=== PATIENT | male | born 1960 | race Caucasian/White ===

== ENCOUNTER 2019-11-27 07:40 | Inpatient (IN) | payer SELFPAY ==
[2019-11-27] VITALS (45 sets, daily range): BP systolic 106–169; BP diastolic 61–98; PULSE 68–100; RESP 0–49; TEMP 36.4–36.6; O2SAT 91–100; BMI 25.7
--- NOTE | 2019-11-27 08:07 | ED_ITS ---
Entered by Nneka Ramirez, acting as scribe for Kenneth Hays DO Nov 27, 2019 07:40 HPI - SOB/Dyspnea General: Chief Complaint: Shortness of Breath/Dyspnea Stated Complaint: Can not breath Time Seen by Provider: 11/27/19 08:07 History of Present Illness: HPI Narrative: 59 yo male presents with shortness of breath. Pt states that he has had a cough and not getting any better. Pt states that he has been sick for a week. Pt denies a productive cough. Pt has been seen at Urgent care, got some medications and an inhaler. Pt states that he passed out twice yesterday. Pt states that he has been dizzy. Pt has a laceration on the back of his head from passing out. MD elicited complaint: shortness of breath Associated symptoms: Reports abdominal pain, dizziness, extremity pain, fever(s), nausea, palpitations and syncope; Deny chest pain, orthopnea, polydipsia, polyuria or vomiting Review of Systems Const: Reports: fever, chills, body aches, fatigue and malaise; Denies: night sweats Eyes: Reports: change in vision; Denies: blurry vision ENMT: Denies: throat pain, oral sores/lesions, dental pain, nasal discharge or nasal congestion Card: Reports: palpitations, syncope and shortness of breath on exertion; Denies: chest pain, irregular heart rhythm, edema, shortness of breath when lying down or leg pain with exertion Resp: Reports: shortness of breath and non-productive cough; Denies: productive cough or wheezing GI: Reports: abdominal pain and nausea; Denies: vomiting, vomiting blood, coffee grounds in vomit, difficulty swallowing, heartburn/indigestion, diarrhea, constipation, cramping, blood in stool or black tarry stool : Denies: flank pain, difficulty urinating, painful urination, urinary frequency, urinary urgency, urinary incontinence or blood in urine Musc: Reports: extremity pain; Denies: neck pain, back pain, extremity swelling, joint pain or joint swelling Skin/Breast: Reports: other (laceration to back of head); Denies: rash, itching or redness Neuro: Reports: difficulty walking and dizziness; Denies: headache, numbness in extremities, weakness in extremities, changes in sensation, lack of coordination, frequent falls, vertigo or confusion Psych: Denies: anxiety, depression, loss of interest, visual hallucinations, auditory hallucinations, suicidal ideation or homicidal ideation Endo: Denies: excessive urination, excessive thirst, tired all the time or cold intolerance Sanchez/Lymph: Denies: easy bruising, easy bleeding, petechiae, enlarged lymph nodes or tender lymph nodes PFSH ED PFSH: Statuses (acute, chronic, etc) shown below reflect problem list status as previously entered and may not be historically accurate Medical History Diabetes (Acute) Hyperlipidemia (Acute) Hypothyroid (Acute) Family History Father Diabetes Social History Smoking and tobacco status: never smoked Alcohol intake: never Substance/Drug Use: never Marital status: Physical Exam Const: COMMON NORMALS: average body habitus and oriented x3 GENERAL APPEARANCE: cooperative, lethargic and ill appearing ORIENTATION/CONSCIOUSNESS: Yes awake, Yes oriented to person, Yes oriented to place and Yes lethargic HENMT: COMMON NORMALS: normocephalic, head/scalp atraumatic, EAC's normal, TM's normal bilaterally, external nose normal, moist oral mucous membranes and oropharynx normal HEAD & SCALP: normocephalic and atraumatic NOSE: external nose normal EXTERNAL AUDITORY CANAL: EAC's normal TYMPANIC MEMBRA NE: TM's normal bilaterally MOUTH: oral and palatal mucosa normal, lip normal and tongue normal THROAT: posterior oropharynx normal and tonsils normal Eye: COMMON NORMALS: PERRL, EOMs intact bilaterally, conjunctivae normal and no scleral icterus CONJUNCTIVA: Yes conjunctivae normal PUPIL: Yes PERRL Neck/C-Spine: COMMON NORMALS: full ROM, no lymphadenopathy, supple, no meningeal signs and thyroid normal THYROID: thyroid normal and asymmetrical Lymph: LYMPHATIC: no lymphadenopathy noted Resp: EFFORT & INSPECTION: No respiratory distress and Yes actively coughing Cardio: COMMON NORMALS: regular rate and regular rhythm RATE: regular rate RHYTHM: regular rhythm HEART SOUNDS: no murmurs GI: COMMON NORMALS: normal to inspection, nondistended, normoactive bowel sounds, soft to palpation and no hepatosplenomegaly PALPATION: Yes soft and Yes no hepatosplenomegaly : COMMON NORMALS: Yes no CVA tenderness BLADDER/KIDNEY EXAM: Yes no CVA tenderness Back/Pelvis: COMMON NORMALS: no CVA tenderness LUMBAR SPINE/LOWER BACK: Yes normal to inspection Extremity: COMMON NORMALS: no clubbing, cyanosis or edema, no calf tenderness and no pedal edema Neuro: COMMON NORMALS: oriented x3 SENSORIUM/ORIENTATION: Yes oriented to person, Yes oriented to place and Yes lethargic MENINGEAL SIGNS: Yes no meningeal signs Skin: COMMON NORMALS: no rashes or lesions noted and skin turgor normal GENERAL SKIN EXAM: no rashes or lesions noted and turgor normal Course ED course: Patient does not have acidosis but he does have an anion gap and some mild hypokalemia as well as hyperglycemia. Hest x-ray is unremarkable but CT did show pneumonia we will go ahead and admit for IV fluids treatment of pneumonia and treatment of hyperglycemia. Vital Signs: Vital signs: Vital Signs Temperature 97.9 F 11/28/19 05:23 Pulse Rate 76 11/28/19 08:00 Respiratory Rate 19 H 11/28/19 08:00 Blood Pressure 136/86 11/28/19 08:00 Pulse Oximetry 97 11/28/19 08:00 MDM - SOB/Dyspnea Lab Data: Labs: Lab Results 11/27/19 11/27/19 11/27/19 Range/Units 08:55 08:56 08:56 WBC 7.4 (4.0-10.0) 10^3/ uL RBC 4.97 (4.1-5.3) 10^6/u L Hgb 15.2 (11.7-16.6) g/dL Hct 43.1 (42.0-52.0) % MCV 86.7 (80-94) fL MCH 30.6 (28.0-34.0) pg MCHC 35.3 (30.0-36.0) g/dL RDW 11.5 L (12.1-15.1) % Plt Count 265 (130-400) 10^3/c mm MPV 9.7 (7.4-10.4) fL Neut % (Auto) 64.8 % Lymph % (Auto) 23.2 % Monona % (Auto) 9.4 % Eos % (Auto) 1.1 % Baso % (Auto) 0.1 % Neut # (Auto) 4.8 (1.8-7.7) 10^3/u L Lymph # (Auto) 1.7 (0.8-4.8) 10^3/u L Monona # (Auto) 0.7 (0.2-0.9) 10^3/u L Eos # (Auto) 0.1 (0.0-0.8) 10^3/u L Baso # (Auto) 0.0 (0.0-0.1) 10^3/u L Nucleated RBC % (a uto) 0 % Nucleated RBCs # 0.0 /100WBC Specimen Type Sample Site O2 Sat Pulse Oxime try ABG pH (7.35-7.45) ABG pCO2 (35-45) mmHg ABG pO2 (80.0-100.0) mmH g ABG HCO3 (22-26) mmol/L ABG O2 Saturation ABG Base Excess (-2.0-2.0) mmol/ L Spike Test A-a O2 Gradient Hematocrit Hgb O2 Saturation Carboxyhemoglobin Methemoglobin Total Hemoglobin Ionized Calcium (1.1-1.4) mmol/L Respiration Rate O2 Delivery Device O2 Liters/Min SIMV Vent Mode Mechanical Rate Spontaneous Rate FiO2 Tidal Volume PEEP Pressure Support Pressure Control CPAP Mode BiPAP Specimen Drawn By Practice Support Specialist ID Crit Value Read Ba ck Blood Gas Notified Time Sodium 128 L (136-145) mmol/L Potassium 4.2 (3.5-5.1) mmol/L Chloride 83 L (98-107) mmol/L Carbon Dioxide 21 L (22-29) mmol/L Anion Gap 28.2 H (5-19) BUN 28 H (6-20) mg/dL Creatinine 1.1 (0.7-1.2) mg/dL GFR Calculation 68.8 L (90-130) mL/min Glucose 467 H (74-109) mg/dL Calcium 10.8 H (8.5-10.5) mg/dL Total Bilirubin 0.7 (0.15-1.2) mg/dL AST 13 (0-40) U/L ALT 13 (0-41) U/L Alkaline Phosphata se 68 (40-130) IU/L Troponin T Baselin e (0-15) ng/mL Troponin T 120 Min table mountain (0-15) ng/mL Delta Troponin T (0-10) ABS# Total Protein 7.5 (6.6-8.7) g/dL Albumin 4.5 (3.5-5.2) g/dL Globulin 3.0 (1.3-4.6) g/dL Lipase 39 (13-60) U/L Serum Ketones (Negative) Influenza Type A A g Negative (Negative) POC Influenza B Ag Negative (Negative) 11/27/19 11/27/19 11/27/19 Range/Units 08:56 08:56 09:50 WBC (4.0-10.0) 10^3/ uL RBC (4.1-5.3) 10^6/u L Hgb (11.7-16.6) g/dL Hct (42.0-52.0) % MCV (80-94) fL MCH (28.0-34.0) pg MCHC (30.0-36.0) g/dL RDW (12.1-15.1) % Plt Count (130-400) 10^3/c mm MPV (7.4-10.4) fL Neut % (Auto) % Lymph % (Auto) % Monona % (Auto) % Eos % (Auto) % Baso % (Auto) % Neut # (Auto) (1.8-7.7) 10^3/u L Lymph # (Auto) (0.8-4.8) 10^3/u L [place] # (Auto) (0.2-0.9) 10^3/u L Eos # (Auto) (0.0-0.8) 10^3/u L Baso # (Auto) (0.0-0.1) 10^3/u L Nucleated RBC % (a uto) % Nucleated RBCs # /100WBC Specimen Type Cancelled Sample Site Cancelled O2 Sat Pulse Oxime try Cancelled ABG pH (7.35-7.45) ABG pCO2 (35-45) mmHg ABG pO2 (80.0-100.0) mmH g ABG HCO3 (22-26) mmol/L ABG O2 Saturation ABG Base Excess (-2.0-2.0) mmol/ L Spike Test Cancelled A-a O2 Gradient Cancelled Hematocrit Cancelled Hgb O2 Saturation Cancelled Carboxyhemoglobin Cancelled Methemoglobin Cancelled Total Hemoglobin Cancelled Ionized Calcium (1.1-1.4) mmol/L Respiration Rate Cancelled O2 Delivery Device Cancelled O2 Liters/Min Cancelled SIMV Cancelled Vent Mode Cancelled Mechanical Rate Cancelled Spontaneous Rate Cancelled FiO2 Cancelled Tidal Volume Cancelled PEEP Cancelled Pressure Support Cancelled Pressure Control Cancelled CPAP Cancelled Mode BiPAP Cancelled Specimen Drawn By Cancelled Practice Support Specialist ID Cancelled Crit Value Read Ba ck Cancelled Blood Gas Notified Time Cancelled Sodium (136-145) mmol/L Potassium (3.5-5.1) mmol/L Chloride (98-107) mmol/L Carbon Dioxide (22-29) mmol/L Anion Gap (5-19) BUN (6-20) mg/dL Creatinine (0.7-1.2) mg/dL GFR Calculation (90-130) mL/min Glucose (74-109) mg/dL Calcium (8.5-10.5) mg/dL Total Bilirubin (0.15-1.2) mg/dL AST (0-40) U/L ALT (0-41) U/L Alkaline Phosphata se (40-130) IU/L Troponin T Baselin e 14 (0-15) ng/mL Troponin T 120 Min table [place] (0-15) ng/mL Delta Troponin T (0-10) ABS# Total Protein (6.6-8.7) g/dL Albumin (3.5-5.2) g/dL Globulin (1.3-4.6) g/dL Lipase (13-60) U/L Serum Ketones Positive H (Negative) Influenza Type A A g (Negative) POC Influenza B Ag (Negative) 11/27/19 11/27/19 Range/Units 09:50 11:00 WBC (4.0-10.0) 10^3/ uL RBC (4.1-5.3) 10^6/u L Hgb (11.7-16.6) g/dL Hct (42.0-52.0) % MCV (80-94) fL MCH (28.0-34.0) pg MCHC (30.0-36.0) g/dL RDW (12.1-15.1) % Plt Count (130-400) 10^3/c mm MPV (7.4-10.4) fL Neut % (Auto) % Lymph % (Auto) % Monona % (Auto) % Eos % (Auto) % Baso % (Auto) % Neut # (Auto) (1.8-7.7) 10^3/u L Lymph # (Auto) (0.8-4.8) 10^3/u L [place]ona # (Auto) (0.2-0.9) 10^3/u L Eos # (Auto) (0.0-0.8) 10^3/u L Baso # (Auto) (0.0-0.1) 10^3/u L Nucleated RBC % (a uto) % Nucleated RBCs # /100WBC Specimen Type Arterial Sample Site Rr O2 Sat Pulse Oxime try ABG pH 7.34 L (7.35-7.45) ABG pCO2 36.4 (35-45) mmHg ABG pO2 64.2 L (80.0-100.0) mmH g ABG HCO3 17.6 L (22-26) mmol/L ABG O2 Saturation 91 ABG Base Excess -7.1 L (-2.0-2.0) mmol/ L Spike Test Pos A-a O2 Gradient 43.1 H Hematocrit 41.6 L Hgb O2 Saturation 89.7 L Carboxyhemoglobin 0.4 Methemoglobin 1.0 Total Hemoglobin 13.6 L Ionized Calcium 1.2 (1.1-1.4) mmol/L Respiration Rate O2 Delivery Device Ra O2 Liters/Min SIMV Vent Mode Mechanical Rate Spontaneous Rate FiO2 21.0 Tidal Volume PEEP Pressure Support Pressure Control CPAP Mode BiPAP Specimen Drawn By Gd Practice Support Specialist ID Gd Crit Value Read Ba ck Blood Gas Notified Time Sodium 136.0 (136-145) mmol/L Potassium 3.7 (3.5-5.1) mmol/L Chloride (98-107) mmol/L Carbon Dioxide (22-29) mmol/L Anion Gap (5-19) BUN (6-20) mg/dL Creatinine (0.7-1.2) mg/dL GFR Calculation (90-130) mL/min Glucose 375.0 H (74-109) mg/dL Calcium (8.5-10.5) mg/dL Total Bilirubin (0.15-1.2) mg/dL AST (0-40) U/L ALT (0-41) U/L Alkaline Phosphata se (40-130) IU/L Troponin T Baselin e (0-15) ng/mL Troponin T 120 Min [place] 10.62 (0-15) ng/mL Delta Troponin T -3.38 L (0-10) ABS# Total Protein (6.6-8.7) g/dL Albumin (3.5-5.2) g/dL Globulin (1.3-4.6) g/dL Lipase (13-60) U/L Serum Ketones (Negative) Influenza Type A A g (Negative) POC Influenza B Ag (Negative) Imaging Data^: CXR: Radiologist's impression: Patient: Raz Dewey Unit #: [id number] : 1960 Age/Sex: 59 / M ADM Date: 11/27/19 Loc: ER Room/Bed: Attending Dr: Ordering Provider/Ordering MD: Kenneth Hays DO Date of Service: 11/27/19 Procedure(s): XR chest 1V portable [id number] Accession Number(s): [id number] Report Number: [id number] PROCEDURE INFORMATION: Exam: XR Chest, 1 View Exam date and time: 11/27/2019 8:51 AM Age: 59 years old Clinical indication: Dyspnea; Additional info: Dyspnea, sick x1 week TECHNIQUE: Imaging protocol: XR of the chest Views: 1 view. COMPARISON: No relevant prior studies available. FINDINGS: Lungs: Mild interstitial prominence and chronic granulomatous disease. No acute infiltrate. Pleural space: No pleural effusion. Heart/Mediastinum: No cardiomegaly. Bones/joints: Degenerative change. XR/XR chest 1V portable [id number] IMPRESSION: Mild interstitial prominence and chronic granulomatous disease. Dictated By: Lg Barcenas MD Signed By: Lg Barcenas MD Signed Date/Time: 11/27/19929 DD/ 8 CT Chest: Radiologist's impression: : 1960 Age/Sex: 59 / M ADM Date: 11/27/19 Loc: ER Room/Bed: Attending Dr: Ordering Provider/Ordering MD: Kenneth Hays DO Date of Service: 11/27/19 Procedure(s): CT angio chest PE protcl [id number] Accession Number(s): [id number] Report Number: [id number] WS: [id number] CT CHEST ANGIOGRAPHY WITH REFORMATS HISTORY: hypoxia TECHNIQUE: Contiguous axial images are obtained through the chest during arterial injection of intravenous contrast. Images are reconstructed to evaluate the pulmonary arteries. MIP imaging also reviewed. All CT scans at [facility] use at least one of these dose optimization techniques: automated exposure control; mA and/or kV adjustment per patient size (includes targeted exams where dose is matched to clinical indication); or iterative reconstruction. CONTRAST: Omnipaque 350; 95 mL IV. DLP: 505.54 mGy.cm COMPARISON: None available. Excellent opacification of the pulmonary arteries. There are no filling defects. Normal size pulmonary artery. Normal thoracic aorta with only mild atherosclerotic changes. No aneurysm. No pericardial or pleural effusions. Benign scattered granulomata. Pneumonia noted in the medial LEFT lower lung field. There are additional dependent changes at the lung bases. No suspicious mass. No mediastinal or hilar adenopathy. Small hiatal hernia. Mild hepatic steatosis. Gallbladder is moderately well distended without adjacent inflammation. No adrenal mass. Mild increase in thoracic kyphosis. CT/CT angio chest PE protcl [id number] IMPRESSION: 1. No pulmonary embolism. 2. LEFT lower lobe pneumonia. 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
--- NOTE | 2019-11-27 08:11 | PC.NURSE ---
Patient c/o weakness, cough, fatigue, Patient started getting sick about 10 days ago and is not getting any better.
--- NOTE | 2019-11-27 08:36 | XRR_ITS ---
PROCEDURE INFORMATION: Exam: XR Chest, 1 View Exam date and time: 11/27/2019 8:51 AM Age: 59 years old Clinical indication: Dyspnea; Additional info: Dyspnea, sick x1 week TECHNIQUE: Imaging protocol: XR of the chest Views: 1 view. COMPARISON: No relevant prior studies available. FINDINGS: Lungs: Mild interstitial prominence and chronic granulomatous disease. No acute infiltrate. Pleural space: No pleural effusion. Heart/Mediastinum: No cardiomegaly. Bones/joints: Degenerative change. XR/XR chest 1V portable [id number] IMPRESSION: Mild interstitial prominence and chronic granulomatous disease.
--- NOTE | 2019-11-27 08:36 | PC.NURSE ---
Report received from Mathew Mahoney RN
[2019-11-27] MEDS: ipratropium-albuterol 3 mL Neb INHALATION (08:53)
--- NOTE | 2019-11-27 08:56 | ECG_ITS ---
Measurements Intervals [place] Rate: 89 P: 31 SD: 136 QRS: 34 QRSD: 96 T: 44 QT: 364 QTc: 445 SINUS RHYTHM No previous ECG available for comparison Electronically Signed On 11-27-2019 15:34:02 CLINICAL REVIEW NURSE by Xochitl Hess M.D. [email or web address]
[2019-11-27] MEDS: sodium chloride 0.9% 1,000 ML 999 ML IV ×3 (09:00→12:13)
[2019-11-27 09:07] LABS: Basophils % 0.1 %; Eosinophils # 0.1 10^3/uL (0.0-0.8); Eosinophils % 1.1 %; Hematocrit 43.1 % (42.0-52.0); Hemoglobin 15.2 g/dL (11.7-16.6); Lymphocytes # 1.7 10^3/uL (0.8-4.8); Lymphocytes % 23.2 %; Mean Corpuscular HGB Conc 35.3 g/dL (30.0-36.0); Mean Corpuscular Hemoglobin 30.6 pg (28.0-34.0); Mean Corpuscular Volume 86.7 fL (80-94); Mean Platelet Volume 9.7 fL (7.4-10.4); Monocytes # 0.7 10^3/uL (0.2-0.9); Monocytes % 9.4 %; Neutrophils # 4.8 10^3/uL (1.8-7.7); Neutrophils % 64.8 %; Nucleated Red Blood Cells % 0 %; Platelet Count 265 10^3/cmm (130-400); Red Blood Count 4.97 10^6/uL (4.1-5.3); Red Cell Distribution Width 11.5 % (12.1-15.1); White Blood Count 7.4 10^3/uL (4.0-10.0)
[2019-11-27 09:18] LABS: Alanine Aminotransferase 13 U/L (0-41); Albumin Level 4.5 g/dL (3.5-5.2); Alkaline Phosphatase 68 IU/L (40-130); Anion Gap 28.2 (5-19); Aspartate Amino Transferase 13 U/L (0-40); Blood Urea Nitrogen 28 mg/dL (6-20); Calcium 10.8 mg/dL (8.5-10.5); Carbon Dioxide 21 mmol/L (22-29); Chloride 83 mmol/L (98-107); Glomerular Filtration Rate 68.8 mL/min (90-130); Glucose 467 mg/dL (74-109); Lipase 39 U/L (13-60); Potassium 4.2 mmol/L (3.5-5.1); Sodium 128 mmol/L (136-145); Total Bilirubin 0.7 mg/dL (0.15-1.2); Total Protein 7.5 g/dL (6.6-8.7)
[2019-11-27 09:20] LABS: Troponin(5th) Baseline 14 ng/mL (0-15)
[2019-11-27 09:31] LABS: Influenza A by IFA Negative (Negative); Influenza B by IFA Negative (Negative)
[2019-11-27 10:06] LABS: Ketone (Acetest) Serum Positive (Negative)
--- NOTE | 2019-11-27 10:20 | CT_ITS ---
WS: [id number] CT CHEST ANGIOGRAPHY WITH REFORMATS HISTORY: hypoxia TECHNIQUE: Contiguous axial images are obtained through the chest during arterial injection of intrav enous contrast. Images are reconstructed to evaluate the pulmonary arteries. MIP imaging also reviewe d. All CT scans at [facility] use at least one of these dose optimization techniques: aut omated exposure control; mA and/or kV adjustment per patient size (includes targeted exams where dose is matched to clinical indication); or iterative reconstruction. CONTRAST: Omnipaque 350; 95 mL IV. DLP: 505.54 mGy.cm COMPARISON: None available. Excellent opacification of the pulmonary arteries. There are no filling defects. Normal size pulmonar y artery. Normal thoracic aorta with only mild atherosclerotic changes. No aneurysm. No pericardial o r pleural effusions. Benign scattered granulomata. Pneumonia noted in the medial LEFT lower lung field. There are additional dependent changes at the mignon ng bases. No suspicious mass. No mediastinal or hilar adenopathy. Small hiatal hernia. Mild hepatic steatosis. Gallbladder is moderately well distended without adjacent inflammation. No ad renal mass. Mild increase in thoracic kyphosis. CT/CT angio chest PE protcl [id number] IMPRESSION: 1. No pulmonary embolism. 2. LEFT lower lobe pneumonia.
[2019-11-27] MEDS: iohexol 350 mg/mL 100 mL Btl IV (10:43)
[2019-11-27] MEDS: sodium chlor 0.9% + KCl 20 mEq 20 MEQ/1,000 ML BAG 125 MEQ IV (10:57)
[2019-11-27] MEDS: insulin regular-human 100 units/1 mL 10 UNIT IVP (10:57)
[2019-11-27] MEDS: insulin regular-human 250 UNIT in sodium chloride 0.9% 250 ML 60.6 UNIT IV (11:00)
[2019-11-27 11:21] LABS: Troponin 5 2HR 10.62 ng/mL (0-15)
[2019-11-27 11:38] LABS: Troponin 5 2HR Delta -3.38 ABS# (0-10)
--- NOTE | 2019-11-27 11:46 | PC.NURSE ---
BS taken at bedside, 292. Dr Herzog at bedside. VO received to start D5NS with 20mEq KCL at 100 when pt BS is below 250.
[2019-11-27 11:47] LABS: Glucose Point of Care 292 mg/dL (70-110)
[2019-11-27 11:51] LABS: ABG PCO2 36.4 mmHg (35-45); ABG PH Result 7.34 (7.35-7.45); Base Excess ABG -7.1 mmol/L (-2.0-2.0); HCO3 ABG 17.6 mmol/L (22-26); Oxygen Saturation ABG 91; PO2 ABG 64.2 mmHg (80.0-100.0)
[2019-11-27 11:52] LABS: Arterial Blood Gas Hematocrit 41.6 % (42-52); Blood Gas Allen Test POS; Blood Gas Drawn By GD; Blood Gas Operator Identificat GD; Blood Gas Sample Site RR; Blood Gas Sample Type ARTERIAL; Oxygen Device RA; Potassium Level - ABG 3.7 mmol/L (3.5-5.0)
[2019-11-27 11:53] LABS: Alveolar-Arterial Oxygen Gradi 43.1 mmHg (5-10); Carboxyhemoglobin 0.4 %THgb (0.4-20.1); HGB O2 Sat 89.7 % (95-100); Ionized Calcium Level - ABG 1.2 mmol/L (1.1-1.4); Total Hemoglobin 13.6 g/dL (14-18)
[2019-11-27] MEDS: levofloxacin-dextrose 5 % 750 MG/150 ML PREMIX 150 MG IV (12:13)
[2019-11-27 12:47] LABS: Anion Gap 23.6 (5-19); Blood Urea Nitrogen 23 mg/dL (6-20); Calcium 9.2 mg/dL (8.5-10.5); Carbon Dioxide 17 mmol/L (22-29); Chloride 95 mmol/L (98-107); Glomerular Filtration Rate 99.3 mL/min (90-130); Glucose 298 mg/dL (74-109); Osmolality Calculated 282 mOsm/kg (285-295); Potassium 3.6 mmol/L (3.5-5.1); Sodium 132 mmol/L (136-145)
--- NOTE | 2019-11-27 12:55 | P.HP_ITS ---
Providers/Chief Complaint Admitting Physician: Keren Herzog DO Primary Care Provider: None Chief Complaint: Can not breath History of Present Illness Raz Dewey is a 59 year old male that presented to the emergency department today for not feeling well. He stated that he has had increased fatigue and lethargy as well as increased cough over the past 1 week. He reports dry cough, no sputum production, no hemoptysis. Reports that he has been increasingly weak with lightheadedness and dizziness. Reported that he passed out twice while urinating over the past 24 hours, denies any loss of consciousness but reported by his significant other that he was in the bathroom and collapsed to the ground. Patient reports that he has been diagnosed with diabetes in the past bu t does not have a primary care provider and does not take anything for his blood sugars. Stated that his blood sugars typically run in the 300-400 range, he reported that he has been on insulin in the past but it did not work he stated that he was on metformin and Actos in the past also but it caused upset stomach therefore he stopped taking the medication. Review of Systems Const: Reports: fever; Denies: chills Eyes: Denies: change in vision ENMT: Denies: nasal congestion Card: Denies: chest pain, palpitations or edema Resp: Reports: shortness of breath and non-productive cough; Denies: productive cough or coughing up blood GI: Reports: nausea; Denies: abdominal pain, vomiting, diarrhea, constipation, blood in stool or black tarry stool : Denies: painful urination or blood in urine Musc: Denies: extremity pain or muscle cramps Skin/Breast: Denies: rash or new lesion Neuro: Reports: dizziness; Denies: headache Psych: Denies: anxiety or depression Endo: Reports: excessive urination; Denies: hot flashes Sanchez/Lymph: Denies: easy bruising or easy bleeding Medications/Allergies Home Medications Medication Instructions Recorded Confirmed Last Taken Type Probiotic 1 cap PO DAILY 11/27/19 11/27/19 Unknown History albuterol sulfate [ProAir HFA] 1 puff INHALATION Q6H PRN 11/27/19 11/27/19 11/26/19 History doxycycline hyclate 100 mg PO BID 11/27/19 11/27/19 11/26/19 History multivitamin [Multiple Vitamins] 1 tab PO DAILY 11/27/19 11/27/19 Unknown History prednisone 40 mg PO DAILY 11/27/19 11/27/19 11/26/19 History Allergies Allergy/AdvReac Type Severity Reaction Status Date / Time meperidine [From Demerol] Allergy Unknown Verified 11/27/19 09:48 PFSH Acute PFSH: Statuses (acute, chronic, etc) shown below reflect problem list status as previously entered and may not be historically accurate Medical History (Updated 11/27/19 @ 13:01 by Keren Herzog DO) Diabetes (Acute) Hyperlipidemia (Acute) Hypothyroid (Acute) Family History (Updated 11/27/19 @ 13:02 by Keren Herzog DO) Father Diabetes Social History (Updated 11/27/19 @ 13:02 by Keren Herzog DO) Smoking and tobacco status: never smoked Alcohol intake: never Substance/Drug Use: never Marital status: Vitals/I&O/Wt Last Vital Signs Temp 97.6 F 11/27/19 08:01 Pulse 91 11/27/19 11:00 Resp 18 11/27/19 11:45 BP 169/91 11/27/19 11:00 Pulse Ox 95 11/27/19 11:45 11/26/19 11/27/19 11/27/19 22:59 06:59 14:59 Intake Total 2158.333 / 2158.333 Balance 2158.333 / 2158.333 Weight last 48 hrs Weight 83.915 kg Physical Exam Const: COMMON NORMALS: oriented x3 and alert ORIENTATION/CONSCIOUSNESS: Yes awake, Yes oriented to person, Yes oriented to place and Yes oriented to time HENMT: COMMON NORMALS: normocephalic and head/scalp atraumatic HEAD & SCALP: normocephalic and atraumatic Eye: COMMON NORMALS: PERRL PUPIL: Yes PERRL Neck/C-Spine: COMMON NORMALS: supple GENERAL: Yes normal visual inspection Resp: EFFORT & INSPECTION: Yes tachypneic and Yes actively coughing AUSCULTATION: rhonchi Cardio: COMMON NORMALS: regular rate, regular rhythm and no murmurs RATE: regular rate RHYTHM: regular rhythm GI: COMMON NORMALS: soft to palpation and non-tender INSPECTION: No abdomin al distension AUSCULTATION: Yes normoactive bowel sounds PALPATION: Yes soft Extremity: COMMON NORMALS: no clubbing, cyanosis or edema and no calf tenderness Neuro: COMMON NORMALS: oriented x3, CN's II-XII intact bilaterally, moves all extremities and no focal motor deficits SENSORIUM/ORIENTATION: Yes alert, Yes oriented to person, Yes oriented to place and Yes oriented to time SPEECH: speech normal Psych: COMMON NORMALS: mental status grossly normal and cooperative Skin: COMMON NORMALS: no rashes or lesions noted GENERAL SKIN EXAM: no rashes or lesions noted Data : 11/27/19 08:56 11/27/19 12:20 CTA Chest: Radiologist's impression: IMPRESSION: 1. No pulmonary embolism. 2. LEFT lower lobe pneumonia CXR: Radiologist's impression: IMPRESSION: Mild interstitial prominence and chronic granulomatous disease. A&P Assessment and plan (1) DKA, type 2: Patient with DKA Admit to ICU on insulin drip Continue with serial BMPs, transition to subcutaneous insulin when appropriate Patient has been off of all diabetic medications for quite some time, will check A1c Continue with aggressive IV fluids, transition to D5 NS with 20 of KCl when blood glucose less than 250 Status: Acute Code(s): E11.10 - Type 2 diabetes mellitus with ketoacidosis without coma (2) Diabetes: Discussed with patient that he will require subcutaneous insulin at time of discharge Status: Acute Code(s): E11.9 - Type 2 diabetes mellitus without complications (3) Pneumonia: We will continue with IV Levaquin at this time. Patient has been on outp atient antibiotics and failed outpatient treatment Status: Acute Code(s): J18.9 - Pneumonia, unspecified organism (4) Hypothyroid: Will check TSH, patient denies being on any thyroid replacement Status: Acute Code(s): E03.9 - Hypothyroidism, unspecified Attestations Medical Necessity Statement*: Patient requires ICU admission due to diabetic ketoacidosis and pneumonia, expected stay greater than 2 midnights. 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
[2019-11-27 13:45] LABS: Glucose Point of Care 285 mg/dL (70-110)
[2019-11-27 14:10] LABS: Glucose Point of Care 261 mg/dL (70-110)
--- NOTE | 2019-11-27 14:56 | ECG_ITS ---
Measurements Intervals [place] Rate: 92 P: 29 TN: 132 QRS: 38 QRSD: 98 T: 60 QT: 351 QTc: 435 SINUS RHYTHM NONSPECIFIC T-WAVE ABNORMALITY No previous ECG available for comparison Electronically Signed On 11-27-2019 15:37:35 [employer] ARCHITECT by Xochitl Hess M.D. [id number]
[2019-11-27 15:20] LABS: Glucose Point of Care 259 mg/dL (70-110)
[2019-11-27 15:21] LABS: Estmated Average Glucose 346; Hemoglobin A1C 13.7 % (4.0-6.0)
[2019-11-27 15:23] LABS: Anion Gap 22.5 (5-19); Blood Urea Nitrogen 21 mg/dL (6-20); Calcium 9.4 mg/dL (8.5-10.5); Carbon Dioxide 19 mmol/L (22-29); Chloride 96 mmol/L (98-107); Glomerular Filtration Rate 99.3 mL/min (90-130); Glucose 274 mg/dL (74-109); Osmolality Calculated 284 mOsm/kg (285-295); Potassium 3.5 mmol/L (3.5-5.1); Sodium 134 mmol/L (136-145)
[2019-11-27 15:25] LABS: Troponin 5 6HR 12.45 ng/L (0-15)
[2019-11-27] MEDS: enoxaparin 40 mg/0.4 mL Syringe SUBCUT (15:30)
[2019-11-27] MEDS: dextrose 5%-ns + KCl 20 20 MEQ/1,000 ML BAG 150 MEQ IV ×2 (15:31→21:59)
[2019-11-27 15:33] LABS: Thyroid Stimulating Hormone 1.41 uIU/mL (0.27-4.20)
[2019-11-27 15:37] LABS: Troponin 5 6HR Delta -1.55 ng/L (0-12)
[2019-11-27 16:07] LABS: Glucose Point of Care 249 mg/dL (70-110)
[2019-11-27 17:03] LABS: Glucose Point of Care 248 mg/dL (70-110)
[2019-11-27 18:01] LABS: Glucose Point of Care 252 mg/dL (70-110)
[2019-11-27 19:04] LABS: Glucose Point of Care 199 mg/dL (70-110)
[2019-11-27 20:37] LABS: Anion Gap 15.5 (5-19); Blood Urea Nitrogen 17 mg/dL (6-20); Calcium 9.4 mg/dL (8.5-10.5); Carbon Dioxide 25 mmol/L (22-29); Chloride 98 mmol/L (98-107); Creatinine Clr Calc Pharmacy 128.1185; Glomerular Filtration Rate 115.8 mL/min (90-130); Glucose 218 mg/dL (74-109); Osmolality Calculated 283 mOsm/kg (285-295); Potassium 3.5 mmol/L (3.5-5.1); Sodium 135 mmol/L (136-145)
--- NOTE | 2019-11-27 21:17 | PC.NURSE ---
TITRATING INSULIN DRIP ON PAPER.
[2019-11-27 22:05] LABS: Glucose Point of Care 165 mg/dL (70-110)
[2019-11-27 22:05] LABS: Glucose Point of Care 183 mg/dL (70-110)
[2019-11-27 22:05] LABS: Glucose Point of Care 132 mg/dL (70-110)
[2019-11-27 23:17] LABS: Glucose Point of Care 109 mg/dL (70-110)
[2019-11-28] VITALS (27 sets, daily range): BP systolic 123–177; BP diastolic 76–104; PULSE 70–106; RESP 3–24; TEMP 36.5–36.8; O2SAT 94–100
[2019-11-28 00:08] LABS: Glucose Point of Care 109 mg/dL (70-110)
[2019-11-28 00:46] LABS: Anion Gap 16.5 (5-19); Blood Urea Nitrogen 15 mg/dL (6-20); Calcium 9.4 mg/dL (8.5-10.5); Carbon Dioxide 25 mmol/L (22-29); Chloride 98 mmol/L (98-107); Creatinine Clr Calc Pharmacy 128.1185; Glomerular Filtration Rate 115.8 mL/min (90-130); Glucose 130 mg/dL (74-109); Osmolality Calculated 280 mOsm/kg (285-295); Potassium 3.5 mmol/L (3.5-5.1); Sodium 136 mmol/L (136-145)
[2019-11-28 01:38] LABS: Glucose Point of Care 116 mg/dL (70-110)
[2019-11-28 02:26] LABS: Glucose Point of Care 106 mg/dL (70-110)
[2019-11-28 04:55] LABS: Basophils % 0.1 %; Eosinophils # 0.1 10^3/uL (0.0-0.8); Eosinophils % 0.6 %; Hematocrit 36.5 % (42.0-52.0); Hemoglobin 12.9 g/dL (11.7-16.6); Lymphocytes % 23.8 %; Mean Corpuscular HGB Conc 35.3 g/dL (30.0-36.0); Mean Corpuscular Hemoglobin 30.5 pg (28.0-34.0); Mean Corpuscular Volume 86.3 fL (80-94); Mean Platelet Volume 9.8 fL (7.4-10.4); Monocytes # 0.8 10^3/uL (0.2-0.9); Monocytes % 9.6 %; Neutrophils # 5.5 10^3/uL (1.8-7.7); Neutrophils % 65.1 %; Nucleated Red Blood Cells % 0 %; Platelet Count 219 10^3/cmm (130-400); Red Blood Count 4.23 10^6/uL (4.1-5.3); Red Cell Distribution Width 11.2 % (12.1-15.1); White Blood Count 8.5 10^3/uL (4.0-10.0)
[2019-11-28 05:05] LABS: Alanine Aminotransferase 9 U/L (0-41); Albumin Level 3.4 g/dL (3.5-5.2); Alkaline Phosphatase 48 IU/L (40-130); Anion Gap 16.2 (5-19); Aspartate Amino Transferase 12 U/L (0-40); Blood Urea Nitrogen 13 mg/dL (6-20); Calcium 9.3 mg/dL (8.5-10.5); Carbon Dioxide 23 mmol/L (22-29); Chloride 100 mmol/L (98-107); Creatinine Clr Calc Pharmacy 149.4716; Globulin 2.5 g/dL (1.3-4.6); Glomerular Filtration Rate 138.4 mL/min (90-130); Glucose 108 mg/dL (74-109); Potassium 3.2 mmol/L (3.5-5.1); Sodium 136 mmol/L (136-145); Total Bilirubin 0.5 mg/dL (0.15-1.2); Total Protein 5.9 g/dL (6.6-8.7)
[2019-11-28] MEDS: dextrose 5%-ns + KCl 20 20 MEQ/1,000 ML BAG 150 MEQ IV (05:13)
--- NOTE | 2019-11-28 06:49 | PC.NURSE ---
SHIFT SUMMARY PT HAS REMAINED ALERT AND ORIENTATED. BLOOD SUGAR CHECKED Q1H. PT IS SELF TURN. PT HAS HAD ADEQUATE URINE OUTPUT. PT LUNGS ARE CLEAR, DIMINISHED. PT HAS NOT COMPLAINED OF ANY NAUSEA,VOMITING.
--- NOTE | 2019-11-28 06:55 | PM.PN ---
Subjective Subjective: Interval history: Patient is doing a bit better today. Seems a bit tired. No fevers or chills. No shortness of breath. Still on 3 L of oxygen though. Blood sugars have been doing well. He is on about 2 to 4 units/h to keep his blood sugars in the 130s. Vitals/I&O/Wt Last Vital Signs Temp 97.9 F 11/28/19 05:23 Pulse 71 11/28/19 06:00 Resp 15 11/28/19 06:00 BP 127/83 11/28/19 06:00 Pulse Ox 100 11/28/19 06:00 11/27/19 11/27/19 11/28/19 14:59 22:59 06:59 Intake Total 2408.333 / 5030.833 1622.5 / 5030.833 1000 / 5030.833 Output Total 800 / 1800 1000 / 1800 Balance 2408.333 / 3230.833 822.5 / 3230.833 0 / 3230.833 Weight last 48 hrs Weight 197 lb 8 oz Weight 185 lb Physical Exam Narrative: EXAM NARRATIVE: General: No acute distress, Alert. Well nourished. Heart: Regular rate and rhythm. No murmurs, rubs or gallops. Normal capillary refill. Lungs: Clear to auscultation. No wheezes, rhonchi or rales. Abdomen: Positive bowel sounds. Non-tender, non-distended. No hepatosplenomegaly. No gaurding. Extremities: No clubbing, cyanosis, or edema. Negative Kyle's Data : 11/28/19 04:31 11/28/19 04:31 A&P Assessment and plan (1) DKA, type 2: Patient's blood sugars seem to be doing much better. Slightly hypokalemic. We will replace this orally today. We will go ahead and wean him off the insulin drip this morning. Start him on some Lantus twice a day and regular insulin. If he does well we will transfer him to the floor later this afternoon. Allow him to start having a regular diabetic diet. We will get a diabetic education. Discussed with him the need for treatment. He states that he is tried things in the past and not tolerated. He apparently does not have a primary care provider. He has been managing his own care. Status: Acute Code(s): E11.10 - Type 2 diabetes mellitus with ketoacidosis without coma (2) Pneumonia: Continue Levaquin. Work at weaning down his oxygen. Give him incentive spirometer Status: Acute Code(s): J18.9 - Pneumonia, unspecified organism Attestations Medical Necessity Statement*: Patient is a 59-year-old gentleman with DKA requiring continued inpatient treatment and monitoring. Coding Level of Care Code Acute Credit Collection Associate for [facility] Diagnoses DKA, type 2 E11.10 Pneumonia J18.9
[2019-11-28 07:09] LABS: Glucose Point of Care 104 mg/dL (70-110)
[2019-11-28 07:09] LABS: Glucose Point of Care 92 mg/dL (70-110)
[2019-11-28 07:09] LABS: Glucose Point of Care 91 mg/dL (70-110)
[2019-11-28 07:09] LABS: Glucose Point of Care 103 mg/dL (70-110)
[2019-11-28 07:09] LABS: Glucose Point of Care 110 mg/dL (70-110)
[2019-11-28] MEDS: insulin glargine 100 units/1 mL 25 UNIT SUBCUT ×2 (07:24→19:37)
[2019-11-28] MEDS: sodium chlor 0.9% + KCl 20 mEq 20 MEQ/1,000 ML BAG 125 MEQ IV (07:47)
[2019-11-28] MEDS: levofloxacin-dextrose 5 % 750 MG/150 ML PREMIX 150 MG IV (09:20)
[2019-11-28 10:55] LABS: Glucose Point of Care 226 mg/dL (70-110)
[2019-11-28] MEDS: enoxaparin 40 mg/0.4 mL Syringe SUBCUT (13:12)
[2019-11-28 16:00] LABS: Glucose Point of Care 291 mg/dL (70-110)
[2019-11-28 17:35] LABS: Blood Urea Nitrogen 17 mg/dL (6-20); Calcium 10.4 mg/dL (8.5-10.5); Carbon Dioxide 23 mmol/L (22-29); Chloride 94 mmol/L (98-107); Glomerular Filtration Rate 99.3 mL/min (90-130); Glucose 328 mg/dL (74-109); Osmolality Calculated 281 mOsm/kg (285-295); Sodium 131 mmol/L (136-145)
[2019-11-28 19:58] LABS: Glucose Point of Care 397 mg/dL (70-110)
[2019-11-28 23:55] LABS: Glucose Point of Care 253 mg/dL (70-110)
[2019-11-29] VITALS (28 sets, daily range): BP systolic 108–164; BP diastolic 75–97; PULSE 76–101; RESP 13–22; TEMP 36.7–37; O2SAT 93–100
[2019-11-29 04:11] LABS: Glucose Point of Care 184 mg/dL (70-110)
[2019-11-29 04:37] LABS: Basophils % 0.1 %; Eosinophils # 0.1 10^3/uL (0.0-0.8); Eosinophils % 1.3 %; Hematocrit 39.5 % (42.0-52.0); Hemoglobin 13.9 g/dL (11.7-16.6); Lymphocytes # 1.8 10^3/uL (0.8-4.8); Mean Corpuscular HGB Conc 35.2 g/dL (30.0-36.0); Mean Corpuscular Hemoglobin 30.3 pg (28.0-34.0); Mean Corpuscular Volume 86.1 fL (80-94); Mean Platelet Volume 9.7 fL (7.4-10.4); Monocytes # 0.7 10^3/uL (0.2-0.9); Monocytes % 9.9 %; Neutrophils # 4.2 10^3/uL (1.8-7.7); Neutrophils % 61.8 %; Nucleated Red Blood Cells % 0 %; Platelet Count 213 10^3/cmm (130-400); Red Blood Count 4.59 10^6/uL (4.1-5.3); Red Cell Distribution Width 11.4 % (12.1-15.1); White Blood Count 6.7 10^3/uL (4.0-10.0)
[2019-11-29 04:58] LABS: Alanine Aminotransferase 10 U/L (0-41); Albumin Level 3.5 g/dL (3.5-5.2); Alkaline Phosphatase 58 IU/L (40-130); Anion Gap 17.3 (5-19); Aspartate Amino Transferase 13 U/L (0-40); Blood Urea Nitrogen 14 mg/dL (6-20); Carbon Dioxide 26 mmol/L (22-29); Chloride 98 mmol/L (98-107); Globulin 3.1 g/dL (1.3-4.6); Glomerular Filtration Rate 115.8 mL/min (90-130); Glucose 225 mg/dL (74-109); Potassium 3.3 mmol/L (3.5-5.1); Sodium 138 mmol/L (136-145); Total Bilirubin 0.5 mg/dL (0.15-1.2); Total Protein 6.6 g/dL (6.6-8.7)
--- NOTE | 2019-11-29 06:48 | PC.NURSE ---
Dr. Baltazar at bedside, updated on patient status and amount of insulin given during the night. Report given to JOSHUA Ash.
[2019-11-29 07:29] LABS: Glucose Point of Care 199 mg/dL (70-110)
[2019-11-29] MEDS: insulin glargine 100 units/1 mL 35 UNIT SUBCUT ×2 (07:43→20:07)
--- NOTE | 2019-11-29 08:27 | PM.PN ---
Subjective Subjective: Interval history: Overall seem to be a little bit better. Less short of breath. Blood sugars were in the 200s on Lantus and sliding scale. No fevers or chills. No chest pain. Vitals/I&O/Wt Last Vital Signs Temp 98.4 F 11/29/19 04:16 Pulse 94 11/29/19 07:42 Resp 17 11/29/19 06:00 BP 147/93 11/29/19 06:00 Pulse Ox 95 11/29/19 07:42 11/28/19 11/29/19 11/29/19 22:59 06:59 14:59 Intake Total 1850 / 4000 500 / 4000 Output Total 1400 / 2000 Balance 450 / 2000 500 / 2000 Weight last 48 hrs Weight 196 lb Weight 197 lb 8 oz Physical Exam Narrative: EXAM NARRATIVE: General: No acute distress, Alert. Well nourished. Heart: Regular rate and rhythm. No murmurs, rubs or gallops. Normal capillary refill. Lungs: Clear to auscultation. No wheezes, rhonchi or rales. Abdomen: Positive bowel sounds. Non-tender, non-distended. No hepatosplenomegaly. No gaurding. Extremities: No clubbing, cyanosis, or edema. Negative Kyle's Data : 11/29/19 04:12 11/29/19 04:12 A&P Assessment and plan (1) DKA, type 2: This is essentially resolved now. Just trending his blood sugars are better controlled before discharge. Will increase his Lantus today to 35 units twice a day. Continue with sliding scale. Transfer to the floor today. We will get a diabetic education. Discussed with him the need for treatment. He states that he is tried things in the past and not tolerated. He apparently does not have a primary care provider. He has been managing his own care. Status: Acute Code(s): E11.10 - Type 2 diabetes mellitus with ketoacidosis without coma (2) Pneumonia: Continue Levaquin. Work at weaning down his oxygen. Give him incentive spirometer Status: Acute Code(s): J18.9 - Pneumonia, unspecified organism Attestations Medical Necessity Statement*: 59-year-old gentleman with DKA and pneumonia requiring continued inpatient treatment. Likely discharge tomorrow. Coding Level of Care Code Acute Pharmacy Operations Manager for [facility] Diagnoses DKA, type 2 E11.10 Pneumonia J18.9
[2019-11-29] MEDS: levofloxacin-dextrose 5 % 750 MG/150 ML PREMIX 150 MG IV (09:18)
[2019-11-29 11:44] LABS: Glucose Point of Care 314 mg/dL (70-110)
[2019-11-29] MEDS: enoxaparin 40 mg/0.4 mL Syringe SUBCUT (12:46)
[2019-11-29 16:00] LABS: Glucose Point of Care 352 mg/dL (70-110)
--- NOTE | 2019-11-29 19:13 | PC.NURSE ---
Introduction of staff and report received, aidet.
[2019-11-29 19:44] LABS: Glucose Point of Care 277 mg/dL (70-110)
[2019-11-30] VITALS: BP 135/83; PULSE 92; RESP 20; TEMP 36.5; O2SAT 98
[2019-11-30 00:32] LABS: Glucose Point of Care 219 mg/dL (70-110)
--- NOTE | 2019-11-30 03:20 | PC.NURSE ---
Pt has slept well this night. only complaint voiced was having to be woke up in the middle of the night just to get vitals . Pt educated that everyone gets midnight vitals unless directed by the attending not to.
[2019-11-30 04:00] VITALS: BP 112/76; PULSE 96; RESP 20; TEMP 36.4; O2SAT 96
[2019-11-30 05:06] LABS: Glucose Point of Care 136 mg/dL (70-110)
[2019-11-30 07:51] VITALS: BP 117/81; PULSE 94; RESP 16; TEMP 36.4; O2SAT 95
[2019-11-30] MEDS: insulin glargine 100 units/1 mL 35 UNIT SUBCUT (08:10)
[2019-11-30] MEDS: levofloxacin-dextrose 5 % 750 MG/150 ML PREMIX 150 MG IV (10:26)
[2019-11-30 11:30] VITALS: BP 131/82; PULSE 88; RESP 16; TEMP 37.4; O2SAT 95
[2019-11-30 12:06] LABS: Glucose Point of Care 239 mg/dL (70-110)
[2019-11-30 12:06] LABS: Glucose Point of Care 207 mg/dL (70-110)
[2019-11-30] MEDS: enoxaparin 40 mg/0.4 mL Syringe SUBCUT (12:37)
--- NOTE | 2019-11-30 13:14 | PM.DCS ---
Discharge Providers Date of Admission: 11/27/19 11:44 Date of Discharge: 11/30/19 Attending Provider at Admission: Keren Herzog MD Attending Provider at Discharge: Tho Cui Diagnoses at Discharge Discharge Diagnosis (1) DKA, type 2: Status: Acute (2) Pneumonia: Status: Acute Reason for Visit Reason for Visit: Reason For Visit: Can not breath Hospital Course Hospital Course: 59-year-old pleasant gentleman with history of hypothyroidism, HLD, diabetes admitted after he presented with complaint of shortness of breath, recently treated for bronchitis with doxycycline, inhaler, as well as course of prednisone, on admission also found in DKA requiring admission to intensive care unit with insulin drip, IV hydration, electrolyte replacement, with noted pneumonia during hospitalization treated with Levaquin. He was able to wean off insulin drip, transition to subcutaneous insulin injections. Discussed with him and his regarding importance of compliance with diabetes therapy, he states that he will continue taking insulin. At this time will continue on current regimen with Lantus 25 units twice a day, rapid acting insulin sliding scale. Encouraged him to maintain consistent carbohydrate diet. He will complete a course of antibiotic for pneumonia with Levaquin. Physical Exam Const: COMMON NORMALS: no apparent distress and oriented x3 HENMT: COMMON NORMALS: oropharynx normal Neck/C-Spine: COMMON NORMALS: no JVD Resp: COMMON NORMALS: normal respiratory effort and clear to auscultation bilaterally AUSCULTATION: clear to auscultation bilaterally Cardio: COMMON NORMALS: no JVD, regular rhythm, S1 normal heart sound, S2 normal heart sound and no murmurs RHYTHM: regular rhythm HEART SOUNDS: S1 normal and S2 normal GI: COMMON NORMALS: normal to inspection, nondistended, normoactive bowel sounds, soft to palpation and non-tender PALPATION: Yes soft Extremity: COMMON NORMALS: no joint enlargement and no pedal edema Neuro: COMMON NORMALS: oriented x3 and moves all extremities Skin: COMMON NORMALS: no rashes or lesions noted GENERAL SKIN EXAM: no rashes or lesions noted Discharge Data Data Completed and Pending: Completed Studies During Hospitalization Category Date Time Status CT angio chest PE protcl [id number] Urge nt Cat Scan 11/27/19 10:20 Completed XR chest 1V guerita ble [id number] Urgent Exams 11/27/19 08:36 Completed Labs from last 24 hours 11/30/19 11/30/19 11/30/19 11:28 10:25 05:02 POC Glucose 239 207 136 11/30/19 11/29/19 11/29/19 00:18 19:39 15:49 POC Glucose 219 277 352 Vitals: Last Vital Signs Temp 99.4 F 11/30/19 11:30 Pulse 88 11/30/19 11:30 Resp 16 11/30/19 11:30 BP 131/82 11/30/19 11:30 Pulse Ox 95 11/30/19 11:30 Discharge Plan Discharge Patient Disposition: Home, Self-Care Condition: Stable Prescriptions: New Lantus Solostar U-100 Insulin 100 unit/mL (3 mL) insulin pen 25 unit SUBCUT BID Qty: 3 RF: 0 Humalog Jameel KwikPen U-100 100 unit/mL insulin pen, half-unit See Rx Instructions .ROUTE .COMPLEX Qty: 3 RF: 0 potassium chloride 10 mEq Tablet Extended Release 20 meq PO DAILY 7 Days Qty: 14 RF: 0 levofloxacin [Levaquin] 750 mg tablet 750 mg PO DAILY 5 Days Qty: 5 RF: 0 Continued albuterol sulfate [ProAir HFA] 90 mcg/actuation Hfa Aerosol Inhaler 1 puff INHALATION Q6H PRN (Reason: Cough) RF: 0 Multiple Vitamins Tablet 1 tab PO DAILY RF: 0 Probiotic 1 cap PO DAILY RF: 0 Discontinued doxycycline hyclate 100 mg Capsule 100 mg PO BID RF: 0 prednisone 20 mg Tablet 40 mg PO DAILY RF: 0 Other Ambulatory Orders: Basic Metabolic Panel (Routine) Timeframe: 3 Days Facility: [facility] - Location: Lab - Main Lab Ordered By: Tho Cui Referrals: Lasha Baltazar MD [Staff Physician] - 1 week (Please notify office Dr Baltazar aware of follow up visit sooner than the average wait time.) Discharge Diet: Diabetic Discharge Activity: Increase activity as tolerated Activity Restrictions/Additional Instructions: Continue to measure blood glucose 4 times daily. Keep log to bring to your appointment. Discharge Attestations Time Spent in Discharge Care*: greater than 30 min Quality Metrics Clinical Quality Measures During this hospital stay, did patient experience: None Coding Level of Care Code Acute Floor Space Allocator for [facility] Diagnoses DKA, type 2 E11.10 Pneumonia J18.9
[2019-11-30 15:18] LABS: Glucose Point of Care 249 mg/dL (70-110)
[2019-11-30 16:53] VITALS: BP 131/82; PULSE 88; RESP 16; TEMP 37.4; O2SAT 95
== END 2019-11-30 16:00 | disposition home or self-care (01) | DRG 637 ==
LOC: ER 08:07 → ICU 12:35 → MEDSURG 11-29 10:38
PROVIDERS: Family Medicine; Admitting Provider Family Medicine; Emergency Provider Family Medicine; Visit Provider Internal Medicine
DX: E11.10 Type 2 diabetes mellitus with ketoacidosis without coma (principal); J18.9 Pneumonia, unspecified organism; E03.9 Hypothyroidism, unspecified; Z88.8 Allergy status to other drugs, medicaments and biological substances; Z79.52 Long term (current) use of systemic steroids; Z79.899 Other long term (current) drug therapy; E78.5 Hyperlipidemia, unspecified; Z79.4 Long term (current) use of insulin
CPT/HCPCS: 12345; 36415; 36416; 36600; 71045; 71275; 80048; 80051; 80053; 82009; 82810; 82962; 83036; 83690; 83986; 84443; 84484; 85025; 87804; 93005; 94640; 96360; 96365; 96366; 96372; 96374; 99283; J1650; J1815; J1956; J2930; J7030; J7050; Q9967

== ENCOUNTER 2019-12-03 07:34 | Outpatient (CLI) | payer SELFPAY ==
[2019-12-03 08:16] LABS: Anion Gap 17.8 (5-19); Blood Urea Nitrogen 22 mg/dL (6-20); Calcium 10.4 mg/dL (8.5-10.5); Carbon Dioxide 27 mmol/L (22-29); Chloride 96 mmol/L (98-107); Glomerular Filtration Rate 99.3 mL/min (90-130); Glucose 139 mg/dL (74-109); Osmolality Calculated 283 mOsm/kg (285-295); Potassium 3.8 mmol/L (3.5-5.1); Sodium 137 mmol/L (136-145)
== END 2019-12-03 07:35 | disposition home or self-care (01) ==
LOC: LAB 07:39
PROVIDERS: PCP Family Medicine; Visit Provider Internal Medicine
DX: E87.6 Hypokalemia (principal)
CPT/HCPCS: 36415; 80048

== ENCOUNTER → 2021-03-21 08:39 | Outpatient (BNVA) | payer SELFPAY | PROVIDERS: PCP Family Medicine; Referring Provider Family Medicine; Visit Provider Specialist | DX: G56.01 Carpal tunnel syndrome, right upper limb (principal); G56.22 Lesion of ulnar nerve, left upper limb; E11.41 Type 2 diabetes mellitus with diabetic mononeuropathy; G58.7 Mononeuritis multiplex; Z79.4 Long term (current) use of insulin | CPT/HCPCS: 95910 ==

== ENCOUNTER 2021-09-01 21:27 | Emergency (ER) | payer SELFPAY ==
[2021-09-01 21:47] VITALS: BP 99/66; PULSE 93; RESP 16; TEMP 36; O2SAT 94; BMI 29.9
--- NOTE | 2021-09-01 22:57 | CTR_ITS ---
PROCEDURE INFORMATION: Exam: CT Angiography Head With Contrast, Arteriography Exam date and time: 09/01/2021 10:57 PM Age: 61 years old Clinical indication: Patient HX: Sudden onset of severe dizziness and weakness. ; Additional info: Weakness, dizzy TECHNIQUE: Imaging protocol: Computed tomography angiography of the head with contrast. Exam focused on the arteries. 3D rendering (Not supervised by radiologist): MIP and/or 3D reconstructed images were created by the technologist. Radiation optimization: All CT scans at this facility use at least one of these dose optimization techniques: automated exposure control; mA and/or kV adjustment per patient size (includes targeted exams where dose is matched to clinical indication); or iterative reconstruction. Contrast material: OMNI 350; Contrast volume: 95 ml; Contrast route: INTRAVENOUS (IV); COMPARISON: CT head wo con* [id number] 09/01/2021 11:45 PM RADIATION DOSE METRICS: Total DLP (mGy-cm): 2388.1 FINDINGS: ANTERIOR CIRCULATION: Right internal carotid artery: Unremarkable. Intracranial segment is patent with no significant stenosis. No aneurysm. Right middle cerebral artery: Unremarkable. No occlusion or significant stenosis. No aneurysm. Right anterior cerebral artery: Unremarkable. No occlusion or significant stenosis. No aneurysm. Left internal carotid artery: Unremarkable. Intracranial segment is patent with no significant stenosis. No aneurysm. Left middle cerebral artery: Unremarkable. No occlusion or significant stenosis. No aneurysm. Left anterior cerebral artery: Unremarkable. No occlusion or significant stenosis. No aneurysm. POSTERIOR CIRCULATION: Right vertebral artery: Unremarkable. No occlusion or significant stenosis. No aneurysm. Left vertebral artery: Unremarkable. No occlusion or significant stenosis. No aneurysm. Basilar artery: Unremarkable. No occlusion or significant stenosis. No aneurysm. Right posterior cerebral artery: Both posterior communicating arteries are patent, larger on the right. Left posterior cerebral artery: Unremarkable. No occlusion or significant stenosis. No aneurysm. Veins: The major intracranial venous sinuses enhance normally. Brain: No abnormal brain parenchymal enhancement. Cerebral ventricles: No ventriculomegaly. Bones/joints: Unremarkable. No acute fracture. Soft tissues: Unremarkable. IMPRESSION: No significant intracranial vascular findings. PROCEDURE INFORMATION: Exam: CT Angiography Neck With Contrast Exam date and time: 09/01/2021 10:57 PM Age: 61 years old Clinical indication: Patient HX: Sudden onset of severe dizziness and weakness. ; Additional info: Weakness, dizzy TECHNIQUE: Imaging protocol: Computed tomography angiography of the neck with contrast. 3D rendering (Not supervised by radiologist): MIP and/or 3D reconstructed images were created by the technologist. Radiation optimization: All CT scans at this facility use at least one of these dose optimization techniques: automated exposure control; mA and/or kV adjustment per patient size (includes targeted exams where dose is matched to clinical indication); or iterative reconstruction. Contrast material: OMNI 350; Contrast volume: 95 ml; Contrast route: INTRAVENOUS (IV); COMPARISON: CT head wo con* [id number] 09/01/2021 11:45 PM RADIATION DOSE METRICS: Total DLP (mGy-cm): 2388.1 FINDINGS: Right common carotid artery: No stenosis. No dissection or occlusion. Right internal carotid artery: No stenosis of the extracranial segment. No dissection or occlusion. Right external carotid artery: No occlusion or stenosis of the origin. Left common carotid artery: No stenosis. No dissection or occlusion. Left internal carotid artery: No stenosis of the extracranial segment. No dissection or occlusion. Left external carotid artery: No occlusion or stenosis of the origin. Right vertebral artery: No stenosis. No dissection or occlusion. Left vertebral artery: No stenosis. No dissection or occlusion. Soft tissues: Normal. No significant soft tissue swelling. Bones/joints: No acute fracture. Lungs: There are ground-glass infiltrates in both upper lobes most likely representing pneumonitis. CT/CT angio headneck* [id number] IMPRESSION: 1. Widely patent carotid and vertebral arteries. 2. Bilateral pulmonary pneumonitis. REFERENCES: NASCET CRITERIA. The degree of internal carotid artery stenosis is based on NASCET criteria. Normal is no stenosis. Mild is less than 50% stenosis. Moderate is 50-69% stenosis. Severe is 70% to 99% stenosis. Total occlusion is no detectable patent lumen. Radiation Dose CTDIVOL = (mGy): DLP = 2388.1~2388.1 (mGy-cm)
--- NOTE | 2021-09-01 22:57 | XRR_ITS ---
PROCEDURE INFORMATION: Exam: XR Chest Exam date and time: 09/01/2021 10:57 PM Age: 61 years old Clinical indication: Shortness of breath; Additional info: Weakness TECHNIQUE: Imaging protocol: XR of the chest. Views: 1 view. COMPARISON: CR XR chest 1V portable [id number] 11/27/2019 8:39 AM FINDINGS: Lungs: Unremarkable. No consolidation. Pleural spaces: Unremarkable. No pleural effusion. No pneumothorax. Heart/Mediastinum: Unremarkable. No cardiomegaly. Bones/joints: Unremarkable. XR/XR chest 1V portable [id number] IMPRESSION: No change, unremarkable Radiation Dose CTDIVOL = (mGy): DLP = (mGy-cm)
--- NOTE | 2021-09-01 22:57 | CTR_ITS ---
PROCEDURE INFORMATION: Exam: CT Head Without Contrast Exam date and time: 09/01/2021 10:57 PM Age: 61 years old Clinical indication: Dizziness; Additional info: Weakness, dizzy TECHNIQUE: Imaging protocol: Computed tomography of the head without contrast. Radiation optimization: All CT scans at this facility use at least one of these dose optimization techniques: automated exposure control; mA and/or kV adjustment per patient size (includes targeted exams where dose is matched to clinical indication); or iterative reconstruction. COMPARISON: No relevant prior studies available. RADIATION DOSE METRICS: Total DLP (mGy-cm): 996.11 FINDINGS: Brain: Normal. No hemorrhage. Unremarkable white matter. No mass effect. Incidental Virchow Armen space in the inferior right basal ganglia. Cerebral ventricles: No ventriculomegaly. Paranasal sinuses: Visualized sinuses are unremarkable. No fluid levels. Mastoid air cells: Visualized mastoid air cells are well aerated. Bones/joints: Unremarkable. No acute fracture. Soft tissues: Unremarkable. CT/CT head wo con* [id number] IMPRESSION: No significant findings Radiation Dose CTDIVOL = (mGy): DLP = 996.11 (mGy-cm)
[2021-09-01] MEDS: ondansetron 2 mg/ML SDV 2 mL 4 MG IVP (23:19)
[2021-09-01] MEDS: fentaNYL 50 mcg/mL INJ 2mL IVP (23:19)
[2021-09-01 23:20] LABS: Basophils % 0.4 %; Eosinophils % 0.6 %; Hematocrit 39.2 % (42.0-52.0); Hemoglobin 12.9 g/dL (11.7-16.6); Lymphocytes # 0.7 10^3/uL (0.8-4.8); Mean Corpuscular HGB Conc 32.9 g/dL (30.0-36.0); Mean Corpuscular Hemoglobin 30.8 pg (28.0-34.0); Mean Corpuscular Volume 93.6 fl (80-94); Mean Platelet Volume 11.2 fL (7.4-10.4); Monocytes # 0.7 10^3/uL (0.2-0.9); Monocytes % 13.6 %; Neutrophils # 3.61 10^3/uL (1.8-7.7); Nucleated Red Blood Cells % 0 %; Platelet Count 157 10^3/cmm (130-400); Red Blood Count 4.19 10^6/uL (4.1-5.3); Red Cell Distribution Width 12.7 % (12.1-15.1)
[2021-09-01 23:26] LABS: Partial Thromboplastin Time 32.2 SECONDS (23.9-36.7)
[2021-09-01 23:31] LABS: Lactate (Lactic Acid level) 1.1 mmol/L (0.5-2.2)
[2021-09-01 23:32] LABS: Alanine Aminotransferase 29 U/L (0-41); Albumin Level 3.8 g/dL (3.5-5.2); Alkaline Phosphatase 48 IU/L (40-130); Anion Gap 14.8 (5-19); Aspartate Amino Transferase 43 U/L (0-40); Blood Urea Nitrogen 27 mg/dL (8-23); C Reactive Protein 80.1 mg/L (0.0-4.9); Calcium 8.7 mg/dL (8.5-10.5); Carbon Dioxide 25 mmol/L (22-29); Chloride 99 mmol/L (98-107); Creatine Phosphokinase 317 U/L (39-308); Glomerular Filtration Rate 61.8 mL/min (90-130); Glucose 158 mg/dL (65-115); Osmolality Calculated 288 mOsm/kg (285-295); Potassium 3.8 mmol/L (3.5-5.1); Sodium 135 mmol/L (136-145); Total Bilirubin 0.5 mg/dL (0.15-1.2); Total Protein 6.8 g/dL (6.6-8.7)
--- NOTE | 2021-09-01 23:45 | PC.NURSE ---
Unable to provide urine specimen; will try again in a few minutes.
[2021-09-01] MEDS: iohexol 350 mg/mL 100 mL Btl IV (23:50)
[2021-09-02] MEDS: sodium chloride 0.9% (100 ml) 100 ML (00:01)
[2021-09-02 00:16] LABS: SARS Covid-2 Antigen Negative (Negative)
[2021-09-02 00:23] VITALS: BP 119/71; PULSE 94; RESP 16; O2SAT 96
--- NOTE | 2021-09-02 00:26 | ECG_ITS ---
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 of god [email or web address]/store/[id number] [email or web address]
[2021-09-02 00:30] LABS: Add Urine Microscopic? NO; Charge for UA Resulting for Rev
[2021-09-02 00:31] LABS: Bilirubin Urine Neg (Negative); Blood Urine Neg (Negative); Glucose Urine UA Norm (Normal); Ketones Urine Negative (Negative); Leukocyte Esterase Urine Negative (Negative); Nitrate Urine Negative (Negative); Protein Urine Neg (Negative); Specific Gravity, Urine 1.005 (1.005-1.030); Urine Appearance Clear (CLEAR); Urine Color Yellow (Yellow); Urobilinogen Urine Norm (Negative); pH Urine 5 (5-7)
[2021-09-02] MEDS: ketorolac 30 mg/mL INJ 15 MG IVP (01:28)
[2021-09-02 01:32] VITALS: BP 131/74; PULSE 90; RESP 16; O2SAT 97
[2021-09-02] MEDS: apixaban 5 mg Tablet PO (01:56)
[2021-09-02] MEDS: metoprolol tartrate 25 mg Tablet PO (01:56)
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
[2021-09-02 02:17] VITALS: BP 127/80; PULSE 96; RESP 16; O2SAT 96
[2021-09-04 14:03] LABS: Quest SARS-CoV-2 RNA NOT DETECTED (NOT DETECTED)
== END 2021-09-02 02:18 | disposition home or self-care (01) ==
PROVIDERS: Emergency Provider Emergency Medicine; PCP Family Medicine
DX: J18.9 Pneumonia, unspecified organism (principal); I48.91 Unspecified atrial fibrillation; B34.9 Viral infection, unspecified; E11.9 Type 2 diabetes mellitus without complications; E78.5 Hyperlipidemia, unspecified; E03.9 Hypothyroidism, unspecified; Z79.4 Long term (current) use of insulin
CPT/HCPCS: 70450; 70496; 70498; 71045; 80053; 81003; 82550; 83605; 85025; 85610; 85730; 86140; 87426; 87635; 93005; 96365; 96375; 99284; J1885; J2405; J3010; Q9967

== ENCOUNTER 2021-09-05 12:58 | Inpatient (IN) | payer SELFPAY ==
[2021-09-05] VITALS (10 sets, daily range): BP systolic 88–152; BP diastolic 51–79; PULSE 71–80; RESP 18–26; TEMP 36.8–38.6; O2SAT 91–98; BMI 29.9
--- NOTE | 2021-09-05 13:06 | CT_ITS ---
WS: [id number] CT HEAD TECHNIQUE: Noncontrast CT of the head obtained from the skullbase to the vertex. CLINICAL INFORMATION: syncope COMPARISON: September 01, 2021 DLP: 1069.[address] scans at [facility] use at least one of these dose optimization techniques: automated e xposure control; mA and/or kV adjustment per patient size (includes targeted exams where dose is matc hed to clinical indication); or iterative reconstruction. FINDINGS: No evidence of intracranial hemorrhage or mass effect. Ventricular system and basal cisterns are garcia nt. Mild small vessel changes with mild parenchymal volume loss. No extra-axial fluid collections. No evidence of mass or mass effect. Prominent perivascular spaces or chronic lacunar infarcts right lat eral basal ganglia unchanged. Trace mucosal thickening in ethmoid air cells. Paranasal sinuses are otherwise well aerated. Mastoid air cells are well aerated. CT/CT head wo con* [id number] IMPRESSION: 1. No evidence of intracranial hemorrhage or mass effect. 2. Mild small vessel changes with mild parenchymal volume loss. 3. No acute intracranial findings.
--- NOTE | 2021-09-05 13:06 | XRR_ITS ---
PROCEDURE INFORMATION: Exam: XR Chest Exam date and time: 09/05/2021 1:06 PM Age: 61 years old Clinical indication: Other: --bouts of alternating bradycardia and tachycardia. Dizzy, headache, syncope for the last 4-5 days, worsening over time. TECHNIQUE: Imaging protocol: XR of the chest. Views: 1 view. COMPARISON: CTA NECK 09/01/2021 11:48:12 PM FINDINGS: Lungs: There is asymmetric airspace disease. In light of the peripheral ground-glass opacities noted on the limited evaluation of the lungs on the comparison CTA NECK, these findings are concerning for pneumonia such as COVID-19 pneumonia. Pleural spaces: No pleural effusion or pneumothorax. Heart/Mediastinum: The heart is not enlarged. The mediastinal contours are normal. Bones/joints: No acute osseous abnormality. XR/XR chest 1V portable [id number] IMPRESSION: Asymmetric airspace disease concerning for pneumonia, including possibly COVID-19 pneumonia. Radiation Dose CTDIVOL = (mGy): DLP = (mGy-cm)
--- NOTE | 2021-09-05 13:06 | ED_ITS ---
HPI - Syncope General: Chief Complaint: Syncope Stated Complaint: AFIB SATURDAY, SYNCOPAL EPISODE TODAY/SATURDAY Time Seen by Provider: 09/05/21 13:06 History of Present Illness: HPI narrative: Mr. Dewey is a 61-year-old gentleman with diabetes and complex recent past medical history presents emergency department due to generalized malaise. He was seen 09/02 and at that time diagnosed with new A. fib. He was started on metoprolol and Eliquis. He has been compliant with his medication regimen. He returns today feeling generally unwell. He endorses multiple episodes of syncope preceded by lightheaded feeling over the past few days. Additionally he has noticed that his heart rate varies significantly as does his blood pressure. He continues to have diarrhea and previously mentioned and low-grade fever. Overall the course of symptoms has been persistent. Intensity is moderate to severe. He does not note measured fevers but does have chills and rigors. No other specific exacerbating relieving factors identified. Review of Systems General: Reports: 10 or more systems reviewed and unremarkable except in HPI and below PFSH ED PFSH: Medical History (Updated 09/06/21 @ 16:30 by Vinnie Peralta MD) Diabetes Hyperlipidemia Hypothyroid Surgical History (Updated 09/05/21 @ 18:10 by Vinnie Peralta MD) No pertinent past surgical history Family History (Updated 09/05/21 @ 18:09 by Vinnie Peralta MD) Father Diabetes Family/Other Pancreatic cancer Social History Smoking and tobacco status: never smoked Alcohol intake: never Adopted: No Caregiver/support person: No Lives independently: No Marital status: service: No Current occupational status: employed Sexually active: Yes Current gender identity: Male Physical Exam Narrative: EXAM NARRATIVE: GENERAL/CONSTITUTIONAL -ill-appearing. No acute distress. Eyes - PERRL, no conjunctival injection ENMT - Atraumatic external nose and ears. Dry mucous membranes NECK - supple. trachea midline CARDIOVASCULAR - regular rate and rhythm. Peripheral pulses 2+ and equal RESPIRATORY -clear to auscultation bilaterally. No retractions or accessory muscle use. ABDOMEN/GI -nondistended. No tenderness to palpation. No tenderness to percussion or evidence of peritonitis MSK - Extremities without obvious deformity or tenderness to palpation SKIN - Warm, Dry NEURO - alert and appropriately oriented. Responses are mildly delayed. Moves all extremities equally. Course ED course: - Patient was seen and evaluated by me at bedside - Patient placed on cardiac monitors, IV access obtained - Initial evaluation notable for somewhat ill appearance, no acute distress. -Fluids ordered - Labs notable for no leukocytosis, normal hemoglobin. Metabolic panel with mild evidence of dehydration. Initial troponin elevated however delta is negative. BNP mildly elevated. Urinalysis not concerning for urinary tract infection. - Imaging notable for patchy infiltrate consistent with Covid. COVID-19 test positive. - Upon serial reexamination after treatment the patient was mildly improved though still somewhat ill-appearing. - Based on patient history, evaluation, labs, and imaging as interpreted the most likely cause of the patient's condition is Covid pneumonia. Given recent diagnosis of A. fib and constellation of syncope and elevated troponin despite negative delta patient requires further inpatient evaluation - The results of ED evaluation were discussed with the patient including plan for admission due to requirement for level of care not available if discharged to prevent significant worsening/deterioration. -Hospitalist service contacted and agreed admit the patient - Patient was admitted without further deterioration or significant events. Vital Signs: Vital signs: Vital Signs Temperature 99.5 F 09/06/21 12:00 Pulse Rate 72 09/06/21 22:00 Respiratory Rate 23 H 09/06/21 16:00 Blood Pressure 104/67 09/06/21 16:00 Pulse Oximetry 90 09/06/21 16:00 MDM - Syncope Medical Records: Attestation: I reviewed the patient's medical records. Lab Data: Attestation: I reviewed the patient's lab results. Labs: Lab Results 09/05/21 09/05/21 09/05/21 13:40 13:40 13:40 WBC 4.0 10^3/uL 10^3/ uL (4.0-10.0) RBC 4.45 10^6/uL 10^6 /uL (4.1-5.3) Hgb 13.7 g/dL g/dL (11.7-16.6) Hct 41.3 % L % (42.0-52.0) MCV 92.8 fl fl (80-94) MCH 30.8 pg pg (28.0-34.0) MCHC 33.2 g/dL g/dL (30.0-36.0) RDW 12.5 % % (12.1-15.1) Plt Count 138 10^3/cmm 10^3 /cmm (130-400) MPV 11.2 fL H fL (7.4-10.4) Neut % (Auto) 71.0 % % Lymph % (Auto) 22.2 % % [place] % (Auto) 6.2 % % Eos % (Auto) 0.2 % % Baso % (Auto) 0.2 % % Neut # (Auto) 2.84 10^3/uL 10^3 /uL (1.8-7.7) Lymph # (Auto) 0.9 10^3/uL 10^3/ uL (0.8-4.8) [place] # (Auto) 0.3 10^3/uL 10^3/ uL (0.2-0.9) Eos # (Auto) 0.0 10^3/uL 10^3/ uL (0.0-0.8) Baso # (Auto) 0.0 10^3/uL 10^3/ uL (0.0-0.1) Nucleated RBC % (a uto) 0 % % Nucleated RBCs # 0.0 /100WBC /100W BC Sodium 131 mmol/L L mmol /L (136-145) Potassium 4.2 mmol/L mmol/L (3.5-5.1) Chloride 93 mmol/L L mmol/ L (98-107) Carbon Dioxide 24 mmol/L mmol/L (22-29) Anion Gap 18.2 (5-19) BUN 18 mg/dL mg/dL (8-23) Creatinine 1.1 mg/dL mg/dL (0.7-1.2) GFR Calculation 68.3 mL/min L mL/ min (90-130) Glucose 132 mg/dL H mg/dL (65-115) Estimat Average Gl ucose Hemoglobin A1c Calculated Osmolal ity 276 mOsm/kg L mOs m/kg (285-295) Lactic Acid Calcium 8.5 mg/dL mg/dL (8.5-10.5) Total Bilirubin 0.6 mg/dL mg/dL (0.15-1.2) AST 51 U/L H U/L (0-40) ALT 31 U/L U/L (0-41) Alkaline Phosphata se 47 IU/L IU/L (40-130) Creatine Kinase Troponin T Baselin e 154 ng/L H* ng/L (0-15) Troponin T 120 Min [place] Troponin T C-Reactive Protein 87.2 mg/L H mg/L (0.0-4.9) NT-Pro-B Natriuret Pep 611 pg/mL H pg/mL (0-125) Total Protein 6.5 g/dL L g/dL (6.6-8.7) Albumin 3.8 g/dL g/dL (3.5-5.2) Globulin 2.7 g/dL g/dL (1.3-4.6) Procalcitonin 0.13 ng/mL ng/mL (0-0.5) TSH 5.15 uIU/mL H uIU /mL (0.27-4.20) Free T4 Urine Color Urine Appearance Urine pH Ur Specific Gravit y Urine Protein Urine Glucose (UA) Urine Ketones Urine Blood Urine Nitrate Urine Bilirubin Urine Urobilinogen Ur Leukocyte Rachel ase Urine RBC Urine WBC Ur Squamous Epith Cells Amorphous Sediment Urine Bacteria Hyaline Casts Urine Mucus SARS-CoV-2 Ag (Rap id) 09/05/21 09/05/21 09/05/21 13:40 13:40 14:35 WBC RBC Hgb Hct MCV MCH MCHC RDW Plt Count MPV Neut % (Auto) Lymph % (Auto) [place] % (Auto) Eos % (Auto) Baso % (Auto) Neut # (Auto) Lymph # (Auto) [place] # (Auto) Eos # (Auto) Baso # (Auto) Nucleated RBC % (a uto) Nucleated RBCs # Sodium Potassium Chloride Carbon Dioxide Anion Gap BUN Creatinine GFR Calculation Glucose Estimat Average Gl ucose Hemoglobin A1c Calculated Osmolal ity Lactic Acid 1.5 mmol/L mmol/L (0.5-2.2) Calcium Total Bilirubin AST ALT Alkaline Phosphata se Creatine Kinase Troponin T Baselin e Troponin T 120 Min [place] Troponin T C-Reactive Protein NT-Pro-B Natriuret Pep Total Protein Albumin Globulin Procalcitonin TSH Free T4 1.20 ng/dL ng/dL (0.82-1.77) Urine Color Yellow (Yellow) Urine Appearance Clear (CLEAR) Urine pH 5 (5-7) Ur Specific Gravit y 1.015 (1.005-1.030) Urine Protein Trace (Negative) Urine Glucose (UA) Norm (Normal) Urine Ketones Negative (Negative) Urine Blood Trace H (Negative) Urine Nitrate Negative (Negative) Urine Bilirubin Neg (Negative) Urine Urobilinogen 1 mg/dL H mg/dL (Negative) Ur Leukocyte Rachel ase Negative (Negative) Urine RBC 0-4 /hpf H /hpf (0-2) Urine WBC 0-4 /hpf H /hpf (0-5) Ur Squamous Epith Cells 0-4 /hpf H /hpf (0-5) Amorphous Sediment Not Reportable Urine Bacteria Trace /hpf /hpf (NONE) Hyaline Casts 0-4 /lpf H /lpf Urine Mucus 1+ /hpf /hpf SARS-CoV-2 Ag (Rap id) 09/05/21 09/05/21 09/05/21 14:35 15:56 15:56 WBC RBC Hgb Hct MCV MCH MCHC RDW Plt Count MPV Neut % (Auto) Lymph % (Auto) [place] % (Auto) Eos % (Auto) Baso % (Auto) Neut # (Auto) Lymph # (Auto) [place] # (Auto) Eos # (Auto) Baso # (Auto) Nucleated RBC % (a uto) Nucleated RBCs # Sodium Potassium Chloride Carbon Dioxide Anion Gap BUN Creatinine GFR Calculation Glucose Estimat Average Gl ucose 140 Hemoglobin A1c 6.5 % H % (4.0-6.0) Calculated Osmolal ity Lactic Acid Calcium Total Bilirubin AST ALT Alkaline Phosphata se Creatine Kinase Troponin T Baselin e Troponin T 120 Min [place] 143.8 ng/L H ng/L (0-15) Delta Troponin T -10.2 ABS# L ABS# (0-10) C-Reactive Protein NT-Pro-B Natriuret Pep Total Protein Albumin Globulin Procalcitonin TSH Free T4 Urine Color Urine Appearance Urine pH Ur Specific Gravit y Urine Protein Urine Glucose (UA) Urine Ketones Urine Blood Urine Nitrate Urine Bilirubin Urine Urobilinogen Ur Leukocyte Rachel ase Urine RBC Urine WBC Ur Squamous Epith Cells Amorphous Sediment Urine Bacteria Hyaline Casts Urine Mucus SARS-CoV-2 Ag (Rap id) Positive H (Negative) 09/05/21 15:56 WBC RBC Hgb Hct MCV MCH MCHC RDW Plt Count MPV Neut % (Auto) Lymph % (Auto) [place] % (Auto) Eos % (Auto) Baso % (Auto) Neut # (Auto) Lymph # (Auto) [place] # (Auto) Eos # (Auto) Baso # (Auto) Nucleated RBC % (a uto) Nucleated RBCs # Sodium Potassium Chloride Carbon Dioxide Anion Gap BUN Creatinine GFR Calculation Glucose Estimat Average Gl ucose Hemoglobin A1c Calculated Osmolal ity Lactic Acid Calcium Total Bilirubin AST ALT Alkaline Phosphata se Creatine Kinase 334 U/L H* U/L (39-308) Troponin T Baselin e Troponin T 120 Min [place] Troponin T C-Reactive Protein NT-Pro-B Natriuret Pep Total Protein Albumin Globulin Procalcitonin TSH Free T4 Urine Color Urine Appearance Urine pH Ur Specific Gravit y Urine Protein Urine Glucose (UA) Urine Ketones Urine Blood Urine Nitrate Urine Bilirubin Urine Urobilinogen Ur Leukocyte Rachel ase Urine RBC Urine WBC Ur Squamous Epith Cells Amorphous Sediment Urine Bacteria Hyaline Casts Urine Mucus SARS-CoV-2 Ag (Rap id) EKG Data^: EKG 1: Attestation: I personally reviewed and interpreted this EKG as follows: EKG interpretation date: 09/05/21 EKG interpretation time: 15:36 Interpretation: Twelve-lead EKG shows a regular rhythm at a rate of 77. HI interval 171, QRS duration 105, QTc 421. Normal axis. Interpretation: Sinus rhythm. Atrial fibrillation no longer present. EKG 2: Attestation: I personally reviewed and interpreted this EKG as follows: EKG interpretation date: 09/05/21 EKG interpretation time: 13:32 Interpretation: Twelve-lead EKG shows a regular rhythm at a rate of 73. HI interval 166, QRS duration 98, QTc 414. Normal axis. Interpretation: Sinus rhythm. Atrial fibrillation no longer present. Discharge Plan Discharge Patient Disposition: Placed in Observation Admit Provider: Vinnie Peralta Clinical Impression: COVID-19, Orthostatic hypotension, Syncope and collapse, Atrial fib/flutter, transient Coding Level of Care Code ED Cupola Man for Chg Shane
--- NOTE | 2021-09-05 13:07 | ECG_ITS ---
[facility] Test Date: 2021-09-05 Pat Name: Raz Dewey Department: Room: Gender: Male [employer]: : 1960 Requested By: Ramses Shabazz Order Number: [id number] Violetta MD: Bruna Rutherford M.D. Measurements Intervals Seth Rate: 73 P: 18 [place]: 166 QRS: 14 QRSD: 98 T: 48 QT: 388 QTc: 429 Interpretive Statements SINUS RHYTHM LOW QRS VOLTAGE IN PRECORDIAL LEADS [QRS DEFLECTION < 1.0 mV IN CHEST LEADS] Compared to ECG 09/02/2021 00:47:17 Low QRS voltage now present Atrial fibrillation no longer present Electronically Signed On 09-05-2021 21:57:03 CDT by Bruna Rutherford M.D. [id number]
[2021-09-05 13:51] LABS: Basophils % 0.2 %; Eosinophils % 0.2 %; Hematocrit 41.3 % (42.0-52.0); Hemoglobin 13.7 g/dL (11.7-16.6); Lymphocytes # 0.9 10^3/uL (0.8-4.8); Lymphocytes % 22.2 %; Mean Corpuscular HGB Conc 33.2 g/dL (30.0-36.0); Mean Corpuscular Hemoglobin 30.8 pg (28.0-34.0); Mean Corpuscular Volume 92.8 fl (80-94); Mean Platelet Volume 11.2 fL (7.4-10.4); Monocytes # 0.3 10^3/uL (0.2-0.9); Monocytes % 6.2 %; Neutrophils # 2.84 10^3/uL (1.8-7.7); Nucleated Red Blood Cells % 0 %; Platelet Count 138 10^3/cmm (130-400); Red Blood Count 4.45 10^6/uL (4.1-5.3); Red Cell Distribution Width 12.5 % (12.1-15.1)
[2021-09-05 14:24] LABS: NT Pro B Type Natriuretic Pept 611 pg/mL (0-125); Procalcitonin 0.13 ng/mL (0-0.5); Thyroid Stimulating Hormone 5.15 uIU/mL (0.27-4.20)
[2021-09-05 14:26] LABS: Troponin(5th) Baseline 154 ng/L (0-15)
[2021-09-05 14:35] LABS: Alanine Aminotransferase 31 U/L (0-41); Albumin Level 3.8 g/dL (3.5-5.2); Alkaline Phosphatase 47 IU/L (40-130); Anion Gap 18.2 (5-19); Blood Urea Nitrogen 18 mg/dL (8-23); C Reactive Protein 87.2 mg/L (0.0-4.9); Calcium 8.5 mg/dL (8.5-10.5); Carbon Dioxide 24 mmol/L (22-29); Chloride 93 mmol/L (98-107); Globulin 2.7 g/dL (1.3-4.6); Glomerular Filtration Rate 68.3 mL/min (90-130); Glucose 132 mg/dL (65-115); Osmolality Calculated 276 mOsm/kg (285-295); Potassium 4.2 mmol/L (3.5-5.1); Sodium 131 mmol/L (136-145); Total Bilirubin 0.6 mg/dL (0.15-1.2); Total Protein 6.5 g/dL (6.6-8.7)
[2021-09-05 14:36] LABS: Aspartate Amino Transferase 51 U/L (0-40); Lactic Sepsis W/Reflex 1.5 mmol/L (0.5-2.2)
[2021-09-05 14:55] LABS: Add Urine Microscopic? YES; Bilirubin Urine Neg (Negative); Blood Urine Trace (Negative); Glucose Urine UA Norm (Normal); Ketones Urine Negative (Negative); Leukocyte Esterase Urine Negative (Negative); Nitrate Urine Negative (Negative); Protein Urine Trace (Negative); Specific Gravity, Urine 1.015 (1.005-1.030); Urine Appearance Clear (CLEAR); Urine Color Yellow (Yellow); Urobilinogen Urine 1 mg/dL (Negative); pH Urine 5 (5-7)
[2021-09-05 14:56] LABS: Add Urine Culture? No; Bacteria Urine TRACE /hpf; Hyaline Casts Urine 0-4 /lpf; Mucus Urine 1+ /hpf; RBC Urine 0-4 /hpf (0-2); Squamous Epithelial Cell Urine 0-4 /hpf (0-5); WBC Urine 0-4 /hpf (0-5)
[2021-09-05 15:03] LABS: SARS Covid-2 Antigen Positive (Negative)
--- NOTE | 2021-09-05 15:07 | ECG_ITS ---
[facility] Test Date: 2021-09-05 Pat Name: Raz Dewey Department: Room: Gender: Male Lvn Lpn: : 1960 Requested By: Ramses Shabazz Order Number: [id number] Violetta MD: Bruna Rutherford M.D. Measurements Intervals [place] Rate: 77 P: 43 [place]: 171 QRS: 14 QRSD: 105 T: 47 QT: 389 QTc: 441 Interpretive Statements SINUS RHYTHM Compared to ECG 09/05/2021 13:30:42 No significant changes Electronically Signed On 09-05-2021 22:12:22 CDT by Bruna Rutherford M.D. [id number]
[2021-09-05] MEDS: aspirin 81 mg Chew Tablet 324 MG PO (15:08)
[2021-09-05] MEDS: sodium chloride 0.9% 1,000 ML 999 ML IV (15:12)
[2021-09-05] MEDS: acetaminophen 500 mg Tablet 1000 MG PO (16:02)
--- NOTE | 2021-09-05 16:02 | PC.NURSE ---
Pt has a temp of 101.4. Provider notified.
[2021-09-05 16:35] LABS: Troponin 5 2HR 143.8 ng/L (0-15); Troponin 5 2HR Delta -10.2 ABS# (0-10)
--- NOTE | 2021-09-05 16:35 | PC.NURSE ---
PC FROM LAB INFORMED ME PT 2 HOUR TROPONIN WAS 143.8. INFORMED DR. RODRIGUEZ OF 2 HOUR TROPONIN OF 143.8 CRITICAL RESULT HE VERBALIZED STATING OKAY
[2021-09-05] MEDS: ketorolac 30 mg/mL INJ 15 MG IVP (16:51)
--- NOTE | 2021-09-05 16:55 | CTR_ITS ---
PROCEDURE INFORMATION: Exam: CTA Chest With Contrast Exam date and time: 09/05/2021 4:55 PM Age: 61 years old Clinical indication: Fever and other: Weakness, syncope; Patient HX: Covid+; Additional info: Elevated troponin, afib, syncope TECHNIQUE: Imaging protocol: Computed tomographic angiography of the chest with contrast. 3D rendering (Not supervised by radiologist): MIP and/or 3D reconstructed images were created by the technologist. Radiation optimization: All CT scans at this facility use at least one of these dose optimization techniques: automated exposure control; mA and/or kV adjustment per patient size (includes targeted exams where dose is matched to clinical indication); or iterative reconstruction. Contrast material: OMNI 350; Contrast volume: 67 ml; Contrast route: INTRAVENOUS (IV); COMPARISON: CT angio chest PE protcl [id number] 11/27/2019 10:54 AM RADIATION DOSE METRICS: Total DLP (mGy-cm): 615.51 FINDINGS: Pulmonary arteries: Normal. No pulmonary emboli. Aorta: Unremarkable. No aortic aneurysm. No aortic dissection. Lungs: Multilobar patchy ground-glass opacities. Calcified granuloma in the right upper lobe. Pleural spaces: Unremarkable. No pneumothorax. No pleural effusion. Heart: Unremarkable. No cardiomegaly. No pericardial effusion. Lymph nodes: Calcified right hilar lymph nodes. Gallbladder and bile ducts: Sludge in the gallbladder. Spleen: Calcified granulomas in the spleen. Stable hypodensity in the inferior spleen, Hounsfield units less than 20. This is most likely a cyst. No further imaging follow-up is recommended. Bones/joints: Unremarkable. No acute fracture. Soft tissues: Unremarkable. CT/CT angio chest PE protcl [id number] IMPRESSION: 1. No evidence for pulmonary embolus. 2. Multilobar pneumonia, consistent with COVID-19. Radiation Dose CTDIVOL = (mGy): DLP = 615.51 (mGy-cm)
[2021-09-05] MEDS: iohexol 350 mg/mL 100 mL Btl IV (17:32)
[2021-09-05 18:02] LABS: Glucose Point of Care 122 mg/dL (70-110)
--- NOTE | 2021-09-05 18:06 | PM.HP ---
Providers/Chief Complaint Admitting Physician: Vinnie Peralta MD Primary Care Provider: Lasha Baltazar MD Chief Complaint: AFIB SATURDAY, SYNCOPAL EPISODE TODAY/SATURDAY History of Present Illness Raz Dewey is a 61 year old male with a past medical history of type 2 diabetes mellitus, insulin-dependent, history of diabetic retinopathy, who presents to [facility] due to fatigue, malaise, nausea, diarrhea. Patient tells me that since after he received his chronic injections for his diabetic retinopathy, he was not feeling well, felt nauseous, and felt weak fatigued, tired. He presented to the emergency room, his Covid was negative, was found to have atrial fibrillation, sent home on metoprolol and Eliquis. He continued to feel nauseous, weak, fatigued, tired, generalized weakness lightheadedness. He also reports presyncopal episodes, he never fully passed out, he never blacked out, no head trauma, no chest pain, no palpitations. No strokelike symptoms no slurring of speech, no facial droop, no paresthesias, no focal neurologic deficits. His symptoms persisted throughout the weekend, continue to have poor appetite, diarrhea. Patient tells me that he has been taking his Eliquis and metoprolol as prescribed. Has not received Covid vaccinations. Review of Systems Const: Reports: fever(s), chills, body aches, change in appetite, fatigue and malaise Eyes: Denies: change in vision or blurry vision ENMT: Reports: nasal discharge, nasal congestion and post nasal drip Card: Denies: chest pain, palpitations, irregular heart rhythm, edema, lightheadedness or syncope Resp: Reports: non-productive cough; Denies: dyspnea, productive cough or wheezing GI: Reports: abdominal pain, nausea and diarrhea; Denies: vomiting, hematemesis, constipation, hematochezia or melena : Denies: flank pain, difficulty urinating, dysuria or urinary frequency Musc: Denies: neck pain or back pain Skin/Breast: Denies: rash or pruritus Neuro: Reports: dizziness; Denies: headache(s), weakness in extremities or vertigo Psych: Denies: anxiety or depression Endo: Denies: polyuria or polydipsia Medications/Allergies Home Medications Medication Instructions Recorded Confirmed Last Taken Type Probiotic 1 cap PO DAILY 11/27/19 09/05/21 Unknown History apixaban [Eliquis] 5 mg PO BID #60 tab 09/02/21 09/05/21 09/05/21 09:00 Rx hydrocodone-acetaminophen 1 tab PO Q8H PRN #7 tab 09/02/21 09/05/21 Unknown Rx metoprolol tartrate 12.5 mg PO BID #60 tab 09/02/21 09/05/21 09/05/21 09:00 Rx ondansetron HCl [Zofran] 4 mg PO Q6H PRN #10 tab 09/02/21 09/05/21 09/05/21 09:00 Rx insulin glargine [Lantus Solostar 25 unit SUBCUT BID 09/05/21 09/05/21 09/05/21 09:00 History U-100 Insulin] multivitamin 1 tab PO DAILY 09/05/21 09/05/21 09/05/21 09:00 History Allergies Allergy/AdvReac Type Severity Reaction Status Date / Time prednisone Allergy Severe shut down Verified 09/05/21 15:24 pancrease meperidine [From Demerol] Allergy Unknown Verified 09/05/21 15:24 PFSH Acute PFSH: Medical History (Updated 09/05/21 @ 18:12 by Vinnie Peralta MD) Diabetes Hyperlipidemia Hypothyroid Surgical History (Updated 09/05/21 @ 18:10 by Vinnie Peralta MD) No pertinent past surgical history Family History (Updated 09/05/21 @ 18:09 by Vinnie Peralta MD) Father Diabetes Family/Other Pancreatic cancer Social History Smoking and tobacco status: never smoked Alcohol intake: never Adopted: No Caregiver/support person: No Lives independently: No Marital status: service: No Current occupational status: employed Sexually active: Yes Current gender identity: Male Vitals/I&O/Wt Last Vital Signs Temp 99.2 F 09/05/21 17:57 Pulse 75 09/05/21 17:57 Resp 20 H 09/05/21 17:57 BP 123/66 09/05/21 17:57 Pulse Ox 92 09/05/21 17:57 09/05/21 09/05/21 09/05/21 06:59 14:59 22:59 Intake Total 1000 / 1000 Balance 1000 / 1000 Weight last 48 hrs Weight 97.522 kg Physical Exam Const: COMMON NORMALS: no acute distress and patient oriented x3 GENERAL APPEARANCE: cooperative and comfortable HENMT: COMMON NORMALS: normocephalic HEAD & SCALP: normocephalic Eye: COMMON NORMALS: Equal, round and reactive pupils present and EOMs intact bilaterally GENERAL EYE: appearance normal, both eyes and all related structures PUPIL: Yes Equal, round and reactive pupils present Neck/C-Spine: COMMON NORMALS: full ROM, no lymphadenopathy and no JVD THYROID: Thyroid normal Lymph: LYMPHATIC: no lymphadenopathy noted Resp: COMMON NORMALS: normal respiratory effort, No retractions, No use of accessory muscles and clear to auscultation bilaterally AUSCULTATION: clear to auscultation bilaterally Cardio: COMMON NORMALS: no JVD, regular rate, regular rhythm, S1 normal heart sound present, S2 normal heart sound present, No gallops present (Cardio), No clicks present (Cardio) and No murmurs present (Cardio) RATE: regular rate RHYTHM: regular rhythm HEART SOUNDS: S1 normal heart sound present and S2 normal heart sound present GI: COMMON NORMALS: Normal to inspection, nondistended, normoactive bowel sounds present, Soft to palpation, non-tender and No hepatosplenomegaly present PALPATION: Yes Soft to palpation and Yes No hepatosplenomegaly present Extremity: COMMON NORMALS: normal to inspection, full ROM and no pedal edema Neuro: COMMON NORMALS: patient oriented x3, CN's II-XII intact bilaterally, moves all extremities and no focal motor deficits Psych: COMMON NORMALS: mental status grossly normal, Normal thought process present and cooperative THOUGHT PROCESS: Normal thought process present Data : 09/05/21 13:40 09/05/21 13:40 Micro: Microbiology 09/05/21 15:50 Blood Culture - Preliminary Blood SPECIMEN COLLECTED 09/05/21 15:56 Blood Culture - Preliminary Blood SPECIMEN COLLECTED A&P Assessment and plan (1) Atrial fibrillation: -new onset atrial fibrillation diagnosed on last ER visit, discharged on metoprolol, eliquis, -currently in normal sinus rhythm -for now switch to therapeutic Lovenox -continue metoprolol 12.5mg BID -continue telemetry -Therapeutic Lovenox for DVT prophylaxis -CODE STATUS patient does not want intubation, wants everything else done, clarified this with him multiple times, at bedside Status: Acute Qualifiers: Atrial fibrillation type: unspecified Qualified Code(s): I48.91 - Unspecified atrial fibrillation (2) COVID-19: -not requiring oxygen -CT angiogram of the chest no pulmonary embolism, multilobar patchy groundglass opacities -Hyponatremia, transaminitis, NSTEMI -We will give monoclonal antibody infusion -Albuterol, Advair, vitamin C, vitamin D, zinc, incentive spirometer, flutter valve Status: Acute (3) Diabetes: -Continue Lantus 25 units twice daily, low-dose sliding scale, check A1c Status: Acute Qualifiers: Diabetes mellitus type: type 2 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: with termite exterminator use Diabetes mellitus complication status: without complication Qualified Code(s): E11.9 - Type 2 diabetes mellitus without complications; Z79.4 - terminal clerk (current) use of insulin (4) NSTEMI (non-ST elevated myocardial infarction): -Baseline troponin 154, 120-minute 143.8, EKG no acute ST-T wave changes, no complaints of chest pain -Likely related to Covid related myocarditis -Cannot rule out underlying cardiac etiology given history of type 2 diabetes mellitus -Continue aspirin, statin -Therapeutic Lovenox, metoprolol -Serial EKGs, serial troponins, telemetry monitoring -Monitor for chest pain -Might require cardiac stress testing, in the near future Status: Acute (5) Transaminitis: Secondary COVID-19 pneumonia Status: Acute (6) Hyponatremia: Hyponatremia, secondary dehydration, will give IV fluids Status: Acute Attestations Medical Necessity Statement*: Patient requires hospitalization, inpatient, greater than 2 minutes, for COVID-19, NSTEMI, dehydration Coding Level of Care Code Acute [employer] Clerk for [facility] Diagnoses Atrial fibrillation I48.91 Atrial fibrillation type: unspecified COVID-19 U07.1 Diabetes E11.9; Z79.4 Diabetes mellitus type: type 2 Diabetes mellitus correction insulin use: with termite exterminator use Diabetes mellitus complication status: without complication NSTEMI (non-ST elevated myocardial infarction) I21.4 Transaminitis R74.01 Hyponatremia E87.1
[2021-09-05] MEDS: sodium chloride 0.9% 1,000 ML 50 ML IV (20:16)
[2021-09-05] MEDS: enoxaparin 100 mg/mL Syringe SUBCUT (20:16)
[2021-09-05] MEDS: metoprolol tartrate 25 mg Tablet 12.5 MG PO (20:16)
[2021-09-05 20:43] LABS: Creatine Phosphokinase 334 U/L (39-308)
[2021-09-05 20:44] LABS: Troponin 5 6HR 140.1 ng/L (0-15); Troponin 5 6HR Delta -13.9 ng/L (0-12)
[2021-09-05 20:54] LABS: Glucose Point of Care 127 mg/dL (70-110)
[2021-09-05 21:10] LABS: Estmated Average Glucose 140; Hemoglobin A1C 6.5 % (4.0-6.0)
[2021-09-06] VITALS (8 sets, daily range): BP systolic 104–160; BP diastolic 64–86; PULSE 72–98; RESP 11–33; TEMP 36.8–37.7; O2SAT 90–92
--- NOTE | 2021-09-06 | USCV_ITS ---
Raz Dewey Age: 61 Gender: M : 1960 Exam Date: 09/06/2021 06:38 Ordering Phys: Vinnie Peralta MD Technologist: Exam [place] [facility] [place]: SYNCOPE Risk Factors: Previous Vascular Surgery: Right Brachial BP: / Left Brachial BP: / Right Left Velocity (cm/s) Spectral Plaque Velocity (cm/s) Spectral Plaque Syst/Diast Broadening Syst/Diast Broadening 49.45/ 13.40 Prox CCA 55.90 / 16.40 46.00/ 14.00 Mid CCA 48.00 / 10.50 42.70/ 13.10 Distal CCA 53.20 / 13.10 61.80/ 21.70 Prox ICA 51.30 / 12.50 56.50/ 19.10 Mid ICA 44.70 / 15.10 61.10/ 23.70 Distal ICA 54.30 / 18.30 76.90 ECA 86.80 1.45 ICA/CCA 0.97 Antegrade Vertebral Antegrade 36.80/ 13.10 cm/s 29.80/ 11.00 cm/s Tri Subclavian Tri 70.30 72.00 CONCLUSIONS Right ICA stenosis <50%. Left ICA stenosis <50%. Normal antegrade Doppler flow noted in the right vertebral artery. Normal antegrade Doppler flow noted in the left vertebral artery. Gamal Mcdowell MD (Electronically Signed) Final Date: 06 September 2021 13:20 S
[2021-09-06 04:06] LABS: Glucose Point of Care 119 mg/dL (70-110)
[2021-09-06 04:29] LABS: Basophils % 0.3 %; Eosinophils % 0.8 %; Hematocrit 38.9 % (42.0-52.0); Hemoglobin 13.2 g/dL (11.7-16.6); Lymphocytes # 0.8 10^3/uL (0.8-4.8); Lymphocytes % 21.5 %; Mean Corpuscular HGB Conc 33.9 g/dL (30.0-36.0); Mean Corpuscular Hemoglobin 30.9 pg (28.0-34.0); Mean Corpuscular Volume 91.1 fl (80-94); Mean Platelet Volume 10.8 fL (7.4-10.4); Monocytes # 0.2 10^3/uL (0.2-0.9); Monocytes % 5.8 %; Neutrophils # 2.71 10^3/uL (1.8-7.7); Neutrophils % 71.1 %; Nucleated Red Blood Cells % 0 %; Platelet Count 124 10^3/cmm (130-400); Red Blood Count 4.27 10^6/uL (4.1-5.3); Red Cell Distribution Width 12.6 % (12.1-15.1); White Blood Count 3.8 10^3/uL (4.0-10.0)
[2021-09-06 04:50] LABS: Alanine Aminotransferase 29 U/L (0-41); Albumin Level 3.1 g/dL (3.5-5.2); Alkaline Phosphatase 44 IU/L (40-130); Anion Gap 13.8 (5-19); Aspartate Amino Transferase 46 U/L (0-40); Blood Urea Nitrogen 18 mg/dL (8-23); Calcium 8.2 mg/dL (8.5-10.5); Carbon Dioxide 24 mmol/L (22-29); Chloride 99 mmol/L (98-107); Globulin 3.1 g/dL (1.3-4.6); Glomerular Filtration Rate 98.6 mL/min (90-130); Glucose 124 mg/dL (65-115); Magnesium 1.9 mg/dL (1.7-2.3); Osmolality Calculated 279 mOsm/kg (285-295); Phosphorus 3.5 mg/dL (2.5-4.5); Potassium 3.8 mmol/L (3.5-5.1); Sodium 133 mmol/L (136-145); Total Bilirubin 0.5 mg/dL (0.15-1.2); Total Protein 6.2 g/dL (6.6-8.7)
[2021-09-06 05:01] LABS: NT Pro B Type Natriuretic Pept 1339 pg/mL (0-125)
--- NOTE | 2021-09-06 06:11 | PC.NURSE ---
Dr. Carroll notified of BNP increase from 611 to 1339.
[2021-09-06 06:41] LABS: Glucose Point of Care 129 mg/dL (70-110)
--- NOTE | 2021-09-06 07:12 | PC.NURSE ---
Patient educated multiple times throughout shift to not get up or sit up without assistance due to dizzy episodes. Patient verbalized understanding. Patient is currently able to answer correctly to person, place, and time.
[2021-09-06] MEDS: enoxaparin 100 mg/mL Syringe SUBCUT ×2 (09:36→20:13)
[2021-09-06] MEDS: pantoprazole DR 40 mg Tablet PO (09:37)
[2021-09-06] MEDS: cholecalciferol (vitamin D3) 1,000 unit Tablet 1000 UNIT PO (09:37)
[2021-09-06] MEDS: ascorbic acid 500 mg Tablet PO ×2 (09:37→18:04)
[2021-09-06] MEDS: aspirin 81 mg EC Tablet PO (09:37)
[2021-09-06] MEDS: metoprolol tartrate 25 mg Tablet 12.5 MG PO ×2 (09:37→18:04)
[2021-09-06] MEDS: zinc gluconate 50 mg Tablet PO (09:37)
--- NOTE | 2021-09-06 09:42 | PC.CHAP ---
Pastoral Care Encounter/Spiritual Assessment Type of Contact [] Declined garment parts cutter machine visit [] Patient/Family/Request visit [] Outpatient visit [] Follow-up visit [] Physician referral [] Code/Alert [x] Routine visit [] Staff referral [] Actively dying [] Patient sleeping [] Family support [] [] Out of room [] Palliative care [] [x] Receiving care in room [] Pre-surgical visit [] Trauma [] Long length of stay [] ICU visit [x] Other: doctor present Relational/Emotional Strength [] Patient feels connected with others/family/visitors/staff [] Distress [] Loneliness/isolation [] Abandonment Spirituality of Patient [] Person of Rachel [] Attends Sabianist of their Rachel [] Believes in Prayer [] Reads Bible or Methodist materials [] There are Spiritual issues to be addressed [place] Interventions [x] Prayer [] Active listening [] Non-anxious presence [] Spiritual/emotional support [] Crisis/trauma care [] Spiritual counseling [] Bereavement support [] Provided bereavement packet [] Provided Bible/devotional materials [] Provided toy/stuffed animal, coloring book to patient or family member [] Provided Communion [] Anointing/[place] [] Salvation [x] Completed spiritual assessment [] Other: Impact on Illness or Injury [] Angry [] Fearful [] Anxious [] Often cries [] Exhaustion [] Unable to work [] Unable to attend evangelical [] Unable to walk/stand [] Unable to read [] Unable to drive [] Unable to eat/drink [] Unable to sleep [] Unable to be with family [] Patient intubated [] Other: Summary Time spent with patient
[2021-09-06 11:42] LABS: Glucose Point of Care 118 mg/dL (70-110)
--- NOTE | 2021-09-06 16:28 | P.PN_ITS ---
Subjective Subjective: Interval history: Patient was seen this morning, continues to feel nauseated, lightheaded, does describe presyncope, has been receiving IV fluids, he has not touched much of his breakfast, he does not want to have any carbs, advised that that is not recommended with his type 2 diabetes, some amount of carbs are reasonable, however he is absolutely insistent that he should not receive any type of carbohydrates, he was quite irritated about the pancakes that he received this morning, I advised him that he can change her to consistent carb diet, but a reasonable amount of carbs proteins and fats are required for a balanced diet, he tells me that he will see what he can order for lunch Vitals/I&O/Wt Last Vital Signs Temp 99.5 F 09/06/21 12:00 Pulse 77 09/06/21 14:00 Resp 23 H 09/06/21 12:00 BP 122/69 09/06/21 12:00 Pulse Ox 92 09/06/21 12:00 09/06/21 09/06/21 09/06/21 06:59 14:59 22:59 Intake Total 200 / 1200 Output Total 500 / 500 Balance -300 / 700 Weight last 48 hrs Weight 99.382 kg Weight 97.522 kg Physical Exam Const: COMMON NORMALS: no acute distress and patient oriented x3 Resp: COMMON NORMALS: normal respiratory effort, No retractions, No use of accessory muscles and clear to auscultation bilaterally AUSCULTATION: clear to auscultation bilaterally Cardio: COMMON NORMALS: regular rate, regular rhythm, S1 normal heart sound present and S2 normal heart sound present RATE: regular rate RHYTHM: regular rhythm HEART SOUNDS: S1 normal heart sound present and S2 normal heart sound present GI: COMMON NORMALS: Normal to inspection, nondistended, normoactive bowel sounds present, Soft to palpation and non-tender PALPATION: Yes Soft to palpation Extremity: COMMON NORMALS: no pedal edema Neuro: COMMON NORMALS: patient oriented x3 Psych: COMMON NORMALS: mental status grossly normal Data : 09/06/21 04:18 09/06/21 04:18 Micro: Microbiology 09/05/21 15:50 Blood Culture - Preliminary Blood NEGATIVE TO DATE 09/05/21 15:56 Blood Culture - Preliminary Blood NEGATIVE TO DATE A&P Assessment and plan (1) Atrial fibrillation: -new onset atrial fibrillation diagnosed on last ER visit, discharged on metoprolol, eliquis, -currently in normal sinus rhythm -for now switch to therapeutic Lovenox -continue metoprolol 12.5mg BID -continue telemetry -Therapeutic Lovenox for DVT prophylaxis -CODE STATUS patient does not want intubation, wants everything else done, clarified this with him multiple times, at bedside Status: Acute Qualifiers: Atrial fibrillation type: unspecified Qualified Code(s): I48.91 - Unspecified atrial fibrillation (2) COVID-19: -not requiring oxygen -CT angiogram of the chest no pulmonary embolism, multilobar patchy groundglass opacities -Hyponatremia, transaminitis, NSTEMI -Currently is requiring hospital mission secondary to dehydration, atrial fibrillation, and elevated troponins, hospitalization is more a complication of Covid infection, not requiring oxygen, will see if he can qualify for multiple a ntibody -Albuterol, Advair, vitamin C, vitamin D, zinc, incentive spirometer, flutter valve Status: Acute (3) Diabetes: -Continue Lantus 25 units twice daily, low-dose sliding scale, check A1c Status: Acute Qualifiers: Diabetes mellitus type: type 2 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: with superintendent marine oil terminal use Diabetes mellitus complication status: without complication Qualified Code(s): E11.9 - Type 2 diabetes mellitus without complications; 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 (4) NSTEMI (non-ST elevated myocardial infarction): -Baseline troponin 154, 6-hour 140, delta -13.[address]-T wave changes, no complaints of chest pain -Likely related to Covid related myocarditis -Cannot rule out underlying cardiac etiology given history of type 2 diabetes mellitus -Continue aspirin, statin -Therapeutic Lovenox, metoprolol -Serial EKGs, serial troponins, telemetry monitoring -Monitor for chest pain -Consult cardiology, consider cardiac stress testing Status: Acute (5) Transaminitis: Secondary COVID-19 pneumonia Status: Acute (6) Hyponatremia: Hyponatremia, secondary dehydration, will give IV fluids Status: Acute (7) Dehydration: Status: Acute Attestations Medical Necessity Statement*: Patient requires hospitalization for COVID-19 related dehydration, hyponatremia, transaminitis, with atrial fibrillation, possible COVID-19 related myocarditis Coding Level of Care Code Acute Internet Webmaster for [facility] Diagnoses Atrial fibrillation I48.91 Atrial fibrillation type: unspecified COVID-19 U07.1 Diabetes E11.9; Z79.4 Diabetes mellitus type: type 2 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: with jail use Diabetes mellitus complication status: without complication NSTEMI (non-ST elevated myocardial infarction) I21.4 Transaminitis R74.01 Hyponatremia E87.1 Dehydration E86.0
[2021-09-06 16:45] LABS: Glucose Point of Care 131 mg/dL (70-110)
[2021-09-06] MEDS: sodium chloride 0.9% 1,000 ML 50 ML IV (18:49)
--- NOTE | 2021-09-06 19:48 | USCV_ITS ---
Raz Dewey Age: 61 Gender: M : 1960 Exam Date: 09/06/2021 06:26 Ordering Phys: Vinnie Peralta MD Technologist: Exam Location: [facility] – [place] Indication: SYNCOPE BP: 115 / 76 HR: 78 Rhythm: Sinus Technical Quality: Adequate MEASUREMENTS (Male / Female) Normal Values 2D ECHO LV Diastolic Diameter PLAX 2.6 cm 4.2 - 5.9 / 3.9 - 5.3 cm LV Systolic Diameter PLAX 2.3 cm IVS Diastolic Thickness 0.7 cm 0.6 - 1.0 / 0.6 - 0.9 cm IVS Systolic Thickness 1.4 cm LVPW Diastolic Thickness 2.9 cm 0.6 - 1.0 / 0.6 - 0.9 cm LVPW Systolic Thickness 1.4 cm LVOT Diameter 2.1 cm LV Ejection Fraction 2D Teich 67.5 % LV Ejection Fraction MOD 2C 61.6 % LV Ejection Fraction 2C AL 60.8 % LA Diameter 3.5 cm LA Width 4.4 cm LA Height 4.8 cm RA Width 3.9 cm RA Height 5.0 cm DOPPLER AV Peak Velocity 108.0 cm/s LVOT Peak Velocity 75.0 cm/s AV Area Cont Eq vti 2.7 cm squared AV Area Cont Eq pk 2.3 cm squared MV Area PHT 5.0 cm squared Mitral E to A Ratio 1.1 MV E' Velocity 39.5 cm/s Mitral E to MV E' Ratio 8.4 Mitral E to LV E' Lateral Ratio 7.9 Mitral E to LV E' Septal Ratio 9.1 TR Peak Velocity 151.0 cm/s TR Peak Gradient 9.1 mmHg TV Peak E Velocity 82.0 cm/s Right Atrial Pressure 3.0 mmHg Pulmonary Artery Systolic Pressu 12.1 mmHg FINDINGS Left Ventricle Normal left ventricular size. LV systolic function is normal with EF of 55-60%. No regional wall motion abnormalities. Normal diastolic filling pattern. Right Ventricle The right ventricle is normal in size and function. Right Atrium The right atrium is normal in size. Left Atrium The left atrium is normal in size. Mitral Valve Structurally normal mitral valve without significant stenosis or prolapse. There is trace mitral regurgitation. Aortic Valve Structurally normal aortic valve without significant sclerosis or stenosis. There is no aortic regurgitation. Tricuspid Valve Structurally normal tricuspid valve without significant stenosis or regurgitation. Insufficient TR jet to calculate RVSP Pulmonic Valve Not well visualized Pericardium Normal pericardium without effusion. Aorta Normal ascending aorta dimension. CONCLUSIONS LV systolic function is normal with EF of 55-60% Normal diastolic function Trace mitral regurgitation No comparison studies available Scotty Cadet MD (Electronically Signed) Final Date: 06 September 2021 20:29 S
--- NOTE | 2021-09-06 19:48 | USCV_ITS ---
Raz Dewey Age: 61 Gender: M : 1960 Exam Date: 09/06/2021 06:38 Ordering Phys: Vinnie Peralta MD Technologist: Exam Location: [facility] – [place] Indication: SYNCOPE Risk Factors: Previous Vascular Surgery: Right Brachial BP: / Left Brachial BP: / Right Left Velocity (cm/s) Spectral Plaque Velocity (cm/s) Spectral Plaque Syst/Diast Broadening Syst/Diast Broadening 49.45/ 13.40 Prox CCA 55.90 / 16.40 46.00/ 14.00 Mid CCA 48.00 / 10.50 42.70/ 13.10 Distal CCA 53.20 / 13.10 61.80/ 21.70 Prox ICA 51.30 / 12.50 56.50/ 19.10 Mid ICA 44.70 / 15.10 61.10/ 23.70 Distal ICA 54.30 / 18.30 76.90 ECA 86.80 1.45 ICA/CCA 0.97 Antegrade Vertebral Antegrade 36.80/ 13.10 cm/s 29.80/ 11.00 cm/s Tri Subclavian Tri 70.30 72.00 CONCLUSIONS Right ICA stenosis <50%. Left ICA stenosis <50%. Normal antegrade Doppler flow noted in the right vertebral artery. Normal antegrade Doppler flow noted in the left vertebral artery. Gamal Mcdowell MD (Electronically Signed) Final Date: 06 September 2021 13:20 S
--- NOTE | 2021-09-06 20:00 | P.CONIM_ITS ---
Providers/Reason For Consult Consulting Physician/Specialty*: Scotty Cadet MD/ Cardiology Reason for Consult*: Troponin elevation Requesting Physician: Dr Peralta Attending Physician: Vinnie Peralta MD Primary Care Provider: Lasha Baltazar MD History of Present Illness History of Present Illness (Patient was not seen physically because of his Covid diagnosis and no active cardiac symptoms)Raz Dewey is a 61 year old male with past medical history of diabetes, new onset atrial fibrillation who has presented to the hospital with malaise, fatigue and nausea. Cardiology was consulted as troponins were elevated at 154. 2-hour troponin is trended down to 140. No ischemic changes on the EKG. Echocardiogram has been performed that shows normal LV systolic function. No active chest pain. Review of Systems General: Reports: Other Narrative: CONSTITUTIONAL: Malaise HEENT: Normocephalic, atraumatic.[] RESPIRATORY: No cough, sputum, hemoptysis or wheezing.[] CARDIOVASCULAR: No shortness of breath, chest pain, PND, orthopnea, lower extremity edema, presyncope or syncope. 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 [] MUSCULOSKELETAL: No knee or joint pain or rashes. [] Meds/Allergies Home Medications and Allergies Home Medications Medication Instructions Recorded Confirmed Last Taken Type Probiotic 1 cap PO DAILY 11/27/19 09/05/21 Unknown History apixaban [Eliquis] 5 mg PO BID #60 tab 09/02/21 09/05/21 09/05/21 09:00 Rx hydrocodone-acetaminophen 1 tab PO Q8H PRN #7 tab 09/02/21 09/05/21 Unknown Rx metoprolol tartrate 12.5 mg PO BID #60 tab 09/02/21 09/05/21 09/05/21 09:00 Rx ondansetron HCl [Zofran] 4 mg PO Q6H PRN #10 tab 09/02/21 09/05/21 09/05/21 09:00 Rx insulin glargine [Lantus Solostar 25 unit SUBCUT BID 09/05/21 09/05/21 09/05/21 09:00 History U-100 Insulin] multivitamin 1 tab PO DAILY 11/12/2509/05/21 09/05/21 09:00 History Allergies Allergy/AdvReac Type Severity Reaction Status Date / Time prednisone Allergy Severe shut down Verified 09/05/21 15:24 pancrease meperidine [From Demerol] Allergy Unknown Verified 09/05/21 15:24 Current Medications Current Medications Generic Name Dose Route Start Last Admin Trade Name Gigiq PRN Reason Stop Dose Admin Ascorbic Acid 500 mg 09/06/21 09:00 09/06/21 18:04 Ascorbic Acid 500 Mg Tablet PO 500 mg BID ERLINDA Administration Aspirin 81 mg 09/06/21 09:00 09/06/21 09:37 Aspirin 81 Mg Ec Tablet PO 81 mg DAILY ERLINDA Administration Atorvastatin Calcium 40 mg 09/05/21 21:00 09/05/21 20:18 Atorvastatin 40 Mg Tablet PO Not Given BEDTIME [facility] Enoxaparin Sodium 100 mg 09/05/21 20:00 09/06/21 09:36 Enoxaparin 100 Mg/Ml Syringe 1 mg/kg (100 mg) 100 mg SUBCUT Administration Q12H [facility] Sodium Chloride 1,000 mls @ 50 mls/hr 09/05/21 19:48 09/06/21 18:49 Sodium Chloride 0.9% IV 50 mls/hr .Q20H ERLINDA Administration Insulin Glargine 20 unit 09/06/21 09:00 09/06/21 18:04 Insulin Glargine 100 Units/1 Ml SUBCUT Not Given BID [facility] Insulin Human Lispro 0 unit 09/06/21 08:00 09/06/21 18:04 Insulin Lispro 100 Unit/1 Ml SUBCUT Not Given TIDWM [facility] Protocol Metoprolol Tartrate 12.5 mg 09/05/21 19:48 09/06/21 18:04 Metoprolol Tartrate 25 Mg Tablet PO 12.5 mg BID ERLINDA Administration Pantoprazole Sodium 40 mg 09/05/21 19:48 09/06/21 18:[address] 40 Mg Tablet PO Not Given BID [facility] Fluticasone/Salmeterol 1 puff 09/05/21 20:00 09/06/21 09:07 Fluticasone-Salmeterol 250-50 Diskus INHALATION Not Given BID.RESPIRATORY ERLINDA Vitamin D 1,000 unit 09/06/21 09:00 09/06/21 09:37 Cholecalciferol (Vitamin D3) 1,000 Unit Tablet PO 1,000 unit DAILY ERLINDA Administration Zinc Gluconate 50 mg 09/06/21 09:00 09/06/21 09:37 Zinc Gluconate 50 Mg Tablet PO 50 mg DAILY ERLINDA Administration PFSH Acute PFSH: Medical History (Updated 09/09/21 @ 10:55 by Scotty Cadet M.D) Diabetes Hyperlipidemia Hypothyroid Surgical History No pertinent past surgical history Family History Father Diabetes Family/Other Pancreatic cancer Social History Smoking and tobacco status: never smoked Alcohol intake: never Adopted: No Caregiver/support person: No Lives independently: No Marital status: service: No Current occupational status: employed Sexually active: Yes Current gender identity: Male Vitals/I&O/Wt Last Vital Signs Temp 99.5 F 09/06/21 12:00 Pulse 84 09/06/21 16:00 Resp 23 H 09/06/21 16:00 BP 104/67 09/06/21 16:00 Pulse Ox 90 09/06/21 16:00 09/06/21 09/06/21 09/06/21 06:59 14:59 22:59 Intake Total 200 / 1200 1000 / 1000 Output Total 500 / 500 2 / 2 Balance -300 / 700 998 / 998 Weight last 48 hrs Weight 219 lb 1.6 oz Weight 215 lb Physical Exam Narrative: EXAM NARRATIVE: Patient not physically seen secondary to his Covid infection and no active symptoms. Data Micro: Micro: Microbiology 09/05/21 15:50 Blood Culture - Pr eliminary Blood NEGATIVE TO PAKO E 09/05/21 15:56 Blood Culture - Pr eliminary Blood NEGATIVE TO PAKO E A&P Assessment and plan (1) Elevated troponin: Status: Acute (2) Atrial fibrillation: Status: Acute Qualifiers: Atrial fibrillation type: unspecified Qualified Code(s): I48.91 - Unspecified atrial fibrillation (3) Diabetes: Status: Acute Qualifiers: Diabetes mellitus complication status: without complication Diabetes mellitus middle or intermediate school principal insulin use: with middle or intermediate school principal use Diabetes mellitus type: type 2 Qualified Code(s): E11.9 - Type 2 diabetes mellitus without complications; 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 Likely secondary to demand ischemia in the setting of Covid infection and atrial fibrillation. Echocardiogram shows normal LV systolic function and patient is chest free. Medical management as this time. Patient will follow with cardiology as an outpatient and will need a stress test to rule out CAD. Thank you for involving us with patient's care. We will sign off. Please call with questions. Coding Level of Care Code Acute Acquisition Manager for [facility] Fwd Diagnoses Elevated troponin R77.8 Atrial fibrillation I48.91 Atrial fibrillation type: unspecified Diabetes E11.9; Z79.4 Diabetes mellitus complication status: without complication Diabetes mellitus custodial insulin use: with custodial use Diabetes mellitus type: type 2 Hyperlipidemia E78.5
[2021-09-06] MEDS: acetaminophen 325 mg Tablet 650 MG PO (23:47)
[2021-09-07] VITALS (10 sets, daily range): BP systolic 117–155; BP diastolic 65–79; PULSE 67–83; RESP 15–27; TEMP 36.4–37.7; O2SAT 90–95
--- NOTE | 2021-09-07 | USCV_ITS ---
Raz Dewey Age: 61 Gender: M : 1960 Exam Date: 09/07/2021 13:03 Ordering Phys: Vinnie Peralta MD Technologist: Lloyd Crum Exam Location: [facility] – [place] Indication: BLE SWELLING HISTORY: Lower extremity swelling. PROCEDURES: Venous duplex imaging was performed in bilateral lower extremities. The following venous structures were evaluated: common femoral vein, profunda vein, proximal portion of the greater saphenous vein, superficial femoral vein, and the popliteal vein. In addition, the posterior tibial and peroneal trunk were evaluated. Serial compression, augmentation maneuvers, and spectral Doppler flow evaluation were performed. FINDINGS: No evidence of DVT seen in any vessel visualized at this time. CONCLUSIONS No evidence of right lower extremity DVT. No evidence of left lower extremity DVT. Gamal Mcdowell MD (Electronically Signed) Final Date: 07 September 2021 13:31 S
[2021-09-07 04:03] LABS: Glucose Point of Care 129 mg/dL (70-110)
[2021-09-07 05:00] LABS: Basophils % 0.3 %; Eosinophils % 0.3 %; Hematocrit 35.8 % (42.0-52.0); Hemoglobin 11.4 g/dL (11.7-16.6); Lymphocytes % 26.2 %; Mean Corpuscular HGB Conc 31.8 g/dL (30.0-36.0); Mean Corpuscular Hemoglobin 30.4 pg (28.0-34.0); Mean Corpuscular Volume 95.5 fl (80-94); Mean Platelet Volume 11.7 fL (7.4-10.4); Monocytes # 0.2 10^3/uL (0.2-0.9); Monocytes % 4.5 %; Neutrophils # 2.55 10^3/uL (1.8-7.7); Neutrophils % 68.2 %; Nucleated Red Blood Cells % 0 %; Platelet Count 97 10^3/cmm (130-400); Red Blood Count 3.75 10^6/uL (4.1-5.3); Red Cell Distribution Width 12.9 % (12.1-15.1); White Blood Count 3.7 10^3/uL (4.0-10.0)
[2021-09-07 05:15] LABS: Alanine Aminotransferase 23 U/L (0-41); Albumin Level 2.8 g/dL (3.5-5.2); Alkaline Phosphatase 38 IU/L (40-130); Blood Urea Nitrogen 16 mg/dL (8-23); Calcium 7.8 mg/dL (8.5-10.5); Carbon Dioxide 20 mmol/L (22-29); Chloride 101 mmol/L (98-107); Globulin 2.9 g/dL (1.3-4.6); Glucose 104 mg/dL (65-115); Osmolality Calculated 275 mOsm/kg (285-295); Sodium 132 mmol/L (136-145); Total Bilirubin 0.4 mg/dL (0.15-1.2); Total Protein 5.7 g/dL (6.6-8.7)
[2021-09-07 05:24] LABS: Anion Gap 14.5 (5-19); Potassium 3.5 mmol/L (3.5-5.1)
[2021-09-07 05:25] LABS: Aspartate Amino Transferase 43 U/L (0-40)
--- NOTE | 2021-09-07 06:03 | PC.NURSE ---
Shift Note Frequent safety and comfort rounds continue. Orders and/or nursing care completed as indicated. Patient monitored for response to intervention and treatment(s). Education provided includes fever management and effects of tylenol on temp.. Patient verbalized undertanding. no distress noted at this time. Will continue to monitor.
--- NOTE | 2021-09-07 07:55 | PC.NURSE ---
Pt presents lying in bed resting with eyes open talking to staff. Pt resp even and non-labored no distress or sob noted. Pt O2 at 91% R.A. Pt had no c/o pain or discomfort at the present time. Call light in reach. No needs voiced at the present time. Will cont to monitor.
[2021-09-07] MEDS: aspirin 81 mg EC Tablet PO (09:40)
[2021-09-07] MEDS: cholecalciferol (vitamin D3) 1,000 unit Tablet 1000 UNIT PO (09:40)
[2021-09-07] MEDS: apixaban 5 mg Tablet PO ×2 (09:40→20:23)
[2021-09-07] MEDS: metoprolol tartrate 25 mg Tablet 12.5 MG PO ×2 (09:40→17:27)
[2021-09-07] MEDS: insulin glargine 100 units/1 mL 20 UNIT SUBCUT (09:40)
[2021-09-07] MEDS: ascorbic acid 500 mg Tablet PO ×2 (09:40→17:27)
[2021-09-07] MEDS: zinc gluconate 50 mg Tablet PO (09:41)
[2021-09-07 10:06] LABS: Glucose Point of Care 119 mg/dL (70-110)
--- NOTE | 2021-09-07 12:06 | PM.DCS ---
Discharge Providers Date of Admission: 09/05/21 16:56 Date of Discharge: September 07, 2021 Attending Provider at Admission: Vinnie Peralta MD Attending Provider at Discharge: Vinnie Peralta MD Primary Care Provider: Lasha Baltazar MD Diagnoses at Discharge Discharge Diagnosis (1) Atrial fibrillation: Status: Acute Qualifiers: Atrial fibrillation type: unspecified Qualified Code(s): I48.91 - Unspecified atrial fibrillation (2) COVID-19: Status: Acute (3) Diabetes: Status: Acute Qualifiers: Diabetes mellitus type: type 2 Diabetes mellitus long-term insulin use: with terminal clerk use Diabetes mellitus complication status: without complication Qualified Code(s): E11.9 - Type 2 diabetes mellitus without complications; 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 Patient was admitted to [facility] for NSTEMI, baseline troponin 154, 6-hour 140, delta -13.9, EKG no acute ST-T wave changes, no chest pain complaints, concerns for Covid related myocarditis versus underlying cardiac etiology given underlying type 2 diabetes mellitus. Patient was managed on aspirin, statin, beta-antonietta, anticoagulation and clinically monitored. He remained chest pain-free, no acute arrhythmia events, cardiology was consulted recommended medical management with outpatient follow-up for consideration of stress testing. Patient will be discharged on aspirin, statin, Eliquis, metoprolol, nitro as needed for chest pain, with close follow-up with cardiology as outpatient for consideration of stress testing Patient developed new onset atrial fibrillation on his last ER visit, remained in normal sinus rhythm, managed with metoprolol, Eliquis. Patient was found to be Covid positive on hospitalization, not requiring oxygen, CT angiogram was negative for pulmonary embolism, bilateral lower extremity ultrasound was negative for DVT, however CT of the chest did show multilobar patchy groundglass opacities. He also developed hyponatremia, transaminitis, leukopenia, thrombocytopenia likely secondary to COVID-19 infection. Unfortunately patient does not qualify for monoclonal antibody infusion as his hospitalization was secondary to complications related to COVID-19 including myocarditis, dehydration, fatigue, malaise related to Covid infection. He will be discharged on albuterol, Advair, vitamin C, zinc, instructions to drink plenty of electrolyte balance fluids, Tylenol for fevers, monitor his oxygen levels if any worsening symptomatology come back to emergency room Patient hyponatremia secondary to COVID-19 infection, dehydration, received IV hydration Physical Exam Const: COMMON NORMALS: no acute distress and patient oriented x3 Resp: COMMON NORMALS: normal respiratory effort, No retractions, No use of accessory muscles and clear to auscultation bilaterally AUSCULTATION: clear to auscultation bilaterally Cardio: COMMON NORMALS: regular rate, regular rhythm, S1 normal heart sound present and S2 normal heart sound present RATE: regular rate RHYTHM: regular rhythm HEART SOUNDS: S1 normal heart sound present and S2 normal heart sound present GI: COMMON NORMALS: Normal to inspection, nondistended, normoactive bowel sounds present, Soft to palpation and non-tender PALPATION: Yes Soft to palpation Extremity: COMMON NORMALS: no pedal edema Neuro: COMMON NORMALS: patient oriented x3 Psych: COMMON NORMALS: mental status grossly normal Discharge Data Data Completed and Pending: Completed Studies During Hospitalization Category Date Time Status CT angio chest PE protcl [id number] Urge nt Cat Scan 09/05/21 16:[address] head wo con* 7 [id number] Urgent Cat Scan 09/05/21 13:06 Completed XR chest 1V guerita ble [id number] Urgent Exams 09/05/21 13:06 [place] [id number] Routin e Ultrasound 09/06/21 19:48 Completed CV. echo complete * [id number] Routine Ultrasound 09/06/21 19:48 Completed Pending at discharge Category Date Time Status Blood Culture Sta t Lab 09/05/21 15:50 Results Clostridioides Di fficile PCR Routin e Lab 09/05/21 19:48 Ordered Complete Blood Co unt w/Auto AM LABS Lab 09/08/21 04:00 Ordered Comprehensive Met abolic Panel AM LA BS Lab 09/08/21 04:00 Ordered Enteric Bacterial Panel by PCR Rout ine Lab 09/05/21 19:48 Ordered Enteric Parasite Panel by PCR Yeseniai ne Lab 09/05/21 19:48 Ordered Immunochemical Fe peg OCB Routine Lab 09/05/21 19:48 Ordered Lactoferrin Routi ne Lab 09/05/21 19:48 Ordered Magnesium AM LABS Lab 09/08/21 04:00 Ordered Phosphorus AM LAB S Lab 09/08/21 04:00 Ordered Labs from last 24 hours 09/07/21 09/07/21 09/07/21 09:57 04:20 04:20 WBC 3.7 L RBC 3.75 L Hgb 11.4 L Hct 35.8 L MCV 95.5 H MCH 30.4 MCHC 31.8 D RDW 12.9 Plt Count 97 L MPV 11.7 H Neut % (Auto) 68.2 Lymph % (Auto) 26.2 [place] % (Auto) 4.5 Eos % (Auto) 0.3 Baso % (Auto) 0.3 Neut # (Auto) 2.55 Lymph # (Auto) 1.0 [place] # (Auto) 0.2 Eos # (Auto) 0.0 Baso # (Auto) 0.0 Nucleated RBC % (a uto) 0 Nucleated RBCs # 0.0 Sodium 132 L Potassium 3.5 Chloride 101 Carbon Dioxide 20 L Anion Gap 14.5 BUN 16 Creatinine 0.7 GFR Calculation 115.0 Glucose 104 POC Glucose 119 H Calculated Osmolal ity 275 L Calcium 7.8 L Phosphorus 3.0 Magnesium 2.0 Total Bilirubin 0.4 AST 43 H ALT 23 Alkaline Phosphata se 38 L Total Protein 5.7 L Albumin 2.8 L Globulin 2.9 09/06/21 09/06/21 20:25 16:27 WBC RBC Hgb Hct MCV MCH MCHC RDW Plt Count MPV Neut % (Auto) Lymph % (Auto) [place] % (Auto) Eos % (Auto) Baso % (Auto) Neut # (Auto) Lymph # (Auto) [place] # (Auto) Eos # (Auto) Baso # (Auto) Nucleated RBC % (a uto) Nucleated RBCs # Sodium Potassium Chloride Carbon Dioxide Anion Gap BUN Creatinine GFR Calculation Glucose POC Glucose 129 H 131 H Calculated Osmolal ity Calcium Phosphorus Magnesium Total Bilirubin AST ALT Alkaline Phosphata se Total Protein Albumin Globulin Vitals: Last Vital Signs Temp 99.8 F H 09/07/21 08:00 Pulse 82 09/07/21 08:00 Resp 27 H 09/07/21 08:00 BP 155/78 09/07/21 08:00 Pulse Ox 90 09/07/21 08:00 Discharge Plan Discharge Patient Disposition: Home Condition: Stable Prescriptions: New atorvastatin 40 mg Tablet 40 mg PO BEDTIME 30 Days Qty: 30 RF: 0 cholecalciferol (vitamin D3) 25 mcg (1,000 unit) Tablet 1,000 unit PO DAILY 30 Days Qty: 30 RF: 0 zinc gluconate 50 mg Tablet 50 mg PO DAILY 30 Days Qty: 30 RF: 0 ascorbic acid (vitamin C) [Vitamin C] 500 mg Tablet 500 mg PO BID 30 Days Qty: 60 RF: 0 aspirin 81 mg Tablet,Delayed Release (Dr/Ec) 81 mg PO DAILY 30 Days Qty: 30 RF: 0 fluticasone propion-salmeterol [Advair Diskus] 250-50 mcg/dose Blister With Device 1 ea inhalation BID.RESPIRATORY Qty: 60 RF: 0 albuterol sulfate [Ventolin HFA] 90 mcg/actuation Hfa Aerosol Inhaler 2 puff inhalation Q4H.RESPIRATORY PRN (Reason: Shortness Of Breath) Qty: 8.5 RF: 0 Continued Probiotic 1 cap PO DAILY RF: 0 hydrocodone-acetaminophen 5-325 mg tablet 1 tab PO Q8H PRN (Reason: pain) Qty: 7 RF: 0 ondansetron HCl [Zofran] 4 mg tablet 4 mg PO Q6H PRN (Reason: nausea and vomiting) Qty: 10 RF: 0 Eliquis 5 mg tablet 5 mg PO BID Qty: 60 RF: 0 multivitamin Tablet 1 tab PO DAILY RF: 0 Lantus Solostar U-100 Insulin 100 unit/mL (3 mL) insulin pen 25 unit SUBCUT BID RF: 0 metoprolol tartrate 25 mg tablet 12.5 mg PO BID 30 Days Qty: 60 RF: 0 Discharge Orders: Discharge Order (Routine); Ordered 09/07/21 Ordered By: Vinnie Peralta Referrals: Lasha Baltazar MD [Primary Care Provider] - Discharge Diet: Diabetic Discharge Activity: Resume usual activity Patient Instructions: Albuterol (By breathing) (ProAir, AccuNeb, Proventil, Proventil..., Aspirin (By mouth), Atorvastatin (By mouth) (Lipitor), Fluticasone/Salmeterol (By breathing) (Advair Diskus 100/50, Advair..., Zinc Supplement (By mouth), Ascorbic Acid/Cyanocobalamin/Ferrous Fumarate (By mouth), Cholecalciferol (By mouth), Opioid Safety Activity Restrictions/Additional Instructions: -Please monitor for bloody or black stools, if so go to emergency room -Please have Dr. Baltazar recheck blood work in 1 week -Please use Eliquis as prescribed -Please use metoprolol as prescribed -If you develop chest pain or palpitation culture emergency room -Please follow-up with cardiology in 2 to 4 weeks Discharge Attestations Time Spent in Discharge Care*: less than 30 min Quality Metrics Clinical Quality Measures During this hospital stay, did patient experience: None Coding Level of Care Code Acute [facility] FW DC note Diagnoses Atrial fibrillation I48.91 Atrial fibrillation type: unspecified COVID-19 U07.1 Diabetes E11.9; Z79.4 Diabetes mellitus type: type 2 Diabetes mellitus long-term insulin use: with terminal clerk use Diabetes mellitus complication status: without complication NSTEMI (non-ST elevated myocardial infarction) I21.4 Transaminitis R74.01 Hyponatremia E87.1 Dehydration E86.0
[2021-09-07] MEDS: acetaminophen 325 mg Tablet 650 MG PO (12:28)
--- NOTE | 2021-09-07 16:06 | P.PN_ITS ---
Subjective Subjective: Interval history: Patient was seen this morning, he is alert oriented x3, continues to complain of weakness, tiredness, is hydrating well, he tells me that he wants to go home, his can help take care of him, according to nursing staff he continues to have generalized weakness, requires significant assistance to ambulate to the bedside commode Plans for discharge this afternoon, however patient started to require 3 L of nasal cannula, cancel discharge, will continue admission for COVID-19 related pneumonia, I discussed with patient this afternoon, about his increased oxygen requirements, and my concerns of his deconditioning, concerns for dehydration, related to COVID-19, he agreed for inpatient hospitalization for COVID-19 He met his were initially reluctant about continued hospitalization, but he was agreeable this afternoon about hospital admission I discussed Decadron/remdesivir/budesonide/inhaler therapy for COVID-19 infection, reducing the severity of illness, reducing morbidity and mortality he declined therapy, discussed risks aof declining medical interventions and morbidity and mortality associated, voiced understanding, all questions answered, declined Vitals/I&O/Wt Last Vital Signs Temp 99.8 F H 09/07/21 08:00 Pulse 82 09/07/21 08:00 Resp 27 H 09/07/21 08:00 BP 155/78 09/07/21 08:00 Pulse Ox 90 09/07/21 08:00 09/07/21 09/07/21 09/07/21 06:59 14:59 22:59 Intake Total 120 / 1120 Output Total 650 / 652 600 / 600 Balance -530 / 468 -600 / -600 Weight last 48 hrs Weight 99.382 kg Physical Exam Const: COMMON NORMALS: no acute distress and patient oriented x3 Resp: COMMON NORMALS: normal respiratory effort, No retractions, No use of accessory muscles and clear to auscultation bilaterally AUSCULTATION: clear to auscultation bilaterally Cardio: COMMON NORMALS: regular rate, regular rhythm, S1 normal heart sound present and S2 normal heart sound present RATE: regular rate RHYTHM: regular rhythm HEART SOUNDS: S1 normal heart sound present and S2 normal heart sound present GI: COMMON NORMALS: Normal to inspection, nondistended, normoactive bowel sounds present, Soft to palpation, non-tender, no masses and no bruits PALPATION: Yes Soft to palpation Extremity: COMMON NORMALS: no pedal edema Neuro: COMMON NORMALS: patient oriented x3 Data : 09/07/21 04:20 09/07/21 04:20 Micro: Microbiology 09/05/21 15:50 Blood Culture - Preliminary Blood NEGATIVE TO DATE 09/05/21 15:56 Blood Culture - Preliminary Blood NEGATIVE TO DATE A&P Assessment and plan (1) Pneumonia due to COVID-19 virus: -CT angiogram?no pulmonary embolism, but does show multilobar patchy groundglass opacities -Possible Covid 19 related to myocarditis -With thrombocytopenia, Lymphopenia, NSTEMI, transaminitis -Dehydration -Declines remdesivir -Declines Decadron -declines inhalers -Currently on 3 L -vitamin C, vitamin D, zinc, incentive spirometer, flutter valve Status: Acute (2) Thrombocytopenia: Status: Acute (3) Leukopenia: Status: Acute (4) Atrial fibrillation: -new onset atrial fibrillation diagnosed on last ER visit, discharged on metoprolol, eliquis, -currently in normal sinus rhythm -for now switch to Eliquis -continue metoprolol 12.5mg BID -continue telemetry -Therapeutic Lovenox for DVT prophylaxis -CODE STATUS patient does not want intubation, wants everything else done, clarified this with him multiple times, at bedside Status: Acute Qualifiers: Atrial fibrillation type: unspecified Qualified Code(s): I48.91 - Unspecified atrial fibrillation (5) COVID-19: -Currently is requiring hospital mission secondary to dehydration, atrial fibrillation, and elevated troponins, hospitalization is more a complication of Covid infection, not requiring oxygen, will see if he can qualify for multiple antibody Status: Acute (6) Diabetes: -Continue Lantus 25 units twice daily, low-dose sliding scale, check A1c Status: Acute Qualifiers: Diabetes mellitus complication status: without complication 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: with superintendent marine oil terminal use Diabetes mellitus type: type 2 Qualified Code(s): E11.9 - Type 2 diabetes mellitus without complications; Z79.4 - superintendent marine oil terminal (current) use of insulin (7) NSTEMI (non-ST elevated myocardial infarction): -Baseline troponin 154, 6-hour 140, delta -13.[address]-T wave changes, no complaints of chest pain -Likely related to Covid related myocarditis -Cannot rule out underlying cardiac etiology given history of type 2 diabetes mellitus -Continue aspirin, statin -Eliquis, metoprolol -Serial EKGs, serial troponins, telemetry monitoring - LV systolic function is normal with EF of 55-60% Normal diastolic function Trace mitral regurgitation No comparison studies available -Monitor for chest pain -Consult cardiology, consider cardiac stress testing Status: Acute (8) Transaminitis: Secondary COVID-19 pneumonia Status: Acute (9) Hyponatremia: Hyponatremia, secondary dehydration, will give IV fluids Status: Acute (10) Dehydration: Status: Acute Attestations Medical Necessity Statement*: Patient requires hospitalization for COVID-19 pneumonia Coding Level of Care Code Acute Security Site Supervisor for [facility] Fwd Exam Detailed Diagnoses Pneumonia due to COVID-19 virus U07.1; J12.82 Thrombocytopenia D69.6 Leukopenia D72.819 Atrial fibrillation I48.91 Atrial fibrillation type: unspecified COVID-19 U07.1 Diabetes E11.9; Z79.4 Diabetes mellitus complication status: without complication 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: with superintendent marine oil terminal use Diabetes mellitus type: type 2 NSTEMI (non-ST elevated myocardial infarction) I21.4 Transaminitis R74.01 Hyponatremia E87.1 Dehydration E86.0
--- NOTE | 2021-09-07 16:20 | PC.OT ---
OT treatment attempted this date; patient declined.
[2021-09-07 16:43] LABS: Glucose Point of Care 159 mg/dL (70-110)
[2021-09-07] MEDS: sodium chloride 0.9% 1,000 ML 50 ML IV (17:27)
[2021-09-07 20:11] LABS: Glucose Point of Care 129 mg/dL (70-110)
[2021-09-08] VITALS (38 sets, daily range): BP systolic 108–147; BP diastolic 60–83; PULSE 62–106; RESP 13–36; TEMP 37.1–38.8; O2SAT 85–98
--- NOTE | 2021-09-08 01:23 | PC.NURSE ---
Dr. Anthony notified of patient voiding several times throughout shift with a total of 900 ml out. Patient has also had incontinent episodes in brief that have been unable to be measured. Patient has difficulty starting stream and states that he feels like he needs to go right after he finishes. Bladder scan shows 660 ml. Ordered to do straight cath and check residual later in the morning. Around 2315, patient's oxygen was turned up from 3 L NC to 6 L NC due to oxygen saturation maintaining 84 percent. When turned up, patient's oxygen saturation ranged 90-93 percent. On 6 L NC, patient's oxygen saturation drops to low 80s when sitting on side of bed to use urinal or getting up to bedside commode.
--- NOTE | 2021-09-08 05:55 | XR_ITS ---
WS: [id number] Portable AP upright chest, 09/08/2021 Clinical Data: increasing oxygen needs, low oxygen saturation Comparison: Portable chest, 09/05/2021. Findings: The bilateral pulmonary opacities have increased in the last 3 days. The heart is slightly enlarged. There are no nodules, masses or effusions. Monitor leads are on the chest wall. XR/XR chest 1V portable [id number] Impression: 1. Worsening bilateral pulmonary opacities consistent with pneumonia. 2. Cardiomegaly.
[2021-09-08] MEDS: ipratropium-albuterol 3 mL Neb INHALATION (06:09)
--- NOTE | 2021-09-08 06:19 | PC.NURSE ---
Patient's oxygen saturation 82 percent while laying in bed on 6 L NC. RT placed patient on 15 L high flow. Unable to get patient up to bedside commode at this time due to oxygen demand. Patient voided 50 ml into urinal. Bladder scan showed 485 ml immediately after. Yi placed per order from Dr. Anthony. Chest x-ray ordered.
[2021-09-08] MEDS: cholecalciferol (vitamin D3) 1,000 unit Tablet 1000 UNIT PO (09:21)
[2021-09-08] MEDS: zinc gluconate 50 mg Tablet PO (09:21)
[2021-09-08] MEDS: sodium chloride 0.9% 1,000 ML 50 ML IV (09:22)
[2021-09-08] MEDS: tamsulosin 0.4 mg Capsule PO (09:22)
[2021-09-08 10:40] LABS: Hematocrit 35.9 % (42.0-52.0); Hemoglobin 11.9 g/dL (11.7-16.6); Lymphocytes # 0.7 10^3/uL (0.8-4.8); Lymphocytes % 12.4 %; Mean Corpuscular HGB Conc 33.1 g/dL (30.0-36.0); Mean Corpuscular Hemoglobin 30.7 pg (28.0-34.0); Mean Corpuscular Volume 92.5 fl (80-94); Monocytes # 0.3 10^3/uL (0.2-0.9); Monocytes % 4.2 %; Neutrophils # 4.97 10^3/uL (1.8-7.7); Neutrophils % 83.1 %; Nucleated Red Blood Cells % 0 %; Platelet Count 134 10^3/cmm (130-400); Red Blood Count 3.88 10^6/uL (4.1-5.3); Red Cell Distribution Width 12.7 % (12.1-15.1)
[2021-09-08 11:01] LABS: Alanine Aminotransferase 24 U/L (0-41); Albumin Level 2.6 g/dL (3.5-5.2); Alkaline Phosphatase 38 IU/L (40-130); Anion Gap 15.5 (5-19); Aspartate Amino Transferase 53 U/L (0-40); Blood Urea Nitrogen 13 mg/dL (8-23); Calcium 7.7 mg/dL (8.5-10.5); Carbon Dioxide 20 mmol/L (22-29); Chloride 100 mmol/L (98-107); Globulin 3.1 g/dL (1.3-4.6); Glomerular Filtration Rate 98.6 mL/min (90-130); Glucose 149 mg/dL (65-115); Magnesium 1.7 mg/dL (1.7-2.3); Osmolality Calculated 277 mOsm/kg (285-295); Phosphorus 2.2 mg/dL (2.5-4.5); Potassium 3.5 mmol/L (3.5-5.1); Sodium 132 mmol/L (136-145); Total Bilirubin 0.5 mg/dL (0.15-1.2); Total Protein 5.7 g/dL (6.6-8.7)
[2021-09-08 11:04] LABS: Glucose Point of Care 159 mg/dL (70-110)
[2021-09-08] MEDS: cefepime 2,000 MG in sodium chloride 0.9% (plus) 50 ML 100 MG IV ×2 (11:13→23:30)
[2021-09-08] MEDS: dexamethasone 10 mg/mL INJ 6 MG IVP (11:14)
--- NOTE | 2021-09-08 11:30 | PC.NURSE ---
Multiple attempts to start an additional peripheral IV without success. notified. Order received for PICC line. seismic prospecting supervisor notified.
[2021-09-08 11:54] LABS: C Reactive Protein 105.2 mg/L (0.0-4.9)
[2021-09-08 12:01] LABS: Procalcitonin 0.24 ng/mL (0-0.5)
[2021-09-08 12:05] LABS: Glucose Point of Care 145 mg/dL (70-110)
[2021-09-08] MEDS: remdesivir 200 MG in sodium chloride 0.9% (100 ml) 60 ML 100 MG IV (12:17)
[2021-09-08 12:36] LABS: Influenza A by IFA Negative (Negative); Influenza B by IFA Negative (Negative)
--- NOTE | 2021-09-08 12:59 | P.PN_ITS ---
Subjective Subjective: Interval history: Patient was seen this morning, his is at his bedside, currently on 15 L no evidence of respiratory distress, continues to have fatigue, malaise, no diarrhea, febrile -I advised patient that I am concerned for his worsening COVID-19 pneumonia, concern for developing acute respiratory distress syndrome, concern for possible developing secondary bacterial pneumonia -I have strongly advised for him to be transferred to the ICU for higher level of care, he agrees -I discussed treatment for COVID-19 pneumonia, including inhaler therapy, given he is clinically worsening, increased oxygen requirements, I recommend full medical therapy, he agrees to this -I discussed treatment with Decadron for his COVID-19 pneumonia, discussed risk and benefits, he voiced understanding, all questions answered, agreed to proceed -I discussed treatment with remdesivir and baricitinib for his COVID-19 pneumonia, discussed risk and benefits, he wishes any, all questions answered and agreed to proceed -I discussed antibiotic treatments for possible developing secondary bacterial pneumonia, secondary bacterial pneumonia prophylaxis, he was recently, all questions answered, agreed to proceed -Patient again declines intubation, I reiterated his increasing oxygen r equirements, he is a risk of rapid clinical deterioration, his risk of respiratory failure, he voiced understanding, all questions answered declined intubation -He is okay with chest compressions, defibrillation, medications for cardiac arrest Vitals/I&O/Wt Last Vital Signs Temp 98.8 F 09/08/21 09:00 Pulse 78 09/08/21 12:00 Resp 26 H 09/08/21 12:00 BP 111/64 09/08/21 12:00 Pulse Ox 88 L 09/08/21 12:00 09/07/21 09/08/21 09/08/21 22:59 06:59 14:59 Intake Total 795.833 / 795.833 Output Total 400 / 1000 1500 / 2500 Balance -400 / 0 -1500 / -1500 795.833 / 795.833 Physical Exam Const: COMMON NORMALS: no acute distress GENERAL APPEARANCE: ill appearing ORIENTATION/CONSCIOUSNESS: Yes awake, Yes oriented to person, Yes oriented to place and Yes oriented to time Resp: COMMON NORMALS: normal respiratory effort, No retractions, No use of ac cessory muscles and clear to auscultation bilaterally AUSCULTATION: clear to auscultation bilaterally Cardio: COMMON NORMALS: regular rate, regular rhythm, S1 normal heart sound present and S2 normal heart sound present RATE: regular rate RHYTHM: regular rhythm HEART SOUNDS: S1 normal heart sound present and S2 normal heart sound present GI: COMMON NORMALS: Normal to inspection, nondistended, normoactive bowel sounds present, Soft to palpation and non-tender PALPATION: Yes Soft to palpation Extremity: COMMON NORMALS: capillary refill normal, no clubbing, cyanosis or edema and no pedal edema Neuro: SENSORIUM/ORIENTATION: Yes oriented to person, Yes oriented to place and Yes oriented to time Urinary Catheter Management^: Yi Latex: Cath Placed During This Visit: yes Reason for Continuing Indwelling Catheter: Acute Urinary Retention or Obstruction Urinary Catheter Date of Insertion: 09/08/21 Urinary Catheter Time of Insertion: 06:18 Data : 09/08/21 10:33 09/08/21 10:33 Micro: Microbiology 09/08/21 11:40 Blood Culture - Preliminary Blood SPECIMEN COLLECTED 09/08/21 11:36 Blood Culture - Preliminary Blood SPECIMEN COLLECTED A&P Assessment and plan (1) ARDS (adult respiratory distress syndrome): Status: Acute (2) Acute respiratory failure with hypoxia: Status: Acute (3) Pneumonia due to COVID-19 virus: -With acute hypoxic respiratory failure, development of acute respiratory distress syndrome -CT angiogram?no pulmonary embolism, but does show multilobar patchy groundglass opacities -Possible Covid 19 related to myocarditis -With thrombocytopenia, Lymphopenia, NSTEMI, transaminitis -Dehydration Plan -Will move to ICU -Currently on nonrebreather, transition to high flow if needed, BiPAP as needed -Remdesivir day 1 of 5 -Decadron day 1 10 -Monitor blood sugars closely, continue glargine 20 units twice daily, low-dose sliding scale -Baricitinib day 1 of 14 -Vancomycin, cefepime, azithromycin for secondary bacterial pneumonia prophy laxis -Follow sputum cultures, blood cultures, urine bacterial antigens -Albuterol, DuoNeb, budesonide -Incentive spirometer, flutter valve -vitamin C, vitamin D, zinc, -We will consult pulmonary critical care -Patient is a DO NOT INTUBATE -Eliquis for DVT prophylaxis -Protonix for GI prophylaxis -Status is critical, prognosis is guarded Status: Acute (4) Thrombocytopenia: Status: Acute (5) Leukopenia: Status: Acute (6) Atrial fibrillation: -new onset atrial fibrillation diagnosed on last ER visit, discharged on metoprolol, eliquis, -currently in normal sinus rhythm -for now switch to Eliquis -continue metoprolol 12.5mg BID -continue telemetry -Therapeutic Lovenox for DVT prophylaxis -CODE STATUS patient does not want intubation, wants everything else done, clarified this with him multiple times, at bedside Status: Acute Qualifiers: Atrial fibrillation type: unspecified Qualified Code(s): I48.91 - Unspecified atrial fibrillation (7) COVID-19: -Currently is requiring hospital mission secondary to dehydration, atrial fibrillation, and elevated troponins, hospitalization is more a complication of Covid infection, not requiring oxygen, will see if he can qualify for multiple antibody Status: Acute (8) Diabetes: -Continue Lantus 25 units twice daily, low-dose sliding scale, check A1c Status: Acute Qualifiers: Diabetes mellitus type: type 2 Diabetes mellitus custodial insulin use: with terminal makeup operator use Diabetes mellitus complication status: without complication Qualified Code(s): E11.9 - Type 2 diabetes mellitus without complications; Z79.4 - prison (current) use of insulin (9) NSTEMI (non-ST elevated myocardial infarction): -Baseline troponin 154, 6-hour 140, delta -13.[address]-T wave changes, no complaints of chest pain -Likely related to Covid related myocarditis -Cannot rule out underlying cardiac etiology given history of type 2 diabetes mellitus -Continue aspirin, statin -Eliquis, metoprolol -Serial EKGs, serial troponins, telemetry monitoring - LV systolic function is normal with EF of 55-60% Normal diastolic function Trace mitral regurgitation No comparison studies available -Monitor for chest pain -Consult cardiology, medical management for now, outpatient stress testing Status: Acute (10) Transaminitis: Secondary COVID-19 pneumonia Status: Acute (11) Hyponatremia: Hyponatremia, secondary dehydration, will give IV fluids Status: Acute (12) Dehydration: Status: Acute Attestations Medical Necessity Statement*: Patient requires hospitalization, for COVID-19 pneumonia, with acute respiratory distress syndrome, acute respiratory failure, NSTEMI, COVID-19 pneumonia, Coding Level of Care Code Acute Diamond Assorter for [facility] Diagnoses ARDS (adult respiratory distress syndrome) J80 Acute respiratory failure with hypoxia J96.01 Pneumonia due to COVID-19 virus U07.1; J12.82 Thrombocytopenia D69.6 Leukopenia D72.819 Atrial fibrillation I48.91 Atrial fibrillation type: unspecified COVID-19 U07.1 Diabetes E11.9; Z79.4 Diabetes mellitus type: type 2 Diabetes mellitus custodial insulin use: with terminal makeup operator use Diabetes mellitus complication status: without complication NSTEMI (non-ST elevated myocardial infarction) I21.4 Transaminitis R74.01 Hyponatremia E87.1 Dehydration E86.0
--- NOTE | 2021-09-08 13:17 | PC.NUTR ---
Nutrition follow up: Pt with poor po intake noted. Does receive protein bars and other food items from outside, unclear intake of these items. Pt is receiving double meat portions and double non-starchy vegetable portions at meals per his request. No bread per preference. recommending balance of protein/carbs/fat per note /3. See full RD assessments for further details.
--- NOTE | 2021-09-08 13:30 | PC.NURSE ---
Patient transferred to ICU on bed. O2 on per NRB mask at 15L/min.
[2021-09-08 13:43] LABS: Lactate (Lactic Acid level) 0.9 mmol/L (0.5-2.2)
[2021-09-08] MEDS: acetaminophen 325 mg Tablet 650 MG PO (14:04)
--- NOTE | 2021-09-08 15:27 | PC.NURSE ---
Azithromycin and Vancomycin administration times changed and administration delayed due to IV medication incapabilities, lack of IV access. Patient care escalated during this time and administered to ICU.
[2021-09-08] MEDS: azithromycin 500 MG in sodium chloride 0.9% 250 ML 250 MG IV (15:35)
--- NOTE | 2021-09-08 16:23 | PC.NURSE ---
In report nurse said that patient got multiple ultrasound guided IV attempts. Got consent for Femoral Central Line from patient.
[2021-09-08] MEDS: vancomycin 1,500 MG/300 ML PIGGYBACK 200 MG IV ×2 (16:49→21:30)
[2021-09-08 17:27] LABS: Glucose Point of Care 230 mg/dL (70-110)
[2021-09-08] MEDS: insulin glargine 100 units/1 mL 20 UNIT SUBCUT (17:59)
[2021-09-08] MEDS: ascorbic acid 500 mg Tablet PO (18:00)
[2021-09-08] MEDS: metoprolol tartrate 25 mg Tablet 12.5 MG PO (18:01)
--- NOTE | 2021-09-08 18:09 | PC.NURSE ---
Patient states that he does not take Humalog and refused the medication. Patient refused pantoprazole.
--- NOTE | 2021-09-08 18:48 | PC.NURSE ---
Shift Note Patient admitted to ICU 4 from CSU via bed around 1350. Covering service notified. Patient presents with photograph, phone, and detective sergeant. Orders reviewed. Patient arrived with one IV. The Remdesivir was with the patient and not running. Upon contacting [place], the CSU nurse, nurse verified that the Remdesivir was not running due to multiple IV attempts. called and updated on patient. Patient alert and oriented. Patient is resting and fatigued. Patient opens eyes when asked. Patient is able to teach back when educated. Patient is diaphoretic. Frequent safety and comfort rounds continue. Orders and/or nursing care completed as indicated. Patient monitored for response to intervention and treatment(s). Education provided includes medication, care plan, results, and upcoming procedures. Patient responded with questions and/or verbalizing understanding.
[2021-09-08] MEDS: apixaban 5 mg Tablet PO (21:30)
[2021-09-09] VITALS (39 sets, daily range): BP systolic 84–169; BP diastolic 58–103; PULSE 61–86; RESP 13–34; TEMP 36.3–36.9; O2SAT 82–98
[2021-09-09 04:34] LABS: ABG PCO2 34.2 mmHg (35-45); ABG PH Result 7.47 (7.35-7.45); Arterial Blood Gas Hematocrit 44.1 % (42-52); Base Excess ABG 1.6 mmol/L (-2.0-2.0); Blood Gas Allen Test Pos; Blood Gas Sample Site Radial, right; Blood Gas Sample Type Arterial; HCO3 ABG 24.8 mmol/L (22-26); Oxygen Device NRB; PO2 ABG 63.9 mmHg (80.0-100.0)
[2021-09-09] MEDS: vancomycin 1,500 MG/300 ML PIGGYBACK 200 MG IV ×3 (05:17→21:03)
--- NOTE | 2021-09-09 05:24 | PC.NURSE ---
Patient converted back to SR at approx 0030.
--- NOTE | 2021-09-09 05:26 | PC.NURSE ---
Patient converted back to afib at approx 0345; afib rate sustaining 130-150's; levophed previously titrated off. Cardizem restarted per protocol. Will continue to monitor.
--- NOTE | 2021-09-09 05:29 | PC.NURSE ---
Patient remains stable throughout shift. Patient remains SR, normotensive, afebrile. Oxygen sats maintain 90-97's on 15L NRB. Good urine output. Patient remains oriented, however noted to be fatigued. Moderate weakness noted in all extremities. Will continue to monitor.
--- NOTE | 2021-09-09 06:00 | ECG_ITS ---
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 Measurements Intervals New Site Rate: 60 P: 28 CA: 173 QRS: 21 QRSD: 92 T: 64 QT: 439 QTc: 440 Interpretive Statements SINUS RHYTHM SEPTAL MYOCARDIAL INFARCTION , PROBABLY OLD [40+ ms Q WAVE IN V1/V2] Compared to ECG 09/05/2021 15:34:36 Myocardial infarct finding now present Electronically Signed On 09-10-2021 22:00:27 CARRY ALL DRIVER by Scotty Cadet M.D. [id number]
[2021-09-09] MEDS: remdesivir 100 MG in sodium chloride 0.9% (100 ml) 80 ML IV (06:38)
--- NOTE | 2021-09-09 07:00 | XRR_ITS ---
PROCEDURE INFORMATION: Exam: XR Chest Exam date and time: 09/09/2021 7:00 AM Age: 61 years old Clinical indication: Shortness of breath; Patient HX: Covid; Additional info: SOB TECHNIQUE: Imaging protocol: XR of the chest. Views: 1 view. Total images: 1 COMPARISON: CR XR chest 1V portable [id number] 09/08/2021 6:11 AM FINDINGS: Lungs: Bilateral pulmonary opacities are again noted with the right-sided opacities showing interval improvement. Pleural spaces: Unremarkable. No pleural effusion. No pneumothorax. Heart/Mediastinum: Heart size is stable when compared to the prior exam. Bones/joints: Osseous structures are unchanged from the prior exam. XR/XR chest 1V portable [id number] IMPRESSION: Bilateral pulmonary opacities are again noted with the right-sided opacities showing interval improvement. Radiation Dose CTDIVOL = (mGy): DLP = (mGy-cm)
[2021-09-09 07:10] LABS: Hematocrit 41.5 % (42.0-52.0); Hemoglobin 13.8 g/dL (11.7-16.6); Lymphocytes # 0.7 10^3/uL (0.8-4.8); Lymphocytes % 9.7 %; Mean Corpuscular HGB Conc 33.3 g/dL (30.0-36.0); Mean Corpuscular Hemoglobin 30.3 pg (28.0-34.0); Mean Corpuscular Volume 91.2 fl (80-94); Mean Platelet Volume 11.2 fL (7.4-10.4); Monocytes # 0.5 10^3/uL (0.2-0.9); Monocytes % 7.3 %; Neutrophils # 5.93 10^3/uL (1.8-7.7); Neutrophils % 82.2 %; Nucleated Red Blood Cells % 0 %; Platelet Count 155 10^3/cmm (130-400); Red Blood Count 4.55 10^6/uL (4.1-5.3); Red Cell Distribution Width 12.7 % (12.1-15.1); White Blood Count 7.2 10^3/uL (4.0-10.0)
[2021-09-09 07:29] LABS: Alanine Aminotransferase 28 U/L (0-41); Albumin Level 2.9 g/dL (3.5-5.2); Alkaline Phosphatase 46 IU/L (40-130); Anion Gap 18.2 (5-19); Aspartate Amino Transferase 59 U/L (0-40); Blood Urea Nitrogen 16 mg/dL (8-23); C Reactive Protein 124.5 mg/L (0.0-4.9); Calcium 8.2 mg/dL (8.5-10.5); Carbon Dioxide 22 mmol/L (22-29); Chloride 98 mmol/L (98-107); Globulin 3.3 g/dL (1.3-4.6); Glucose 256 mg/dL (65-115); Magnesium 2.1 mg/dL (1.7-2.3); Osmolality Calculated 288 mOsm/kg (285-295); Phosphorus 2.9 mg/dL (2.5-4.5); Potassium 4.2 mmol/L (3.5-5.1); Sodium 134 mmol/L (136-145); Total Bilirubin 0.5 mg/dL (0.15-1.2); Total Protein 6.2 g/dL (6.6-8.7)
[2021-09-09 07:30] LABS: Lactate (Lactic Acid level) 1.8 mmol/L (0.5-2.2)
[2021-09-09 07:39] LABS: NT Pro B Type Natriuretic Pept 1369 pg/mL (0-125); Procalcitonin 0.22 ng/mL (0-0.5)
[2021-09-09 08:06] LABS: D Dimer 1.14 ug/mIFEU (0-0.59)
[2021-09-09 08:07] LABS: Creatine Phosphokinase 366 U/L (39-308)
[2021-09-09] MEDS: apixaban 5 mg Tablet PO ×2 (09:28→21:03)
[2021-09-09] MEDS: pantoprazole DR 40 mg Tablet PO ×2 (09:28→17:58)
[2021-09-09] MEDS: metoprolol tartrate 25 mg Tablet 12.5 MG PO ×2 (09:28→17:58)
[2021-09-09] MEDS: tamsulosin 0.4 mg Capsule PO (09:28)
[2021-09-09] MEDS: ascorbic acid 500 mg Tablet PO ×2 (09:28→17:58)
[2021-09-09] MEDS: zinc gluconate 50 mg Tablet PO (09:28)
[2021-09-09] MEDS: aspirin 81 mg EC Tablet PO (09:28)
[2021-09-09] MEDS: cholecalciferol (vitamin D3) 1,000 unit Tablet 1000 UNIT PO (09:28)
[2021-09-09] MEDS: FUROsemide 10 mg/mL SDV 2mL 20 MG IVP (09:29)
[2021-09-09] MEDS: insulin lispro 100 unit/1 mL SUBCUT ×3 (09:30→18:13)
[2021-09-09] MEDS: insulin glargine 100 units/1 mL 20 UNIT SUBCUT ×2 (09:31→18:12)
[2021-09-09 09:48] LABS: Glucose Point of Care 246 mg/dL (70-110)
[2021-09-09 11:34] LABS: Glucose Point of Care 295 mg/dL (70-110)
[2021-09-09] MEDS: dexamethasone 10 mg/mL INJ 6 MG IVP (11:41)
[2021-09-09] MEDS: cefepime 2,000 MG in sodium chloride 0.9% (plus) 50 ML 100 MG IV ×2 (11:42→23:28)
--- NOTE | 2021-09-09 13:50 | P.PN_ITS ---
Subjective Subjective: Interval history: This morning patient was examined, sitting up in a chair, enjoying breakfast, no nausea, no vomiting, he is on 12 L, he tells me that he continues to feel weak, no shortness of breath at rest, but shortness of breath with minimal exertion Vitals/I&O/Wt Last Vital Signs Temp 98.4 F 09/09/21 04:00 Pulse 66 09/09/21 08:00 Resp 19 H 09/09/21 08:00 BP 161/87 09/09/21 08:00 Pulse Ox 90 09/09/21 09:00 09/08/21 09/09/21 09/09/21 22:59 06:59 14:59 Intake Total 925 / 1770.833 750 / 2520.833 Output Total 875 / 2275 700 / 2975 Balance 50 / -504.167 50 / -454.167 Weight last 48 hrs Weight 99.382 kg Physical Exam Const: COMMON NORMALS: no acute distress and patient oriented x3 Resp: COMMON NORMALS: normal respiratory effort, No retractions and No use of accessory muscles AUSCULTATION: crackles Cardio: COMMON NORMALS: regular rate, regular rhythm, S1 normal heart sound present and S2 normal heart sound present RATE: regular rate RHYTHM: regular rhythm HEART SOUNDS: S1 normal heart sound present and S2 normal heart sound present GI: COMMON NORMALS: Normal to inspection, nondistended, normoactive bowel sounds present, Soft to palpation, non-tender and No hepatosplenomegaly present PALPATION: Yes Soft to palpation and Yes No hepatosplenomegaly present Extremity: COMMON NORMALS: no pedal edema Neuro: COMMON NORMALS: patient oriented x3 Psych: COMMON NORMALS: mental status grossly normal Urinary Catheter Management^: Yi Latex: Cath Placed During This Visit: yes Reason for Continuing Indwelling Catheter: Accurate Measurement of Urinary Output in Critically Ill Patients Urinary Catheter Date of Insertion: 09/08/21 Urinary Catheter Time of Insertion: 06:18 Data : 09/09/21 07:02 09/09/21 07:02 Micro: Microbiology 09/08/21 11:36 Blood Culture - Preliminary Blood NEGATIVE TO DATE 09/08/21 11:40 Blood Culture - Preliminary Blood NEGATIVE TO DATE 09/08/21 11:30 Bacterial Antigens - Final Urine,Clean Catch A&P Assessment and plan (1) ARDS (adult respiratory distress syndrome): Status: Acute (2) Acute respiratory failure with hypoxia: Status: Acute (3) Pneumonia due to COVID-19 virus: -With acute hypoxic respiratory failure, development of acute respiratory distress syndrome -CT angiogram?no pulmonary embolism, but does show multilobar patchy groundglass opacities -Possible Covid 19 related to myocarditis -With thrombocytopenia, Lymphopenia, NSTEMI, transaminitis, rhabdomyolysis Plan -Currently in the ICU -Currently on nonrebreather, transition to high flow if needed, BiPAP as needed -Remdesivir day 2 of 5 -Decadron day 2 -Monitor blood sugars closely, continue glargine 20 units twice daily, low-dose sliding scale -Baricitinib day -Vancomycin, cefepime, azithromycin for secondary bacterial pneumonia prophylaxis -Follow sputum cultures, blood cultures, urine bacterial antigens -Albuterol, DuoNeb, budesonide -Incentive spirometer, flutter valve -vitamin C, vitamin D, zinc, -We will consult pulmonary critical care -Patient is a DO NOT INTUBATE -Eliquis for DVT prophylaxis -Protonix for GI prophylaxis -Status is stable, prognosis is guarded Status: Acute (4) Thrombocytopenia: Status: Acute (5) Leukopenia: Status: Acute (6) Atrial fibrillation: -new onset atrial fibrillation diagnosed on last ER visit, discharged on metoprolol, eliquis, -currently in normal sinus rhythm -for now switch to Eliquis -continue metoprolol 12.5mg BID -continue telemetry -Therapeutic Lovenox for DVT prophylaxis -CODE STATUS patient does not want intubation, wants everything else done, clarified this with him multiple times, at bedside Status: Acute Qualifiers: Atrial fibrillation type: unspecified Qualified Code(s): I48.91 - Unspecified atrial fibrillation (7) COVID-19: -Currently is requiring hospital mission secondary to dehydration, atrial fibrillation, and elevated troponins, hospitalization is more a complication of Covid infection, not requiring oxygen, will see if he can qualify for multiple antibody Status: Acute (8) Diabetes: -Continue Lantus 25 units twice daily, low-dose sliding scale, check A1c Status: Acute Qualifiers: Diabetes mellitus type: type 2 Diabetes mellitus exterminator termite insulin use: with detention use Diabetes mellitus complication status: without complication Qualified Code(s): E11.9 - Type 2 diabetes mellitus without complications; Z79.4 - director long term care (current) use of insulin (9) NSTEMI (non-ST elevated myocardial infarction): -Baseline troponin 154, 6-hour 140, delta -13.[address]-T wave changes, no complaints of chest pain -Likely related to Covid related myocarditis -Cannot rule out underlying cardiac etiology given history of type 2 diabetes mellitus -Continue aspirin, statin -Eliquis, metoprolol -Serial EKGs, serial troponins, telemetry monitoring - LV systolic function is normal with EF of 55-60% Normal diastolic function Trace mitral regurgitation No comparison studies available -Monitor for chest pain -Consult cardiology, medical management for now, outpatient stress testing Status: Acute (10) Transaminitis: Secondary COVID-19 pneumonia Status: Acute (11) Hyponatremia: Hyponatremia, secondary dehydration, will give IV fluids Status: Acute (12) Dehydration: Status: Acute (13) Rhabdomyolysis: Status: Acute Attestations Medical Necessity Statement*: Course hospitalization for pneumonia secondary to COVID-19, acute respiratory distress syndrome Coding Level of Care Code Acute Electrical Apprentice for [facility] Diagnoses ARDS (adult respiratory distress syndrome) J80 Acute respiratory failure with hypoxia J96.01 Pneumonia due to COVID-19 virus U07.1; J12.82 Thrombocytopenia D69.6 Leukopenia D72.819 Atrial fibrillation I48.91 Atrial fibrillation type: unspecified COVID-19 U07.1 Diabetes E11.9; Z79.4 Diabetes mellitus type: type 2 Diabetes mellitus detention insulin use: with exterminator termite use Diabetes mellitus complication status: without complication NSTEMI (non-ST elevated myocardial infarction) I21.4 Transaminitis R74.01 Hyponatremia E87.1 Dehydration E86.0 Rhabdomyolysis M62.82
--- NOTE | 2021-09-09 14:56 | XRR_ITS ---
PROCEDURE INFORMATION: Exam: XR Chest Exam date and time: 09/09/2021 2:56 PM Age: 61 years old Clinical indication: Other vascular access device placement or adjustment; Central line, tunnelled; Additional info: Central line placement TECHNIQUE: Imaging protocol: XR of the chest. Views: 1 view. Total images: 1 COMPARISON: CR (CHEST, ) 09/09/2021 5:40 AM FINDINGS: Tubes, catheters and devices: A left internal jugular central venous catheter is present, with its tip overlying the region of the superior vena cava. Lungs: Bilateral pulmonary opacities are again noted with the right-sided opacities showing interval worsening. Pleural spaces: No pneumothorax. Heart/Mediastinum: Heart size is stable when compared to the prior exam. Bones/joints: Osseous structures are unchanged from the prior exam. XR/XR chest 1V portable [id number] IMPRESSION: 1. A left internal jugular central venous catheter is present, with its tip overlying the region of the superior vena cava. 2. No pneumothorax. 3. Bilateral pulmonary opacities are again noted with the right-sided opacities showing interval worsening. Radiation Dose CTDIVOL = (mGy): DLP = (mGy-cm)
--- NOTE | 2021-09-09 15:46 | P.PCN_ITS ---
Procedure/Consent Time out: Time Out Performed: Yes Consent: Consent for Procedure: Consent obtained from patient Procedure Narrative: Name of the Procedure: Left Internal Jugular Central venous catheter placement under ultrasound guidance. Indication: Frequent blood work Anesthesiia: Lidocaine 1%, 5 ml Description of the procedure: The left IJ vein was identified with the Ultrasound from collapsibility and lack of pulsatility. The site was prepared using sterile technique. The skin and subcuteneous tissue was anesthetized using lidocaine. The introducer needle was advanced under US guidance till flash back was noted. Dark, non pulsatile blood noted. Using seldinger technique the CVC was put in.Blood return was noted in all ports. Catheter was secured with suture and covered with transparent dres sing. Complications: None X-ray: The central venous catheter is in optimal position Acute Procedures Epistaxis Control: Time out performed: Yes
[2021-09-09] MEDS: azithromycin 500 MG in sodium chloride 0.9% 250 ML 250 MG IV (16:49)
[2021-09-09 18:05] LABS: Glucose Point of Care 226 mg/dL (70-110)
[2021-09-09] MEDS: budesonide 0.5 mg/2 mL Neb INHALATION (19:38)
[2021-09-09] MEDS: ipratropium-albuterol 3 mL Neb INHALATION (19:38)
[2021-09-10] VITALS (51 sets, daily range): BP systolic 76–171; BP diastolic 50–97; PULSE 65–91; RESP 10–30; TEMP 36.1–37.1; O2SAT 89–99
[2021-09-10] MEDS: ipratropium-albuterol 3 mL Neb INHALATION ×4 (03:08→20:25)
[2021-09-10 03:51] LABS: ABG PCO2 29.8 mmHg (35-45); ABG PH Result 7.52 (7.35-7.45); Arterial Blood Gas Hematocrit 41.7 % (42-52); Base Excess ABG 2.1 mmol/L (-2.0-2.0); Blood Gas Allen Test Pos; Blood Gas Sample Site Radial, right; Blood Gas Sample Type Arterial; HCO3 ABG 24.2 mmol/L (22-26); Oxygen Device NC; PO2 ABG 45.8 mmHg (80.0-100.0)
[2021-09-10 05:17] LABS: Basophils % 0.1 %; Hematocrit 40.1 % (42.0-52.0); Hemoglobin 13.3 g/dL (11.7-16.6); Lymphocytes # 0.6 10^3/uL (0.8-4.8); Lymphocytes % 8.3 %; Mean Corpuscular HGB Conc 33.2 g/dL (30.0-36.0); Mean Corpuscular Hemoglobin 30.5 pg (28.0-34.0); Mean Platelet Volume 10.7 fL (7.4-10.4); Monocytes # 0.5 10^3/uL (0.2-0.9); Monocytes % 7.1 %; Neutrophils # 6.17 10^3/uL (1.8-7.7); Neutrophils % 83.8 %; Nucleated Red Blood Cells % 0 %; Platelet Count 190 10^3/cmm (130-400); Red Blood Count 4.36 10^6/uL (4.1-5.3); Red Cell Distribution Width 12.6 % (12.1-15.1); White Blood Count 7.4 10^3/uL (4.0-10.0)
[2021-09-10] MEDS: vancomycin 1,500 MG/300 ML PIGGYBACK 200 MG IV (05:24)
[2021-09-10] MEDS: remdesivir 100 MG in sodium chloride 0.9% (100 ml) 80 ML IV (05:24)
[2021-09-10] MEDS: HYDROcodone-acetaminophen 5-325 mg Tablet 1 TAB PO (05:24)
[2021-09-10 05:31] LABS: D Dimer 1.31 ug/mIFEU (0-0.59)
[2021-09-10 05:42] LABS: Lactate (Lactic Acid level) 1.7 mmol/L (0.5-2.2)
[2021-09-10 05:43] LABS: Alanine Aminotransferase 25 U/L (0-41); Albumin Level 2.8 g/dL (3.5-5.2); Alkaline Phosphatase 45 IU/L (40-130); Anion Gap 17.8 (5-19); Aspartate Amino Transferase 50 U/L (0-40); Blood Urea Nitrogen 22 mg/dL (8-23); C Reactive Protein 68.1 mg/L (0.0-4.9); Calcium 8.1 mg/dL (8.5-10.5); Carbon Dioxide 20 mmol/L (22-29); Chloride 100 mmol/L (98-107); Globulin 3.4 g/dL (1.3-4.6); Glomerular Filtration Rate 137.4 mL/min (90-130); Glucose 248 mg/dL (65-115); Osmolality Calculated 290 mOsm/kg (285-295); Phosphorus 2.4 mg/dL (2.5-4.5); Potassium 3.8 mmol/L (3.5-5.1); Sodium 134 mmol/L (136-145); Total Bilirubin 0.6 mg/dL (0.15-1.2); Total Protein 6.2 g/dL (6.6-8.7)
[2021-09-10 05:46] LABS: Vancomycin Trough 21.4 ug/mL (10-15)
[2021-09-10 06:16] LABS: NT Pro B Type Natriuretic Pept 616 pg/mL (0-125)
[2021-09-10 06:26] LABS: Creatine Phosphokinase 279 U/L (39-308)
[2021-09-10] MEDS: FUROsemide 10 mg/mL SDV 4mL 40 MG IVP (07:33)
[2021-09-10] MEDS: apixaban 5 mg Tablet PO ×2 (07:53→20:13)
[2021-09-10] MEDS: ascorbic acid 500 mg Tablet PO (07:54)
[2021-09-10] MEDS: aspirin 81 mg EC Tablet PO (07:54)
[2021-09-10] MEDS: cholecalciferol (vitamin D3) 1,000 unit Tablet 1000 UNIT PO (07:54)
[2021-09-10] MEDS: pantoprazole DR 40 mg Tablet PO (07:54)
[2021-09-10] MEDS: metoprolol tartrate 25 mg Tablet 12.5 MG PO (07:54)
[2021-09-10] MEDS: tamsulosin 0.4 mg Capsule PO (07:55)
[2021-09-10] MEDS: zinc gluconate 50 mg Tablet PO (07:55)
[2021-09-10] MEDS: insulin lispro 100 unit/1 mL SUBCUT ×3 (08:11→18:20)
[2021-09-10] MEDS: insulin glargine 100 units/1 mL 20 UNIT SUBCUT (08:12)
[2021-09-10] MEDS: budesonide 0.5 mg/2 mL Neb INHALATION ×2 (08:14→20:25)
[2021-09-10] MEDS: dexamethasone 10 mg/mL INJ 6 MG IVP (10:19)
[2021-09-10 10:33] LABS: Glucose Point of Care 269 mg/dL (70-110)
[2021-09-10] MEDS: cefepime 2,000 MG in sodium chloride 0.9% (plus) 50 ML 100 MG IV ×2 (12:13→23:58)
[2021-09-10] MEDS: succinylcholine 20 mg/mL SDV 10mL 100 MG IVP (15:18)
[2021-09-10] MEDS: propofol 1,000 MG/100 ML INJ 5.96 MG IV (15:48)
[2021-09-10] MEDS: azithromycin 500 MG in sodium chloride 0.9% 250 ML 250 MG IV (15:49)
[2021-09-10] MEDS: vancomycin 1,000 MG in sodium chloride 0.9% 250 ML 250 MG IV ×2 (16:11→23:59)
--- NOTE | 2021-09-10 16:20 | P.CONIM_ITS ---
Providers/Reason For Consult Consulting Physician/Specialty*: Pulmonary and critical care medicine Reason for Consult*: Failure secondary to COVID-19 pneumonia Attending Physician: Vinnie Peralta MD Primary Care Provider: Lasha Baltazar MD History of Present Illness History of Present Illness Raz Dewey is a 61 year old male with a fairly interesting story. The patient has a diagnosis of insulin-dependent diabetes mellitus. He also has diabetic retinopathy. Based on the chart review, it appears that the patient presented to the emergency department on September 01 with concerns for allergic reaction after receiving injection in his eyes. At that time the patient underwent work-up for stroke. He had a CT head, CTA of the head and neck. The CT head was negative for any ischemic changes. The CT angiogram head and neck was also normal. Interestingly, the CT neck picked up the upper part of the lungs. There was groundglass opacity in bilateral lung apices. The patient was also found to have atrial fibrillation. Eventually, the patient left the hospital with metoprolol and apixaban. Covid antigen and eventually PCR was both negative. The patient presented to the emergency department again on September 05. This time with nausea, weakness, fatigue. He also had poor appetite and diarrhea. This time, the patient tested positive for COVID-19 however he was not requiring oxygen. He was treated for atrial fibrillation and the plan was to discharge the patient home on September 08. The admission chest x-ray did reveal bilateral infiltrate. He had a CT angiogram of the chest which did not reveal any pulmonary embolism. Multilobar groundglass opacity was noted. DVT study was negative on September 07. Prior to his discharge unfortunately the patient developed worsening hypoxia. H repeat chest x-ray revealed worsening bilateral infiltrate. Following that, the patient developed rapid worsening of hypoxia. Today the patient is requiring 100% oxygen on high flow nasal cannula. His oxygen saturation was in the 80s. Blood gas obtained this morning revealed a PO2 in the 40s. Chest x-ray obtained yesterday revealed worsening infiltrate especially on the right side. His recent echocardiogram revealed normal ejection fraction. No significant valvular abnormalities were identified. The patient is currently broadly covered with cefepime, vancomycin. He is receiving dexamethasone on baricitinib. Given the patient's rapidly progressive hypoxia, after extensive discussion with the patient and his the decision was made to proceed with intubation so lung protective mechanical ventilation could be implemented and the patient can be proned. The patient was eventually intubated without any difficulty. Review of Systems Narrative: Unable to assess because of clinical conditions Meds/Allergies Home Medications and Allergies Home Medications Medication Instructions Recorded Confirmed Last Taken Type Probiotic 1 cap PO DAILY 11/27/19 09/05/21 Unknown History apixaban [Eliquis] 5 mg PO BID #60 tab 09/02/21 09/05/21 09/05/21 09:00 Rx hydrocodone-acetaminophen 1 tab PO Q8H PRN #7 tab 09/02/21 09/05/21 Unknown Rx metoprolol tartrate 12.5 mg PO BID #60 tab 09/02/21 09/05/21 09/05/21 09:00 Rx ondansetron HCl [Zofran] 4 mg PO Q6H PRN #10 tab 09/02/21 09/05/21 09/05/21 09:00 Rx insulin glargine [Lantus Solostar 25 unit SUBCUT BID 09/05/21 09/05/21 09/05/21 09:00 History U-100 Insulin] multivitamin 1 tab PO DAILY 09/05/21 09/05/21 09/05/21 09:00 History Allergies Allergy/AdvReac Type Severity Reaction Status Date / Time prednisone Allergy Severe shut down Verified 09/05/21 15:24 pancrease meperidine [From Demerol] Allergy Unknown Verified 09/05/21 15:24 Current Medications Current Medications Generic Name Dose Route Start Last Admin Trade Name Freq PRN Reason Stop Dose Admin Acetaminophen 650 mg 09/05/21 19:48 09/08/21 14:04 Acetaminophen 325 Mg Tablet PO 650 mg Q6H PRN Administration Mild/Mod Pain Or Temp >/= 101 Hydrocodone Bitart/Acetaminophen 1 tab 09/06/21 12:19 09/10/21 05:24 Hydrocodone-Acetaminophen 5-325 Mg Tablet PO 1 tab Q4H PRN Administration MODERATE PAIN Albuterol/Ipratropium 3 ml 09/07/21 16:06 09/10/21 14:55 Ipratropium-Albuterol 3 Ml Neb INHALATION 3 ml Q4H PRN Administration SHORTNESS OF BREATH Apixaban 5 mg 09/07/21 09:00 09/10/21 07:53 Apixaban 5 Mg Tablet PO 5 mg BID@0900,2100 ERLINDA Administration Ascorbic Acid 500 mg 09/06/21 09:00 09/10/21 07:54 Ascorbic Acid 500 Mg Tablet PO 500 mg BID ERLINDA Administration Aspirin 81 mg 09/06/21 09:00 09/10/21 07:54 Aspirin 81 Mg Ec Tablet PO 81 mg DAILY ERLINDA Administration Atorvastatin Calcium 40 mg 09/05/21 21:00 09/09/21 21:04 Atorvastatin 40 Mg Tablet PO Not Given BEDTIME ERLINDA Budesonide 0.5 mg 09/08/21 10:50 09/10/21 08:14 Budesonide 0.5 Mg/2 Ml Neb INHALATION 0.5 mg BID.RESPIRATORY ERLINDA Administration Dexamethasone 6 mg 09/08/21 10:45 09/10/21 10:19 Dexamethasone 10 Mg/Ml Inj IVP 6 mg Q24H ERLINDA Administration Cefepime HCl 2,000 mg/ Sodium 50 mls @ 100 mls/hr 09/08/21 11:00 09/10/21 13:12 Chloride IV Infused Q12H ERLINDA Infusion Protocol Azithromycin 500 mg/ Sodium 250 mls @ 250 mls/hr 09/08/21 12:00 09/10/21 15:49 Chloride IV 250 mls/hr Q24H ERLINDA Administration Protocol Remdesivir 100 mg/ Sodium 80 mls @ 100 mls/hr 09/09/21 06:00 09/10/21 06:12 Chloride IV 09/12/21 06:47 Infused Q24H ERLINDA Infusion Vancomycin HCl 1,000 mg/ 250 mls @ 250 mls/hr 09/10/21 15:00 09/10/21 16:11 Sodium Chloride IV 250 mls/hr Q8H ERLINDA Administration Midazolam HCl 100 mg/ Sodium 100 mls @ 0 mls/hr 09/10/21 14:15 09/10/21 15:49 Chloride IV 2 mg/hr .Q0M ERLINDA 2 mls/hr Administration Protocol Per Protocol Fentanyl 1,000 mcg/ Sodium 100 mls @ 0 mls/hr 09/10/21 14:15 09/10/21 16:00 Chloride IV 30 mcg/hr .Q0M ERLINDA 3 mls/hr Titration Protocol Per Protocol Propofol 1,000 mg in 100 mls @ 0 mls/hr 09/10/21 14:15 09/10/21 15:48 Diprivan IV 10 mcg/kg/min .Q0M ERLINDA 5.96 mls/hr Administration Protocol Per Protocol Norepinephrine Bitartrate 4 mg 254 mls @ 0 mls/hr 09/10/21 14:15 09/10/21 15:49 / Dextrose IV 2 mcg/min .Q0M ERLINDA 7.62 mls/hr Administration Protocol Per Protocol Insulin Glargine 20 unit 09/06/21 09:00 09/10/21 08:12 Insulin Glargine 100 Units/1 Ml SUBCUT 20 unit BID ERLINDA Administration Insulin Human Lispro 0 unit 09/06/21 08:00 09/10/21 12:13 Insulin Lispro 100 Unit/1 Ml SUBCUT 8 unit TIDWM ERLINDA Administration Protocol Metoprolol Tartrate 12.5 mg 09/05/21 19:48 09/10/21 07:54 Metoprolol Tartrate 25 Mg Tablet PO 12.5 mg BID ERLINDA Administration Pantoprazole Sodium 40 mg 09/05/21 19:48 09/10/21 07:[address] 40 Mg Tablet PO 40 mg BID ERLINDA Administration Tamsulosin HCl 0.4 mg 09/08/21 09:00 09/10/21 07:55 Tamsulosin 0.4 Mg Capsule PO 0.4 mg DAILY ERLINDA Administration Vitamin D 1,000 unit 09/06/21 09:00 09/10/21 07:54 Cholecalciferol (Vitamin D3) 1,000 Unit Tablet PO 1,000 unit DAILY ERLINDA Administration Zinc Gluconate 50 mg 09/06/21 09:00 09/10/21 07:55 Zinc Gluconate 50 Mg Tablet PO 50 mg DAILY ERLINDA Administration PFSH Acute PFSH: Medical History Diabetes Hyperlipidemia Hypothyroid Surgical History No pertinent past surgical history Family History Father Diabetes Family/Other Pancreatic cancer Social History Smoking and tobacco status: never smoked Alcohol intake: never Adopted: No Caregiver/support person: No Lives independently: No Marital status: service: No Current occupational status: employed Sexually active: Yes Current gender identity: Male Vitals/I&O/Wt Last Vital Signs Temp 98.5 F 09/10/21 04:00 Pulse 86 09/10/21 14:55 Resp 18 09/10/21 14:55 BP 152/86 09/10/21 13:00 Pulse Ox 97 09/10/21 14:55 09/10/21 09/10/21 09/10/21 06:59 14:59 22:59 Intake Total 950 / 950 0.4 / 950.4 Output Total 2400 / 2400 Balance -1450 / -1450 0.4 / -1449.6 Weight last 48 hrs Weight 219 lb Weight 219 lb 1.6 oz Physical Exam Narrative: EXAM NARRATIVE: General: The patient is intubated and sedated Neck: No JVD Respiratory: Auscultation: Reduced breath sound bilaterally, minimal crackles Cardiovascular: Regular rate and rhythm, S1-S2 present, no murmur, no peripheral edema. Abdomen: Soft, nondistended, positive bowel sound Skin: No rash Neuro: Unable to assess, the patient is intubated and sedated Urinary Catheter Management^: Yi Latex: Cath Placed During This Visit: yes Reason for Continuing Indwelling Catheter: Accurate Measurement of Urinary Output in Critically Ill Patients Urinary Catheter Date of Insertion: 09/08/21 Urinary Catheter Time of Insertion: 06:18 Data Micro: Micro: Microbiology 09/05/21 15:50 Blood Culture - Fi nal Blood NO GROWTH AFTER 5 DAYS 09/05/21 15:56 Blood Culture - Fi nal Blood NO GROWTH AFTER 5 DAYS Other Data: Attestation for Other Data: I personally reviewed and interpreted the following: Other data: I have reviewed the patient's laboratory, [place] and radiologic data. Please see the HPI for detail A&P Assessment and plan (1) Acute respiratory failure with hypoxia: This is a 61-year-old gentleman with past medical history of diabetes with macro and microvascular disease, paroxysmal atrial fibrillation who has developed rapidly progressive acute hypoxic respiratory failure. The patient started requiring oxygen on September 06 and within the next 3 days has developed full-blown ARDS with an oxygen requirement of 100%. The chest x-ray yesterday revealed worsening of right-sided infiltrate. He tested positive for Covid on September 05. Status: Acute (2) ARDS (adult respiratory distress syndrome): The patient was intubated today. She will be paralyzed and undergo prone positioning. Status: Acute (3) Pneumonia due to COVID-19 virus: The patient is currently on baricitinib. We will give him a dose of Actemra. We will continue broad-spectrum antibiotic and dexamethasone for the time being. Status: Acute (4) Paroxysmal A-fib: The patient is anticoagulated with apixaban Status: Acute (5) Diabetes: Now that the patient is intubated and going to be paralyzed and not fed. We will cut down the insulin dose. I have had a conversation with the patient and his prior to intubation and hoping he will make full recovery. 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
--- NOTE | 2021-09-10 16:25 | PM.PN ---
Subjective Subjective: Interval history: Patient was seen multiple times during the morning Early in the morning, patient was examined, is currently on 50 L 100%, having mild respiratory distress intercostal retractions, nasal flaring, mild encephalopathy, appears fatigued, tired, patient tells me that he feels well, I discussed my concerns of his worsening respiratory status, high risk of acute respiratory distress, morbidity and mortality associated, risk of a cardiac arrhythmia, he voiced understanding, all questions answered, however wants to remain DNI, I also discussed comfort care, he tells me that currently he does not need any morphine or Ativan Patient was reexamined with at bedside, I discussed patient's clinical status, worsening acute respiratory failure secondary COVID-19, my concerns for worsening respiratory status, his encephalopathy, worsening respiratory distress, and that there is a high risk of morbidity and mortality associated with his current condition, high risk of cardiac , patient and voiced understanding, all questions answered, patient would like to change his CODE STATUS to intubate, and full code. I discussed that he does have a high risk of adverse event during intubation, and on the ventilator, including but not limited to pneumothorax, risk of dialysis, risk of ventilator/pneumonia, however given his respiratory status worsening, this is the only other option that is available to him. After discussing the risks and benefits, all parties voiced understanding, all questions answered, change status to code full code. Vitals/I&O/Wt Last Vital Signs Temp 98.5 F 09/10/21 04:00 Pulse 86 09/10/21 14:55 Resp 18 09/10/21 14:55 BP 152/86 09/10/21 13:00 Pulse Ox 97 09/10/21 14:55 09/10/21 09/10/21 09/10/21 06:59 14:59 22:59 Intake Total 950 / 950 2.717 / 952.717 Output Total 2400 / 2400 Balance -1450 / -1450 2.717 / -1447.283 Weight last 48 hrs Weight 99.337 kg Weight 99.382 kg Physical Exam Const: COMMON NORMALS: no acute distress and patient oriented x3 GENERAL APPEARANCE: ill appearing and frail appearing HENMT: COMMON NORMALS: normocephalic HEAD & SCALP: normocephalic Resp: COMMON NORMALS: normal respiratory effort EFFORT & INSPECTION: Yes abnormal respiratory pattern, Yes tachypneic, Yes respiratory distress (Mild respiratory distress), Yes retractions intercostal and Yes uses accessory muscles AUSCULTATION: crackles Cardio: COMMON NORMALS: regular rate, regular rhythm, S1 normal heart sound present and S2 normal heart sound present RATE: regular rate RHYTHM: regular rhythm HEART SOUNDS: S1 normal heart sound present and S2 normal heart sound present GI: COMMON NORMALS: Normal to inspection, nondistended, normoactive bowel sounds present, Soft to palpation and non-tender PALPATION: Yes Soft to palpation Extremity: COMMON NORMALS: no pedal edema Neuro: COMMON NORMALS: patient oriented x3 Psych: COMMON NORMALS: mental status grossly normal Urinary Catheter Management^: Yi Latex: Cath Placed During This Visit: yes Reason for Continuing Indwelling Catheter: Accurate Measurement of Urinary Output in Critically Ill Patients Urinary Catheter Date of Insertion: 09/08/21 Urinary Catheter Time of Insertion: 06:18 Data : 09/10/21 05:04 09/10/21 05:04 Micro: Microbiology 09/05/21 15:50 Blood Culture - Final Blood NO GROWTH AFTER 5 DAYS 09/05/21 15:56 Blood Culture - Final Blood NO GROWTH AFTER 5 DAYS A&P Assessment and plan (1) ARDS (adult respiratory distress syndrome): Status: Acute (2) Acute respiratory failure with hypoxia: Status: Acute (3) Pneumonia due to COVID-19 virus: -With acute hypoxic respiratory failure, development of acute respiratory distress syndrome -CT angiogram?no pulmonary embolism, but does show multilobar patchy groundglass opacities -Possible Covid 19 related to myocarditis -Atrial fibrillation -With thrombocytopenia, Lymphopenia, NSTEMI, transaminitis, rhabdomyolysis -Morning ABG shows pH 7.52, PCO2 29.8, PO2 45.8, on 100% FiO2 Plan -Currently in the ICU -Currently high flow, 50 L 100%, BiPAP as needed, high risk of intubation the next 24 hours -Remdesivir day 3 of 5 -Decadron day 3 of 10 -Monitor blood sugars closely, increase glargine to 25 units twice daily, low-dose sliding scale -Baricitinib day3 14 -Vancomycin, cefepime, azithromycin for secondary bacterial pneumonia prophylaxis -Follow sputum cultures, blood cultures, urine bacterial antigens -1 dose Lasix today, -2.2 L -Albuterol, DuoNeb, budesonide -Incentive spirometer, flutter valve -vitamin C, vitamin D, zinc, -We will consult pulmonary critical care -Currently a full code -Eliquis for DVT prophylaxis -Protonix for GI prophylaxis -Status is critical, prognosis is guarded Status: Acute (4) Thrombocytopenia: Status: Acute (5) Leukopenia: Status: Acute (6) Atrial fibrillation: -new onset atrial fibrillation diagnosed on last ER visit, discharged on metoprolol, eliquis, -currently in normal sinus rhythm -for now continue Eliquis -continue metoprolol 12.5mg BID -continue telemetry -Eliquis for DVT prophylaxis - Status: Inactive Qualifiers: Atrial fibrillation type: unspecified Qualified Code(s): I48.91 - Unspecified atrial fibrillation (7) COVID-19: Status: Acute (8) Diabetes: -Continue Lantus 25 units twice daily, low-dose sliding scale, check A1c Status: Acute Qualifiers: Diabetes mellitus type: type 2 Diabetes mellitus intermodal dispatcher insulin use: with intermodal dispatcher use Diabetes mellitus complication status: without complication Qualified Code(s): E11.9 - Type 2 diabetes mellitus without complications; 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 insulin (9) NSTEMI (non-ST elevated myocardial infarction): -Baseline troponin 154, 6-hour 140, delta -13.[address]-T wave changes, no complaints of chest pain -Likely related to Covid related myocarditis -Cannot rule out underlying cardiac etiology given history of type 2 diabetes mellitus -Continue aspirin, statin -Eliquis, metoprolol -Serial EKGs, serial troponins, telemetry monitoring - LV systolic function is normal with EF of 55-60% Normal diastolic function Trace mitral regurgitation No comparison studies available -Monitor for chest pain -Consult cardiology, medical management for now, outpatient stress testing Status: Acute (10) Transaminitis: Secondary COVID-19 pneumonia Status: Acute (11) Hyponatremia: Hyponatremia, secondary dehydration, will give IV fluids Status: Acute (12) Dehydration: Status: Acute (13) Rhabdomyolysis: Status: Acute Attestations Medical Necessity Statement*: Patient requires hospitalization for pneumonia secondary COVID-19 with acute respiratory distress syndrome, acute respiratory failure Coding Level of Care Code Acute Granulator Operator for [facility] Diagnoses ARDS (adult respiratory distress syndrome) J80 Acute respiratory failure with hypoxia J96.01 Pneumonia due to COVID-19 virus U07.1; J12.82 Thrombocytopenia D69.6 Leukopenia D72.819 Atrial fibrillation I48.91 Atrial fibrillation type: unspecified COVID-19 U07.1 Diabetes E11.9; Z79.4 Diabetes mellitus type: type 2 Diabetes mellitus [facility] insulin use: with [facility] use Diabetes mellitus complication status: without complication NSTEMI (non-ST elevated myocardial infarction) I21.4 Transaminitis R74.01 Hyponatremia E87.1 Dehydration E86.0 Rhabdomyolysis M62.82
--- NOTE | 2021-09-10 16:58 | PC.NURSE ---
picked up care of pt upon intubation started on versed and propofol and fent and levophed gtt.. og tube inserted at this time also
--- NOTE | 2021-09-10 17:01 | XRR_ITS ---
PROCEDURE INFORMATION: Exam: XR Chest Exam date and time: 09/10/2021 5:01 PM Age: 61 years old Clinical indication: Device placement; Other: Et and ng placement; Additional info: Tube TECHNIQUE: Imaging protocol: XR of the chest. Views: 1 view. COMPARISON: CR (CHEST, ) 09/09/2021 3:29 PM FINDINGS: Tubes, catheters and devices: There is an endotracheal tube present, with distal tip 5.5 cm above the tanesha. There is an enteric tube present with distal tip in the stomach. Left jugular central line with tip overlying the SVC/RA junction. Lungs: Nonspecific bilateral infiltrates, left worse than right. Pleural spaces: No pleural effusion. No pneumothorax. Heart/Mediastinum: No cardiomegaly. Bones/joints: Unremarkable. XR/XR chest 1V portable [id number] IMPRESSION: 1. There is an endotracheal tube present, with distal tip 5.5 cm above the tanesha. 2. There is an enteric tube present with distal tip in the stomach. 3. Left jugular central line with tip overlying the SVC/RA junction. No pneumothorax. 4. Nonspecific bilateral infiltrates, left worse than right. Pulmonary findings are unchanged from 09/09/2021. Radiation Dose CTDIVOL = (mGy): DLP = (mGy-cm)
--- NOTE | 2021-09-10 17:03 | PM.ACPR ---
Procedure/Consent Time out: Time Out Performed: Yes Consent: Consent for Procedure: Consent obtained from patient (Verbally obtained from the patient and his ) and Emergency procedure Procedure Narrative: Name of the procedure: Endotracheal intubation. Indication: Hypoxic respiratory failure. Medications: Etomidate 30 mg, succinylcholine 150 mg Procedure: The patient was positioned optimally. The patient was oxygenated with 100% oxygen with high flow nasal cannula. After appropriate medications were given, the video bronchoscope blade was introduced and advanced till vocal cords were visualized. The endotracheal tube was advanced through the vocal cords under direct visualization. There was fogging of the ET tube, positive change in end-tidal CO2 monitor, bilateral chest rise, bilateral positive breath sound. The ET tube was secured at 24 cm at the lips. Complications: There was no immediate complications. Chest x-ray: Pending Acute Procedures Epistaxis Control: Time out performed: Yes
[2021-09-10 17:17] LABS: ABG PCO2 39.2 mmHg (35-45); ABG PH Result 7.42 (7.35-7.45); Alveolar-Arterial Oxygen Gradi 43.3 mmHg (5-10); Arterial Blood Gas Hematocrit 43.7 % (42-52); Base Excess ABG 0.6 mmol/L (-2.0-2.0); Blood Gas Allen Test Pos; Blood Gas Operator Identificat BD; Blood Gas Sample Site Brachial, left; Blood Gas Sample Type Arterial; Blood Gas Tidal Volume 0.48; Carboxyhemoglobin < 0.0 %THgb (0.4-20.1); HCO3 ABG 25.1 mmol/L (22-26); HGB O2 Sat 96.7 % (95-100); Ionized Calcium Level - ABG 1.2 mmol/L (1.1-1.4); Oxygen Device VENT; Oxygen Saturation ABG 97.3; Potassium Level - ABG 3.8 mmol/L (3.5-5.0); Total Hemoglobin 14.3 g/dL (14-18)
[2021-09-10 17:40] LABS: Glucose Point of Care 308 mg/dL (70-110)
[2021-09-10] MEDS: insulin glargine 100 units/1 mL 12 UNIT SUBCUT (18:20)
[2021-09-10] MEDS: propofol 1,000 MG/100 ML INJ 17.88 MG IV (18:35)
--- NOTE | 2021-09-10 19:16 | NUR.SHIFT ---
Shift Note Frequent safety and comfort rounds continue. Orders and/or nursing care completed as indicated. Patient monitored for response to intervention and treatment(s). Education provided includes[]. Patient and/or truck sales representative [[email or web address]]. Will continue to monitor. intubated and placed on vent today and multiple medications..
[2021-09-10] MEDS: cisatracurium 100 MG in sodium chloride 0.9% 50 ML IV (19:19)
[2021-09-10 20:10] LABS: Glucose Point of Care 362 mg/dL (70-110)
[2021-09-10] MEDS: atorvastatin 40 mg Tablet PO (20:13)
[2021-09-10] MEDS: propofol 1,000 MG/100 ML INJ 29.8 MG IV (21:52)
[2021-09-11] VITALS (58 sets, daily range): BP systolic 74–158; BP diastolic 43–83; PULSE 60–89; RESP 18; TEMP 34.6–36.9; O2SAT 90–98
[2021-09-11] MEDS: ipratropium-albuterol 3 mL Neb INHALATION ×4 (03:26→19:59)
[2021-09-11 04:06] LABS: ABG PCO2 38.4 mmHg (35-45); ABG PH Result 7.42 (7.35-7.45); Arterial Blood Gas Hematocrit 46.5 % (42-52); Base Excess ABG 0.2 mmol/L (-2.0-2.0); Blood Gas Allen Test Pos; Blood Gas Sample Site Radial, right; Blood Gas Sample Type Arterial; HCO3 ABG 24.6 mmol/L (22-26); Oxygen Device VENT; PO2 ABG 50.1 mmHg (80.0-100.0)
[2021-09-11] MEDS: propofol 1,000 MG/100 ML INJ 29.8 MG IV (04:20)
[2021-09-11 05:23] LABS: Hemoglobin 13.3 g/dL (11.7-16.6); Lymphocytes # 0.5 10^3/uL (0.8-4.8); Lymphocytes % 9.5 %; Mean Corpuscular HGB Conc 32.4 g/dL (30.0-36.0); Mean Corpuscular Hemoglobin 30.4 pg (28.0-34.0); Mean Corpuscular Volume 93.8 fl (80-94); Mean Platelet Volume 11.3 fL (7.4-10.4); Monocytes # 0.4 10^3/uL (0.2-0.9); Monocytes % 8.4 %; Neutrophils # 4.26 10^3/uL (1.8-7.7); Nucleated Red Blood Cells % 0 %; Platelet Count 172 10^3/cmm (130-400); Red Blood Count 4.37 10^6/uL (4.1-5.3); Red Cell Distribution Width 12.4 % (12.1-15.1); White Blood Count 5.3 10^3/uL (4.0-10.0)
[2021-09-11 05:53] LABS: NT Pro B Type Natriuretic Pept 462 pg/mL (0-125); Procalcitonin 0.17 ng/mL (0-0.5)
[2021-09-11] MEDS: remdesivir 100 MG in sodium chloride 0.9% (100 ml) 80 ML IV (06:14)
--- NOTE | 2021-09-11 06:19 | PC.NURSE ---
Patient remained stable throughout shift. Nimbex added at shift change, and versed, fentanyl, propofol gtt all titrated per protocol. Patient remains afebrile throughout shift with stable HR and BP. Patient placed prone at 0000. No complications during prone session. TOF, BIS, oral care, and repositioning done Q2. 2000: TOF: 4/4, BIS: 43 2200: TOF: 0/4, BIS: 37 0000: TOF: 2/4, BIS: 42 0200: TOF: 1/4, BIS: 39 0400: TOF: 2/4, BIS: 48 0600: TOF: 1/4, BIS: 38
[2021-09-11 06:21] LABS: Lactate (Lactic Acid level) 4.1 mmol/L (0.5-2.2)
[2021-09-11 06:55] LABS: D Dimer 1.29 ug/mIFEU (0-0.59)
[2021-09-11] MEDS: vancomycin 1,000 MG in sodium chloride 0.9% 250 ML 250 MG IV ×2 (07:35→15:26)
[2021-09-11] MEDS: pantoprazole 40 mg SDV IVP (07:36)
[2021-09-11] MEDS: propofol 1,000 MG/100 ML INJ 23.84 MG IV ×4 (07:36→20:02)
[2021-09-11] MEDS: cisatracurium 100 MG in sodium chloride 0.9% 50 ML 7.15 MG IV (07:37)
[2021-09-11] MEDS: aspirin 81 mg EC Tablet PO (07:39)
[2021-09-11] MEDS: tamsulosin 0.4 mg Capsule PO (07:39)
[2021-09-11] MEDS: zinc gluconate 50 mg Tablet PO (07:39)
[2021-09-11] MEDS: ascorbic acid 500 mg Tablet PO ×2 (07:39→17:29)
[2021-09-11] MEDS: apixaban 5 mg Tablet PO ×2 (07:39→20:02)
[2021-09-11] MEDS: cholecalciferol (vitamin D3) 1,000 unit Tablet 1000 UNIT PO (07:39)
[2021-09-11 07:47] LABS: Slide Review Slide Review Perform
[2021-09-11 08:01] LABS: Albumin Level 2.7 g/dL (3.5-5.2); Alkaline Phosphatase 45 IU/L (40-130); Blood Urea Nitrogen 21 mg/dL (8-23); C Reactive Protein 42.6 mg/L (0.0-4.9); Calcium 8.4 mg/dL (8.5-10.5); Carbon Dioxide 20 mmol/L (22-29); Chloride 99 mmol/L (98-107); Globulin 3.2 g/dL (1.3-4.6); Glucose 436 mg/dL (65-115); Magnesium 2.4 mg/dL (1.7-2.3); Osmolality Calculated 304 mOsm/kg (285-295); Sodium 136 mmol/L (136-145); Total Bilirubin 0.5 mg/dL (0.15-1.2); Total Protein 5.9 g/dL (6.6-8.7)
[2021-09-11 08:04] LABS: Alanine Aminotransferase 25 U/L (0-41); Anion Gap 21.4 (5-19); Aspartate Amino Transferase 42 U/L (0-40); Potassium 4.4 mmol/L (3.5-5.1)
[2021-09-11 08:14] LABS: Creatine Phosphokinase 139 U/L (39-308)
[2021-09-11] MEDS: budesonide 0.5 mg/2 mL Neb INHALATION ×2 (08:27→19:59)
[2021-09-11] MEDS: insulin lispro 100 unit/1 mL SUBCUT ×3 (08:29→14:29)
[2021-09-11] MEDS: insulin glargine 100 units/1 mL 12 UNIT SUBCUT (08:29)
--- NOTE | 2021-09-11 08:30 | PC.NURSE ---
Shift Note Frequent safety and comfort rounds continue. Orders and/or nursing care completed as indicated. Patient monitored for response to intervention and treatment(s). Education provided includes[Covid 19, ventilation, skin integrity, nutrition, and blood pressure support]. Patient and/or correspondence representative [Pt's family has been updated on pt's current status and plan of care). Will continue to monitor. Received bed side shift report from off going nurse. Pt's plan of care reviewed. Pt resting in bed. Respirations are even and unlabored. No s/sx of distress noted. Pt is currently intubated and proned. Pt appears to be tolerating it well. O2 is 96% on 45% Fi02. Pt's blood sugar was 406 and has a rectal temp of 93.7. Hospitalist was notified of these findings. Bed in lowest and locked position, call light within reach, x's 3 rails up. Bed alarm on. Will continue to monitor pt.
[2021-09-11 08:44] LABS: Glucose Point of Care 406 mg/dL (70-110)
--- NOTE | 2021-09-11 08:57 | PM.PN ---
Subjective Subjective: Interval history: Intubated, mechanical ventilator, proned. Vitals/I&O/Wt Last Vital Signs Temp 94.3 F L 09/11/21 08:00 Pulse 65 09/11/21 08:27 Resp 18 09/11/21 08:29 BP 129/73 09/11/21 08:00 Pulse Ox 96 09/11/21 08:29 09/10/21 09/11/21 09/11/21 22:59 06:59 14:59 Intake Total 778.242 / 1728.242 721.799 / 2450.041 497.922 / 497.922 Output Total 300 / 2700 1700 / 4400 Balance 478.242 / -971.758 -978.201 / -1949.959 497.922 / 497.922 Weight last 48 hrs Weight 100.244 kg Weight 99.337 kg Physical Exam Narrative: EXAM NARRATIVE: Intubated, paralyzed, prone, mechanically ventilated. Const: COMMON NORMALS: no acute distress HENMT: COMMON NORMALS: oropharynx normal Neck/C-Spine: COMMON NORMALS: no JVD Resp: AUSCULTATION: wheezes (mild) Cardio: COMMON NORMALS: no JVD, regular rhythm, S1 normal heart sound present, S2 normal heart sound present and No murmurs present (Cardio) RHYTHM: regular rhythm HEART SOUNDS: S1 normal heart sound present and S2 normal heart sound present Extremity: COMMON NORMALS: no joint enlargement GENERAL: Yes edema (trace at ankles) Skin: COMMON NORMALS: no rashes or lesions noted GENERAL SKIN EXAM: no rashes or lesions noted Urinary Catheter Management^: Yi Latex: Cath Placed During This Visit: yes Reason for Continuing Indwelling Catheter: Accurate Measurement of Urinary Output in Critically Ill Patients Urinary Catheter Date of Insertion: 09/08/21 Urinary Catheter Time of Insertion: 06:18 Data : 09/11/21 04:50 09/11/21 07:20 Micro: Microbiology 09/05/21 15:50 Blood Culture - Final Blood NO GROWTH AFTER 5 DAYS 09/05/21 15:56 Blood Culture - Final Blood NO GROWTH AFTER 5 DAYS A&P Assessment and plan (1) Pneumonia due to COVID-19 virus: Intubated, mechanically ventilated, proned. This morning temperature low 94.3, started on Kevin hugger. Blood pressures noted soft early in the morning, but currently doing well. Not requiring pressors. At that time lactic acid 4 transiently low blood pressure. Will recheck. Renal function appears okay. -With acute hypoxic respiratory failure, development of acute respiratory distress syndrome -CT angiogram?no pulmonary embolism, but does show multilobar patchy groundglass opacities No evidence of myocarditis myocarditis on TTE -Atrial fibrillation -With thrombocytopenia, Lymphopenia, NSTEMI, transaminitis, rhabdomyolysis Continue remdesivir, decadron, Eliquis. Versed no.. Received tocilizumab 09/10. Continue empiric antibiotics. Urine bacterial antigens negative. Blood cultures negative. Status: Acute (2) ARDS (adult respiratory distress syndrome): Status: Acute (3) Acute respiratory failure with hypoxia: Status: Acute (4) Thrombocytopenia: Status: Acute (5) Leukopenia: Status: Acute (6) Atrial fibrillation: -new onset atrial fibrillation diagnosed on last ER visit, discharged on metoprolol, eliquis, -currently in normal sinus rhythm -for now continue Eliquis -continue metoprolol 12.5mg BID -continue telemetry -Eliquis for DVT prophylaxis TSH elevated 5.15, but free T4 normal at 1.2. Echocardiogram with normal EF, normal diastolic function. Trace MVR. Status: Inactive Qualifiers: Atrial fibrillation type: unspecified Qualified Code(s): I48.91 - Unspecified atrial fibrillation (7) COVID-19: Status: Acute (8) Diabetes: -Continue Lantus 25 units twice daily, low-dose sliding scale, check A1c Status: Acute Qualifiers: Diabetes mellitus type: type 2 Diabetes mellitus bed bug exterminator insulin use: with bed bug exterminator use Diabetes mellitus complication status: without complication Qualified Code(s): E11.9 - Type 2 diabetes mellitus without complications; Z79.4 - terminal carman (current) use of insulin (9) NSTEMI (non-ST elevated myocardial infarction): -Baseline troponin 154, 6-hour 140, delta -13.[address]-T wave changes, no complaints of chest pain -Likely related to Covid related myocarditis -Cannot rule out underlying cardiac etiology given history of type 2 diabetes mellitus -Continue aspirin, statin -Eliquis, metoprolol -Serial EKGs, serial troponins, telemetry monitoring - LV systolic function is normal with EF of 55-60% Normal diastolic function Trace mitral regurgitation No comparison studies available -Monitor for chest pain -Consult cardiology, medical management for now, outpatient stress testing Status: Acute (10) Transaminitis: Secondary COVID-19 pneumonia Status: Acute (11) Hyponatremia: Hyponatremia, secondary dehydration, will give IV fluids Status: Acute (12) Dehydration: Status: Acute (13) Rhabdomyolysis: Status: Acute Attestations Medical Necessity Statement*: Continue admission for hypoxic respiratory failure secondary to severe COVID-19, requiring mechanical ventilatory support, paralytics, proning. Coding Level of Care Code Acute Director Trust for [facility] Fwd Diagnoses Pneumonia due to COVID-19 virus U07.1; J12.82 ARDS (adult respiratory distress syndrome) J80 Acute respiratory failure with hypoxia J96.01 Thrombocytopenia D69.6 Leukopenia D72.819 Atrial fibrillation I48.91 Atrial fibrillation type: unspecified COVID-19 U07.1 Diabetes E11.9; Z79.4 Diabetes mellitus type: type 2 Diabetes mellitus bed bug exterminator insulin use: with bed bug exterminator use Diabetes mellitus complication status: without complication NSTEMI (non-ST elevated myocardial infarction) I21.4 Transaminitis R74.01 Hyponatremia E87.1 Dehydration E86.0 Rhabdomyolysis M62.82
--- NOTE | 2021-09-11 09:19 | PC.OT ---
OT tx held this date due to intubation.
--- NOTE | 2021-09-11 09:45 | PC.CHAP ---
Pastoral Care Encounter/Spiritual Assessment Type of Contact [] Declined epic trainer visit [] Patient/Family/Request visit [] Outpatient visit [] Follow-up visit [] Physician referral [] Code/Alert [x] Routine visit [] Staff referral [] Actively dying [] Patient sleeping [] Family support [] [] Out of room [] Palliative care [] [] Receiving care in room [] Pre-surgical visit [] Trauma [] Long length of stay [x] ICU visit [] Other: Relational/Emotional Strength [] Patient feels connected with others/family/visitors/staff [] Distress [] Loneliness/isolation [] Abandonment Spirituality of Patient [] Person of Rachel [] Attends Sikhism of their Rachel [] Believes in Prayer [] Reads Bible or Buddhism materials [] There are Spiritual issues to be addressed Facility Maintenance Technician Interventions [x] Prayer [] Active listening [] Non-anxious presence [] Spiritual/emotional support [] Crisis/trauma care [] Spiritual counseling [] Bereavement support [] Provided bereavement packet [] Provided Bible/devotional materials [] Provided toy/stuffed animal, coloring book to patient or family member [] Provided Communion [] Anointing/[place] [] Salvation [x] Completed spiritual assessment [] Other: Impact on Illness or Injury [] Angry [] Fearful [] Anxious [] Often cries [] Exhaustion [] Unable to work [] Unable to attend jewish [] Unable to walk/stand [] Unable to read [] Unable to drive [] Unable to eat/drink [] Unable to sleep [] Unable to be with family [] Patient intubated [] Other: Summary Time spent with patient
[2021-09-11] MEDS: dexamethasone 10 mg/mL INJ 6 MG IVP (11:31)
[2021-09-11] MEDS: cefepime 2,000 MG in sodium chloride 0.9% (plus) 50 ML 100 MG IV ×2 (11:33→22:24)
[2021-09-11 11:38] LABS: Glucose Point of Care 486 mg/dL (70-110)
[2021-09-11 14:30] LABS: Glucose Point of Care 368 mg/dL (70-110)
[2021-09-11 14:31] LABS: Vancomycin Trough 16.2 ug/mL (10-15)
[2021-09-11] MEDS: azithromycin 500 MG in sodium chloride 0.9% 250 ML 250 MG IV (15:46)
[2021-09-11 16:46] LABS: Glucose Point of Care 334 mg/dL (70-110)
[2021-09-11] MEDS: insulin regular-human 250 UNIT in sodium chloride 0.9% 250 ML 8.3 UNIT IV (17:45)
[2021-09-11 18:29] LABS: Glucose Point of Care 318 mg/dL (70-110)
[2021-09-11] MEDS: insulin glargine 100 units/1 mL 15 UNIT SUBCUT (19:08)
--- NOTE | 2021-09-11 19:33 | PC.NURSE ---
Pt temp was 95.4 on assessment, blanket warmer applied.
--- NOTE | 2021-09-11 19:56 | PM.PN ---
Subjective Subjective: Interval history: The patient was seen and examined. The patient underwent prone positioning yesterday. Today in supine position his FiO2 is 45%. Oxygen saturation in the mid 90s. Medications: Reviewed: Yes Vitals/I&O/Wt Last Vital Signs Temp 98.5 F 09/11/21 16:00 Pulse 84 09/11/21 16:00 Resp 18 09/11/21 16:29 BP 88/49 09/11/21 16:00 Pulse Ox 95 09/11/21 16:29 09/11/21 09/11/21 09/11/21 06:59 14:59 22:59 Intake Total 721.799 / 2450.041 645.666 / 645.666 790.965 / 1436.631 Output Total 1700 / 4400 950 / 950 Balance -978.201 / -1949.959 645.666 / 645.666 -159.035 / 486.631 Weight last 48 hrs Weight 221 lb Weight 219 lb Physical Exam Narrative: EXAM NARRATIVE: General: The patient is intubated and sedated Neck: No JVD Respiratory: Auscultation: Reduced breath sound bilaterally, minimal crackles Cardiovascular: Regular rate and rhythm, S1-S2 present, no murmur, no peripheral edema. Abdomen: Soft, nondistended, positive bowel sound Skin: No rash Neuro: Unable to assess, the patient is intubated and sedated Urinary Catheter Management^: Yi Latex: Cath Placed During This Visit: yes Reason for Continuing Indwelling Catheter: Accurate Measurement of Urinary Output in Critically Ill Patients Urinary Catheter Date of Insertion: 09/08/21 Urinary Catheter Time of Insertion: 06:18 Data : 09/11/21 04:50 09/11/21 07:20 Micro: Microbiology 09/05/21 15:50 Blood Culture - Final Blood NO GROWTH AFTER 5 DAYS 09/05/21 15:56 Blood Culture - Final Blood NO GROWTH AFTER 5 DAYS Attestation for Other Data: I personally reviewed and interpreted the following: Other data: I have reviewed the patient's laboratory, [place] and radiologic data. No leukocytosis, mild acidosis with a elevated lactate level. The patient is hyperglycemic. A&P Assessment and plan (1) Acute respiratory failure with hypoxia: This is a 61-year-old gentleman with past medical history of diabetes with macro and microvascular disease, paroxysmal atrial fibrillation who has developed rapidly progressive acute hypoxic respiratory failure. The patient started requiring oxygen on September 06 and within the next 3 days has developed full-blown ARDS with an oxygen requirement of 100%. The patient underwent prone positioning on August 10. After the first session of prone positioning his FiO2 requirement right now is 45%. We are going to discontinue the paralytics. Plan is to prepare him for extubation tomorrow. Status: Acute (2) ARDS (adult respiratory distress syndrome): The patient is currently doing well. We will plan for extubation tomorrow. Status: Acute (3) Pneumonia due to COVID-19 virus: The patient received a dose of Actemra on September 10. Currently he is on dexamethasone. He has broad-spectrum antibiotic empirically. There is no evidence of secondary bacterial infection at this time. Status: Acute (4) Paroxysmal A-fib: The patient is anticoagulated with apixaban Status: Acute (5) Diabetes: We will going to start the patient on a insulin drip with a blood sugar goal of 1 40-1 80. Status: Acute Qualifiers: Diabetes mellitus type: type 2 Diabetes mellitus skilled nursing insulin use: with salvage determiner use Diabetes mellitus complication status: without complication Qualified Code(s): E11.9 - Type 2 diabetes mellitus without complications; Z79.4 - halfway (current) use of insulin Attestations Medical Necessity Statement*: Will defer to the primary team Coding Level of Care Code Acute Fixed Route Bus Operator for [facility] Diagnoses Acute respiratory failure with hypoxia J96.01 ARDS (adult respiratory distress syndrome) J80 Pneumonia due to COVID-19 virus U07.1; J12.82 Paroxysmal A-fib I48.0 Diabetes E11.9; Z79.4 Diabetes mellitus type: type 2 Diabetes mellitus skilled nursing insulin use: with salvage determiner use Diabetes mellitus complication status: without complication Time Spent (min) 37
[2021-09-11] MEDS: atorvastatin 40 mg Tablet PO (20:02)
[2021-09-11 20:16] LABS: Glucose Point of Care 309 mg/dL (70-110)
[2021-09-11 20:59] LABS: Glucose Point of Care 250 mg/dL (70-110)
[2021-09-11 21:57] LABS: Glucose Point of Care 210 mg/dL (70-110)
[2021-09-12] VITALS (65 sets, daily range): BP systolic 89–187; BP diastolic 62–112; PULSE 66–108; RESP 12–29; TEMP 36.6–37.3; O2SAT 78–98; BMI 29.0
[2021-09-12] MEDS: propofol 1,000 MG/100 ML INJ 23.84 MG IV (00:17)
[2021-09-12 02:58] LABS: Basophils % 0.1 %; Eosinophils % 0.1 %; Hematocrit 36.5 % (42.0-52.0); Hemoglobin 12.8 g/dL (11.7-16.6); Lymphocytes # 0.7 10^3/uL (0.8-4.8); Lymphocytes % 10.5 %; Mean Corpuscular HGB Conc 35.1 g/dL (30.0-36.0); Mean Corpuscular Hemoglobin 31.1 pg (28.0-34.0); Mean Corpuscular Volume 88.6 fl (80-94); Mean Platelet Volume 10.4 fL (7.4-10.4); Monocytes # 0.5 10^3/uL (0.2-0.9); Monocytes % 7.5 %; Neutrophils # 5.69 10^3/uL (1.8-7.7); Neutrophils % 80.5 %; Nucleated Red Blood Cells % 0 %; Platelet Count 258 10^3/cmm (130-400); Red Blood Count 4.12 10^6/uL (4.1-5.3); Red Cell Distribution Width 12.5 % (12.1-15.1); White Blood Count 7.1 10^3/uL (4.0-10.0)
[2021-09-12 03:12] LABS: D Dimer 1.68 ug/mIFEU (0-0.59)
[2021-09-12 03:13] LABS: Glucose Point of Care 171 mg/dL (70-110)
[2021-09-12 03:13] LABS: Glucose Point of Care 182 mg/dL (70-110)
[2021-09-12 03:13] LABS: Glucose Point of Care 123 mg/dL (70-110)
[2021-09-12 03:13] LABS: Glucose Point of Care 88 mg/dL (70-110)
[2021-09-12 03:13] LABS: Glucose Point of Care 110 mg/dL (70-110)
[2021-09-12 03:26] LABS: Alanine Aminotransferase 29 U/L (0-41); Albumin Level 2.8 g/dL (3.5-5.2); Alkaline Phosphatase 42 IU/L (40-130); Anion Gap 13.7 (5-19); Aspartate Amino Transferase 43 U/L (0-40); Blood Urea Nitrogen 20 mg/dL (8-23); C Reactive Protein 25.2 mg/L (0.0-4.9); Calcium 8.3 mg/dL (8.5-10.5); Carbon Dioxide 26 mmol/L (22-29); Chloride 105 mmol/L (98-107); Glucose 87 mg/dL (65-115); Osmolality Calculated 294 mOsm/kg (285-295); Potassium 3.7 mmol/L (3.5-5.1); Sodium 141 mmol/L (136-145); Total Bilirubin 0.4 mg/dL (0.15-1.2); Total Protein 5.8 g/dL (6.6-8.7)
[2021-09-12] MEDS: ipratropium-albuterol 3 mL Neb INHALATION ×4 (03:32→20:00)
[2021-09-12 04:11] LABS: Glucose Point of Care 119 mg/dL (70-110)
[2021-09-12] MEDS: propofol 1,000 MG/100 ML INJ 20.86 MG IV ×2 (04:14→09:27)
[2021-09-12 04:32] LABS: ABG PCO2 34.2 mmHg (35-45); ABG PH Result 7.49 (7.35-7.45); Arterial Blood Gas Hematocrit 42.1 % (42-52); Base Excess ABG 3.3 mmol/L (-2.0-2.0); Blood Gas Allen Test Pos; Blood Gas Sample Site Radial, right; Blood Gas Sample Type Arterial; Blood Gas Tidal Volume 0.48; HCO3 ABG 26.3 mmol/L (22-26); Oxygen Device VENT; PO2 ABG 88.6 mmHg (80.0-100.0)
[2021-09-12] MEDS: remdesivir 100 MG in sodium chloride 0.9% (100 ml) 80 ML IV (05:01)
[2021-09-12 05:28] LABS: Glucose Point of Care 141 mg/dL (70-110)
--- NOTE | 2021-09-12 06:07 | PC.NURSE ---
Shift Note Frequent safety and comfort rounds continue. Pt repositioned and oral cares preformed q 2 hours. Pts oxygen drops to the 80s due to coughing when repositioning. Orders and nursing care completed as indicated. Pt was on insulin drip, blood sugar was dropping quickly and I notified Dr. Anthony and was ordered to pause the drip. Patient monitored for response to intervention and treatment. Education provided includes insulin gtt. verbalized understanding.
--- NOTE | 2021-09-12 06:18 | XR_ITS ---
WS: [id number] PORTABLE CHEST HISTORY: confirm tube placement COMPARISON: 09/10/2021 Nasogastric tube is present with tip in the stomach. LEFT central line with tip in the distal SVC. Go od positioning of endotracheal tube which ends several centimeters above the tanesha. Lung volumes are decreased. Mild interstitial thickening and reticulations throughout both lungs. No improvement. Small LEFT pleural effusion is likely. Cardiac size: Normal. Mediastinum/Aorta: Mild atherosclerosis aorta. No osseous abnormality seen. XR/XR chest 1V portable 13729 IMPRESSION: 1. Endotracheal tube, nasogastric tube and LEFT central line are in good posit ion. 2. Continued interstitial opacifications, LEFT greater than RIGHT are unchange d. No improvement.
--- NOTE | 2021-09-12 07:33 | PC.OT ---
OT TREATMENT HELD TODAY DUE TO PATIENT STATUS. WILL CONTINUE TO MONITOR.
[2021-09-12] MEDS: budesonide 0.5 mg/2 mL Neb INHALATION ×2 (08:09→20:00)
[2021-09-12] MEDS: aspirin 81 mg EC Tablet PO (09:27)
[2021-09-12] MEDS: apixaban 5 mg Tablet PO ×2 (09:27→20:18)
[2021-09-12] MEDS: pantoprazole 40 mg SDV IVP (09:28)
[2021-09-12] MEDS: tamsulosin 0.4 mg Capsule PO (09:28)
--- NOTE | 2021-09-12 10:45 | P.PN_ITS ---
Subjective Subjective: Interval history: Patient was seen and examined. Intubated and sedated appears comfortable. His oxygen requirement is currently 40%. Chest x-ray this morning revealed bilateral infiltrate no significant change compared to before. Medications: Reviewed: Yes Vitals/I&O/Wt Last Vital Signs Temp 98.1 F 09/12/21 07:18 Pulse 79 09/12/21 08:09 Resp 18 09/12/21 08:05 BP 98/64 09/12/21 07:18 Pulse Ox 96 09/12/21 08:05 09/11/21 09/12/21 09/12/21 22:59 06:59 14:59 Intake Total 1005.449 / 1651.115 320.335 / 1971.450 100 / 100 Output Total 950 / 950 350 / 1300 Balance 55.449 / 701.115 -29.665 / 671.450 100 / 100 Weight last 48 hrs Weight 208 lb 4.8 oz Weight 221 lb Physical Exam Narrative: EXAM NARRATIVE: General: The patient is intubated and sedated, arousable Neck: No JVD Respiratory: Auscultation: Reduced breath sound bilaterally, minimal crackles Cardiovascular: Regular rate and rhythm, S1-S2 present, no murmur, no peripheral edema. Abdomen: Soft, nondistended, positive bowel sound Skin: No rash Neuro: The patient is arousable Urinary Catheter Management^: Yi Latex: Cath Placed During This Visit: yes Reason for Continuing Indwelling Catheter: Accurate Measurement of Urinary Output in Critically Ill Patients Urinary Catheter Date of Insertion: 09/08/21 Urinary Catheter Time of Insertion: 06:18 Data : 09/12/21 02:35 09/12/21 02:35 Attestation for Other Data: I personally reviewed and interpreted the following: Other data: I have reviewed the patient's laboratory, microbiologic and radiologic data. No significant electrolyte abnormalities. No leukocytosis. A&P Assessment and plan (1) Acute respiratory failure with hypoxia: This is a 61-year-old gentleman with past medical history of diabetes with macro and microvascular disease, paroxysmal atrial fibrillation who has developed rapidly progressive acute hypoxic respiratory failure. The patient started requiring oxygen on September 06 and within the next 3 days has developed full-blown ARDS with an oxygen requirement of 100%. The patient underwent prone positioning on August 10. After the first session of prone positioning his FiO2 requirement right now is 40%. The plan is for extubation today. Status: Acute (2) ARDS (adult respiratory distress syndrome): The patient is currently doing well. Status: Acute (3) Pneumonia due to COVID-19 virus: The patient received a dose of Actemra on September 10. Currently he is on dexamethasone. He has broad-spectrum antibiotic empirically. There is no evidence of secondary bacterial infection at this time. Status: Acute (4) Paroxysmal A-fib: The patient is anticoagulated with apixaban Status: Acute (5) Diabetes: Blood sugar is well controlled. Status: Acute Qualifiers: Diabetes mellitus type: type 2 Diabetes mellitus termite treater helper insulin use: with nursing home use Diabetes mellitus complication status: without complication Qualified Code(s): E11.9 - Type 2 diabetes mellitus without complications; Z79.4 - intermodal owner operator truck driver (current) use of insulin Attestations Medical Necessity Statement*: Will defer to the primary team Coding Level of Care Code Acute Tobacco Checkout Clerk for [facility] Diagnoses Acute respiratory failure with hypoxia J96.01 ARDS (adult respiratory distress syndrome) J80 Pneumonia due to COVID-19 virus U07.1; J12.82 Paroxysmal A-fib I48.0 Diabetes E11.9; Z79.4 Diabetes mellitus type: type 2 Diabetes mellitus nursing home insulin use: with nursing home use Diabetes mellitus complication status: without complication Time Spent (min) 33
[2021-09-12] MEDS: cefepime 2,000 MG in sodium chloride 0.9% (plus) 50 ML 100 MG IV ×2 (12:32→22:15)
[2021-09-12] MEDS: dexamethasone 10 mg/mL INJ 6 MG IVP (12:32)
[2021-09-12 12:45] LABS: Glucose Point of Care 194 mg/dL (70-110)
--- NOTE | 2021-09-12 14:45 | PC.NURSE ---
Addendum entered by Birgit Whitman RN 09/12/21 17:14: Pt brought to floor by ER staff via gurney. Pt is alert and oriented. He is on 4L nasal canula. He does wear a cpap at home and has oxygen. He has Amio at 1. A triple lumen IJ to left side. Pt has eye glasses and phone at bedside. Original Note: Pt to floor
--- NOTE | 2021-09-12 15:32 | P.PN_ITS ---
Subjective Subjective: Interval history: Intubated, sedated. Weaning down on paralytics, to be weaning down sedation. Vitals/I&O/Wt Last Vital Signs Temp 98.1 F 09/12/21 12:00 Pulse 78 09/12/21 12:00 Resp 18 09/12/21 13:54 BP 98/64 09/12/21 12:00 Pulse Ox 94 09/12/21 13:54 09/12/21 09/12/21 09/12/21 06:59 14:59 22:59 Intake Total 320.335 / 1971.450 100 / 100 Output Total 350 / 1300 Balance -29.665 / 671.450 100 / 100 Weight last 48 hrs Weight 94.483 kg Weight 100.244 kg Physical Exam Narrative: EXAM NARRATIVE: Intubated, paralyzed, prone, mechanically ventilated. Const: COMMON NORMALS: no acute distress HENMT: COMMON NORMALS: oropharynx normal Neck/C-Spine: COMMON NORMALS: no JVD Resp: COMMON NORMALS: clear to auscultation bilaterally AUSCULTATION: clear to auscultation bilaterally Cardio: COMMON NORMALS: no JVD, regular rhythm, S1 normal heart sound present, S2 normal heart sound present and No murmurs present (Cardio) RHYTHM: regular rhythm HEART SOUNDS: S1 normal heart sound present and S2 normal heart sound present Extremity: COMMON NORMALS: no joint enlargement GENERAL: Yes edema (trace at ankles) Skin: COMMON NORMALS: no rashes or lesions noted GENERAL SKIN EXAM: no rashes or lesions noted Urinary Catheter Management^: Yi Latex: Cath Placed During This Visit: yes Reason for Continuing Indwelling Catheter: Accurate Measurement of Urinary Output in Critically Ill Patients Urinary Catheter Date of Insertion: 09/08/21 Urinary Catheter Time of Insertion: 06:18 Data : 09/12/21 02:35 09/12/21 02:35 A&P Assessment and plan (1) Pneumonia due to COVID-19 virus: Weaning of paralytics. Wean sedation. Mechanical ventilation weaning trial, possible extubation if does well, wakes up without issues. Continue Decadron. Continue Eliquis. If continues to do well, will consider discussion of antibiotic. -With acute hypoxic respiratory failure, development of acute respiratory distress syndrome -CT angiogram?no pulmonary embolism, but does show multilobar patchy groundglass opacities No evidence of myocarditis myocarditis on TTE -Atrial fibrillation -With thrombocytopenia, Lymphopenia, NSTEMI, transaminitis, rhabdomyolysis Continue remdesivir, decadron, Eliquis. Versed no.. Received tocilizumab 09/10. Continue empiric antibiotics. Urine bacterial antigens negative. Blood cultures negative. Status: Acute (2) ARDS (adult respiratory distress syndrome): Status: Acute (3) Acute respiratory failure with hypoxia: Status: Acute (4) Thrombocytopenia: Status: Acute (5) Leukopenia: Status: Acute (6) Atrial fibrillation: -new onset atrial fibrillation diagnosed on last ER visit, discharged on metoprolol, eliquis, -currently in normal sinus rhythm -for now continue Eliquis -continue metoprolol 12.5mg BID -continue telemetry -Eliquis for DVT prophylaxis TSH elevated 5.15, but free T4 normal at 1.2. Echocardiogram with normal EF, normal diastolic function. Trace MVR. Status: Inactive Qualifiers: Atrial fibrillation type: unspecified Qualified Code(s): I48.91 - Unspecified atrial fibrillation (7) COVID-19: Status: Acute (8) Diabetes: -Continue Lantus 25 units twice daily, low-dose sliding scale, check A1c Status: Acute Qualifiers: Diabetes mellitus type: type 2 Diabetes mellitus manager intermediate insulin use: with manager intermediate use Diabetes mellitus complication status: without complication Qualified Code(s): E11.9 - Type 2 diabetes mellitus without complications; Z79.4 - nursing home (current) use of insulin (9) NSTEMI (non-ST elevated myocardial infarction): -Baseline troponin 154, 6-hour 140, delta -13.[address]-T wave changes, no complaints of chest pain -Likely related to Covid related myocarditis -Cannot rule out underlying cardiac etiology given history of type 2 diabetes mellitus -Continue aspirin, statin -Eliquis, metoprolol -Serial EKGs, serial troponins, telemetry monitoring - LV systolic function is normal with EF of 55-60% Normal diastolic function Trace mitral regurgitation No comparison studies available -Monitor for chest pain -Consult cardiology, medical management for now, outpatient stress testing Status: Acute (10) Transaminitis: Secondary COVID-19 pneumonia Status: Acute (11) Hyponatremia: Hyponatremia, secondary dehydration, will give IV fluids Status: Acute (12) Dehydration: Status: Acute (13) Rhabdomyolysis: Status: Acute Attestations Medical Necessity Statement*: Continue admission for cyst management of hypoxic respiratory failure, weaning off mechanical ventilatory support with severe COVID-19. Coding Level of Care Code Acute Tree Scout for [facility] Fwd Diagnoses Pneumonia due to COVID-19 virus U07.1; J12.82 ARDS (adult respiratory distress syndrome) J80 Acute respiratory failure with hypoxia J96.01 Thrombocytopenia D69.6 Leukopenia D72.819 Atrial fibrillation I48.91 Atrial fibrillation type: unspecified COVID-19 U07.1 Diabetes E11.9; Z79.4 Diabetes mellitus type: type 2 Diabetes mellitus nursing home insulin use: with nursing home use Diabetes mellitus complication status: without complication NSTEMI (non-ST elevated myocardial infarction) I21.4 Transaminitis R74.01 Hyponatremia E87.1 Dehydration E86.0 Rhabdomyolysis M62.82
[2021-09-12] MEDS: azithromycin 500 MG in sodium chloride 0.9% 250 ML 250 MG IV (16:21)
[2021-09-12 20:01] LABS: Glucose Point of Care 261 mg/dL (70-110)
[2021-09-12] MEDS: atorvastatin 40 mg Tablet PO (20:18)
[2021-09-12] MEDS: hyDRALAzine 20 mg/mL INJ 1 mL 10 MG IVP (22:15)
[2021-09-13] VITALS (55 sets, daily range): BP systolic 131–169; BP diastolic 76–98; PULSE 79–111; RESP 13–34; TEMP 36.5–36.7; O2SAT 89–97
[2021-09-13] MEDS: ipratropium-albuterol 3 mL Neb INHALATION ×3 (02:29→20:02)
[2021-09-13 05:16] LABS: Alanine Aminotransferase 44 U/L (0-41); Albumin Level 3.1 g/dL (3.5-5.2); Alkaline Phosphatase 51 IU/L (40-130); Anion Gap 15.3 (5-19); Aspartate Amino Transferase 60 U/L (0-40); Blood Urea Nitrogen 25 mg/dL (8-23); Calcium 8.2 mg/dL (8.5-10.5); Carbon Dioxide 25 mmol/L (22-29); Chloride 98 mmol/L (98-107); D Dimer 3.84 ug/mIFEU (0-0.59); Globulin 3.1 g/dL (1.3-4.6); Glomerular Filtration Rate 169.6 mL/min (90-130); Glucose 341 mg/dL (65-115); Osmolality Calculated 296 mOsm/kg (285-295); Potassium 4.3 mmol/L (3.5-5.1); Sodium 134 mmol/L (136-145); Total Bilirubin 0.7 mg/dL (0.15-1.2); Total Protein 6.2 g/dL (6.6-8.7)
[2021-09-13 05:36] LABS: Basophils % 0.1 %; Hematocrit 40.1 % (42.0-52.0); Hemoglobin 13.4 g/dL (11.7-16.6); Lymphocytes # 0.3 10^3/uL (0.8-4.8); Lymphocytes % 3.4 %; Mean Corpuscular HGB Conc 33.4 g/dL (30.0-36.0); Mean Corpuscular Hemoglobin 30.5 pg (28.0-34.0); Mean Corpuscular Volume 91.3 fl (80-94); Mean Platelet Volume 10.9 fL (7.4-10.4); Monocytes # 0.4 10^3/uL (0.2-0.9); Monocytes % 4.4 %; Neutrophils # 7.75 10^3/uL (1.8-7.7); Neutrophils % 91.2 %; Nucleated Red Blood Cells % 0 %; Platelet Count 253 10^3/cmm (130-400); Red Blood Count 4.39 10^6/uL (4.1-5.3); Red Cell Distribution Width 12.5 % (12.1-15.1); White Blood Count 8.5 10^3/uL (4.0-10.0)
--- NOTE | 2021-09-13 05:55 | PC.NURSE ---
Upon arrival patient was in 4 point restraints. Orders for violent restraints in per previous shift, charting reflected violent restraints. Upon re evaluation, RN able to remove bilateral lower restraints, and behavior not violent towards self or staff, however patient was still attempting to remove femoral central line. Dr. Anthony consulted, orders to remove violent restraints, however orders for non-violent restraints received. Charted restraints per protocol. Sitter at bedside.
[2021-09-13 07:19] LABS: Glucose Point of Care 294 mg/dL (70-110)
[2021-09-13] MEDS: budesonide 0.5 mg/2 mL Neb INHALATION ×2 (07:42→20:02)
--- NOTE | 2021-09-13 08:45 | PC.NURSE ---
Extubated Pt exutbated at 0845 by RT and the help of nursing staff. Pt is on HHF at 40%. Family has been updated.
[2021-09-13] MEDS: pantoprazole 40 mg SDV IVP (09:58)
[2021-09-13] MEDS: aspirin 81 mg EC Tablet PO (09:58)
[2021-09-13] MEDS: dexamethasone 10 mg/mL INJ 6 MG IVP (09:58)
[2021-09-13] MEDS: tamsulosin 0.4 mg Capsule PO (09:58)
[2021-09-13] MEDS: apixaban 5 mg Tablet PO (09:59)
--- NOTE | 2021-09-13 10:27 | PC.CHAP ---
Pastoral Care Encounter/Spiritual Assessment Type of Contact [] Declined tube closing machine operator visit [] Patient/Family/Request visit [] Outpatient visit [] Follow-up visit [] Physician referral [] Code/Alert [x] Routine visit [] Staff referral [] Actively dying [x] Patient sleeping [] Family support [] [] Out of room [] Palliative care [] [] Receiving care in room [] Pre-surgical visit [] Trauma [] Long length of stay [x] ICU visit [] Other: Relational/Emotional Strength [] Patient feels connected with others/family/visitors/staff [] Distress [] Loneliness/isolation [] Abandonment Spirituality of Patient [] Person of Rachel [] Attends Mu-Ism of their Rachel [] Believes in Prayer [] Reads Bible or Rastafari materials [] There are Spiritual issues to be addressed Abalone Fisherman Interventions [x] Prayer [] Active listening [] Non-anxious presence [] Spiritual/emotional support [] Crisis/trauma care [] Spiritual counseling [] Bereavement support [] Provided bereavement packet [] Provided Bible/devotional materials [] Provided toy/stuffed animal, coloring book to patient or family member [] Provided Communion [] Anointing/[place] [] Salvation [x] Completed spiritual assessment [] Other: Impact on Illness or Injury [] Angry [] Fearful [] Anxious [] Often cries [] Exhaustion [] Unable to work [] Unable to attend latter-day [] Unable to walk/stand [] Unable to read [] Unable to drive [] Unable to eat/drink [] Unable to sleep [] Unable to be with family [] Patient intubated [] Other: Summary Time spent with patient
[2021-09-13] MEDS: cefepime 2,000 MG in sodium chloride 0.9% (plus) 50 ML 100 MG IV (10:37)
[2021-09-13 11:38] LABS: Glucose Point of Care 279 mg/dL (70-110)
--- NOTE | 2021-09-13 12:15 | PM.PN ---
Subjective Subjective: Interval history: This morning with weaning sedation he opens his eyes, appears to try to make eye contact, but does not answer any questions, does not follow commands. Vitals/I&O/Wt Last Vital Signs Temp 98.1 F 09/13/21 11:30 Pulse 91 09/13/21 12:00 Resp 33 H 09/13/21 12:00 BP 165/94 09/13/21 12:00 Pulse Ox 89 L 09/13/21 12:00 09/12/21 09/13/21 09/13/21 22:59 06:59 14:59 Intake Total 300 / 742.647 0 / 742.647 50 / 50 Output Total 750 / 750 1200 / 1950 Balance -450 / -7.353 -1200 / -1207.353 50 / 50 Weight last 48 hrs Weight 94.483 kg Weight 94.483 kg Physical Exam Const: COMMON NORMALS: no acute distress GENERAL APPEARANCE: not cooperative ORIENTATION/CONSCIOUSNESS: Yes confused OTHER: Opens eyes HENMT: COMMON NORMALS: oropharynx normal Neck/C-Spine: COMMON NORMALS: no JVD Resp: COMMON NORMALS: clear to auscultation bilaterally AUSCULTATION: clear to auscultation bilaterally Cardio: COMMON NORMALS: no JVD, regular rhythm, S1 normal heart sound present, S2 normal heart sound present and No murmurs present (Cardio) RHYTHM: regular rhythm HEART SOUNDS: S1 normal heart sound present and S2 normal heart sound present Extremity: COMMON NORMALS: no joint enlargement and no pedal edema Skin: COMMON NORMALS: no rashes or lesions noted GENERAL SKIN EXAM: no rashes or lesions noted Urinary Catheter Management^: Yi Latex: Cath Placed During This Visit: yes Reason for Continuing Indwelling Catheter: Accurate Measurement of Urinary Output in Critically Ill Patients Urinary Catheter Date of Insertion: 09/08/21 Urinary Catheter Time of Insertion: 06:18 Data : 09/13/21 04:14 09/13/21 04:14 Micro: Microbiology 09/08/21 11:36 Blood Culture - Final Blood NO GROWTH AFTER 5 DAYS 09/08/21 11:40 Blood Culture - Final Blood NO GROWTH AFTER 5 DAYS A&P Assessment and plan (1) Pneumonia due to COVID-19 virus: Wean sedation. Hopefully can extubate. Continue Decadron. Continue Eliquis. So far continues to do well. Afebrile, without leukocytosis. No definitive focal infiltrate on chest x-ray. Will hold antibiotics. -With acute hypoxic respiratory failure, development of acute respiratory distress syndrome -CT angiogram?no pulmonary embolism, but does show multilobar patchy groundglass opacities No evidence of myocarditis myocarditis on TTE -Atrial fibrillation -With thrombocytopenia, Lymphopenia, NSTEMI, transaminitis, rhabdomyolysis Completed remdesivir, decadron, Continue Eliquis. Received tocilizumab 09/10. Urine bacterial antigens negative. Blood cultures negative. Status: Acute (2) ARDS (adult respiratory distress syndrome): Status: Acute (3) Acute respiratory failure with hypoxia: Status: Acute (4) Thrombocytopenia: Status: Acute (5) Leukopenia: Status: Acute (6) Atrial fibrillation: -new onset atrial fibrillation diagnosed on last ER visit, discharged on metoprolol, eliquis, -currently in normal sinus rhythm -for now continue Eliquis -continue metoprolol 12.5mg BID -continue telemetry -Eliquis for DVT prophylaxis TSH elevated 5.15, but free T4 normal at 1.2. Echocardiogram with normal EF, normal diastolic function. Trace MVR. Status: Inactive Qualifiers: Atrial fibrillation type: unspecified Qualified Code(s): I48.91 - Unspecified atrial fibrillation (7) COVID-19: Status: Acute (8) Diabetes: -Continue Lantus 25 units twice daily, low-dose sliding scale, check A1c Status: Acute Qualifiers: Diabetes mellitus type: type 2 Diabetes mellitus long-term insulin use: with long-term use Diabetes mellitus complication status: without complication Qualified Code(s): E11.9 - Type 2 diabetes mellitus without complications; Z79.4 - manager terminal (current) use of insulin (9) NSTEMI (non-ST elevated myocardial infarction): -Baseline troponin 154, 6-hour 140, delta -13.[address]-T wave changes, no complaints of chest pain -Likely related to Covid related myocarditis -Cannot rule out underlying cardiac etiology given history of type 2 diabetes mellitus -Continue aspirin, statin -Eliquis, metoprolol -Serial EKGs, serial troponins, telemetry monitoring - LV systolic function is normal with EF of 55-60% Normal diastolic function Trace mitral regurgitation No comparison studies available -Monitor for chest pain -Consult cardiology, medical management for now, outpatient stress testing Status: Acute (10) Transaminitis: Secondary COVID-19 pneumonia Status: Acute (11) Hyponatremia: Hyponatremia, secondary dehydration, will give IV fluids Status: Acute (12) Dehydration: Status: Acute (13) Rhabdomyolysis: Status: Acute Attestations Medical Necessity Statement*: Continue admission for weaning of sedation and mechanical ventilatory support with hypoxic respiratory failure due to severe COVID-19. Coding Level of Care Code Acute Sr. Operations Manager for [facility] Diagnoses Pneumonia due to COVID-19 virus U07.1; J12.82 ARDS (adult respiratory distress syndrome) J80 Acute respiratory failure with hypoxia J96.01 Thrombocytopenia D69.6 Leukopenia D72.819 Atrial fibrillation I48.91 Atrial fibrillation type: unspecified COVID-19 U07.1 Diabetes E11.9; Z79.4 Diabetes mellitus type: type 2 Diabetes mellitus long-term insulin use: with long-term use Diabetes mellitus complication status: without complication NSTEMI (non-ST elevated myocardial infarction) I21.4 Transaminitis R74.01 Hyponatremia E87.1 Dehydration E86.0 Rhabdomyolysis M62.82
[2021-09-13] MEDS: insulin lispro 100 unit/1 mL SUBCUT ×3 (13:06→22:55)
--- NOTE | 2021-09-13 13:30 | P.PN_ITS ---
Subjective Subjective: Interval history: The patient was seen and examined. He is doing very well. He was extubated this morning. He participated in physical therapy. Medications: Reviewed: Yes Vitals/I&O/Wt Last Vital Signs Temp 98.1 F 09/13/21 11:30 Pulse 91 09/13/21 12:00 Resp 33 H 09/13/21 12:00 BP 165/94 09/13/21 12:00 Pulse Ox 89 L 09/13/21 12:00 09/12/21 09/13/21 09/13/21 22:59 06:59 14:59 Intake Total 300 / 742.647 0 / 742.647 50 / 50 Output Total 750 / 750 1200 / 1950 Balance -450 / -7.353 -1200 / -1207.353 50 / 50 Weight last 48 hrs Weight 208 lb 4.8 oz Weight 208 lb 4.8 oz Physical Exam Narrative: EXAM NARRATIVE: General: The patient is awake alert and oriented Neck: No JVD Respiratory: Auscultation: Reduced breath sound bilaterally, minimal crackles Cardiovascular: Regular rate and rhythm, S1-S2 present, no murmur, no peripheral edema. Abdomen: Soft, nondistended, nontender , positive bowel sound Skin: No rash Neuro: No focal motor deficit Urinary Catheter Management^: Yi Latex: Cath Placed During This Visit: yes Reason for Continuing Indwelling Catheter: Accurate Measurement of Urinary Output in Critically Ill Patients Urinary Catheter Date of Insertion: 09/08/21 Urinary Catheter Time of Insertion: 06:18 Data : 09/13/21 04:14 09/13/21 04:14 Micro: Microbiology 09/08/21 11:36 Blood Culture - Final Blood NO GROWTH AFTER 5 DAYS 09/08/21 11:40 Blood Culture - Final Blood NO GROWTH AFTER 5 DAYS Attestation for Other Data: I personally reviewed and interpreted the following: Other data: I have reviewed the patient's laboratory, [place] and radiologic data A&P Assessment and plan (1) Acute respiratory failure with hypoxia: This is a 61-year-old gentleman with past medical history of diabetes with macro and microvascular disease, paroxysmal atrial fibrillation who has developed rapidly progressive acute hypoxic respiratory failure. The patient started requiring oxygen on September 06 and within the next 3 days has developed full-blown ARDS with an oxygen requirement of 100%. The patient underwent prone positioning on August 10. The patient was extubated this morning and doing very well. He participated with physical therapy. Status: Acute (2) ARDS (adult respiratory distress syndrome): Patient is current on high flow nasal cannula. Hopefully he will continue to make recovery and get out of the hospital soon. Status: Acute (3) Pneumonia due to COVID-19 virus: The patient received a dose of Actemra on September 10. Currently he is on dexamethasone. He has broad-spectrum antibiotic empirically. We can stop antibiotic therapy after 7 days., Dexamethasone for 10 days. Status: Acute (4) Paroxysmal A-fib: The patient is anticoagulated with apixaban Status: Acute (5) Diabetes: Will need to optimize blood sugar control. 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 truck driver insulin use: with fci use Diabetes mellitus complication status: without complication Qualified Code(s): E11.9 - Type 2 diabetes mellitus without complications; Z79.4 - FCI (current) use of insulin Attestations Medical Necessity Statement*: Will defer to the primary team Coding Level of Care Code Acute General Practice for [facility] Diagnoses Acute respiratory failure with hypoxia J96.01 ARDS (adult respiratory distress syndrome) J80 Pneumonia due to COVID-19 virus U07.1; J12.82 Paroxysmal A-fib I48.0 Diabetes E11.9; Z79.4 Diabetes mellitus type: type 2 Diabetes mellitus fci insulin use: with dedicated intermodal truck driver use Diabetes mellitus complication status: without complication Time Spent (min) 31
[2021-09-13 17:12] LABS: Glucose Point of Care 300 mg/dL (70-110)
--- NOTE | 2021-09-13 18:20 | PC.NURSE ---
Shift Note Frequent safety and comfort rounds continue. Orders and/or nursing care completed as indicated. Patient monitored for response to intervention and treatment(s). Education provided includes Importance of participating in physical therapy, oxygen education, medication education upon administration, and current condition as well as plan of care. Patient nodded head to teachings, however this nurse is unable to fully assess patients understanding of teaching and would recommend reinforcement. Patient remains non verbal this shift for this nurse. Patient denies ability to move extremities at this time, but did participate in physical therapy this shift, see note from PT. Patient remains NPO, but is able to tolerate ice chips at this time. Currently he is resting in bed semi fowlers, HR 81 SR, O2 97% Fio2 60 constant flow 40L, BP 155/92, RR 18.
[2021-09-13 20:11] LABS: Glucose Point of Care 257 mg/dL (70-110)
[2021-09-13] MEDS: atorvastatin 40 mg Tablet PO (20:27)
[2021-09-14] VITALS (40 sets, daily range): BP systolic 105–150; BP diastolic 67–90; PULSE 76–100; RESP 14–32; TEMP 36.1–37.1; O2SAT 84–98
[2021-09-14 03:32] LABS: Eosinophils % 0.3 %; Hematocrit 41.2 % (42.0-52.0); Hemoglobin 13.9 g/dL (11.7-16.6); Lymphocytes # 0.5 10^3/uL (0.8-4.8); Lymphocytes % 4.6 %; Mean Corpuscular HGB Conc 33.7 g/dL (30.0-36.0); Mean Corpuscular Volume 91.8 fl (80-94); Mean Platelet Volume 10.4 fL (7.4-10.4); Monocytes # 0.4 10^3/uL (0.2-0.9); Monocytes % 3.6 %; Neutrophils # 10.41 10^3/uL (1.8-7.7); Neutrophils % 90.6 %; Nucleated Red Blood Cells % 0 %; Platelet Count 282 10^3/cmm (130-400); Red Blood Count 4.49 10^6/uL (4.1-5.3); Red Cell Distribution Width 12.4 % (12.1-15.1); White Blood Count 11.5 10^3/uL (4.0-10.0)
[2021-09-14 03:54] LABS: Alanine Aminotransferase 48 U/L (0-41); Albumin Level 3.2 g/dL (3.5-5.2); Alkaline Phosphatase 52 IU/L (40-130); Anion Gap 13.1 (5-19); Aspartate Amino Transferase 65 U/L (0-40); Blood Urea Nitrogen 26 mg/dL (8-23); Calcium 8.6 mg/dL (8.5-10.5); Carbon Dioxide 28 mmol/L (22-29); Chloride 99 mmol/L (98-107); Glomerular Filtration Rate 169.6 mL/min (90-130); Glucose 204 mg/dL (65-115); Osmolality Calculated 293 mOsm/kg (285-295); Potassium 4.1 mmol/L (3.5-5.1); Sodium 136 mmol/L (136-145); Total Bilirubin 0.7 mg/dL (0.15-1.2); Total Protein 6.2 g/dL (6.6-8.7)
[2021-09-14 07:15] LABS: Glucose Point of Care 213 mg/dL (70-110)
--- NOTE | 2021-09-14 07:51 | PC.NURSE ---
Morning shift note: Report taken from security shift supervisor. Physical assessment completed and glucose taken. Patient denies pain at this time and appears to be resting. FIO2 55 40L O2 93% high fowlers position.
[2021-09-14] MEDS: budesonide 0.5 mg/2 mL Neb INHALATION ×2 (07:58→20:13)
[2021-09-14] MEDS: ipratropium-albuterol 3 mL Neb INHALATION ×2 (07:58→20:13)
[2021-09-14] MEDS: apixaban 5 mg Tablet PO ×2 (08:10→20:05)
[2021-09-14] MEDS: aspirin 81 mg EC Tablet PO (08:10)
[2021-09-14] MEDS: tamsulosin 0.4 mg Capsule PO (08:10)
[2021-09-14] MEDS: pantoprazole 40 mg SDV IVP (08:10)
--- NOTE | 2021-09-14 10:08 | PC.CHAP ---
Pastoral Care Encounter/Spiritual Assessment Type of Contact [] Declined barrel bridge assembler visit [] Patient/Family/Request visit [] Outpatient visit [] Follow-up visit [] Physician referral [] Code/Alert [x] Routine visit [] Staff referral [] Actively dying [] Patient sleeping [] Family support [] [] Out of room [] Palliative care [] [x] Receiving care in room [] Pre-surgical visit [] Trauma [] Long length of stay [x] ICU visit [x] Other: isolated Relational/Emotional Strength [] Patient feels connected with others/family/visitors/staff [] Distress [] Loneliness/isolation [] Abandonment Spirituality of Patient [] Person of Rachel [] Attends Zoroastrian of their Rachel [] Believes in Prayer [] Reads Bible or Baptism materials [] There are Spiritual issues to be addressed Stopper Maker Helper Interventions [x] Prayer [] Active listening [] Non-anxious presence [] Spiritual/emotional support [] Crisis/trauma care [] Spiritual counseling [] Bereavement support [] Provided bereavement packet [] Provided Bible/devotional materials [] Provided toy/stuffed animal, coloring book to patient or family member [] Provided Communion [] Anointing/Candor [] Salvation [x] Completed spiritual assessment [] Other: Impact on Illness or Injury [] Angry [] Fearful [] Anxious [] Often cries [] Exhaustion [] Unable to work [] Unable to attend mormon [] Unable to walk/stand [] Unable to read [] Unable to drive [] Unable to eat/drink [] Unable to sleep [] Unable to be with family [] Patient intubated [] Other: Summary Time spent with patient
[2021-09-14 11:18] LABS: Glucose Point of Care 227 mg/dL (70-110)
--- NOTE | 2021-09-14 12:41 | P.PN_ITS ---
Subjective Subjective: Interval history: Reports he is doing all right. Denies any pain or discomfort. No chest pain or pressure. Denies trouble breathing. Denies cough. No nausea vomiting or diarrhea. Vitals/I&O/Wt Last Vital Signs Temp 98.7 F 09/14/21 07:30 Pulse 86 09/14/21 12:30 Resp 20 H 09/14/21 12:30 BP 123/80 09/14/21 12:30 Pulse Ox 96 09/14/21 12:30 09/13/21 09/14/21 09/14/21 22:59 06:59 14:59 Intake Total 0 / 50 Output Total 350 / 1050 450 / 1500 Balance -350 / -1000 -450 / -1450 Weight last 48 hrs Weight 94.347 kg Weight 94.483 kg Physical Exam Narrative: EXAM NARRATIVE: Const: COMMON NORMALS: no acute distress and alert GENERAL APPEARANCE: cooperative ORIENTATION/CONSCIOUSNESS: Yes awake OTHER: Generally weak HENMT: COMMON NORMALS: oropharynx normal Neck/C-Spine: COMMON NORMALS: no JVD Resp: COMMON NORMALS: clear to auscultation bilaterally AUSCULTATION: clear to auscultation bilaterally Cardio: COMMON NORMALS: no JVD, regular rhythm, S1 normal heart sound present, S2 normal heart sound present and No murmurs present (Cardio) RHYTHM: regular rhythm HEART SOUNDS: S1 normal heart sound present and S2 normal heart sound present Extremity: COMMON NORMALS: no joint enlargement and no pedal edema GENERAL: Yes edema (trace at ankles) Neuro: SENSORIUM/ORIENTATION: Yes alert Skin: COMMON NORMALS: no rashes or lesions noted GENERAL SKIN EXAM: no rashes or lesions noted Urinary Catheter Management^: Yi Latex: Cath Placed During This Visit: yes Reason for Continuing Indwelling Catheter: Accurate Measurement of Urinary Output in Critically Ill Patients Urinary Catheter Date of Insertion: 09/08/21 Urinary Catheter Time of Insertion: 06:18 Data : 09/14/21 03:23 09/14/21 03:23 Micro: Microbiology 09/08/21 11:36 Blood Culture - Final Blood NO GROWTH AFTER 5 DAYS 09/08/21 11:40 Blood Culture - Final Blood NO GROWTH AFTER 5 DAYS A&P Assessment and plan (1) Pneumonia due to COVID-19 virus: He is doing all right on heated high flow cannula this morning. FiO2 requirement is higher than yesterday, up to 70%, but appears comfortable. Continue oxygen support, wean down as tolerating. Continue Decadron, has completed 5 days, if continues to do well, may be able to discontinue. Continue Eliquis. Mobilize. PT So far continues to do well. Afebrile, without leukocytosis. No definitive focal infiltrate on chest x-ray. Monitor off antibiotics. -With acute hypoxic respiratory failure, development of acute respiratory d istress syndrome -CT angiogram?no pulmonary embolism, but does show multilobar patchy groundglass opacities No evidence of myocarditis myocarditis on TTE -Atrial fibrillation -With thrombocytopenia, Lymphopenia, NSTEMI, transaminitis, rhabdomyolysis Completed remdesivir Received tocilizumab 09/10. Urine bacterial antigens negative. Blood cultures negative. Status: Acute (2) ARDS (adult respiratory distress syndrome): Status: Acute (3) Acute respiratory failure with hypoxia: Status: Acute (4) Thrombocytopenia: Status: Acute (5) Leukopenia: Status: Acute (6) Atrial fibrillation: -new onset atrial fibrillation diagnosed on last ER visit, discharged on metoprolol, eliquis, -currently in normal sinus rhythm -for now continue Eliquis -continue metoprolol 12.5mg BID -continue telemetry -Eliquis for DVT prophylaxis TSH elevated 5.15, but free T4 normal at 1.2. Echocardiogram with normal EF, normal diastolic function. Trace MVR. Status: Inactive Qualifiers: Atrial fibrillation type: unspecified Qualified Code(s): I48.91 - Unspecified atrial fibrillation (7) COVID-19: Status: Acute (8) Diabetes: -Continue Lantus 25 units twice daily, low-dose sliding scale, check A1c Status: Acute Qualifiers: Diabetes mellitus complication status: without complication Diabetes mellitus terminal press operator insulin use: with terminal press operator use Diabetes mellitus type: type 2 Qualified Code(s): E11.9 - Type 2 diabetes mellitus without complications; Z79.4 - termite control servicer (current) use of insulin (9) NSTEMI (non-ST elevated myocardial infarction): -Baseline troponin 154, 6-hour 140, delta -13.[address]-T wave changes, no complaints of chest pain -Likely related to Covid related myocarditis -Cannot rule out underlying cardiac etiology given history of type 2 diabetes mellitus -Continue aspirin, statin -Eliquis, metoprolol -Serial EKGs, serial troponins, telemetry monitoring - LV systolic function is normal with EF of 55-60% Normal diastolic function Trace mitral regurgitation No comparison studies available -Monitor for chest pain -Consult cardiology, medical management for now, outpatient stress testing Status: Acute (10) Transaminitis: Secondary COVID-19 pneumonia Status: Acute (11) Hyponatremia: Hyponatremia, secondary dehydration, will give IV fluids Status: Acute (12) Dehydration: Status: Acute (13) Rhabdomyolysis: Status: Acute Attestations Medical Necessity Statement*: Continue admission for hypoxic respite failure secondary to severe COVID-19, continue weaning down on high flow oxygen as tolerating. Coding Level of Care Code Acute Butcher Assistant for [facility] Exam Detailed Diagnoses Pneumonia due to COVID-19 virus U07.1; J12.82 ARDS (adult respiratory distress syndrome) J80 Acute respiratory failure with hypoxia J96.01 Thrombocytopenia D69.6 Leukopenia D72.819 Atrial fibrillation I48.91 Atrial fibrillation type: unspecified COVID-19 U07.1 Diabetes E11.9; Z79.4 Diabetes mellitus complication status: without complication Diabetes mellitus half-way insulin use: with terminal press operator use Diabetes mellitus type: type 2 NSTEMI (non-ST elevated myocardial infarction) I21.4 Transaminitis R74.01 Hyponatremia E87.1 Dehydration E86.0 Rhabdomyolysis M62.82
[2021-09-14 17:28] LABS: Glucose Point of Care 277 mg/dL (70-110)
[2021-09-14] MEDS: insulin lispro 100 unit/1 mL SUBCUT ×2 (17:29→20:05)
--- NOTE | 2021-09-14 18:30 | PC.NURSE ---
Shift Note Frequent safety and comfort rounds continue. Orders and/or nursing care completed as indicated. Patient monitored for response to intervention and treatment(s). Education provided includes medication education at administration, diet plan, importance of physical therapy and use of IS and flutter valve. Patient verbalizes understanding. updated this afternoon. Patient up to chair with physical therapy and remained in chair until evening meal. Patient uses IS and flutter valve throughout day as well as practiced deep breathing and coughing. No sputum noted. Patient exhibits weakness in all extremities. Orthostatic hypotension upon standing. Assisted with evening meal. Patient now appears to be resting comfortably in bed. Fio2 70, 40L O2 90%, BP 143/83, currently.
[2021-09-14 20:00] LABS: Glucose Point of Care 262 mg/dL (70-110)
[2021-09-14] MEDS: atorvastatin 40 mg Tablet PO (20:05)
[2021-09-15] VITALS (60 sets, daily range): BP systolic 88–154; BP diastolic 48–93; PULSE 83–113; RESP 0–30; TEMP 36.6; O2SAT 69–100
[2021-09-15] MEDS: ipratropium-albuterol 3 mL Neb INHALATION ×4 (02:58→20:58)
--- NOTE | 2021-09-15 06:17 | PC.NURSE ---
NURSE NOTE: PT ALERT AND ORIENTED X4; ALL VS AND ASSESSMENTS CHARTED. PT'S 02 SAT IN 80'S MOST OF SHIFT; SOMETIMES DIPPING INTO THE 70'S. TURNED PT FROM SIDE TO SIDE EVERY 2 TO 3 HOURS AND SATS WOULD MAINTAIN IN THE 90'S. WHEN PT COMPLETELY STILL OR UP ON WONE SIDE, 02 SATS WOULD GO UP. PT CURRENTLY @ 81% ON FI02 OF 95%. NOTIFIED DR. GUAJARDO AT THIS TIME. GAVE ORDERS TO INCREASE FI02 TO 100% WILL CONTINUE TO MAHIN.TOR
[2021-09-15 07:35] LABS: Glucose Point of Care 188 mg/dL (70-110)
[2021-09-15] MEDS: insulin lispro 100 unit/1 mL SUBCUT ×4 (08:12→20:10)
[2021-09-15] MEDS: pantoprazole 40 mg SDV IVP (08:13)
[2021-09-15] MEDS: budesonide 0.5 mg/2 mL Neb INHALATION ×2 (08:25→20:58)
--- NOTE | 2021-09-15 08:44 | PC.NURSE ---
repositioned up in bed at this time o2 sat remain very low with any activity does choke easily on any liquids o2 at 100 and flow at 45
[2021-09-15] MEDS: apixaban 5 mg Tablet PO ×2 (08:48→20:10)
[2021-09-15] MEDS: tamsulosin 0.4 mg Capsule PO (08:48)
[2021-09-15] MEDS: aspirin 81 mg EC Tablet PO (08:48)
[2021-09-15 09:05] LABS: Basophils % 0.1 %; Eosinophils # 0.2 10^3/uL (0.0-0.8); Eosinophils % 2.2 %; Hematocrit 43.6 % (42.0-52.0); Hemoglobin 14.5 g/dL (11.7-16.6); Lymphocytes # 0.5 10^3/uL (0.8-4.8); Lymphocytes % 4.6 %; Mean Corpuscular HGB Conc 33.3 g/dL (30.0-36.0); Mean Corpuscular Hemoglobin 30.4 pg (28.0-34.0); Mean Corpuscular Volume 91.4 fl (80-94); Mean Platelet Volume 10.2 fL (7.4-10.4); Monocytes # 0.3 10^3/uL (0.2-0.9); Monocytes % 2.6 %; Neutrophils # 8.72 10^3/uL (1.8-7.7); Neutrophils % 89.8 %; Nucleated Red Blood Cells % 0 %; Platelet Count 270 10^3/cmm (130-400); Red Blood Count 4.77 10^6/uL (4.1-5.3); Red Cell Distribution Width 12.4 % (12.1-15.1); White Blood Count 9.7 10^3/uL (4.0-10.0)
[2021-09-15 09:30] LABS: Anion Gap 16.1 (5-19); Blood Urea Nitrogen 32 mg/dL (8-23); Calcium 8.5 mg/dL (8.5-10.5); Carbon Dioxide 27 mmol/L (22-29); Chloride 97 mmol/L (98-107); Creatinine Clr Calc Pharmacy 151.3489; Glomerular Filtration Rate 137.4 mL/min (90-130); Glucose 219 mg/dL (65-115); Osmolality Calculated 296 mOsm/kg (285-295); Potassium 4.1 mmol/L (3.5-5.1); Sodium 136 mmol/L (136-145)
--- NOTE | 2021-09-15 12:02 | PC.NURSE ---
called with update given at this time no change in status continues to have some difficulty with swallowing at this time
[2021-09-15 12:47] LABS: Glucose Point of Care 177 mg/dL (70-110)
--- NOTE | 2021-09-15 14:02 | PM.PN ---
Subjective Subjective: Interval history: Suspected possible episodes of aspiration, with cough noted by nursing staff, with desaturation during episodes of cough, with exertion. FiO2 had to be bumped up to 100% temporarily, had come down to 90% but then was visiting him. Awake, alert, he denies subjectively feeling any significant aspiration. Denies any discomfort. He is generally weak. Discussed with him concern that in case of recurrent aspiration despite dysphagia diet, in case of inability to tolerate food or drink, and inability to obtain nutrition by mouth, consideration of other methods of nutrition could come into play. This would not be optimal, however, with difficulty obtaining NG access given need for heated high flow oxygen, consideration could be given to feeding tube, although would require surgical procedure with sedation. TPN also not an optimal option given IV fluid infusion with his current lung condition, as well as risk of infection. As he is tolerating small months of intake currently, he would like to continue as currently with dysphagia precautions, continue speech therapy follow-up, cautious oral intake. Discussed same also with his . Further discussion as to CODE STATUS as well, he would not want to be reintubated or mechanically ventilated again in case of significant deterioration of respiratory condition, in such a scenario in case of progressive respiratory failure, would prefer to continue only noninvasive oxygen support measures, ensuring comfort and let nature take its course at that time. He is okay to continue all current measures. Discussed his wishes also with his . Vitals/I&O/Wt Last Vital Signs Temp 98.1 F 09/14/21 19:40 Pulse 93 09/15/21 11:38 Resp 18 09/15/21 11:38 BP 132/76 09/15/21 08:00 Pulse Ox 92 09/15/21 11:38 09/14/21 09/15/21 09/15/21 22:59 06:59 14:59 Intake Total 580 / 580 450 / 1030 100 / 100 Output Total 350 / 350 550 / 900 Balance 230 / 230 -100 / 130 100 / 100 Weight last 48 hrs Weight 91.371 kg Weight 94.347 kg Physical Exam Narrative: EXAM NARRATIVE: Const: COMMON NORMALS: no acute distress and alert GENERAL APPEARANCE: cooperative ORIENTATION/CONSCIOUSNESS: Yes awake OTHER: Generally weak HENMT: COMMON NORMALS: oropharynx normal Neck/C-Spine: COMMON NORMALS: no JVD Resp: COMMON NORMALS: clear to auscultation bilaterally AUSCULTATION: clear to auscultation bilaterally Cardio: COMMON NORMALS: no JVD, regular rhythm, S1 normal heart sound present, S2 normal heart sound present and No murmurs present (Cardio) RHYTHM: regular rhythm HEART SOUNDS: S1 normal heart sound present and S2 normal heart sound present Extremity: COMMON NORMALS: no joint enlargement and no pedal edema GENERAL: Yes edema (trace at ankles) Neuro: SENSORIUM/ORIENTATION: Yes alert Skin: COMMON NORMALS: no rashes or lesions noted GENERAL SKIN EXAM: no rashes or lesions noted Urinary Catheter Management^: Yi Latex: Cath Placed During This Visit: yes Reason for Continuing Indwelling Catheter: Accurate Measurement of Urinary Output in Critically Ill Patients Urinary Catheter Date of Insertion: 09/08/21 Urinary Catheter Time of Insertion: 06:18 Data : 09/15/21 08:55 09/15/21 08:55 A&P Assessment and plan (1) Pneumonia due to COVID-19 virus: Aspiration precautions, continue speech therapy follow-up. Continue oxygenation support, wean down as tolerated. Up to chair today. Decadron and antibiotics held. Continue to monitor clinical condition, for episodes of fever, CBC, etc. Repeat chest x-ray. Completed remdesivir Received tocilizumab 09/10. -With acute hypoxic respiratory failure, development of acute respiratory distress syndrome -CT angiogram?no pulmonary embolism, but does show multilobar patchy groundglass opacities No evidence of myocarditis myocarditis on TTE -Atrial fibrillation -With thrombocytopenia, Lymphopenia, NSTEMI, transaminitis, rhabdomyolysis Urine bacterial antigens negative. Blood cultures negative. Status: Acute (2) ARDS (adult respiratory distress syndrome): Status: Acute (3) Acute respiratory failure with hypoxia: Status: Acute (4) Thrombocytopenia: Status: Acute (5) Leukopenia: Status: Acute (6) Atrial fibrillation: -new onset atrial fibrillation diagnosed on last ER visit, discharged on metoprolol, eliquis, -currently in normal sinus rhythm -for now continue Eliquis -continue metoprolol 12.5mg BID -continue telemetry -Eliquis for DVT prophylaxis TSH elevated 5.15, but free T4 normal at 1.2. Echocardiogram with normal EF, normal diastolic function. Trace MVR. Status: Inactive Qualifiers: Atrial fibrillation type: unspecified Qualified Code(s): I48.91 - Unspecified atrial fibrillation (7) COVID-19: Status: Acute (8) Diabetes: -Continue Lantus 25 units twice daily, low-dose sliding scale, check A1c Status: Acute Qualifiers: Diabetes mellitus type: type 2 Diabetes mellitus intermediate accountant insulin use: with intermediate accountant use Diabetes mellitus complication status: without complication Qualified Code(s): E11.9 - Type 2 diabetes mellitus without complications; Z79.4 - retirement (current) use of insulin (9) NSTEMI (non-ST elevated myocardial infarction): -Baseline troponin 154, 6-hour 140, delta -13.[address]-T wave changes, no complaints of chest pain -Likely related to Covid related myocarditis -Cannot rule out underlying cardiac etiology given history of type 2 diabetes mellitus -Continue aspirin, statin -Eliquis, metoprolol -Serial EKGs, serial troponins, telemetry monitoring - LV systolic function is normal with EF of 55-60% Normal diastolic function Trace mitral regurgitation No comparison studies available -Monitor for chest pain -Consult cardiology, medical management for now, outpatient stress testing Status: Acute (10) Transaminitis: Secondary COVID-19 pneumonia Status: Acute (11) Hyponatremia: Hyponatremia, secondary dehydration, will give IV fluids Status: Acute (12) Dehydration: Status: Acute (13) Rhabdomyolysis: Status: Acute Attestations Medical Necessity Statement*: Continue admission for hypoxic respite failure secondary to severe COVID-19. Coding Level of Care Code Acute Therapeutic Radiologist for [facility] Diagnoses Pneumonia due to COVID-19 virus U07.1; J12.82 ARDS (adult respiratory distress syndrome) J80 Acute respiratory failure with hypoxia J96.01 Thrombocytopenia D69.6 Leukopenia D72.819 Atrial fibrillation I48.91 Atrial fibrillation type: unspecified COVID-19 U07.1 Diabetes E11.9; Z79.4 Diabetes mellitus type: type 2 Diabetes mellitus intermediate accountant insulin use: with intermediate accountant use Diabetes mellitus complication status: without complication NSTEMI (non-ST elevated myocardial infarction) I21.4 Transaminitis R74.01 Hyponatremia E87.1 Dehydration E86.0 Rhabdomyolysis M62.82
[2021-09-15 17:55] LABS: Glucose Point of Care 207 mg/dL (70-110)
--- NOTE | 2021-09-15 18:46 | NUR.SHIFT ---
Shift Note Frequent safety and comfort rounds continue. Orders and/or nursing care completed as indicated. Patient monitored for response to intervention and treatment(s). Education provided includes[medication and activity]. 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
[2021-09-15 19:53] LABS: Glucose Point of Care 244 mg/dL (70-110)
[2021-09-15] MEDS: atorvastatin 40 mg Tablet PO (20:10)
[2021-09-16] VITALS (58 sets, daily range): BP systolic 70–139; BP diastolic 53–111; PULSE 85–128; RESP 0–31; TEMP 36.6–37.2; O2SAT 74–100
--- NOTE | 2021-09-16 00:52 | PC.NURSE ---
Nurses Note: 02 sat dropping to 60's and 70's with minimal exertion; does recover but takes several minutes to do so. Dr. Anthony notified of patient saturation levels and his response was, He is on heated High Flow? I responded yes and his response was , Ok and he left the ICU. Spoke with respiratory therapist and RT increased FI02 to 100% on 45L. Have been turning patient side to side all shift. 02 sats starting to respond and increase. Pt remains alert and oriented x2-3. Currently resting in bed. All vss and assessments as charted.
--- NOTE | 2021-09-16 02:31 | XRR_ITS ---
PROCEDURE INFORMATION: Exam: XR Chest Exam date and time: 09/16/2021 2:31 AM Age: 61 years old Clinical indication: Shortness of breath; Patient HX: Persistent SOB with worsening hypoxia on bipap. Covid +; Additional info: SOB, low 02 sat TECHNIQUE: Imaging protocol: XR of the chest. Views: 1 view. COMPARISON: CR XR chest 1V portable [id number] 09/12/2021 7:00 AM FINDINGS: Tubes, catheters and devices: A left internal jugular vein central venous line is placed with its tip at the superior cavoatrial junction. EKG leads overlie the chest. Lungs: There are worsening bilateral patchy ground-glass peripheral opacities compatible worsening COVID-19 pneumonia. Pleural spaces: Unremarkable. No pleural effusion. No pneumothorax. Heart/Mediastinum: Unremarkable. No cardiomegaly. Bones/joints: Unremarkable. XR/XR chest 1V portable [id number] IMPRESSION: Worsening bilateral peripheral ground-glass opacities compared with 09/12/2021, findings compatible with worsening COVID-19 pneumonia. Radiation Dose CTDIVOL = (mGy): DLP = (mGy-cm)
--- NOTE | 2021-09-16 02:40 | PC.NURSE ---
NURSE NOTE: PT'S SATURATION LEVELS SUSTAINING IN THE LOW 70'S. NOTIFIED DR.. GUAJARDO. RECEIVED ORDERS FOR STAT CXR, BNP AND PLACE ON BIPAP NOW. ALL VSS AND ASSESSMENTS CHARTD. WILL CONTINUE TO MONITOR.
[2021-09-16] MEDS: ipratropium-albuterol 3 mL Neb INHALATION ×4 (02:56→19:56)
--- NOTE | 2021-09-16 03:38 | PC.NURSE ---
NURSING NOTE: AT APPROXIMATELY 0300, PT'S HEART RHYTHM CHANGED FROM NSR TO AFIB IN THE 130'S. NOTIFIED DR. GUAJARDO AND RECEIVED ORDERS FOR AMIODARONE GTT. MEDS GIVEN ORDERED. WILL CONTINUE TO MONITOR.
[2021-09-16 03:42] LABS: Basophils % 0.2 %; Eosinophils # 0.2 10^3/uL (0.0-0.8); Eosinophils % 2.5 %; Hematocrit 44.5 % (42.0-52.0); Lymphocytes # 0.5 10^3/uL (0.8-4.8); Lymphocytes % 5.2 %; Mean Corpuscular HGB Conc 33.7 g/dL (30.0-36.0); Mean Corpuscular Hemoglobin 31.2 pg (28.0-34.0); Mean Corpuscular Volume 92.5 fl (80-94); Mean Platelet Volume 10.6 fL (7.4-10.4); Monocytes # 0.2 10^3/uL (0.2-0.9); Monocytes % 2.5 %; Neutrophils # 8.14 10^3/uL (1.8-7.7); Neutrophils % 88.6 %; Nucleated Red Blood Cells % 0 %; Platelet Count 281 10^3/cmm (130-400); Red Blood Count 4.81 10^6/uL (4.1-5.3); Red Cell Distribution Width 12.4 % (12.1-15.1); White Blood Count 9.2 10^3/uL (4.0-10.0)
[2021-09-16 04:11] LABS: NT Pro B Type Natriuretic Pept 620 pg/mL (0-125)
[2021-09-16 04:12] LABS: Anion Gap 14.9 (5-19); Blood Urea Nitrogen 35 mg/dL (8-23); Calcium 8.7 mg/dL (8.5-10.5); Carbon Dioxide 28 mmol/L (22-29); Chloride 101 mmol/L (98-107); Glomerular Filtration Rate 219.4 mL/min (90-130); Glucose 171 mg/dL (65-115); Osmolality Calculated 302 mOsm/kg (285-295); Potassium 3.9 mmol/L (3.5-5.1); Sodium 140 mmol/L (136-145)
[2021-09-16 07:41] LABS: Glucose Point of Care 244 mg/dL (70-110)
[2021-09-16] MEDS: budesonide 0.5 mg/2 mL Neb INHALATION ×2 (08:20→19:56)
[2021-09-16] MEDS: tamsulosin 0.4 mg Capsule PO (08:43)
[2021-09-16] MEDS: aspirin 81 mg EC Tablet PO (08:44)
[2021-09-16] MEDS: apixaban 5 mg Tablet PO ×2 (08:44→21:07)
[2021-09-16] MEDS: insulin lispro 100 unit/1 mL SUBCUT ×4 (08:44→21:06)
[2021-09-16] MEDS: pantoprazole 40 mg SDV IVP (08:44)
[2021-09-16 11:52] LABS: Glucose Point of Care 287 mg/dL (70-110)
[2021-09-16 19:47] LABS: Glucose Point of Care 264 mg/dL (70-110)
--- NOTE | 2021-09-16 19:53 | P.PN_ITS ---
Subjective Subjective: Interval history: States he is doing okay. Denies chest pain or pressure. No complaints about his breathing. Up for getting up to chair again today. Vitals/I&O/Wt Last Vital Signs Temp 97.9 F 09/16/21 12:00 Pulse 92 09/16/21 17:13 Resp 24 H 09/16/21 16:30 BP 125/76 09/16/21 16:30 Pulse Ox 96 09/16/21 17:13 09/16/21 09/16/21 09/16/21 06:59 14:59 22:59 Intake Total 103 / 353 252.069 / 252.069 Output Total 350 / 750 350 / 350 Balance -247 / -397 252.069 / 252.069 -350 / -97.931 Weight last 48 hrs Weight 67.358 kg Weight 91.371 kg Physical Exam Narrative: EXAM NARRATIVE: Const: COMMON NORMALS: no acute distress and alert GENERAL APPEARANCE: cooperative ORIENTATION/CONSCIOUSNESS: Yes awake OTHER: Generally weak, little stronger appearing today. HENMT: COMMON NORMALS: oropharynx normal Neck/C-Spine: COMMON NORMALS: no JVD Resp: COMMON NORMALS: clear to auscultation bilaterally AUSCULTATION: clear to auscultation bilaterally Cardio: COMMON NORMALS: no JVD, regular rhythm, S1 normal heart sound present, S2 normal heart sound present and No murmurs present (Cardio) RHYTHM: regular rhythm HEART SOUNDS: S1 normal heart sound present and S2 normal heart sound present Extremity: COMMON NORMALS: no joint enlargement and no pedal edema GENERAL: Yes edema (trace at ankles) Neuro: SENSORIUM/ORIENTATION: Yes alert Skin: COMMON NORMALS: no rashes or lesions noted GENERAL SKIN EXAM: no rashes or lesions noted Urinary Catheter Management^: Yi Latex: Cath Placed During This Visit: yes Reason for Continuing Indwelling Catheter: Accurate Measurement of Urinary Output in Critically Ill Patients Urinary Catheter Date of Insertion: 09/08/21 Urinary Catheter Time of Insertion: 06:18 Data : 09/16/21 02:55 09/16/21 02:55 A&P Assessment and plan (1) Pneumonia due to COVID-19 virus: Up to chair again today. Heated high flow when possible, CPAP if needed. Wean as tolerating. Continue aspiration precautions, continue speech therapy follow-up. Continue oxygenation support, wean down as tolerated. Decadron and antibiotics held. Continue to monitor clinical condition, for episodes of fever, CBC, etc. Repeat chest x-ray with noted worsening bilateral groundglass opacities. Completed remdesivir Received tocilizumab 09/10. -With acute hypoxic respiratory failure, development of acute respiratory dist ress syndrome -CT angiogram?no pulmonary embolism, but does show multilobar patchy groundglass opacities No evidence of myocarditis myocarditis on TTE -Atrial fibrillation -With thrombocytopenia, Lymphopenia, NSTEMI, transaminitis, rhabdomyolysis Urine bacterial antigens negative. Blood cultures negative. Status: Acute (2) ARDS (adult respiratory distress syndrome): Status: Acute (3) Acute respiratory failure with hypoxia: Status: Acute (4) Thrombocytopenia: Status: Acute (5) Leukopenia: Status: Acute (6) Atrial fibrillation: -new onset atrial fibrillation diagnosed on last ER visit, discharged on metoprolol, eliquis, -currently in normal sinus rhythm -for now continue Eliquis -continue metoprolol 12.5mg BID -continue telemetry -Eliquis for DVT prophylaxis TSH elevated 5.15, but free T4 normal at 1.2. Echocardiogram with normal EF, normal diastolic function. Trace MVR. Status: Inactive Qualifiers: Atrial fibrillation type: unspecified Qualified Code(s): I48.91 - Unspecified atrial fibrillation (7) COVID-19: Status: Acute (8) Diabetes: -Continue Lantus 25 units twice daily, low-dose sliding scale, check A1c Status: Acute Qualifiers: Diabetes mellitus type: type 2 Diabetes mellitus watcher automat [employer] goods insulin use: with [facility] use Diabetes mellitus complication status: without complication Qualified Code(s): E11.9 - Type 2 diabetes mellitus without complications; Z79.4 - [facility] (current) use of insulin (9) NSTEMI (non-ST elevated myocardial infarction): -Baseline troponin 154, 6-hour 140, delta -13.[address]-T wave changes, no complaints of chest pain -Likely related to Covid related myocarditis -Cannot rule out underlying cardiac etiology given history of type 2 diabetes mellitus -Continue aspirin, statin -Eliquis, metoprolol -Serial EKGs, serial troponins, telemetry monitoring - LV systolic function is normal with EF of 55-60% Normal diastolic function Trace mitral regurgitation No comparison studies available -Monitor for chest pain -Consult cardiology, medical management for now, outpatient stress testing Status: Acute (10) Transaminitis: Secondary COVID-19 pneumonia Status: Acute (11) Hyponatremia: Hyponatremia, secondary dehydration, will give IV fluids Status: Acute (12) Dehydration: Status: Acute (13) Rhabdomyolysis: Status: Acute Attestations Medical Necessity Statement*: Continue admission for hypoxic respite failure with severe COVID-19. Coding Level of Care Code Acute Chain Link Fence Installer for [facility] Diagnoses Pneumonia due to COVID-19 virus U07.1; J12.82 ARDS (adult respiratory distress syndrome) J80 Acute respiratory failure with hypoxia J96.01 Thrombocytopenia D69.6 Leukopenia D72.819 Atrial fibrillation I48.91 Atrial fibrillation type: unspecified COVID-19 U07.1 Diabetes E11.9; Z79.4 Diabetes mellitus type: type 2 Diabetes mellitus watcher automat [employer] insulin use: with watcher [employer] use Diabetes mellitus complication status: without complication NSTEMI (non-ST elevated myocardial infarction) I21.4 Transaminitis R74.01 Hyponatremia E87.1 Dehydration E86.0 Rhabdomyolysis M62.82
[2021-09-16] MEDS: atorvastatin 40 mg Tablet PO (21:07)
[2021-09-17] VITALS (59 sets, daily range): BP systolic 108–162; BP diastolic 76–93; PULSE 80–103; RESP 13–31; TEMP 36.9; O2SAT 87–100
[2021-09-17 00:47] LABS: Glucose Point of Care 277 mg/dL (70-110)
[2021-09-17 04:15] LABS: Basophils % 0.2 %; Eosinophils # 0.3 10^3/uL (0.0-0.8); Eosinophils % 2.3 %; Hematocrit 42.5 % (42.0-52.0); Hemoglobin 14.1 g/dL (11.7-16.6); Lymphocytes # 0.5 10^3/uL (0.8-4.8); Mean Corpuscular HGB Conc 33.2 g/dL (30.0-36.0); Mean Corpuscular Hemoglobin 30.5 pg (28.0-34.0); Mean Corpuscular Volume 91.8 fl (80-94); Mean Platelet Volume 10.7 fL (7.4-10.4); Monocytes # 0.3 10^3/uL (0.2-0.9); Monocytes % 2.1 %; Neutrophils # 11.08 10^3/uL (1.8-7.7); Neutrophils % 90.7 %; Nucleated Red Blood Cells % 0 %; Platelet Count 209 10^3/cmm (130-400); Red Blood Count 4.63 10^6/uL (4.1-5.3); Red Cell Distribution Width 12.7 % (12.1-15.1); White Blood Count 12.2 10^3/uL (4.0-10.0)
[2021-09-17 04:42] LABS: Anion Gap 14.9 (5-19); Blood Urea Nitrogen 37 mg/dL (8-23); Calcium 8.4 mg/dL (8.5-10.5); Carbon Dioxide 29 mmol/L (22-29); Chloride 100 mmol/L (98-107); Glomerular Filtration Rate 137.4 mL/min (90-130); Glucose 172 mg/dL (65-115); Osmolality Calculated 303 mOsm/kg (285-295); Potassium 3.9 mmol/L (3.5-5.1); Sodium 140 mmol/L (136-145)
--- NOTE | 2021-09-17 05:54 | NUR.SHIFT ---
Nursing Note. Pt alert and oriented x2-3. moves all extemities and follows commands. Shift Note Frequent safety and comfort rounds continue. Orders and/or nursing care completed as indicated. Patient monitored for response to intervention and treatment(s). Education provided includes purpose of bipap/cpap and thickened liquids on diet. . Patient and/or international account representative verbalize understanding.. Will continue to monitor.
[2021-09-17 07:44] LABS: Glucose Point of Care 191 mg/dL (70-110)
[2021-09-17] MEDS: budesonide 0.5 mg/2 mL Neb INHALATION ×2 (07:50→19:44)
[2021-09-17] MEDS: ipratropium-albuterol 3 mL Neb INHALATION ×3 (07:50→19:44)
[2021-09-17] MEDS: insulin lispro 100 unit/1 mL SUBCUT ×4 (09:09→20:13)
[2021-09-17] MEDS: pantoprazole 40 mg SDV IVP (09:10)
[2021-09-17] MEDS: tamsulosin 0.4 mg Capsule PO (09:10)
[2021-09-17] MEDS: linezolid 600 mg Tablet PO ×2 (09:10→20:13)
[2021-09-17] MEDS: apixaban 5 mg Tablet PO ×2 (09:10→20:13)
[2021-09-17] MEDS: aspirin 81 mg EC Tablet PO (09:10)
--- NOTE | 2021-09-17 09:45 | P.PN_ITS ---
Subjective Subjective: Interval history: He is having some cough, although says not too bad. Denies chest pain. Asking to be switched from CPAP to high flow cannula. Vitals/I&O/Wt Last Vital Signs Temp 98.2 F 09/16/21 19:30 Pulse 89 09/17/21 07:58 Resp 19 H 09/17/21 07:40 BP 132/80 09/17/21 04:00 Pulse Ox 91 09/17/21 07:57 09/16/21 09/17/21 09/17/21 22:59 06:59 14:59 Intake Total 265.931 / 518.000 Output Total 350 / 350 300 / 650 Balance -350 / -97.931 -34.069 / -132.000 Weight last 48 hrs Weight 91.371 kg Weight 67.358 kg Physical Exam Narrative: EXAM NARRATIVE: Const: COMMON NORMALS: no acute distress and alert GENERAL APPEARANCE: cooperative ORIENTATION/CONSCIOUSNESS: Yes awake OTHER: Generally weak HENMT: COMMON NORMALS: oropharynx normal Neck/C-Spine: COMMON NORMALS: no JVD Resp: COMMON NORMALS: clear to auscultation bilaterally AUSCULTATION: clear to auscultation bilaterally Cardio: COMMON NORMALS: no JVD, regular rhythm, S1 normal heart sound present, S2 normal heart sound present and No murmurs present (Cardio) RHYTHM: regular rhythm HEART SOUNDS: S1 normal heart sound present and S2 normal heart sound present Extremity: COMMON NORMALS: no joint enlargement and no pedal edema GENERAL: Yes edema (trace at ankles) Neuro: SENSORIUM/ORIENTATION: Yes alert Skin: COMMON NORMALS: no rashes or lesions noted GENERAL SKIN EXAM: no rashes or lesions noted Urinary Catheter Management^: Yi Latex: Cath Placed During This Visit: yes Reason for Continuing Indwelling Catheter: Accurate Measurement of Urinary Output in Critically Ill Patients Urinary Catheter Date of Insertion: 09/08/21 Urinary Catheter Time of Insertion: 06:18 Data : 09/17/21 03:40 09/17/21 03:40 A&P Assessment and plan (1) Pneumonia due to COVID-19 virus: Some worsening oxygenation, requiring up to 85% FiO2. Some worsening of bilateral infiltrates on chest x-ray today. Today leukocytosis increased to 12.2. Discussed with him we are restarting antibiotics, for now cefepime and linezolid. Monitor condition. Up to chair. Heated high flow when possible, CPAP if needed. Wean as tolerating. Continue aspiration precautions, continue speech therapy follow-up. Continue oxygenation support, wean down as tolerated. Decadron held in case contributing to weakness. Continue to monitor clinical condition, for episodes of fever, CBC, etc. Repeat chest x-ray with noted worsening bilateral groundglass opacities. Completed remdesivir Received tocilizumab 09/10. -With acute hypoxic respiratory failure, development of acute respiratory distress syndrome -CT angiogram?no pulmonary embolism, but does show multilobar patchy groundglass opacities No evidence of myocarditis myocarditis on TTE -Atrial fibrillation -With thrombocytopenia, Lymphopenia, NSTEMI, transaminitis, rhabdomyolysis Urine bacterial antigens negative. Blood cultures negative. Status: Acute (2) ARDS (adult respiratory distress syndrome): Status: Acute (3) Acute respiratory failure with hypoxia: Status: Acute (4) Thrombocytopenia: Status: Acute (5) Leukopenia: Status: Acute (6) Atrial fibrillation: -new onset atrial fibrillation diagnosed on last ER visit, discharged on metoprolol, eliquis, -currently in normal sinus rhythm -for now continue Eliquis -continue metoprolol 12.5mg BID -continue telemetry -Eliquis for DVT prophylaxis TSH elevated 5.15, but free T4 normal at 1.2. Echocardiogram with normal EF, normal diastolic function. Trace MVR. Status: Inactive Qualifiers: Atrial fibrillation type: unspecified Qualified Code(s): I48.91 - Unspecified atrial fibrillation (7) COVID-19: Status: Acute (8) Diabetes: -Continue Lantus 25 units twice daily, low-dose sliding scale, check A1c Status: Acute Qualifiers: Diabetes mellitus type: type 2 Diabetes mellitus intermediate frame tender insulin use: with intermediate frame tender use Diabetes mellitus complication status: without complication Qualified Code(s): E11.9 - Type 2 diabetes mellitus without complications; Z79.4 - [facility] (current[facility] use of insulin (9) NSTEMI (non-ST elevated myocardial infarction): -Baseline troponin 154, 6-hour 140, delta -13.[address]-T wave changes, no complaints of chest pain -Likely related to Covid related myocarditis -Cannot rule out underlying cardiac etiology given history of type 2 diabetes mellitus -Continue aspirin, statin -Eliquis, metoprolol -Serial EKGs, serial troponins, telemetry monitoring - LV systolic function is normal with EF of 55-60% Normal diastolic function Trace mitral regurgitation No comparison studies available -Monitor for chest pain -Consult cardiology, medical management for now, outpatient stress testing Status: Acute (10) Transaminitis: Secondary COVID-19 pneumonia Status: Acute (11) Hyponatremia: Hyponatremia, secondary dehydration, will give IV fluids Status: Acute (12) Dehydration: Status: Acute (13) Rhabdomyolysis: Status: Acute Attestations Medical Necessity Statement*: Continue admission for hypoxic respite failure secondary to severe COVID-19. Coding Level of Care Code Acute Claims Associate for [facility] Diagnoses Pneumonia due to COVID-19 virus U07.1; J12.82 ARDS (adult respiratory distress syndrome) J80 Acute respiratory failure with hypoxia J96.01 Thrombocytopenia D69.6 Leukopenia D72.819 Atrial fibrillation I48.91 Atrial fibrillation type: unspecified COVID-19 U07.1 Diabetes E11.9; Z79.4 Diabetes mellitus type: type 2 Diabetes mellitus intermediate frame tender insulin use: with intermediate frame tender use Diabetes mellitus complication status: without complication NSTEMI (non-ST elevated myocardial infarction) I21.4 Transaminitis R74.01 Hyponatremia E87.1 Dehydration E86.0 Rhabdomyolysis M62.82
[2021-09-17] MEDS: cefepime 2,000 MG in sodium chloride 0.9% (plus) 50 ML 100 MG IV ×2 (13:13→23:08)
[2021-09-17] MEDS: atorvastatin 40 mg Tablet PO (20:13)
[2021-09-18] VITALS (45 sets, daily range): BP systolic 135–173; BP diastolic 76–103; PULSE 82–101; RESP 19–32; TEMP 36.6–37.1; O2SAT 85–92; BMI 28.4
[2021-09-18 05:20] LABS: Basophils % 0.4 %; Eosinophils # 0.3 10^3/uL (0.0-0.8); Eosinophils % 2.5 %; Hematocrit 42.6 % (42.0-52.0); Hemoglobin 13.8 g/dL (11.7-16.6); Lymphocytes # 0.3 10^3/uL (0.8-4.8); Mean Corpuscular HGB Conc 32.4 g/dL (30.0-36.0); Mean Corpuscular Hemoglobin 30.3 pg (28.0-34.0); Mean Corpuscular Volume 93.4 fl (80-94); Mean Platelet Volume 11.2 fL (7.4-10.4); Monocytes # 0.2 10^3/uL (0.2-0.9); Monocytes % 1.9 %; Neutrophils # 10.24 10^3/uL (1.8-7.7); Neutrophils % 91.7 %; Nucleated Red Blood Cells % 0 %; Platelet Count 153 10^3/cmm (130-400); Red Blood Count 4.56 10^6/uL (4.1-5.3); Red Cell Distribution Width 12.8 % (12.1-15.1); White Blood Count 11.2 10^3/uL (4.0-10.0)
[2021-09-18 05:52] LABS: Anion Gap 15.9 (5-19); Blood Urea Nitrogen 42 mg/dL (8-23); Calcium 8.6 mg/dL (8.5-10.5); Carbon Dioxide 28 mmol/L (22-29); Chloride 102 mmol/L (98-107); Glomerular Filtration Rate 98.6 mL/min (90-130); Glucose 159 mg/dL (65-115); Osmolality Calculated 308 mOsm/kg (285-295); Potassium 3.9 mmol/L (3.5-5.1); Sodium 142 mmol/L (136-145)
--- NOTE | 2021-09-18 07:07 | PC.NURSE ---
Shift Summary; Pt had multiple episodes of decreased SPO2. 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 Pt would recover after bumps of 100% O2 given on cpap setting. Education given for continued need for cpap mask to remain on face, and the need for pt to frequently attempt at moving extremities. No pain reported by pt. Pt slept off and on throughout shift. Liquids thickened, and HOB raised with oral intake. Amio @ 0.5 with orders to continue gtt at set titration. CPAP remains at 85%. Report given to oncoming dayshift RN. No needs verbalized at this time.
[2021-09-18] MEDS: budesonide 0.5 mg/2 mL Neb INHALATION ×2 (08:04→20:42)
[2021-09-18] MEDS: ipratropium-albuterol 3 mL Neb INHALATION ×5 (08:04→23:22)
[2021-09-18] MEDS: insulin lispro 100 unit/1 mL SUBCUT ×3 (08:04→15:04)
--- NOTE | 2021-09-18 09:31 | PC.CHAP ---
Pastoral Care Encounter/Spiritual Assessment Type of Contact [] Declined rn renal visit [] Patient/Family/Request visit [] Outpatient visit [] Follow-up visit [] Physician referral [] Code/Alert [x] Routine visit [] Staff referral [] Actively dying [] Patient sleeping [] Family support [] [] Out of room [] Palliative care [] [x] Receiving care in room [] Pre-surgical visit [] Trauma [] Long length of stay [x] ICU visit [] Other: Relational/Emotional Strength [] Patient feels connected with others/family/visitors/staff [] Distress [] Loneliness/isolation [] Abandonment Spirituality of Patient [] Person of Rachel [] Attends Sabianist of their Rachel [] Believes in Prayer [] Reads Bible or Nondenominational materials [] There are Spiritual issues to be addressed Lab Rn Interventions [x] Prayer [] Active listening [] Non-anxious presence [] Spiritual/emotional support [] Crisis/trauma care [] Spiritual counseling [] Bereavement support [] Provided bereavement packet [] Provided Bible/devotional materials [] Provided toy/stuffed animal, coloring book to patient or family member [] Provided Communion [] Anointing/[place] [] Salvation [x] Completed spiritual assessment [] Other: Impact on Illness or Injury [] Angry [] Fearful [] Anxious [] Often cries [] Exhaustion [] Unable to work [] Unable to attend mandaen [] Unable to walk/stand [] Unable to read [] Unable to drive [] Unable to eat/drink [] Unable to sleep [] Unable to be with family [] Patient intubated [] Other: Summary Time spent with patient
[2021-09-18] MEDS: apixaban 5 mg Tablet PO (09:40)
[2021-09-18] MEDS: aspirin 81 mg EC Tablet PO (09:40)
[2021-09-18] MEDS: tamsulosin 0.4 mg Capsule PO (09:40)
[2021-09-18] MEDS: linezolid 600 mg Tablet PO (09:40)
[2021-09-18] MEDS: pantoprazole 40 mg SDV IVP (09:41)
[2021-09-18 12:18] LABS: NT Pro B Type Natriuretic Pept 368 pg/mL (0-125)
[2021-09-18] MEDS: amiodarone 200 mg Tablet PO ×2 (12:26→18:29)
[2021-09-18] MEDS: zinc gluconate 50 mg Tablet PO (12:26)
[2021-09-18] MEDS: amlodipine 5 mg Tablet PO (12:26)
[2021-09-18] MEDS: metoprolol tartrate 25 mg Tablet PO ×2 (12:26→20:58)
[2021-09-18 12:28] LABS: Iron 61 ug/dL (59-158); Percent Saturation 37.6 % (20-50); Total Iron Binding Capacity 162 mcg/dl; Unsaturated Iron Binding 101 ug/dL (112-347)
[2021-09-18 13:41] LABS: D Dimer >= 20.00 ug/mIFEU (0-0.59)
--- NOTE | 2021-09-18 13:50 | CTR_ITS ---
PROCEDURE INFORMATION: Exam: CTA Chest With Contrast Exam date and time: 09/18/2021 1:50 PM Age: 61 years old Clinical indication: Abnormal findings; Abnormal diagnostic tests; Elevated d-dimer; Shortness of breath; Additional info: Hypoxia, covid, elevated dimer TECHNIQUE: Imaging protocol: Computed tomographic angiography of the chest with contrast. 3D rendering (Not supervised by radiologist): MIP and/or 3D reconstructed images were created by the technologist. Radiation optimization: All CT scans at this facility use at least one of these dose optimization techniques: automated exposure control; mA and/or kV adjustment per patient size (includes targeted exams where dose is matched to clinical indication); or iterative reconstruction. Contrast material: OMNI 350; Contrast volume: 57 ml; Contrast route: INTRAVENOUS (IV); COMPARISON: CT angio chest PE protcl [id number] 09/05/2021 5:23 PM RADIATION DOSE METRICS: Total DLP (mGy-cm): 589.59 FINDINGS: Pulmonary arteries: Right middle lobe segmental to subsegmental pulmonary emboli along with several right lower lobe subsegmental pulmonary, negative for right heart strain. Aorta: Unremarkable. No aortic aneurysm. No aortic dissection. Lungs: Patchy diffuse airspace infiltrates. Pleural spaces: Unremarkable. No pneumothorax. No pleural effusion. Heart: Coronary artery atherosclerotic calcifications. Lymph nodes: Prominent nonspecific subcentimeter short axis mediastinal lymph nodes. Liver: Hepatic steatosis. Gallbladder and bile ducts: Gallbladder is somewhat prominent, ultrasound could further evaluate this. Bones/joints: Unremarkable. No acute fracture. Soft tissues: Unremarkable. CT/CT angio chest PE protcl [id number] IMPRESSION: 1. Right middle lobe segmental to subsegmental pulmonary emboli along with several right lower lobe subsegmental pulmonary, negative for right heart strain. 2. Patchy diffuse airspace infiltrates. 3. Prominent nonspecific subcentimeter short axis mediastinal lymph nodes. 4. Coronary artery atherosclerotic calcifications. 5. Hepatic steatosis. 6. Gallbladder is somewhat prominent, ultrasound could further evaluate this. Radiation Dose CTDIVOL = (mGy): DLP = 589.59 (mGy-cm)
[2021-09-18 13:53] LABS: Urine Appearance SL Hazy (CLEAR); Urine Color Orange (Yellow); pH Urine 6.5 (5-7)
[2021-09-18 13:56] LABS: Add Urine Microscopic? YES; Bilirubin Urine 1+ (Negative); Blood Urine 3+ (Negative); Glucose Urine UA Norm (Normal); Ketones Urine 1+ (Negative); Leukocyte Esterase Urine Trace (Negative); Nitrate Urine Negative (Negative); Protein Urine 3+ (Negative); Urobilinogen Urine 4 mg/dL (Negative)
[2021-09-18 13:57] LABS: Add Urine Culture? Yes; Bacteria Urine 2+ /hpf; Mucus Urine 2+ /hpf; RBC Urine 25-40 /hpf (0-2); Squamous Epithelial Cell Urine 0-4 /hpf (0-5)
[2021-09-18 14:19] LABS: Thyroid Stimulating Hormone 4.12 uIU/mL (0.27-4.20)
[2021-09-18 14:35] LABS: ABG PCO2 37.3 mmHg (35-45); Alveolar-Arterial Oxygen Gradi 65.4 mmHg (5-10); Arterial Blood Gas Hematocrit 43.3 % (42-52); Base Excess ABG 5.7 mmol/L (-2.0-2.0); Blood Gas Allen Test Pos; Blood Gas Operator Identificat MONRO; Blood Gas Sample Site Radial, right; Blood Gas Sample Type Arterial; Carboxyhemoglobin 0.6 %THgb (0.4-20.1); HCO3 ABG 29.1 mmol/L (22-26); HGB O2 Sat 86.8 % (95-100); Ionized Calcium Level - ABG 1.2 mmol/L (1.1-1.4); Methemoglobin 0.6 % (0.4-1.5); Oxygen Device BIPAP; Oxygen Saturation ABG 87.8; PO2 ABG 55.5 mmHg (80.0-100.0); Total Hemoglobin 14.1 g/dL (14-18)
[2021-09-18] MEDS: enoxaparin 100 mg/mL Syringe 90 MG SUBCUT (15:03)
[2021-09-18] MEDS: benzonatate 100 mg Capsule PO (15:04)
[2021-09-18] MEDS: iohexol 350 mg/mL 100 mL Btl IV (15:27)
--- NOTE | 2021-09-18 17:13 | PM.PN ---
Subjective Subjective: Interval history: Hospital course, labs appreciated. Patient's care discussed multiple time over the phone with patient's RN, patient seen multiple times during the day. On examination patient has remained BiPAP dependent during the whole day, as per the RN has been the same for last couple of days. Patient desaturated to high 70s on trial to transition to heated high flow. Saturations during the day on BiPAP being maintained in high 80s. Minimal oral intake. Has remained hemodynamically stable and afebrile otherwise. Currently on amnio drip. CTA done during the day showed multiple PEs. Medications: Reviewed: Yes Vitals/I&O/Wt Last Vital Signs Temp 97.9 F 09/18/21 16:00 Pulse 98 09/18/21 16:09 Resp 24 H 09/18/21 16:08 BP 160/94 09/18/21 11:30 Pulse Ox 87 L 09/18/21 16:09 09/18/21 09/18/21 09/18/21 06:59 14:59 22:59 Intake Total 225 / 275 Output Total 325 / 625 Balance -100 / -350 Weight last 48 hrs Weight 92.147 kg Weight 91.371 kg Physical Exam Narrative: EXAM NARRATIVE: General: No acute distress, AO x3, BiPAP dependent HEENT: PERRLA, pupils bilaterally equal and reactive Chest: Bilateral bronchial breath sounds all over the lung hall, coarse crackles present all over the lung hall, poor air entry all over the lung hall CVS: S1-S2 regular, no murmurs, no tachycardia, no gallops, no rubs Abdomen: Soft, nontender, no organomegaly, bowel sounds present Neuro: No focal deficits, no facial deformity, AO x3, power 5/5 in all limbs Urinary Catheter Management^: Yi Latex: Cath Placed During This Visit: yes Reason for Continuing Indwelling Catheter: Accurate Measurement of Urinary Output in Critically Ill Patients Urinary Catheter Date of Insertion: 09/08/21 Urinary Catheter Time of Insertion: 06:18 Data : 09/18/21 03:15 09/18/21 03:15 Micro: Microbiology 09/18/21 13:34 Blood Culture - Preliminary Blood SPECIMEN COLLECTED 09/18/21 13:34 Blood Culture - Preliminary Blood SPECIMEN COLLECTED A&P Assessment and plan (1) ARDS (adult respiratory distress syndrome): Status: Acute (2) Pneumonia due to COVID-19 virus: Some worsening oxygenation, requiring up to 85% FiO2. Some worsening of bilateral infiltrates on chest x-ray today. Today leukocytosis increased to 12.2. Discussed with him we are restarting antibiotics, for now cefepime and linezolid. Monitor condition. Up to chair. Heated high flow when possible, CPAP if needed. Wean as tolerating. Continue aspiration precautions, continue speech therapy follow-up. Continue oxygenation support, wean down as tolerated. Decadron held in case contributing to weakness. Continue to monitor clinical condition, for episodes of fever, CBC, etc. Repeat chest x-ray with noted worsening bilateral groundglass opacities. Completed remdesivir Received tocilizumab 09/10. -With acute hypoxic respiratory failure, development of acute respiratory distress syndrome -CT angiogram?no pulmonary embolism, but does show multilobar patchy groundglass opacities No evidence of myocarditis myocarditis on TTE -Atrial fibrillation -With thrombocytopenia, Lymphopenia, NSTEMI, transaminitis, rhabdomyolysis Urine bacterial antigens negative. Blood cultures negative. Status: Acute (3) Pulmonary embolism: Status: Acute (4) Diabetes: -Continue Lantus 25 units twice daily, low-dose sliding scale, check A1c Status: Acute Qualifiers: Diabetes mellitus complication status: without complication Diabetes mellitus terminal clerk insulin use: with terminal clerk use Diabetes mellitus type: type 2 Qualified Code(s): E11.9 - Type 2 diabetes mellitus without complications; Z79.4 - group home (current) use of insulin (5) Paroxysmal A-fib: Status: Acute (6) Thrombocytopenia: Resolved. Status: Acute (7) Hyponatremia: Resolved. Status: Acute (8) Transaminitis: Secondary COVID-19 pneumonia Status: Acute (9) NSTEMI (non-ST elevated myocardial infarction): -Baseline troponin 154, 6-hour 140, delta -13.[address]-T wave changes, no complaints of chest pain -Likely related to Covid related myocarditis -Cannot rule out underlying cardiac etiology given history of type 2 diabetes mellitus -Continue aspirin, statin -Eliquis, metoprolol -Serial EKGs, serial troponins, telemetry monitoring - LV systolic function is normal with EF of 55-60% Normal diastolic function Trace mitral regurgitation No comparison studies available -Monitor for chest pain -Consult cardiology, medical management for now, outpatient stress testing Status: Acute Additional A&P Information Plan for the day: Check inflammatory markers including D-dimer, ESR, CRP. Check CTA as patient requiring high oxygen supplementation even though patient has been on anticoagulation with Eliquis. For now switch over to full dose Lovenox 1 mg/kg body weight every 12 hourly. Check procalcitonin. Stop cefepime and azithromycin which has been going on for last 10 days. Stop Linezolid. Low suspicion of bacterial pneumonia for now. Continue with CPAP ventilation. Aggressive pulmonary toilet. Chest PT. Switch from IV amiodarone to oral amiodarone 200 mg twice daily. Start on metoprolol 25 mg twice daily. Start on amlodipine 5 mg daily. Target blood pressure less than 140/90 mmHg. Restart IV dexamethasone 6 mg but given possible inflammatory surge leading to pulmonary embolism will start with hourly. Patient's care discussed in detail with pulmonology Dr. Armas. Vitamin C, zinc. Tessalon Perles. Insulin sliding scale every 6 hourly. Budesonide twice daily, DuoNebs every 4 hour. Check ABG. Limited resuscitation. Dysphagia 2 diet. Full dose Lovenox. Protonix for PUD prophylaxis. Attestations Medical Necessity Statement*: Requires further hospitalization for management of ARDS secondary COVID-19 pneumonia, bilateral PEs, BiPAP dependent Critical Care Time: The high probability of a clinically significant, sudden or life threatening deterioration of the patient's [pulmonary, cardiac] system(s) required my full and direct attention, intervention and personal management. The critical care time is as shown. 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
[2021-09-18] MEDS: ferrous gluconate 324 mg Tablet PO (18:29)
[2021-09-18] MEDS: ascorbic acid 500 mg Tablet 1000 MG PO (18:29)
[2021-09-18] MEDS: dexamethasone 10 mg/mL INJ 6 MG IVP (18:29)
--- NOTE | 2021-09-18 19:14 | PC.NURSE ---
Shift summary: Patient taken for CTA mid day, tolerated fair on BiPap 85%. Patient did not tolerate HHF and non rebreather combined, sats low 70s, placed back on Bipap. CTA results came back showing multiple PEs. Patient asked about CTA results and was given results and explained poor oxygen saturation to patient. Patient again voiced not wanting to be intubated. Patient AAOx4. Patient only tolerating PO pills one at a time with thickened liquids, unable to tolerate any other nutrition due to aspiration and hypoxia. .
[2021-09-19] VITALS (59 sets, daily range): BP systolic 103–157; BP diastolic 71–95; PULSE 67–98; RESP 5–33; TEMP 36.3–36.4; O2SAT 71–99
[2021-09-19] MEDS: dexamethasone 10 mg/mL INJ 6 MG IVP ×3 (01:43→18:06)
[2021-09-19] MEDS: enoxaparin 100 mg/mL Syringe 90 MG SUBCUT ×2 (01:44→13:33)
[2021-09-19] MEDS: insulin lispro 100 unit/1 mL SUBCUT ×4 (01:44→20:35)
--- NOTE | 2021-09-19 02:35 | PC.NURSE ---
Patient alert and orientated. Weak from diagnosis. Patient asks for drinks and protein drinks. Complaint with care.
[2021-09-19] MEDS: ipratropium-albuterol 3 mL Neb INHALATION ×6 (04:24→23:37)
[2021-09-19 04:40] LABS: ABG PCO2 38.9 mmHg (35-45); ABG PH Result 7.49 (7.35-7.45); Arterial Blood Gas Hematocrit 44.4 % (42-52); Base Excess ABG 6.1 mmol/L (-2.0-2.0); Blood Gas Allen Test Pos; Blood Gas Sample Site Radial, right; Blood Gas Sample Type Arterial; Carboxyhemoglobin 0.7 %THgb (0.4-20.1); HCO3 ABG 29.8 mmol/L (22-26); HGB O2 Sat 90.5 % (95-100); Ionized Calcium Level - ABG 1.3 mmol/L (1.1-1.4); Methemoglobin 1.1 % (0.4-1.5); Oxygen Device BIPAP; Oxygen Saturation ABG 92.1; PO2 ABG 61.7 mmHg (80.0-100.0); Potassium Level - ABG 4.2 mmol/L (3.5-5.0); Total Hemoglobin 14.5 g/dL (14-18)
[2021-09-19 04:41] LABS: Alveolar-Arterial Oxygen Gradi 78.3 mmHg (5-10)
--- NOTE | 2021-09-19 06:00 | XRR_ITS ---
PROCEDURE INFORMATION: Exam: XR Chest Exam date and time: 09/19/2021 6:00 AM Age: 61 years old Clinical indication: Dyspnea; Additional info: Covid TECHNIQUE: Imaging protocol: XR of the chest. Views: 1 view. Total images: 1 COMPARISON: CR (CHEST, ) 09/16/2021 2:53 AM FINDINGS: Tubes, catheters and devices: A left internal jugular central venous catheter is present, with its tip overlying the region of caval atrial junction and unchanged from prior exam. Lungs: Bilateral pulmonary opacities are again noted with the left-sided opacities showing interval worsening. Pleural spaces: Unremarkable. No pleural effusion. No pneumothorax. Heart/Mediastinum: Heart size is stable when compared to the prior exam. Bones/joints: Osseous structures are unchanged from the prior exam. XR/XR chest 1V portable [id number] IMPRESSION: Bilateral pulmonary opacities are again noted with the left-sided opacities showing interval worsening. Radiation Dose CTDIVOL = (mGy): DLP = (mGy-cm)
[2021-09-19 06:02] LABS: Basophils % 0.3 %; Eosinophils % 0.1 %; Hematocrit 41.9 % (42.0-52.0); Hemoglobin 13.7 g/dL (11.7-16.6); Lymphocytes # 0.4 10^3/uL (0.8-4.8); Mean Corpuscular HGB Conc 32.7 g/dL (30.0-36.0); Mean Corpuscular Hemoglobin 30.3 pg (28.0-34.0); Mean Corpuscular Volume 92.7 fl (80-94); Mean Platelet Volume 11.3 fL (7.4-10.4); Monocytes # 0.2 10^3/uL (0.2-0.9); Monocytes % 1.9 %; Neutrophils # 10.88 10^3/uL (1.8-7.7); Neutrophils % 94.2 %; Nucleated Red Blood Cells % 0 %; Platelet Count 127 10^3/cmm (130-400); Red Blood Count 4.52 10^6/uL (4.1-5.3); Red Cell Distribution Width 12.6 % (12.1-15.1); White Blood Count 11.6 10^3/uL (4.0-10.0)
--- NOTE | 2021-09-19 06:15 | PC.NURSE ---
Shift Note Frequent safety and comfort rounds continue. Orders and/or nursing care completed as indicated. Patient monitored for response to intervention and treatment(s). Education provided includes breathing exercises. Patient and/or member services representative reinforcement needed. Will continue to monitor.
[2021-09-19 06:27] LABS: C Reactive Protein 34.3 mg/L (0.0-4.9)
[2021-09-19 06:29] LABS: Alanine Aminotransferase 33 U/L (0-41); Albumin Level 3.2 g/dL (3.5-5.2); Alkaline Phosphatase 198 IU/L (40-130); Anion Gap 20.3 (5-19); Aspartate Amino Transferase 87 U/L (0-40); Blood Urea Nitrogen 39 mg/dL (8-23); Calcium 8.7 mg/dL (8.5-10.5); Carbon Dioxide 24 mmol/L (22-29); Chloride 100 mmol/L (98-107); Glomerular Filtration Rate 86.1 mL/min (90-130); Glucose 215 mg/dL (65-115); Osmolality Calculated 306 mOsm/kg (285-295); Potassium 4.3 mmol/L (3.5-5.1); Sodium 140 mmol/L (136-145); Total Bilirubin 0.8 mg/dL (0.15-1.2); Total Protein 6.2 g/dL (6.6-8.7)
[2021-09-19 06:37] LABS: D Dimer >= 20.00 ug/mIFEU (0-0.59)
[2021-09-19 07:03] LABS: Estmated Average Glucose 166; Hemoglobin A1C 7.4 % (4.0-6.0)
[2021-09-19] MEDS: budesonide 0.5 mg/2 mL Neb INHALATION ×2 (08:49→20:06)
[2021-09-19] MEDS: metoprolol tartrate 25 mg Tablet PO ×2 (09:45→20:35)
[2021-09-19] MEDS: ferrous gluconate 324 mg Tablet PO ×2 (09:45→18:06)
[2021-09-19] MEDS: aspirin 81 mg EC Tablet PO (09:45)
[2021-09-19] MEDS: amiodarone 200 mg Tablet PO ×2 (09:46→18:06)
[2021-09-19] MEDS: ascorbic acid 500 mg Tablet 1000 MG PO ×2 (09:46→18:06)
[2021-09-19] MEDS: pantoprazole 40 mg SDV IVP (09:46)
[2021-09-19] MEDS: tamsulosin 0.4 mg Capsule PO (09:46)
[2021-09-19] MEDS: zinc gluconate 50 mg Tablet PO (09:46)
[2021-09-19] MEDS: benzonatate 100 mg Capsule PO ×3 (09:46→20:35)
[2021-09-19] MEDS: amlodipine 5 mg Tablet PO (09:46)
[2021-09-19 11:13] LABS: NT Pro B Type Natriuretic Pept 593 pg/mL (0-125)
--- NOTE | 2021-09-19 15:51 | P.PN_ITS ---
Subjective Subjective: Interval history: No acute events overnight. Patient remains BiPAP dependent. He is currently on CPAP 100% FiO2 saturating 92%. Has remained hemodynamically stable and afebrile. Today morning did eat while he came off the BiPAP but refused to wear his nasal cannula and his oxygen saturations dropped to high 60s and took around 2 hours for his saturations to come back up to more than 90 on BiPAP. During that. He denied having any nausea, vomiting, dizziness. Again had a long discussion with patient regarding CODE STATUS. He does not want to be intubated but would be okay with chest compressions if required. Medications: Reviewed: Yes Vitals/I&O/Wt Last Vital Signs Temp 97.5 F L 09/19/21 09:00 Pulse 83 09/19/21 12:00 Resp 20 H 09/19/21 12:00 BP 141/84 09/19/21 12:00 Pulse Ox 90 09/19/21 12:00 09/19/21 09/19/21 09/19/21 06:59 14:59 22:59 Intake Total 60 / 698 150 / 150 Output Total 800 / 1200 200 / 200 Balance -740 / -502 -50 / -50 Weight last 48 hrs Weight 92.147 kg Physical Exam Narrative: EXAM NARRATIVE: General: No acute distress, AO x3, BiPAP dependent HEENT: PERRLA, pupils bilaterally equal and reactive Chest: Bilateral bronchial breath sounds all over the lung hall, coarse crackles present all over the lung hall, poor air entry all over the lung hall CVS: S1-S2 regular, no murmurs, no tachycardia, no gallops, no rubs Abdomen: Soft, nontender, no organomegaly, bowel sounds present Neuro: No focal deficits, no facial deformity, AO x3, power 5/5 in all limbs Urinary Catheter Management^: Yi Latex: Cath Placed During This Visit: yes Reason for Continuing Indwelling Catheter: Accurate Measurement of Urinary Output in Critically Ill Patients Urinary Catheter Date of Insertion: 09/08/21 Urinary Catheter Time of Insertion: 06:18 Data : 09/19/21 04:53 09/19/21 04:53 Micro: Microbiology 09/18/21 13:34 Blood Culture - Preliminary Blood NEGATIVE TO DATE 09/18/21 13:34 Blood Culture - Preliminary Blood NEGATIVE TO DATE 09/18/21 12:40 Bacterial Antigens - Final Urine Kidney 09/18/21 12:40 Legionella Urinary Antigen - Final Urine Catheterized 09/17/21 08:45 MRSA Culture - Final Nose A&P Assessment and plan (1) ARDS (adult respiratory distress syndrome): Status: Acute (2) Pneumonia due to COVID-19 virus: Status: Acute (3) Pulmonary embolism: Status: Acute (4) Diabetes: HbA1c 7.4. Continue with insulin sliding scale at moderate dose protocol. If his blood sugars are rising up can add longstanding insulins. 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 Status: Acute (7) Hyponatremia: Resolved. Status: Acute (8) Transaminitis: Secondary COVID-19 pneumonia Status: Acute (9) NSTEMI (non-ST elevated myocardial infarction): -Baseline troponin 154, 6-hour 140, delta -13.[address]-T wave jessica nges, no complaints of chest pain -Likely related to Covid related myocarditis -Cannot rule out underlying cardiac etiology given history of type 2 diabetes mellitus -Continue aspirin, statin -Eliquis, metoprolol -Serial EKGs, serial troponins, telemetry monitoring - LV systolic function is normal with EF of 55-60% Normal diastolic function Trace mitral regurgitation No comparison studies available -Monitor for chest pain -Consult cardiology, medical management for now, outpatient stress testing Status: Ruled-out Additional A&P Information ARDS secondary to COVID-19 pneumonia along with pulmonary embolism: Completed course of remdesivir. Post Tocilizumab 09/10. Restarted dexamethasone yesterday at 6 mg IV every every 8 hourly. CTA done yesterday appreciated. DuoNebs every 6 hour, budesonide twice daily. Vitamin C, zinc. Aggressive pulmonary toilet with chest physical therapy. Full dose anticoagulation with Lovenox 1 mg/kg body weight every 12 hourly. Monitor inflammatory markers including D-dimer, CRP, ESR every 48 hourly. Pro-Toan negative, urine Legionella, bacterial antigen negative. Blood culture sent yesterday so far negative. Sputum culture awaited. For now low suspicion of superadded bacterial infection. Patient has had more than 10 days of cefepime and azithromycin along with MRSA coverage with linezolid and vancomycin during this hospitalization. For now hold off on antibiotics. Echocardiogram results appreciated. We will plan to keep patient as negative possible. Currently patient has poor oral intake. We will hold off on any diuretics. Paroxysmal A. fib: Rate controlled currently. Continue with amiodarone 200 mg twice daily. Continue with metoprolol 25 mg twice daily. Hypertension: Goal blood pressure less than 140/90 mmHg. Continue with metoprolol as above and amlodipine 5 mg daily. Protein energy malnutrition: Patient has had poor oral intake during this hospitalization due to intubated and post intubated status and currently has BiPAP dependent. Patient remained BiPAP dependent for next 48 hours we will plan to start patient on TPN. Trying to avoid right now because of high suspicion and susceptibility of fungal infections with TPN. Limited resuscitation. Dysphagia 2 diet. Full dose Lovenox. Protonix for PUD prophylaxis. Attestations Medical Necessity Statement*: Requires further hospitalization for management of ARDS secondary COVID-19 pneumonia, pulmonary embolism as patient is BiPAP dependent Time Spent in Patient Care: Greater than 35 minutes (>than 50% of time spen t in counselling and/or direct pt care on unit) . 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
--- NOTE | 2021-09-19 16:05 | USCV_ITS ---
Raz Dewey Age: 61 Gender: M : 1960 Exam Date: 09/19/2021 06:35 Ordering Phys: Camacho Pickett MD Technologist: YOMI Exam Location: [facility] [place] Indication: PE ON CTA HISTORY: Pulmonary embolism. PROCEDURES: Venous duplex imaging was performed in bilateral lower extremities. The following venous structures were evaluated: common femoral vein, profunda vein, proximal portion of the greater saphenous vein, superficial femoral vein, and the popliteal vein. In addition, the posterior tibial and peroneal trunk were evaluated. FINDINGS: Normal 2-D Doppler and augmentation and compressibility throughout the lower extremity venous structures. Additional imaging through the proximal calf veins also reveals no thrombus. Limited evaluation of the greater saphenous vein is patent with no thrombus.. CONCLUSIONS No evidence of right lower extremity DVT. No evidence of left lower extremity DVT. Gamal Mcdowell MD (Electronically Signed) Final Date: 19 September 2021 17:22 S
--- NOTE | 2021-09-19 19:33 | PC.NURSE ---
Shift Summary: Uneventful shift. Patient was up to a chair for about 5 hours today. Otherwise rested in bed. Bipap remains the same at 100%. Urine output during day shift 09/19/2021 was 550mL and hematuria, though still present, has improved. Unsure on the date of the last bowel movement. Patient has hypoactive bowel sounds and though still soft, abdomen feels like patient may be becoming constipated. Patient refused milk of magnesia.
[2021-09-19] MEDS: atorvastatin 40 mg Tablet PO (20:35)
[2021-09-20] VITALS (57 sets, daily range): BP systolic 106–159; BP diastolic 70–93; PULSE 63–93; RESP 4–45; TEMP 36.4–36.7; O2SAT 71–95
[2021-09-20] MEDS: dexamethasone 10 mg/mL INJ 6 MG IVP ×3 (01:57→17:02)
[2021-09-20] MEDS: enoxaparin 100 mg/mL Syringe 90 MG SUBCUT ×2 (01:57→13:03)
[2021-09-20] MEDS: insulin lispro 100 unit/1 mL SUBCUT ×5 (01:58→20:32)
[2021-09-20] MEDS: ipratropium-albuterol 3 mL Neb INHALATION ×6 (03:27→23:09)
[2021-09-20 05:10] LABS: NT Pro B Type Natriuretic Pept 640 pg/mL (0-125)
--- NOTE | 2021-09-20 06:51 | PC.NURSE ---
Received report on pt at 0200. Pt stable throughout the night. Turned q 2 hours, swabbed mouth as needed. Pt did not tolerate swallowing thickened liquids. No pain reported. Pt educated on oxygen safety. Pt verbalized understanding but needs reinforcement.
[2021-09-20] MEDS: budesonide 0.5 mg/2 mL Neb INHALATION ×2 (08:02→20:08)
[2021-09-20] MEDS: ascorbic acid 500 mg Tablet 1000 MG PO ×2 (08:15→17:02)
[2021-09-20] MEDS: benzonatate 100 mg Capsule PO ×3 (08:15→20:30)
[2021-09-20] MEDS: tamsulosin 0.4 mg Capsule PO (08:15)
[2021-09-20] MEDS: zinc gluconate 50 mg Tablet PO (08:15)
[2021-09-20] MEDS: pantoprazole 40 mg SDV IVP (08:15)
[2021-09-20] MEDS: aspirin 81 mg EC Tablet PO (08:15)
[2021-09-20] MEDS: ferrous gluconate 324 mg Tablet PO ×2 (08:15→17:02)
[2021-09-20] MEDS: amiodarone 200 mg Tablet PO ×2 (08:15→17:02)
[2021-09-20] MEDS: amlodipine 5 mg Tablet PO (08:15)
[2021-09-20] MEDS: metoprolol tartrate 25 mg Tablet PO ×2 (08:46→20:30)
--- NOTE | 2021-09-20 08:54 | PC.NURSE ---
0700 Report received. Pt resting in bed. AAOX4, remains on bipap at this time at 90%. Able to make needs known. VSS. L IJ in place, c/d/i. Yi cath draining freely to BSD. 0830 Pt placed on HFNC, 50L/100%. Sats down to 68% after meds and breakfast. RT placed pt back on bipap. Will monitor
--- NOTE | 2021-09-20 09:04 | PC.CHAP ---
Pastoral Care Encounter/Spiritual Assessment Type of Contact [] Declined engraver letter visit [] Patient/Family/Request visit [] Outpatient visit [] Follow-up visit [] Physician referral [] Code/Alert [x] Routine visit [] Staff referral [] Actively dying [] Patient sleeping [] Family support [] [] Out of room [] Palliative care [] [x] Receiving care in room [] Pre-surgical visit [] Trauma [] Long length of stay [x] ICU visit [x] Other: isolated Relational/Emotional Strength [] Patient feels connected with others/family/visitors/staff [] Distress [] Loneliness/isolation [] Abandonment Spirituality of Patient [] Person of Rachel [] Attends Hinduism of their Rachel [] Believes in Prayer [] Reads Bible or Sikhism materials [] There are Spiritual issues to be addressed [place]her Interventions [x] Prayer [] Active listening [] Non-anxious presence [] Spiritual/emotional support [] Crisis/trauma care [] Spiritual counseling [] Bereavement support [] Provided bereavement packet [] Provided Bible/devotional materials [] Provided toy/stuffed animal, coloring book to patient or family member [] Provided Communion [] Anointing/[place] [] Salvation [x] Completed spiritual assessment [] Other: Impact on Illness or Injury [] Angry [] Fearful [] Anxious [] Often cries [] Exhaustion [] Unable to work [] Unable to attend mormonism [] Unable to walk/stand [] Unable to read [] Unable to drive [] Unable to eat/drink [] Unable to sleep [] Unable to be with family [] Patient intubated [] Other: Summary Time spent with patient
[2021-09-20 12:33] LABS: Glucose Point of Care 232 mg/dL (70-110)
[2021-09-20 12:33] LABS: Glucose Point of Care 224 mg/dL (70-110)
[2021-09-20 12:33] LABS: Glucose Point of Care 140 mg/dL (70-110)
[2021-09-20 12:33] LABS: Glucose Point of Care 183 mg/dL (70-110)
[2021-09-20 12:33] LABS: C Reactive Protein 18.4 mg/L (0.0-4.9)
[2021-09-20 12:34] LABS: Glucose Point of Care 254 mg/dL (70-110)
[2021-09-20 12:34] LABS: Glucose Point of Care 204 mg/dL (70-110)
[2021-09-20 12:34] LABS: Glucose Point of Care 303 mg/dL (70-110)
[2021-09-20 12:34] LABS: Glucose Point of Care 238 mg/dL (70-110)
[2021-09-20 12:34] LABS: Glucose Point of Care 145 mg/dL (70-110)
[2021-09-20 12:34] LABS: Glucose Point of Care 209 mg/dL (70-110)
[2021-09-20 12:35] LABS: Glucose Point of Care 297 mg/dL (70-110)
[2021-09-20 12:35] LABS: Glucose Point of Care 184 mg/dL (70-110)
[2021-09-20 12:35] LABS: Glucose Point of Care 236 mg/dL (70-110)
[2021-09-20 14:11] LABS: D Dimer 4.61 ug/mIFEU (0-0.59)
--- NOTE | 2021-09-20 15:14 | PM.PN ---
Subjective Subjective: Interval history: No acute events overnight. Patient denies any nausea, vomiting, headache. Today morning he was on CPAP 85% saturating 94% was transitioned over to heated high flow 50 L 100% saturating in high 80s. He tolerated heated high flow well. Eating better today. Ate almost 30% of his breakfast and 50% of his lunch. Working well with respiratory therapist today. Medications: Reviewed: Yes Vitals/I&O/Wt Last Vital Signs Temp 97.6 F 09/20/21 12:00 Pulse 86 09/20/21 13:32 Resp 21 H 09/20/21 12:00 BP 122/76 09/20/21 12:00 Pulse Ox 93 09/20/21 12:00 09/20/21 09/20/21 09/20/21 06:59 14:59 22:59 Intake Total 100 / 250 360 / 360 Output Total 350 / 1750 Balance -250 / -1500 360 / 360 Weight last 48 hrs Weight 89.358 kg Physical Exam Narrative: EXAM NARRATIVE: General: No acute distress, AO x3, HEENT: PERRLA, pupils bilaterally equal and reactive Chest: Bilateral bronchial breath sounds all over the lung hall, coarse crackles present all over the lung hall, poor air entry all over the lung hall CVS: S1-S2 regular, no murmurs, no tachycardia, no gallops, no rubs Abdomen: Soft, nontender, no organomegaly, bowel sounds present Neuro: No focal deficits, no facial deformity, AO x3, power 5/5 in all limbs Urinary Catheter Management^: Yi Latex: Cath Placed During This Visit: yes Reason for Continuing Indwelling Catheter: Accurate Measurement of Urinary Output in Critically Ill Patients Urinary Catheter Date of Insertion: 09/08/21 Urinary Catheter Time of Insertion: 06:18 Data : 09/19/21 04:53 09/19/21 04:53 Micro: Microbiology 09/18/21 12:40 Urine Culture - Preliminary Urine,Clean Catch 09/18/21 12:35 MRSA Culture - Final Nose 09/18/21 13:34 Blood Culture - Preliminary Blood NEGATIVE TO DATE 09/18/21 13:34 Blood Culture - Preliminary Blood NEGATIVE TO DATE A&P Assessment and plan (1) ARDS (adult respiratory distress syndrome): Status: Acute (2) Pneumonia due to COVID-19 virus: Status: Acute (3) Pulmonary embolism: Status: Acute (4) Diabetes: HbA1c 7.4. Continue with insulin sliding scale at moderate dose protocol. If his blood sugars are rising up can add longstanding insulins. Status: Acute Qualifiers: Diabetes mellitus type: type 2 Diabetes mellitus assistant terminal manager insulin use: with detention use Diabetes mellitus complication status: without complication Qualified Code(s): E11.9 - Type 2 diabetes mellitus without complications; Z79.4 - jail (current) use of insulin (5) Paroxysmal A-fib: Status: Acute (6) Thrombocytopenia: Resolved. Status: Acute (7) Hyponatremia: Resolved. Status: Acute (8) Transaminitis: Secondary COVID-19 pneumonia Status: Acute (9) NSTEMI (non-ST elevated myocardial infarction): -Baseline troponin 154, 6-hour 140, delta -13.[address]-T wave changes, no complaints of chest pain -Likely related to Covid related myocarditis -Cannot rule out underlying cardiac etiology given history of type 2 diabetes mellitus -Continue aspirin, statin -Eliquis, metoprolol -Serial EKGs, serial troponins, telemetry monitoring - LV systolic function is normal with EF of 55-60% Normal diastolic function Trace mitral regurgitation No comparison studies available -Monitor for chest pain -Consult cardiology, medical management for now, outpatient stress testing Status: Ruled-out Additional A&P Information ARDS secondary to COVID-19 pneumonia along with pulmonary embolism: Completed course of remdesivir. Post Tocilizumab 09/10. Restarted dexamethasone yesterday at 6 mg IV every every 8 hourly. Plan to wean down tomorrow. DuoNebs every 6 hour, budesonide twice daily. Vitamin C, zinc. Aggressive pulmonary toilet with chest physical therapy. Full dose anticoagulation with Lovenox 1 mg/kg body weight every 12 hourly. Monitor inflammatory markers including D-dimer, CRP, ESR every 48 hourly. D-dimer, CRP trending down for now. Pro-Toan negative, urine Legionella, bacterial antigen negative. Blood culture sent yesterday so far negative. Sputum culture awaited. For now low suspicion of superadded bacterial infection. Patient has had more than 10 days of cefepime and azithromycin along with MRSA coverage with linezolid and vancomycin during this hospitalization. For now hold off on antibiotics. Echocardiogram results appreciated. We will plan to keep patient as negative possible. Currently patient has poor oral intake. We will hold off on any diuretics. Paroxysmal A. fib: Rate controlled currently. Continue with amiodarone 200 mg twice daily. Continue with metoprolol 25 mg twice daily. Hypertension: Goal blood pressure less than 140/90 mmHg. Continue with metoprolol as above and amlodipine 5 mg daily. Protein energy malnutrition: Patient has had poor oral intake during this hospitalization due to intubated and post intubated status and currently has BiPAP dependent. Hold off on TPN for now. Patient having better oral intake today. We will continue to monitor. Limited resuscitation. Dysphagia 2 diet. Full dose Lovenox. Protonix for PUD prophylaxis. Patient's care and plan discussed in detail with his mother over the phone. All the questions were answered. We will try to call his later in the day again as she was not available earlier today on the phone. I have been told she is also recovering from Covid currently. Attestations Medical Necessity Statement*: Requires further hospitalization for management of ARDS secondary COVID-19 pneumonia, pulmonary embolism, severe protein energy malnutrition Time Spent in Patient Care: Greater than 35 minutes (>than 50% of time spent in counselling and/or direct pt care on unit). Coding Level of Care Code Acute Special Service Officer for [facility] Fwd Diagnoses ARDS (adult respiratory distress syndrome) J80 Pneumonia due to COVID-19 virus U07.1; J12.82 Pulmonary embolism I26.99 Diabetes E11.9; Z79.4 Diabetes mellitus type: type 2 Diabetes mellitus assistant terminal manager insulin use: with assistant terminal manager use Diabetes mellitus complication status: without complication Paroxysmal A-fib I48.0 Thrombocytopenia D69.6 Hyponatremia E87.1 Transaminitis R74.01 NSTEMI (non-ST elevated myocardial infarction) I21.4
[2021-09-20 17:49] LABS: Glucose Point of Care 287 mg/dL (70-110)
--- NOTE | 2021-09-20 17:51 | PC.NURSE ---
Shift Note Frequent safety and comfort rounds continue. Orders and/or nursing care completed as indicated. Patient monitored for response to intervention and treatment(s). Education provided includes treatment plan, medications, blood glucose monitoring, and oxygen requirements. Pt verbalizes understanding. Pt has been on HFNC most of the afternoon, swapped to bipap at 1748 d/t decreased O2 sats. All other VSS. Yi cath draining freely. Will continue to monitor.
[2021-09-20 19:45] LABS: Glucose Point of Care 285 mg/dL (70-110)
[2021-09-20] MEDS: atorvastatin 40 mg Tablet PO (20:30)
[2021-09-21] VITALS (56 sets, daily range): BP systolic 115–165; BP diastolic 70–96; PULSE 72–107; RESP 2–34; TEMP 36.6–36.7; O2SAT 79–97
[2021-09-21] MEDS: dexamethasone 10 mg/mL INJ 6 MG IVP ×3 (01:40→16:57)
[2021-09-21] MEDS: enoxaparin 100 mg/mL Syringe 90 MG SUBCUT ×2 (01:40→13:33)
[2021-09-21] MEDS: ipratropium-albuterol 3 mL Neb INHALATION ×6 (03:35→23:38)
[2021-09-21 05:39] LABS: Basophils % 0.2 %; Hematocrit 37.9 % (42.0-52.0); Hemoglobin 12.8 g/dL (11.7-16.6); Lymphocytes # 0.5 10^3/uL (0.8-4.8); Lymphocytes % 3.1 %; Mean Corpuscular HGB Conc 33.8 g/dL (30.0-36.0); Mean Corpuscular Hemoglobin 30.7 pg (28.0-34.0); Mean Corpuscular Volume 90.9 fl (80-94); Mean Platelet Volume 11.7 fL (7.4-10.4); Monocytes # 0.5 10^3/uL (0.2-0.9); Monocytes % 2.8 %; Neutrophils # 15.67 10^3/uL (1.8-7.7); Neutrophils % 93.1 %; Nucleated Red Blood Cells % 0 %; Platelet Count 125 10^3/cmm (130-400); Red Blood Count 4.17 10^6/uL (4.1-5.3); Red Cell Distribution Width 12.4 % (12.1-15.1); White Blood Count 16.9 10^3/uL (4.0-10.0)
--- NOTE | 2021-09-21 05:46 | PC.NURSE ---
Shift note Pt stable throughout the night and no pain reported. Pt requested to be on HHF around 2300. Pt was turned q 2 hours and needs were addressed. Pt educated on aspiration precautions and verbalized understanding.
[2021-09-21 05:50] LABS: D Dimer 3.22 ug/mIFEU (0-0.59)
--- NOTE | 2021-09-21 06:00 | XR_ITS ---
WS: [id number] Exam: XR chest 1V portable [id number] Date/Time of Exam: 09/21/2021 4:18 AM Reason For Exam: covid Comparison 09/19/2021. Groundglass infiltrates noted in the bilateral lower lung zones. Very little change since prior study . The lungs remain fully inflated. Normal cardiomediastinal silhouette. No pleural effusions. A left- sided central line is in place ending at the cavoatrial junction. XR/XR chest 1V portable [id number] IMPRESSION: 1. Bilateral pulmonary infiltrates showing little change since the last exam.
[2021-09-21 06:11] LABS: Alanine Aminotransferase 49 U/L (0-41); Albumin Level 3.1 g/dL (3.5-5.2); Alkaline Phosphatase 180 IU/L (40-130); Anion Gap 17.3 (5-19); Aspartate Amino Transferase 77 U/L (0-40); Blood Urea Nitrogen 36 mg/dL (8-23); Calcium 8.6 mg/dL (8.5-10.5); Carbon Dioxide 26 mmol/L (22-29); Chloride 98 mmol/L (98-107); Globulin 2.5 g/dL (1.3-4.6); Glomerular Filtration Rate 137.4 mL/min (90-130); Glucose 207 mg/dL (65-115); Osmolality Calculated 298 mOsm/kg (285-295); Potassium 4.3 mmol/L (3.5-5.1); Sodium 137 mmol/L (136-145); Total Bilirubin 0.9 mg/dL (0.15-1.2); Total Protein 5.6 g/dL (6.6-8.7)
[2021-09-21 06:13] LABS: Glucose Point of Care 230 mg/dL (70-110)
[2021-09-21 06:13] LABS: C Reactive Protein 8.9 mg/L (0.0-4.9); Magnesium 2.2 mg/dL (1.7-2.3); NT Pro B Type Natriuretic Pept 650 pg/mL (0-125); Phosphorus 2.7 mg/dL (2.5-4.5)
[2021-09-21] MEDS: insulin lispro 100 unit/1 mL SUBCUT ×4 (06:23→19:57)
[2021-09-21 07:01] LABS: Glucose Point of Care 215 mg/dL (70-110)
--- NOTE | 2021-09-21 07:14 | PC.NURSE ---
Report received, assessment completed. VSS. Bipap in place. AAOx4. Denies any pain or needs. L IJ CVL in place. dressing c/d/i. Yi cath in place draining clear mau urine to BSD. Remains in covid iso per protocol. Will monitor.
[2021-09-21] MEDS: metoprolol tartrate 25 mg Tablet PO ×2 (07:51→19:56)
[2021-09-21] MEDS: pantoprazole 40 mg SDV IVP (07:51)
[2021-09-21] MEDS: aspirin 81 mg EC Tablet PO (07:52)
[2021-09-21] MEDS: zinc gluconate 50 mg Tablet PO (07:52)
[2021-09-21] MEDS: tamsulosin 0.4 mg Capsule PO (07:52)
[2021-09-21] MEDS: amiodarone 200 mg Tablet PO ×2 (07:52→16:56)
[2021-09-21] MEDS: benzonatate 100 mg Capsule PO ×3 (07:52→19:56)
[2021-09-21] MEDS: amlodipine 5 mg Tablet PO (07:52)
[2021-09-21] MEDS: ferrous gluconate 324 mg Tablet PO ×2 (07:52→16:56)
[2021-09-21] MEDS: ascorbic acid 500 mg Tablet 1000 MG PO ×2 (07:52→16:55)
[2021-09-21] MEDS: budesonide 0.5 mg/2 mL Neb INHALATION ×2 (07:56→19:50)
[2021-09-21 10:51] LABS: Glucose Point of Care 189 mg/dL (70-110)
[2021-09-21] MEDS: FUROsemide 10 mg/mL SDV 4mL 40 MG IVP (11:33)
--- NOTE | 2021-09-21 12:48 | PC.NURSE ---
Pt up to chair around 1000. Desatted but recovered slowly once placed on hiflo. Required NRB. Pt sitting up in chair, ate dinner well. MD wants pt on CPAP on pt when not eating. RT aware and will place after pt finishes meal. Will monitor.
[2021-09-21] MEDS: nystatin 100,000 unit/mL UDC 5 mL 200000 UNIT PO ×3 (13:33→19:56)
--- NOTE | 2021-09-21 15:22 | PM.PN ---
Subjective Subjective: Interval history: No acute events over overnight. Patient was placed between CPAP when high flow overnight. Today morning patient sitting up in chair working with physical and Occupational Therapy. During therapy he is on 15 L 100% with nonrebreather mask saturating 88%. Post therapy placed back on only heated high flow saturating 86%. Comfortable. Tachypnea but no use of respiratory muscles. States he is feeling better. Denies any nausea vomiting, headache. Having better oral intake. Denies any chest pain or diarrhea. Medications: Reviewed: Yes Vitals/I&O/Wt Last Vital Signs Temp 97.8 F 09/21/21 12:00 Pulse 87 09/21/21 14:00 Resp 24 H 09/21/21 12:00 BP 155/83 09/21/21 12:00 Pulse Ox 88 L 09/21/21 12:00 09/21/21 09/21/21 09/21/21 06:59 14:59 22:59 Intake Total 960 / 960 Output Total 350 / 1000 1450 / 1450 Balance -350 / -280 -490 / -490 Weight last 48 hrs Weight 89.902 kg Weight 89.358 kg Physical Exam Narrative: EXAM NARRATIVE: General: No acute distress, AO x3, HEENT: PERRLA, pupils bilaterally equal and reactive Chest: Bilateral bronchial breath sounds all over the lung hall, coarse crackles present all over the lung hall, poor air entry all over the lung hall CVS: S1-S2 regular, no murmurs, no tachycardia, no gallops, no rubs Abdomen: Soft, nontender, no organomegaly, bowel sounds present Neuro: No focal deficits, no facial deformity, AO x3, power 5/5 in all limbs Urinary Catheter Management^: Yi Latex: Cath Placed During This Visit: yes Reason for Continuing Indwelling Catheter: Accurate Measurement of Urinary Output in Critically Ill Patients Urinary Catheter Date of Insertion: 09/08/21 Urinary Catheter Time of Insertion: 06:18 Data : 09/21/21 04:55 09/21/21 04:55 Micro: Microbiology 09/18/21 12:40 Urine Culture - Final Urine,Clean Catch A&P Assessment and plan (1) ARDS (adult respiratory distress syndrome): Status: Acute (2) Pneumonia due to COVID-19 virus: Status: Acute (3) Pulmonary embolism: Status: Acute (4) Diabetes: HbA1c 7.4. Continue with insulin sliding scale at moderate dose protocol. If his blood sugars are rising up can add longstanding insulins. Status: Acute Qualifiers: Diabetes mellitus type: type 2 Diabetes mellitus halfway insulin use: with terminal gauger supervisor use Diabetes mellitus complication status: without complication Qualified Code(s): E11.9 - Type 2 diabetes mellitus without complications; Z79.4 - shelter (current) use of insulin (5) Paroxysmal A-fib: Status: Acute (6) NSTEMI (non-ST elevated myocardial infarction): -Baseline troponin 154, 6-hour 140, delta -13.[address]-T wave changes, no complaints of chest pain -Likely related to Covid related myocarditis -Cannot rule out underlying cardiac etiology given history of type 2 diabetes mellitus -Continue aspirin, statin -Eliquis, metoprolol -Serial EKGs, serial troponins, telemetry monitoring - LV systolic function is normal with EF of 55-60% Normal diastolic function Trace mitral regurgitation No comparison studies available -Monitor for chest pain -Consult cardiology, medical management for now, outpatient stress testing Status: Ruled-out (7) Physical deconditioning: Status: Acute (8) Protein-energy malnutrition: Status: Acute Additional A&P Information ARDS secondary to COVID-19 pneumonia along with pulmonary embolism: Completed course of remdesivir. Post Tocilizumab 09/10. Wean dexamethasone to 6 mg every 12 hourly. DuoNebs every 6 hour, budesonide twice daily. Vitamin C, zinc. Aggressive pulmonary toilet with chest physical therapy. Full dose anticoagulation with Lovenox 1 mg/kg body weight every 12 hourly. Most likely will switch over to Xarelto after 10 days. Patient was on Eliquis when he developed pulmonary embolism so we will consider that as Eliquis failure. Monitor inflammatory markers including D-dimer, CRP, ESR every 48 hourly. D-dimer, CRP trending down for now. Pro-Toan negative, urine Legionella, bacterial antigen negative. Blood culture sent yesterday so far negative. Sputum culture awaited. For now low suspicion of superadded bacterial infection. Patient has had more than 10 days of cefepime and azithromycin along with MRSA coverage with linezolid and vancomycin during this hospitalization. For now hold off on antibiotics. Echocardiogram results appreciated. We will plan to keep patient as negative possible. Currently patient has poor oral intake. We will hold off on any diuretics. Paroxysmal A. fib: Rate controlled currently. Continue with amiodarone 200 mg twice daily. Continue with metoprolol 25 mg twice daily. Hypertension: Goal blood pressure less than 140/90 mmHg. Continue with metoprolol as above and amlodipine 5 mg daily. Protein energy malnutrition: Patient has had poor oral intake during this hospitalization due to intubated and post intubated status and currently has BiPAP dependent. Hold off on TPN for now. Patient having better oral intake today. We will continue to monitor. Limited resuscitation. Dysphagia 2 diet. Full dose Lovenox. Protonix for PUD prophylaxis. Plan for the day: Continue with physical therapy, chest PT. Oxygen supplementation keeping saturation in the mid to high 80s. Placed back on CPAP overnight so he can rest. Start on Levaquin for 5-day course. Nystatin swish and swallow. Lasix 40 mg IV once dose. Monitor input output. Wean down dexamethasone to 6 mg every 12 hourly. Attestations Medical Necessity Statement*: Requires further hospitalization for management of ARDS secondary COVID-19 pneumonia, pulmonary embolism, severe protein energy malnutrition, physical deconditioning. Time Spent in Patient Care: Greater than 35 minutes (>than 50% of time spent in counselling and/or direct pt care on unit). Coding Level of Care Code Acute Keyliner for [facility] Diagnoses ARDS (adult respiratory distress syndrome) J80 Pneumonia due to COVID-19 virus U07.1; J12.82 Pulmonary embolism I26.99 Diabetes E11.9; Z79.4 Diabetes mellitus type: type 2 Diabetes mellitus halfway insulin use: with terminal gauger supervisor use Diabetes mellitus complication status: without complication Paroxysmal A-fib I48.0 NSTEMI (non-ST elevated myocardial infarction) I21.4 Physical deconditioning R53.81 Protein-energy malnutrition E46
[2021-09-21 16:41] LABS: Glucose Point of Care 416 mg/dL (70-110)
--- NOTE | 2021-09-21 17:44 | PC.NURSE ---
Shift Note Frequent safety and comfort rounds continue. Orders and/or nursing care completed as indicated. Patient monitored for response to intervention and treatment(s). Education provided includes treatment plan, oxygen requirements and medications. Pt verbalizes understanding. Resting in bed with CPAP in place d/t low O2 sats while eating. No s/s of pain or SOB. Repositioned per staff. Will continue to monitor.
[2021-09-21 19:48] LABS: Glucose Point of Care 379 mg/dL (70-110)
[2021-09-21] MEDS: atorvastatin 40 mg Tablet PO (19:56)
[2021-09-21] MEDS: insulin glargine 100 units/1 mL 30 UNIT SUBCUT (19:57)
[2021-09-22] VITALS (59 sets, daily range): BP systolic 93–157; BP diastolic 66–90; PULSE 80–100; RESP 16–35; TEMP 36.6–36.8; O2SAT 76–94
[2021-09-22] MEDS: enoxaparin 100 mg/mL Syringe 90 MG SUBCUT ×2 (02:33→14:29)
[2021-09-22] MEDS: ipratropium-albuterol 3 mL Neb INHALATION ×5 (03:31→19:51)
[2021-09-22 05:08] LABS: Basophils % 0.1 %; Hematocrit 37.9 % (42.0-52.0); Hemoglobin 12.9 g/dL (11.7-16.6); Lymphocytes # 0.4 10^3/uL (0.8-4.8); Lymphocytes % 3.3 %; Mean Corpuscular Hemoglobin 30.6 pg (28.0-34.0); Mean Platelet Volume 12.5 fL (7.4-10.4); Monocytes # 0.5 10^3/uL (0.2-0.9); Monocytes % 3.6 %; Neutrophils # 11.77 10^3/uL (1.8-7.7); Neutrophils % 92.1 %; Nucleated Red Blood Cells % 0 %; Platelet Count 111 10^3/cmm (130-400); Red Blood Count 4.21 10^6/uL (4.1-5.3); Red Cell Distribution Width 12.5 % (12.1-15.1); White Blood Count 12.8 10^3/uL (4.0-10.0)
[2021-09-22 05:14] LABS: D Dimer 2.73 ug/mIFEU (0-0.59)
[2021-09-22 05:29] LABS: Alanine Aminotransferase 67 U/L (0-41); Albumin Level 3.2 g/dL (3.5-5.2); Alkaline Phosphatase 187 IU/L (40-130); Anion Gap 19.2 (5-19); Aspartate Amino Transferase 79 U/L (0-40); Blood Urea Nitrogen 38 mg/dL (8-23); C Reactive Protein 5.7 mg/L (0.0-4.9); Calcium 8.9 mg/dL (8.5-10.5); Carbon Dioxide 27 mmol/L (22-29); Chloride 96 mmol/L (98-107); Globulin 2.5 g/dL (1.3-4.6); Glucose 296 mg/dL (65-115); Osmolality Calculated 306 mOsm/kg (285-295); Potassium 4.2 mmol/L (3.5-5.1); Sodium 138 mmol/L (136-145); Total Protein 5.7 g/dL (6.6-8.7)
[2021-09-22] MEDS: dexamethasone 10 mg/mL INJ 6 MG IVP ×2 (06:15→16:42)
[2021-09-22] MEDS: levoFLOXacin 500 mg Tablet PO (06:15)
[2021-09-22 07:23] LABS: Glucose Point of Care 322 mg/dL (70-110)
--- NOTE | 2021-09-22 07:33 | PC.NURSE ---
Report received, assessment completed. VSS. Pt on CPAP, sats in low 90's. Pt denies any needs, AAOX4. LIJ CVL in place, dressing c/d/i. Pt repositioned per staff. Will monitor.
[2021-09-22] MEDS: insulin lispro 100 unit/1 mL SUBCUT ×4 (08:00→20:48)
[2021-09-22] MEDS: amlodipine 5 mg Tablet PO (08:01)
[2021-09-22] MEDS: nystatin 100,000 unit/mL UDC 5 mL 200000 UNIT PO ×4 (08:01→20:47)
[2021-09-22] MEDS: pantoprazole 40 mg SDV IVP (08:01)
[2021-09-22] MEDS: aspirin 81 mg EC Tablet PO (08:01)
[2021-09-22] MEDS: benzonatate 100 mg Capsule PO ×3 (08:01→20:48)
[2021-09-22] MEDS: ferrous gluconate 324 mg Tablet PO ×2 (08:02→16:42)
[2021-09-22] MEDS: tamsulosin 0.4 mg Capsule PO (08:02)
[2021-09-22] MEDS: amiodarone 200 mg Tablet PO ×2 (08:02→16:42)
[2021-09-22] MEDS: metoprolol tartrate 25 mg Tablet PO (08:02)
[2021-09-22] MEDS: zinc gluconate 50 mg Tablet PO (08:02)
[2021-09-22] MEDS: ascorbic acid 500 mg Tablet 1000 MG PO ×2 (08:03→16:42)
[2021-09-22] MEDS: budesonide 0.5 mg/2 mL Neb INHALATION ×2 (08:22→19:50)
[2021-09-22] MEDS: FUROsemide 10 mg/mL SDV 4mL 40 MG IVP (10:27)
[2021-09-22] MEDS: metoprolol tartrate 50 mg Tablet PO ×2 (10:27→20:48)
[2021-09-22] MEDS: insulin glargine 100 units/1 mL 30 UNIT SUBCUT ×2 (10:27→20:48)
[2021-09-22 10:41] LABS: Glucose Point of Care 330 mg/dL (70-110)
--- NOTE | 2021-09-22 12:18 | PC.CHAP ---
Pastoral Care Encounter/Spiritual Assessment Type of Contact [] Declined merchandise collector visit [] Patient/Family/Request visit [] Outpatient visit [xx] Follow-up visit [] Physician referral [] Code/Alert [] Routine visit [] Staff referral [] Actively dying [] Patient sleeping [] Family support [] [] Out of room [] Palliative care [] [] Receiving care in room [] Pre-surgical visit [] Trauma [] Long length of stay [xxx] ICU visit [] Other: isolation Relational/Emotional Strength [] Patient feels connected with others/family/visitors/staff [] Distress [] Loneliness/isolation [] Abandonment Spirituality of Patient [] Person of Rachel [] Attends Buddhist of their Rachel [] Believes in Prayer [] Reads Bible or Quaker materials [] There are Spiritual issues to be addressed Flight Radio Operator Interventions [xx] Prayer [] Active listening [] Non-anxious presence [] Spiritual/emotional support [] Crisis/trauma care [] Spiritual counseling [] Bereavement support [] Provided bereavement packet [] Provided Bible/devotional materials [] Provided toy/stuffed animal, coloring book to patient or family member [] Provided Communion [] Anointing/[place] [] Salvation [] Completed spiritual assessment [] Other: Impact on Illness or Injury [] Angry [] Fearful [] Anxious [] Often cries [] Exhaustion [] Unable to work [] Unable to attend restoration [] Unable to walk/stand [] Unable to read [] Unable to drive [] Unable to eat/drink [] Unable to sleep [] Unable to be with family [] Patient intubated [] Other: Summary Flight Radio Operator not permitted to visit. Prayed outside room. Time spent with patient 1 minute
--- NOTE | 2021-09-22 15:22 | PM.PN ---
Subjective Subjective: Interval history: No complaints overnight. Patient continues to do better. Has been on CPAP overnight and transition to heated high flow today morning. Working with physical therapy. Having better oral intake. Has remained afebrile. Medications: Reviewed: Yes Vitals/I&O/Wt Last Vital Signs Temp 97.9 F 09/22/21 12:00 Pulse 90 09/22/21 15:21 Resp 31 H 09/22/21 15:21 BP 129/83 09/22/21 12:00 Pulse Ox 91 09/22/21 15:21 09/22/21 09/22/21 09/22/21 06:59 14:59 22:59 Intake Total 120 / 1440 480 / 480 Balance 120 / -510 480 / 480 Weight last 48 hrs Weight 89.811 kg Weight 89.902 kg Physical Exam Narrative: EXAM NARRATIVE: General: No acute distress, AO x3, HEENT: PERRLA, pupils bilaterally equal and reactive Chest: Bilateral bronchial breath sounds all over the lung hall, coarse crackles present all over the lung hall, poor air entry all over the lung hall CVS: S1-S2 regular, no murmurs, no tachycardia, no gallops, no rubs Abdomen: Soft, nontender, no organomegaly, bowel sounds present Neuro: No focal deficits, no facial deformity, AO x3, power 5/5 in all limbs Urinary Catheter Management^: Yi Latex: Cath Placed During This Visit: yes, but has since been removed by the nurse Reason for Continuing Indwelling Catheter: Decision to DC Catheter Urinary Catheter Date of Insertion: 09/22/21 Urinary Catheter Time of Insertion: 15:10 Date Urinary Catheter Removed: 09/22/21 Time Urinary Catheter Discontinued: 15:05 Data : 09/22/21 04:20 09/22/21 04:20 Micro: Microbiology 09/18/21 12:40 Urine Culture - Final Urine,Clean Catch A&P Assessment and plan (1) ARDS (adult respiratory distress syndrome): Status: Acute (2) Pneumonia due to COVID-19 virus: Status: Acute (3) Pulmonary embolism: Status: Acute (4) Diabetes: HbA1c 7.4. Continue with insulin sliding scale at moderate dose protocol. If his blood sugars are rising up can add longstanding insulins. Status: Acute Qualifiers: Diabetes mellitus type: type 2 Diabetes mellitus terminal carman insulin use: with terminal carman use Diabetes mellitus complication status: without complication Qualified Code(s): E11.9 - Type 2 diabetes mellitus without complications; Z79.4 - intermodal dispatcher (current) use of insulin (5) Paroxysmal A-fib: Status: Acute (6) NSTEMI (non-ST elevated myocardial infarction): -Baseline troponin 154, 6-hour 140, delta -13.[address]-T wave changes, no complaints of chest pain -Likely related to Covid related myocarditis -Cannot rule out underlying cardiac etiology given history of type 2 diabetes mellitus -Continue aspirin, statin -Eliquis, metoprolol -Serial EKGs, serial troponins, telemetry monitoring - LV systolic function is normal with EF of 55-60% Normal diastolic function Trace mitral regurgitation No comparison studies available -Monitor for chest pain -Consult cardiology, medical management for now, outpatient stress testing Status: Ruled-out (7) Physical deconditioning: Status: Acute (8) Protein-energy malnutrition: Status: Acute Additional A&P Information ARDS secondary to COVID-19 pneumonia along with pulmonary embolism: Completed course of remdesivir. Post Tocilizumab 09/10. Wean dexamethasone to 6 mg every 12 hourly. DuoNebs every 6 hour, budesonide twice daily. Vitamin C, zinc. Aggressive pulmonary toilet with chest physical therapy. Full dose anticoagulation with Lovenox 1 mg/kg body weight every 12 hourly. Most likely will switch over to Xarelto after 10 days. Patient was on Eliquis when he developed pulmonary embolism so we will consider that as Eliquis failure. Monitor inflammatory markers including D-dimer, CRP, ESR every 48 hourly. D-dimer, CRP trending down for now. Pro-Toan negative, urine Legionella, bacterial antigen negative. Blood culture sent yesterday so far negative. Sputum culture awaited. For now low suspicion of superadded bacterial infection. Patient has had more than 10 days of cefepime and azithromycin along with MRSA coverage with linezolid and vancomycin during this hospitalization. For now hold off on antibiotics. Echocardiogram results appreciated. We will plan to keep patient as negative possible. Currently patient has poor oral intake. We will hold off on any diuretics. Paroxysmal A. fib: Rate controlled currently. Continue with amiodarone 200 mg twice daily. Continue with metoprolol 25 mg twice daily. Hypertension: Goal blood pressure less than 140/90 mmHg. Continue with metoprolol as above and amlodipine 5 mg daily. Protein energy malnutrition: Patient has had poor oral intake during this hospitalization due to intubated and post intubated status and currently has BiPAP dependent. Hold off on TPN for now. Patient having better oral intake today. We will continue to monitor. Limited resuscitation. Dysphagia 2 diet. Full dose Lovenox. Protonix for PUD prophylaxis. Plan for the day: Change for today as has been more than 9 days. Continue with physical therapy, chest PT. Oxygen supplementation keeping saturation in the mid to high 80s. To be placed back on CPAP overnight so he can rest. Nystatin swish and swallow. Lasix 40 mg IV once dose. Monitor input output. Will wean down dexamethasone further tomorrow. Start on Lantus 30 units twice daily given elevated blood sugars. Repeat Lasix. Increase metoprolol dose to 50 mg twice daily for better heart rate control. Attestations Medical Necessity Statement*: Requires further hospitalization for management of severe hypoxic respiratory failure/ARDS secondary to COVID-19 pneumonia while patient is BiPAP to heated high flow dependent, severe protein energy malnutrition and physical deconditioning Critical Care Time: The high probability of a clinically significant, sudden or life threatening deterioration of the patient's [pulmonary] system(s) required my full and direct attention, intervention and personal management. The critical care time is as shown. This time is in addition to time spent performing any reported procedures but includes the following: [x] Data and vital sign review and interpretation [x] Patient assessment, examination and intervention [x] Documentation [x] Medication orders and management Coding Level of Care Code Acute Battery Tester And Repairer for [facility] Diagnoses ARDS (adult respiratory distress syndrome) J80 Pneumonia due to COVID-19 virus U07.1; J12.82 Pulmonary embolism I26.99 Diabetes E11.9; Z79.4 Diabetes mellitus type: type 2 Diabetes mellitus senior care insulin use: with terminal carman use Diabetes mellitus complication status: without complication Paroxysmal A-fib I48.0 NSTEMI (non-ST elevated myocardial infarction) I21.4 Physical deconditioning R53.81 Protein-energy malnutrition E46
--- NOTE | 2021-09-22 15:59 | PC.NURSE ---
1515 Ramires catheter exchanged for a new 16fr ramires. Pt tolerated procedure well. Ramires was placed using sterile technique and connected to a new urimeter bag. Pt up and down from chair today, tolerated fair, required increased o2 d/t o2 sats dropping during exertion. Recovered quickly. No other issues noted. Will monitor.
[2021-09-22 16:39] LABS: Glucose Point of Care 276 mg/dL (70-110)
--- NOTE | 2021-09-22 17:59 | PC.NURSE ---
Shift Note Frequent safety and comfort rounds continue. Orders and/or nursing care completed as indicated. Patient monitored for response to intervention and treatment(s). Education provided includes treatment plan, medications, physical therapy, and O2 safety. Pt up to chair for dinner on hiflo NC. tolerating well, sats in the upper 80's after recovering after dinner. Pt had near syncopal episode while transferring to chair. Pt able to get seated before episode. Staff at bedside, BP stable, O2 sat in the low 80's and heart rate WNL. Recovered well. Yi cath draining freely. Will continue to monitor.
[2021-09-22 20:41] LABS: Glucose Point of Care 242 mg/dL (70-110)
[2021-09-22] MEDS: atorvastatin 40 mg Tablet PO (20:48)
--- NOTE | 2021-09-22 21:59 | PC.NURSE ---
Assisted patient from chair back to bed with help from another RN; patient tolerated till asked to slide up in bed. Patient then slumped over, unresponsive. Sternal rubs, alcohol pad placed under patient's nose, O2 sat 54%. Patient aroused upon further sternal rubs, RT notified, cpap applied. Patient responsive, resting, O2 sat 88%+.
[2021-09-23] VITALS (59 sets, daily range): BP systolic 99–151; BP diastolic 61–89; PULSE 77–100; RESP 17–35; TEMP 36.6–37.1; O2SAT 75–97
[2021-09-23] MEDS: ipratropium-albuterol 3 mL Neb INHALATION ×7 (00:35→23:11)
[2021-09-23] MEDS: enoxaparin 100 mg/mL Syringe 90 MG SUBCUT ×2 (03:00→14:18)
[2021-09-23] MEDS: dexamethasone 10 mg/mL INJ 6 MG IVP (05:59)
[2021-09-23] MEDS: levoFLOXacin 500 mg Tablet PO (06:00)
--- NOTE | 2021-09-23 06:00 | XRR_ITS ---
PROCEDURE INFORMATION: Exam: XR Chest Exam date and time: 09/23/2021 6:00 AM Age: 61 years old Clinical indication: Shortness of breath; Patient HX: F/u covid pneumonia TECHNIQUE: Imaging protocol: XR of the chest. Views: 1 view. COMPARISON: CR XR chest 1V portable [id number] 09/21/2021 4:36 AM FINDINGS: Tubes, catheters and devices: Tip of the left IJ catheter still in the right atrium. Lungs: Interval slight decrease in the lung volumes. No apparent significant change in the patchy airspace opacities in both lower lungs. Pleural spaces: Still no pneumothorax. No interval large pleural effusion. Heart/Mediastinum: No interval cardiomegaly. Vasculature: Continued aortic elongation. Bones/joints: No suggestion of acute bony disease. XR/XR chest 1V portable [id number] IMPRESSION: Interval slight decrease in the lung volumes, but no significant change in the bilateral lung disease. Stable positioning of the left IJ catheter. Other findings detailed above. Radiation Dose CTDIVOL = (mGy): DLP = (mGy-cm)
[2021-09-23 06:59] LABS: Glucose Point of Care 167 mg/dL (70-110)
--- NOTE | 2021-09-23 07:11 | PC.NURSE ---
Report received, assessment completed. Pt resting in bed with bipap in place, VSS. AAOx4. Pt able to roll side to side to reposition turn sheet. tolerated well. Repositioned per staff. Denies any pain or needs at this time. Stat lock on ramires repaced. Urine appears very concentrated this AM. HOB elevated, SR up x 3, clwr. Will monitor.
[2021-09-23] MEDS: budesonide 0.5 mg/2 mL Neb INHALATION ×2 (07:47→19:44)
[2021-09-23] MEDS: nystatin 100,000 unit/mL UDC 5 mL 200000 UNIT PO ×4 (08:05→20:04)
[2021-09-23] MEDS: amlodipine 5 mg Tablet PO (08:06)
[2021-09-23] MEDS: tamsulosin 0.4 mg Capsule PO (08:06)
[2021-09-23] MEDS: zinc gluconate 50 mg Tablet PO (08:06)
[2021-09-23] MEDS: ferrous gluconate 324 mg Tablet PO ×2 (08:06→17:13)
[2021-09-23] MEDS: ascorbic acid 500 mg Tablet 1000 MG PO ×2 (08:06→17:13)
[2021-09-23] MEDS: amiodarone 200 mg Tablet PO ×2 (08:06→17:13)
[2021-09-23] MEDS: metoprolol tartrate 50 mg Tablet PO ×2 (08:06→20:03)
[2021-09-23] MEDS: benzonatate 100 mg Capsule PO ×3 (08:06→20:03)
[2021-09-23] MEDS: insulin glargine 100 units/1 mL 30 UNIT SUBCUT (08:06)
[2021-09-23] MEDS: insulin lispro 100 unit/1 mL SUBCUT ×4 (08:06→20:04)
[2021-09-23] MEDS: aspirin 81 mg EC Tablet PO (08:06)
[2021-09-23] MEDS: pantoprazole 40 mg SDV IVP (08:07)
[2021-09-23 11:05] LABS: Glucose Point of Care 181 mg/dL (70-110)
[2021-09-23] MEDS: albumin 12.5 GM/50 ML VIAL IV (11:21)
[2021-09-23 16:27] LABS: Glucose Point of Care 155 mg/dL (70-110)
--- NOTE | 2021-09-23 17:33 | PC.NURSE ---
Shift Note Frequent safety and comfort rounds continue. Orders and/or nursing care completed as indicated. Patient monitored for response to intervention and treatment(s). Education provided includes treatment plan, medications, physical therapy, oxygen needs and breathing exercises, and mobility. Pt verbalizes understanding and has been completing IS and acapella use every hour without prompting. Encouraged to cough frequently. Eating approx 50% of all meals, feeds self. VSS. Urine appears care manager in color compared to this morning. No other issues noted. Will continue to monitor.
--- NOTE | 2021-09-23 18:11 | P.PN_ITS ---
Subjective Subjective: Interval history: No complaints overnight. Continues to be remain motivated. Still being on CPAP overnight and heated high flow during the morning though on high oxygen supplementation. Working with physical therapy. Having better oral intake. Has remained afebrile. Medications: Reviewed: Yes Vitals/I&O/Wt Last Vital Signs Temp 97.9 F 09/28/21 08:00 Pulse 0 L 09/28/21 11:25 Resp 0 L 09/28/21 11:25 BP 0/0 09/28/21 11:25 Pulse Ox 0 L 09/28/21 11:25 Physical Exam Narrative: EXAM NARRATIVE: General: No acute distress, AO x3, HEENT: PERRLA, pupils bilaterally equal and reactive Chest: Bilateral bronchial breath sounds all over the lung hall, coarse crackles present all over the lung hall, poor air entry all over the lung hall CVS: S1-S2 regular, no murmurs, no tachycardia, no gallops, no rubs Abdomen: Soft, nontender, no organomegaly, bowel sounds present Neuro: No focal deficits, no facial deformity, AO x3, power 5/5 in all limbs Urinary Catheter Management^: Yi Latex: Cath Placed During This Visit: yes, but has since been removed by the nurse Reason for Continuing Indwelling Catheter: Accurate Measurement of Urinary Output in Critically Ill Patients Urinary Catheter Date of Insertion: 09/22/21 Urinary Catheter Time of Insertion: 15:10 Date Urinary Catheter Removed: 09/22/21 Time Urinary Catheter Discontinued: 15:05 Data : 09/28/21 06:05 09/28/21 06:05 A&P Assessment and plan (1) ARDS (adult respiratory distress syndrome): With persistently deteriorating condition, with worsening respiratory distress last night, with him not wanting to continue BiPAP, on a number of discussions with his and mother, consensus is been to escalate comfort care, this was initiated yesterday, and on additional discussion is transitioning to full comfort measures today. Status: Acute (2) Pneumonia due to COVID-19 virus: Status: Acute (3) Pulmonary embolism: Lovenox. PE despite being on Eliquis. Status: Acute (4) Diabetes: HbA1c 7.4. Continue with insulin sliding scale at moderate dose protocol. If his blood sugars are rising up can add longstanding insulins. Status: Acute Qualifiers: Diabetes mellitus type: type 2 Diabetes mellitus moth exterminator insulin use: with moth exterminator use Diabetes mellitus complication status: without complication Qualified Code(s): E11.9 - Type 2 diabetes mellitus without complications; Z79.4 - correction (current) use of insulin (5) Paroxysmal A-fib: Status: Acute (6) NSTEMI (non-ST elevated myocardial infarction): -Baseline troponin 154, 6-hour 140, delta -13.[address]-T wave changes, no complaints of chest pain -Likely related to Covid related myocarditis -Cannot rule out underlying cardiac etiology given history of type 2 diabetes mellitus -Continue aspirin, statin -Eliquis, metoprolol -Serial EKGs, serial troponins, telemetry monitoring - LV systolic function is normal with EF of 55-60% Normal diastolic function Trace mitral regurgitation No comparison studies available -Monitor for chest pain -Consult cardiology, medical management for now, outpatient stress testing Status: Ruled-out (7) Physical deconditioning: Status: Acute (8) Protein-energy malnutrition: Status: Acute Additional A&P Information DC central line 09/25 Paroxysmal A. fib: Rate controlled currently. Amiodarone 200 mg daily, metoprolol 50 mg twice daily Hypertension: Goal blood pressure less than 140/90 mmHg. Continue with metoprolol as above and amlodipine 5 mg daily. Protein energy malnutrition: Patient has had poor oral intake during this hospitalization due to intubated and post intubated status and currently has BiPAP dependent. Appetite improving. Attestations Medical Necessity Statement*: Requires further hospitalization for management of severe hypoxic respiratory failure/ARDS secondary to COVID-19 pneumonia while patient is BiPAP to heated high flow dependent, severe protein energy malnutrition and physical deconditioning Coding Level of Care Code Acute Hotshot Superintendent for [facility] Diagnoses ARDS (adult respiratory distress syndrome) J80 Pneumonia due to COVID-19 virus U07.1; J12.82 Pulmonary embolism I26.99 Diabetes E11.9; Z79.4 Diabetes mellitus type: type 2 Diabetes mellitus moth exterminator insulin use: with jail use Diabetes mellitus complication status: without complication Paroxysmal A-fib I48.0 NSTEMI (non-ST elevated myocardial infarction) I21.4 Physical deconditioning R53.81 Protein-energy malnutrition E46
[2021-09-23 19:45] LABS: Glucose Point of Care 214 mg/dL (70-110)
[2021-09-23] MEDS: atorvastatin 40 mg Tablet PO (20:04)
[2021-09-24] VITALS (54 sets, daily range): BP systolic 98–138; BP diastolic 55–79; PULSE 72–105; RESP 14–30; TEMP 36.5; O2SAT 70–97
[2021-09-24] MEDS: enoxaparin 100 mg/mL Syringe 90 MG SUBCUT ×2 (01:18→14:57)
[2021-09-24] MEDS: ipratropium-albuterol 3 mL Neb INHALATION ×6 (03:18→23:09)
[2021-09-24 03:27] LABS: Basophils % 0.2 %; Eosinophils # 0.3 10^3/uL (0.0-0.8); Eosinophils % 1.8 %; Hematocrit 36.9 % (42.0-52.0); Hemoglobin 12.3 g/dL (11.7-16.6); Lymphocytes # 0.7 10^3/uL (0.8-4.8); Lymphocytes % 4.6 %; Mean Corpuscular HGB Conc 33.3 g/dL (30.0-36.0); Mean Corpuscular Hemoglobin 30.6 pg (28.0-34.0); Mean Corpuscular Volume 91.8 fl (80-94); Mean Platelet Volume 12.3 fL (7.4-10.4); Monocytes # 0.3 10^3/uL (0.2-0.9); Monocytes % 1.7 %; Neutrophils % 90.6 %; Nucleated Red Blood Cells % 0 %; Platelet Count 121 10^3/cmm (130-400); Red Blood Count 4.02 10^6/uL (4.1-5.3); Red Cell Distribution Width 12.8 % (12.1-15.1); White Blood Count 16.1 10^3/uL (4.0-10.0)
[2021-09-24 04:07] LABS: Procalcitonin 0.06 ng/mL (0-0.5)
[2021-09-24 04:21] LABS: Alanine Aminotransferase 70 U/L (0-41); Albumin Level 3.1 g/dL (3.5-5.2); Alkaline Phosphatase 143 IU/L (40-130); Anion Gap 14.9 (5-19); Aspartate Amino Transferase 69 U/L (0-40); Blood Urea Nitrogen 35 mg/dL (8-23); C Reactive Protein 2.6 mg/L (0.0-4.9); Calcium 8.4 mg/dL (8.5-10.5); Carbon Dioxide 29 mmol/L (22-29); Chloride 94 mmol/L (98-107); Glucose 84 mg/dL (65-115); Osmolality Calculated 285 mOsm/kg (285-295); Potassium 3.9 mmol/L (3.5-5.1); Sodium 134 mmol/L (136-145); Total Protein 5.1 g/dL (6.6-8.7)
[2021-09-24] MEDS: levoFLOXacin 500 mg Tablet PO (06:03)
[2021-09-24 06:11] LABS: Glucose Point of Care 76 mg/dL (70-110)
[2021-09-24] MEDS: nystatin 100,000 unit/mL UDC 5 mL 200000 UNIT PO ×4 (08:10→20:00)
[2021-09-24] MEDS: pantoprazole 40 mg SDV IVP (08:11)
[2021-09-24] MEDS: benzonatate 100 mg Capsule PO ×3 (08:11→20:00)
[2021-09-24] MEDS: ferrous gluconate 324 mg Tablet PO ×2 (08:11→17:39)
[2021-09-24] MEDS: aspirin 81 mg EC Tablet PO (08:11)
[2021-09-24] MEDS: dexamethasone 10 mg/mL INJ 6 MG IVP (08:11)
[2021-09-24] MEDS: amiodarone 200 mg Tablet PO (08:12)
[2021-09-24] MEDS: amlodipine 5 mg Tablet PO (08:12)
[2021-09-24] MEDS: tamsulosin 0.4 mg Capsule PO (08:12)
[2021-09-24] MEDS: metoprolol tartrate 50 mg Tablet PO ×2 (08:12→20:00)
[2021-09-24] MEDS: ascorbic acid 500 mg Tablet 1000 MG PO ×2 (08:12→17:39)
[2021-09-24] MEDS: zinc gluconate 50 mg Tablet PO (08:14)
[2021-09-24] MEDS: budesonide 0.5 mg/2 mL Neb INHALATION ×2 (08:18→19:36)
--- NOTE | 2021-09-24 09:15 | PC.NURSE ---
Passed out Patient passed out during transfer from bed to chair, after sitting down in chair. No injury. No significant change in BP, HR, SPO2, or RR. Patient was on Bipap during transfer. Lasted approximately 30 seconds. Patient was noted to do this yesterday, per shift report.
[2021-09-24 11:04] LABS: Glucose Point of Care 171 mg/dL (70-110)
[2021-09-24] MEDS: insulin lispro 100 unit/1 mL SUBCUT ×3 (12:11→20:00)
--- NOTE | 2021-09-24 14:04 | P.PN_ITS ---
Subjective Subjective: Interval history: No complaints overnight. Continues to be remain motivated. Still being on CPAP overnight and heated high flow during the morning though on high oxygen supplementation. Working with physical therapy. Having better oral intake. Has remained afebrile. While working with physical therapy yesterday and getting out of bed had an episode of presyncope/syncope yesterday evening in which he blanked out for around 5 to 10 seconds and recovered by himself. During the event patient's vitals and saturation remained stable. Patient denies any aura or dizziness during that time. Was connected to telemetry and did not show any arrhythmia. Medications: Reviewed: Yes Vitals/I&O/Wt Last Vital Signs Temp 97.7 F 09/24/21 04:00 Pulse 80 09/24/21 13:01 Resp 20 H 09/24/21 11:25 BP 117/66 09/24/21 12:00 Pulse Ox 77 L 09/24/21 12:00 09/23/21 09/24/21 09/24/21 22:59 06:59 14:59 Intake Total 360 / 1250 360 / 360 Output Total 600 / 600 420 / 1020 Balance -240 / 650 -420 / 230 360 / 360 Weight last 48 hrs Weight 88.904 kg Weight 89.358 kg Physical Exam Narrative: EXAM NARRATIVE: General: No acute distress, AO x3, HEENT: PERRLA, pupils bilaterally equal and reactive Chest: Bilateral bronchial breath sounds all over the lung hall, coarse crackles present all over the lung hall, poor air entry all over the lung hall CVS: S1-S2 regular, no murmurs, no tachycardia, no gallops, no rubs Abdomen: Soft, nontender, no organomegaly, bowel sounds present Neuro: No focal deficits, no facial deformity, AO x3, power 5/5 in all limbs Urinary Catheter Management^: Yi Latex: Cath Placed During This Visit: yes, but has since been removed by the nurse Reason for Continuing Indwelling Catheter: Accurate Measurement of Urinary Output in Critically Ill Patients Urinary Catheter Date of Insertion: 09/22/21 Urinary Catheter Time of Insertion: 15:10 Date Urinary Catheter Removed: 09/22/21 Time Urinary Catheter Discontinued: 15:05 Data : 09/24/21 02:45 09/24/21 02:45 Micro: Microbiology 09/18/21 13:34 Blood Culture - Final Blood NO GROWTH AFTER 5 DAYS 09/18/21 13:34 Blood Culture - Final Blood NO GROWTH AFTER 5 DAYS A&P Assessment and plan (1) ARDS (adult respiratory distress syndrome): Status: Acute (2) Pneumonia due to COVID-19 virus: Status: Acute (3) Pulmonary embolism: Status: Acute (4) Diabetes: HbA1c 7.4. Continue with insulin sliding scale at moderate dose protocol. If his blood sugars are rising up can add longstanding insulins. Status: Acute Qualifiers: Diabetes mellitus type: type 2 Diabetes mellitus retirement insulin use: with termite control service representative use Diabetes mellitus complication status: without complication Qualified Code(s): E11.9 - Type 2 diabetes mellitus without complications; Z79.4 - detention (current) use of insulin (5) Paroxysmal A-fib: Status: Acute (6) NSTEMI (non-ST elevated myocardial infarction): -Baseline troponin 154, 6-hour 140, delta -13.[address]-T wave changes, no complaints of chest pain -Likely related to Covid related myocarditis -Cannot rule out underlying cardiac etiology given history of type 2 diabetes mellitus -Continue aspirin, statin -Eliquis, metoprolol -Serial EKGs, serial troponins, telemetry monitoring - LV systolic function is normal with EF of 55-60% Normal diastolic function Trace mitral regurgitation No comparison studies available -Monitor for chest pain -Consult cardiology, medical management for now, outpatient stress testing Status: Ruled-out (7) Physical deconditioning: Status: Acute (8) Protein-energy malnutrition: Status: Acute Additional A&P Information ARDS secondary to COVID-19 pneumonia along with pulmonary embolism: Completed course of remdesivir. Post Tocilizumab 09/10. Wean dexamethasone to 6 mg every 12 hourly. DuoNebs every 6 hour, budesonide twice daily. Vitamin C, zinc. Aggressive pulmonary toilet with chest physical therapy. Full dose anticoagulation with Lovenox 1 mg/kg body weight every 12 hourly. Most likely will switch over to Xarelto after 10 days. Patient was on Eliquis when he developed pulmonary embolism so we will consider that as Eliquis failure. Monitor inflammatory markers including D-dimer, CRP, ESR every 48 hourly. D- dimer, CRP trending down for now. Pro-Toan negative, urine Legionella, bacterial antigen negative. Blood culture sent yesterday so far negative. Sputum culture awaited. For now low suspicion of superadded bacterial infection. Patient has had more than 10 days of cefepime and azithromycin along with MRSA coverage with linezolid and vancomycin during this hospitalization. For now hold off on antibiotics. Echocardiogram results appreciated. We will plan to keep patient as negative possible. Currently patient has poor oral intake. We will hold off on any diuretics. Paroxysmal A. fib: Rate controlled currently. Amiodarone 200 mg daily, metoprolol 50 mg twice daily Hypertension: Goal blood pressure less than 140/90 mmHg. Continue with metoprolol as above and amlodipine 5 mg daily. Protein energy malnutrition: Patient has had poor oral intake during this hospitalization due to intubated and post intubated status and currently has BiPAP dependent. Hold off on TPN for now. Patient having better oral intake today. We will continue to monitor. Limited resuscitation. Dysphagia 2 diet. Full dose Lovenox. Protonix for PUD prophylaxis. Plan for the day: Change for today as has been more than 9 days. Continue with physical therapy, chest PT. Oxygen supplementation keeping saturation in the mid to high 80s. To be placed back on CPAP overnight so he can rest. Nystatin swish and swallow. Hold off on a diuretic for now. Monitor input output. Wean dexamethasone to 6 mg IV daily. Decrease Lantus to 20 units every morning. Decrease amiodarone to 200 mg daily. Continue with metoprolol dose to 50 mg twice daily for better heart rate control. Attestations Medical Necessity Statement*: Requires further hospitalization for management of hypoxic respiratory failure secondary COVID-19 pneumonia as patient is on BiPAP and he is very high flow dependent Critical Care Time: The high probability of a clinically significant, sudden or life threatening deterioration of the patient's [pulmonary] system(s) required my full and direct attention, intervention and personal management. The critical care time is as shown. This time is in addition to time spent perform ing any reported procedures but includes the following: [x] Data and vital sign review and interpretation [x] Patient assessment, examination and intervention [x] Documentation [x] Medication orders and management Critical Care Time (min): 90 Coding Level of Care Code Acute Architecture Consultant for [facility] [place] Diagnoses ARDS (adult respiratory distress syndrome) J80 Pneumonia due to COVID-19 virus U07.1; J12.82 Pulmonary embolism I26.99 Diabetes E11.9; Z79.4 Diabetes mellitus type: type 2 Diabetes mellitus retirement insulin use: with termite control service representative use Diabetes mellitus complication status: without complication Paroxysmal A-fib I48.0 NSTEMI (non-ST elevated myocardial infarction) I21.4 Physical deconditioning R53.81 Protein-energy malnutrition E46
[2021-09-24] MEDS: ondansetron 2 mg/ML SDV 2 mL 4 MG IVP (15:53)
[2021-09-24 17:12] LABS: Glucose Point of Care 294 mg/dL (70-110)
[2021-09-24] MEDS: docusate sodium 100 mg Capsule 200 MG PO (18:04)
[2021-09-24 19:58] LABS: Glucose Point of Care 301 mg/dL (70-110)
[2021-09-24] MEDS: atorvastatin 40 mg Tablet PO (20:00)
[2021-09-25] VITALS (52 sets, daily range): BP systolic 83–129; BP diastolic 57–79; PULSE 76–107; RESP 14–46; TEMP 36.9–37.2; O2SAT 71–99; BMI 26.6
[2021-09-25] MEDS: enoxaparin 100 mg/mL Syringe 90 MG SUBCUT ×2 (01:57→14:39)
[2021-09-25] MEDS: ipratropium-albuterol 3 mL Neb INHALATION ×6 (03:10→23:51)
--- NOTE | 2021-09-25 03:35 | PC.NURSE ---
No acute changes overnight resting well.
[2021-09-25 05:05] LABS: Basophils % 0.1 %; Eosinophils # 0.4 10^3/uL (0.0-0.8); Eosinophils % 2.3 %; Hematocrit 36.7 % (42.0-52.0); Hemoglobin 12.4 g/dL (11.7-16.6); Lymphocytes # 0.6 10^3/uL (0.8-4.8); Lymphocytes % 3.2 %; Mean Corpuscular HGB Conc 33.8 g/dL (30.0-36.0); Mean Corpuscular Hemoglobin 31.2 pg (28.0-34.0); Mean Corpuscular Volume 92.2 fl (80-94); Mean Platelet Volume 12.6 fL (7.4-10.4); Monocytes # 0.3 10^3/uL (0.2-0.9); Monocytes % 1.7 %; Neutrophils # 15.54 10^3/uL (1.8-7.7); Neutrophils % 91.6 %; Nucleated Red Blood Cells % 0 %; Platelet Count 111 10^3/cmm (130-400); Red Blood Count 3.98 10^6/uL (4.1-5.3)
[2021-09-25 05:23] LABS: Alanine Aminotransferase 57 U/L (0-41); Alkaline Phosphatase 158 IU/L (40-130); Anion Gap 13.2 (5-19); Aspartate Amino Transferase 56 U/L (0-40); Blood Urea Nitrogen 31 mg/dL (8-23); Calcium 8.6 mg/dL (8.5-10.5); Carbon Dioxide 30 mmol/L (22-29); Chloride 97 mmol/L (98-107); Globulin 2.2 g/dL (1.3-4.6); Glomerular Filtration Rate 137.4 mL/min (90-130); Glucose 95 mg/dL (65-115); Osmolality Calculated 288 mOsm/kg (285-295); Potassium 4.2 mmol/L (3.5-5.1); Sodium 136 mmol/L (136-145); Total Bilirubin 1.1 mg/dL (0.15-1.2); Total Protein 5.2 g/dL (6.6-8.7)
[2021-09-25 05:37] LABS: Glucose Point of Care 81 mg/dL (70-110)
[2021-09-25] MEDS: levoFLOXacin 500 mg Tablet PO (06:28)
[2021-09-25] MEDS: insulin glargine 100 units/1 mL 20 UNIT SUBCUT (06:28)
[2021-09-25 07:09] LABS: Glucose Point of Care 82 mg/dL (70-110)
[2021-09-25] MEDS: budesonide 0.5 mg/2 mL Neb INHALATION ×2 (08:19→19:42)
[2021-09-25] MEDS: amiodarone 200 mg Tablet PO (08:21)
[2021-09-25] MEDS: amlodipine 5 mg Tablet PO (08:21)
[2021-09-25] MEDS: ferrous gluconate 324 mg Tablet PO ×2 (08:21→17:17)
[2021-09-25] MEDS: ascorbic acid 500 mg Tablet 1000 MG PO ×2 (08:21→17:17)
[2021-09-25] MEDS: benzonatate 100 mg Capsule PO ×3 (08:22→20:12)
[2021-09-25] MEDS: aspirin 81 mg EC Tablet PO (08:22)
[2021-09-25] MEDS: dexamethasone 10 mg/mL INJ 6 MG IVP (08:22)
[2021-09-25] MEDS: pantoprazole 40 mg SDV IVP (08:23)
[2021-09-25] MEDS: nystatin 100,000 unit/mL UDC 5 mL 200000 UNIT PO ×4 (08:23→20:12)
[2021-09-25] MEDS: tamsulosin 0.4 mg Capsule PO (08:23)
[2021-09-25] MEDS: metoprolol tartrate 50 mg Tablet PO ×2 (08:23→20:12)
[2021-09-25] MEDS: zinc gluconate 50 mg Tablet PO (08:27)
--- NOTE | 2021-09-25 08:50 | P.PN_ITS ---
Subjective Subjective: Interval history: Transferred to the chair, saturation decreased transiently and down into the 70s, but coming up currently up into the 80s. On BiPAP. Denies being uncomfortable. Denies chest pain or pressure. Appetite reported has been increasing. No bowel movement in a couple of days. Denies nausea or vomiting. Vitals/I&O/Wt Last Vital Signs Temp 98.5 F 09/25/21 04:00 Pulse 81 09/25/21 08:39 Resp 20 H 09/25/21 08:39 BP 123/73 09/25/21 08:00 Pulse Ox 93 09/25/21 08:39 09/24/21 09/25/21 09/25/21 22:59 06:59 14:59 Intake Total 350 / 710 Output Total 650 / 650 450 / 1100 Balance -300 / 60 -450 / -390 Weight last 48 hrs Weight 86.353 kg Weight 88.904 kg Physical Exam Narrative: EXAM NARRATIVE: Just moved up to the chair. Const: COMMON NORMALS: no acute distress and alert GENERAL APPEARANCE: cooperative and frail appearing ORIENTATION/CONSCIOUSNESS: Yes awake OTHER: Stronger than last time I had seen. HENMT: COMMON NORMALS: oropharynx normal Neck/C-Spine: COMMON NORMALS: no JVD Resp: COMMON NORMALS: clear to auscultation bilaterally AUSCULTATION: clear to auscultation bilaterally Cardio: COMMON NORMALS: no JVD, regular rhythm, S1 normal heart sound present, S2 normal heart sound present and No murmurs present (Cardio) RHYTHM: regular rhythm HEART SOUNDS: S1 normal heart sound present and S2 normal heart sound present Extremity: COMMON NORMALS: no joint enlargement and no pedal edema Neuro: SENSORIUM/ORIENTATION: Yes alert Skin: COMMON NORMALS: no rashes or lesions noted GENERAL SKIN EXAM: no rashes or lesions noted Urinary Catheter Management^: Yi Latex: Cath Placed During This Visit: yes, but has since been removed by the nurse Reason for Continuing Indwelling Catheter: Accurate Measurement of Urinary Output in Critically Ill Patients Urinary Catheter Date of Insertion: 09/22/21 Urinary Catheter Time of Insertion: 15:10 Date Urinary Catheter Removed: 09/22/21 Time Urinary Catheter Discontinued: 15:05 Data : 09/25/21 04:20 09/25/21 04:20 A&P Assessment and plan (1) ARDS (adult respiratory distress syndrome): Wean off CPAP as tolerating, continue when necessary. Heated high flow as tolerating. Mobilization, nutrition is tolerating. Appetite reported increasing. Continue speech therapy follow-up with regards to dysphagia. Dysphagia diet. Aspiration precautions. For now continue Levaquin. Was restarted on high-dose steroids last week. Has been tapered down. Currently 6 mg dexamethasone daily. Continue breathing treatments, supportive care. Status: Acute (2) Pneumonia due to COVID-19 virus: Status: Acute (3) Pulmonary embolism: Lovenox. PE despite being on Eliquis. Status: Acute (4) Diabetes: HbA1c 7.4. Continue with insulin sliding scale at moderate dose protocol. If his blood sugars are rising up can add longstanding insulins. Status: Acute Qualifiers: Diabetes mellitus type: type 2 Diabetes mellitus continuous churn buttermaker insulin use: with continuous churn buttermaker use Diabetes mellitus complication status: without complication Qualified Code(s): E11.9 - Type 2 diabetes mellitus without complications; Z79.4 - shelter (current) use of insulin (5) Paroxysmal A-fib: Status: Acute (6) NSTEMI (non-ST elevated myocardial infarction): -Baseline troponin 154, 6-hour 140, delta -13.[address]-T wave changes, no complaints of chest pain -Likely related to Covid related myocarditis -Cannot rule out underlying cardiac etiology given history of type 2 diabetes mellitus -Continue aspirin, statin -Eliquis, metoprolol -Serial EKGs, serial troponins, telemetry monitoring - LV systolic function is normal with EF of 55-60% Normal diastolic function Trace mitral regurgitation No comparison studies available -Monitor for chest pain -Consult cardiology, medical management for now, outpatient stress testing Status: Ruled-out (7) Physical deconditioning: Status: Acute (8) Protein-energy malnutrition: Status: Acute Additional A&P Information Confirm peripheral access, DC central line. Paroxysmal A. fib: Rate controlled currently. Amiodarone 200 mg daily, metoprolol 50 mg twice daily Hypertension: Goal blood pressure less than 140/90 mmHg. Continue with metoprolol as above and amlodipine 5 mg daily. Protein energy malnutrition: Patient has had poor oral intake during this hospi talization due to intubated and post intubated status and currently has BiPAP dependent. Appetite improving. Attestations Medical Necessity Statement*: Continue admission for management of hypoxic respiratory failure following severe COVID-19. Coding Level of Care Code Acute Traffic And Transport Planner for [facility] Diagnoses ARDS (adult respiratory distress syndrome) J80 Pneumonia due to COVID-19 virus U07.1; J12.82 Pulmonary embolism I26.99 Diabetes E11.9; Z79.4 Diabetes mellitus type: type 2 Diabetes mellitus alf insulin use: with continuous churn buttermaker use Diabetes mellitus complication status: without complication Paroxysmal A-fib I48.0 NSTEMI (non-ST elevated myocardial infarction) I21.4 Physical deconditioning R53.81 Protein-energy malnutrition E46
--- NOTE | 2021-09-25 09:24 | PC.CHAP ---
Pastoral Care Encounter/Spiritual Assessment Type of Contact [] Declined bulldozer operator visit [] Patient/Family/Request visit [] Outpatient visit [] Follow-up visit [] Physician referral [] Code/Alert [x] Routine visit [] Staff referral [] Actively dying [] Patient sleeping [] Family support [] [] Out of room [] Palliative care [] [x] Receiving care in room [] Pre-surgical visit [] Trauma [] Long length of stay [x] ICU visit [] Other: Relational/Emotional Strength [] Patient feels connected with others/family/visitors/staff [] Distress [] Loneliness/isolation [] Abandonment Spirituality of Patient [] Person of Rachel [] Attends Yazidism of their Rachel [] Believes in Prayer [] Reads Bible or Buddhism materials [] There are Spiritual issues to be addressed Services Advisor Interventions [x] Prayer [] Active listening [] Non-anxious presence [] Spiritual/emotional support [] Crisis/trauma care [] Spiritual counseling [] Bereavement support [] Provided bereavement packet [] Provided Bible/devotional materials [] Provided toy/stuffed animal, coloring book to patient or family member [] Provided Communion [] Anointing/[place] [] Salvation [x] Completed spiritual assessment [] Other: Impact on Illness or Injury [] Angry [] Fearful [] Anxious [] Often cries [] Exhaustion [] Unable to work [] Unable to attend sabianist [] Unable to walk/stand [] Unable to read [] Unable to drive [] Unable to eat/drink [] Unable to sleep [] Unable to be with family [] Patient intubated [] Other: Summary Time spent with patient
[2021-09-25 11:47] LABS: Glucose Point of Care 185 mg/dL (70-110)
[2021-09-25] MEDS: insulin lispro 100 unit/1 mL SUBCUT ×3 (12:30→20:34)
[2021-09-25 17:09] LABS: Glucose Point of Care 291 mg/dL (70-110)
[2021-09-25 20:09] LABS: Glucose Point of Care 318 mg/dL (70-110)
[2021-09-25] MEDS: atorvastatin 40 mg Tablet PO (20:12)
[2021-09-26] VITALS (60 sets, daily range): BP systolic 91–144; BP diastolic 68–84; PULSE 79–94; RESP 12–44; TEMP 36.3–37.1; O2SAT 81–98; BMI 27.6
[2021-09-26] MEDS: enoxaparin 100 mg/mL Syringe 90 MG SUBCUT ×2 (02:55→15:31)
[2021-09-26] MEDS: ipratropium-albuterol 3 mL Neb INHALATION ×6 (03:42→23:30)
[2021-09-26 04:43] LABS: Basophils % 0.2 %; Eosinophils % 5.3 %; Hematocrit 38.5 % (42.0-52.0); Hemoglobin 12.9 g/dL (11.7-16.6); Lymphocytes # 0.8 10^3/uL (0.8-4.8); Lymphocytes % 4.1 %; Mean Corpuscular HGB Conc 33.5 g/dL (30.0-36.0); Mean Corpuscular Hemoglobin 30.7 pg (28.0-34.0); Mean Corpuscular Volume 91.7 fl (80-94); Mean Platelet Volume 12.2 fL (7.4-10.4); Monocytes # 0.4 10^3/uL (0.2-0.9); Monocytes % 2.3 %; Neutrophils % 86.8 %; Nucleated Red Blood Cells % 0 %; Platelet Count 128 10^3/cmm (130-400); Red Cell Distribution Width 13.3 % (12.1-15.1); White Blood Count 18.9 10^3/uL (4.0-10.0)
[2021-09-26 05:08] LABS: D Dimer 2.84 ug/mIFEU (0-0.59)
[2021-09-26] MEDS: levoFLOXacin 500 mg Tablet PO (05:21)
[2021-09-26 05:22] LABS: Alanine Aminotransferase 48 U/L (0-41); Albumin Level 2.9 g/dL (3.5-5.2); Alkaline Phosphatase 175 IU/L (40-130); Aspartate Amino Transferase 56 U/L (0-40); Blood Urea Nitrogen 31 mg/dL (8-23); Calcium 8.5 mg/dL (8.5-10.5); Carbon Dioxide 31 mmol/L (22-29); Chloride 98 mmol/L (98-107); Globulin 2.5 g/dL (1.3-4.6); Glomerular Filtration Rate 169.6 mL/min (90-130); Glucose 53 mg/dL (65-115); Osmolality Calculated 288 mOsm/kg (285-295); Sodium 137 mmol/L (136-145); Total Bilirubin 1.2 mg/dL (0.15-1.2); Total Protein 5.4 g/dL (6.6-8.7)
[2021-09-26] MEDS: insulin glargine 100 units/1 mL 20 UNIT SUBCUT (05:22)
[2021-09-26 05:44] LABS: Glucose Point of Care 85 mg/dL (70-110)
[2021-09-26 06:16] LABS: Anion Gap 12.1 (5-19); Potassium 4.1 mmol/L (3.5-5.1)
--- NOTE | 2021-09-26 06:37 | PC.NURSE ---
Shift Note Frequent safety and comfort rounds continue. Orders and/or nursing care completed as indicated. Patient monitored for response to intervention and treatment(s). Education provided includes medication and treatment plan. Patient verbalizes understanding of teaching. Patient remains on CPAP at 100% FiO2 and alert/oriented x4. Yi catheter drained 500 mls of light mau urine overnight. Patient has pressure wound on the sacrum that is covered with an Optifoam dressing. Patient noted to sleep throughout the night and had no complaints of pain. Will continue to monitor.
[2021-09-26 07:18] LABS: Glucose Point of Care 77 mg/dL (70-110)
[2021-09-26] MEDS: budesonide 0.5 mg/2 mL Neb INHALATION ×2 (08:49→19:29)
--- NOTE | 2021-09-26 09:05 | P.PN_ITS ---
Subjective Subjective: Interval history: Reports he is doing okay. Denies any new symptoms. Has not been coughing. Denies chest or abdominal discomfort. No trouble urinating, no dysuria, no diarrhea. Vitals/I&O/Wt Last Vital Signs Temp 98.6 F 09/26/21 04:00 Pulse 83 09/26/21 08:00 Resp 28 H 09/26/21 08:00 BP 126/81 09/26/21 08:00 Pulse Ox 93 09/26/21 08:00 09/25/21 09/26/21 09/26/21 22:59 06:59 14:59 Intake Total 60 / 300 50 / 350 Output Total 575 / 575 500 / 1075 Balance -515 / -275 -450 / -725 Weight last 48 hrs Weight 87.345 kg Weight 86.353 kg Physical Exam Narrative: EXAM NARRATIVE: Just moved up to the chair. Const: COMMON NORMALS: no acute distress and alert GENERAL APPEARANCE: cooperative and frail appearing ORIENTATION/CONSCIOUSNESS: Yes awake OTHER: Stronger than last time I had seen. HENMT: COMMON NORMALS: oropharynx normal Neck/C-Spine: COMMON NORMALS: no JVD Resp: COMMON NORMALS: clear to auscultation bilaterally AUSCULTATION: clear to auscultation bilaterally Cardio: COMMON NORMALS: no JVD, regular rhythm, S1 normal heart sound present, S2 normal heart sound present and No murmurs present (Cardio) RHYTHM: regular rhythm HEART SOUNDS: S1 normal heart sound present and S2 normal heart sound present Extremity: COMMON NORMALS: no joint enlargement and no pedal edema GENERAL: Yes edema (trace at ankles) Neuro: SENSORIUM/ORIENTATION: Yes alert Skin: COMMON NORMALS: no rashes or lesions noted GENERAL SKIN EXAM: no rashes or lesions noted Urinary Catheter Management^: Yi Latex: Cath Placed During This Visit: yes, but has since been removed by the nurse Reason for Continuing Indwelling Catheter: Accurate Measurement of Urinary Output in Critically Ill Patients Urinary Catheter Date of Insertion: 09/22/21 Urinary Catheter Time of Insertion: 15:10 Date Urinary Catheter Removed: 09/22/21 Time Urinary Catheter Discontinued: 15:05 Data : 09/26/21 04:18 09/26/21 04:18 A&P Assessment and plan (1) ARDS (adult respiratory distress syndrome): Continue to wean oxygen support as tolerating. Mobilize as tolerating. Discussed with him. Cut down Decadron to 3 mg. Appetite had been increasing. Continue speech therapy follow-up with regards to dysphagia. Dysphagia diet. Aspiration precautions. For now continue Levaquin. Was restarted on high-dose steroids last week. Has been tapered down. Currently 6 mg dexamethasone daily. Continue breathing treatments, supportive care. Status: Acute (2) Pneumonia due to COVID-19 virus: Status: Acute (3) Pulmonary embolism: Lovenox. PE despite being on Eliquis. Status: Acute (4) Diabetes: HbA1c 7.4. Continue with insulin sliding scale at moderate dose protocol. If his blood sugars are rising up can add longstanding insulins. Status: Acute Qualifiers: Diabetes mellitus type: type 2 Diabetes mellitus terminal operator insulin use: with intermediate use Diabetes mellitus complication status: without complication Qualified Code(s): E11.9 - Type 2 diabetes mellitus without complications; Z79.4 - senior care (current) use of insulin (5) Paroxysmal A-fib: Status: Acute (6) NSTEMI (non-ST elevated myocardial infarction): -Baseline troponin 154, 6-hour 140, delta -13.[address]-T wave changes, no complaints of chest pain -Likely related to Covid related myocarditis -Cannot rule out underlying cardiac etiology given history of type 2 diabetes mellitus -Continue aspirin, statin -Eliquis, metoprolol -Serial EKGs, serial troponins, telemetry monitoring - LV systolic function is normal with EF of 55-60% Normal diastolic function Trace mitral regurgitation No comparison studies available -Monitor for chest pain -Consult cardiology, medical management for now, outpatient stress testing Status: Ruled-out (7) Physical deconditioning: Status: Acute (8) Protein-energy malnutrition: Status: Acute Additional A&P Information DC central line 09/25 Paroxysmal A. fib: Rate controlled currently. Amiodarone 200 mg daily, metoprolol 50 mg twice daily Hypertension: Goal blood pressure less than 140/90 mmHg. Continue with metoprolol as above and amlodipine 5 mg daily. Protein energy malnutrition: Patient has had poor oral intake during this hospitalization due to intubated and post intubated status and currently has BiPAP dependent. Appetite improving. Attestations Medical Necessity Statement*: Continue admission for management of hypoxic respite failure following severe COVID-19. Coding Level of Care Code Acute Modern Languages Professor for Chg Fwd Diagnoses ARDS (adult respiratory distress syndrome) J80 Pneumonia due to COVID-19 virus U07.1; J12.82 Pulmonary embolism I26.99 Diabetes E11.9; Z79.4 Diabetes mellitus type: type 2 Diabetes mellitus intermediate insulin use: with intermediate use Diabetes mellitus complication status: without complication Paroxysmal A-fib I48.0 NSTEMI (non-ST elevated myocardial infarction) I21.4 Physical deconditioning R53.81 Protein-energy malnutrition E46
[2021-09-26] MEDS: docusate sodium 100 mg Capsule 200 MG PO (09:47)
[2021-09-26] MEDS: tamsulosin 0.4 mg Capsule PO (09:47)
[2021-09-26] MEDS: ferrous gluconate 324 mg Tablet PO ×2 (09:48→18:24)
[2021-09-26] MEDS: metoprolol tartrate 50 mg Tablet PO ×2 (09:48→21:43)
[2021-09-26] MEDS: amiodarone 200 mg Tablet PO (09:48)
[2021-09-26] MEDS: zinc gluconate 50 mg Tablet PO (09:48)
[2021-09-26] MEDS: ascorbic acid 500 mg Tablet 1000 MG PO ×2 (09:48→18:23)
[2021-09-26] MEDS: aspirin 81 mg EC Tablet PO (09:48)
[2021-09-26] MEDS: nystatin 100,000 unit/mL UDC 5 mL 200000 UNIT PO ×4 (09:49→21:43)
[2021-09-26] MEDS: pantoprazole 40 mg SDV IVP (09:49)
[2021-09-26] MEDS: benzonatate 100 mg Capsule PO ×3 (09:49→21:43)
[2021-09-26] MEDS: amlodipine 5 mg Tablet PO (09:49)
[2021-09-26 11:20] LABS: Glucose Point of Care 126 mg/dL (70-110)
[2021-09-26 18:06] LABS: Glucose Point of Care 186 mg/dL (70-110)
[2021-09-26] MEDS: insulin lispro 100 unit/1 mL SUBCUT ×2 (18:24→21:43)
[2021-09-26 20:12] LABS: C Reactive Protein 9.9 mg/L (0.0-4.9)
[2021-09-26 20:36] LABS: Glucose Point of Care 175 mg/dL (70-110)
[2021-09-26] MEDS: atorvastatin 40 mg Tablet PO (21:43)
[2021-09-27] VITALS (55 sets, daily range): BP systolic 90–124; BP diastolic 54–75; PULSE 77–102; RESP 19–44; TEMP 36.6–36.8; O2SAT 79–94
[2021-09-27] MEDS: enoxaparin 100 mg/mL Syringe 90 MG SUBCUT ×2 (01:11→14:00)
[2021-09-27] MEDS: ipratropium-albuterol 3 mL Neb INHALATION ×6 (03:00→23:59)
[2021-09-27 04:18] LABS: Basophils % 0.2 %; Eosinophils # 1.2 10^3/uL (0.0-0.8); Eosinophils % 7.1 %; Hematocrit 38.2 % (42.0-52.0); Hemoglobin 12.7 g/dL (11.7-16.6); Lymphocytes # 0.6 10^3/uL (0.8-4.8); Lymphocytes % 3.6 %; Mean Corpuscular HGB Conc 33.2 g/dL (30.0-36.0); Mean Corpuscular Hemoglobin 30.9 pg (28.0-34.0); Mean Corpuscular Volume 92.9 fl (80-94); Mean Platelet Volume 12.8 fL (7.4-10.4); Monocytes # 0.4 10^3/uL (0.2-0.9); Neutrophils # 14.76 10^3/uL (1.8-7.7); Neutrophils % 86.1 %; Nucleated Red Blood Cells % 0 %; Platelet Count 121 10^3/cmm (130-400); Red Blood Count 4.11 10^6/uL (4.1-5.3); Red Cell Distribution Width 13.5 % (12.1-15.1); White Blood Count 17.2 10^3/uL (4.0-10.0)
[2021-09-27 04:33] LABS: Alanine Aminotransferase 40 U/L (0-41); Albumin Level 2.7 g/dL (3.5-5.2); Alkaline Phosphatase 189 IU/L (40-130); Aspartate Amino Transferase 56 U/L (0-40); Blood Urea Nitrogen 30 mg/dL (8-23); Calcium 8.2 mg/dL (8.5-10.5); Carbon Dioxide 27 mmol/L (22-29); Chloride 99 mmol/L (98-107); Globulin 2.6 g/dL (1.3-4.6); Glomerular Filtration Rate 169.6 mL/min (90-130); Glucose 79 mg/dL (65-115); Osmolality Calculated 289 mOsm/kg (285-295); Sodium 137 mmol/L (136-145); Total Protein 5.3 g/dL (6.6-8.7)
[2021-09-27 05:46] LABS: Glucose Point of Care 104 mg/dL (70-110)
[2021-09-27] MEDS: budesonide 0.5 mg/2 mL Neb INHALATION ×2 (07:36→20:33)
--- NOTE | 2021-09-27 07:52 | PC.NURSE ---
Patient's oxygen saturation hovered in the upper 70's this morning. He was asked again, if the situation warranted more drastic action, if he wanted to be intubated. He said firmly no. I called Missy from respiratory to come take a look at him and also Dr. Walton to see if he had any ideas on how we could help his oxygenation go up. There were no new orders received from Dr. Walton. We had the patient turn on his right side, which helped his oxygenation go back up to 90%. The blood pressure and heart rate remained within normal limits.
--- NOTE | 2021-09-27 08:18 | XRR_ITS ---
PROCEDURE INFORMATION: Exam: XR Chest Exam date and time: 09/27/2021 8:18 AM Age: 61 years old Clinical indication: Condition or disease; Other: , Leukocytosis; Additional info: Follow up, leukocytosis TECHNIQUE: Imaging protocol: XR of the chest. Views: 1 view. COMPARISON: CR (CHEST, ) 09/23/2021 5:53 AM FINDINGS: Lungs: Persistent bilateral airspace opacities. No large pleural effusion or pneumothorax. Pleural spaces: See Lungs finding. Heart/Mediastinum: Stable cardiomediastinal silhouette. Bones/joints: No acute osseous injury identified. XR/XR chest 1V portable [id number] IMPRESSION: Persistent bilateral airspace opacities. Radiation Dose CTDIVOL = (mGy): DLP = (mGy-cm)
[2021-09-27] MEDS: nystatin 100,000 unit/mL UDC 5 mL 200000 UNIT PO ×3 (09:41→22:15)
[2021-09-27] MEDS: aspirin 81 mg EC Tablet PO (09:41)
[2021-09-27] MEDS: amlodipine 5 mg Tablet PO (09:41)
[2021-09-27] MEDS: ascorbic acid 500 mg Tablet 1000 MG PO (09:41)
[2021-09-27] MEDS: ferrous gluconate 324 mg Tablet PO (09:42)
[2021-09-27] MEDS: benzonatate 100 mg Capsule PO ×2 (09:42→14:00)
[2021-09-27] MEDS: amiodarone 200 mg Tablet PO (09:42)
[2021-09-27] MEDS: dexamethasone 10 mg/mL INJ 3 MG IVP (09:42)
[2021-09-27] MEDS: zinc gluconate 50 mg Tablet PO (09:42)
[2021-09-27] MEDS: pantoprazole 40 mg SDV IVP (09:42)
[2021-09-27] MEDS: tamsulosin 0.4 mg Capsule PO (09:42)
[2021-09-27] MEDS: metoprolol tartrate 50 mg Tablet PO ×2 (09:43→22:15)
--- NOTE | 2021-09-27 09:59 | PC.CHAP ---
Pastoral Care Encounter/Spiritual Assessment Type of Contact [] Declined factory representative visit [] Patient/Family/Request visit [] Outpatient visit [] Follow-up visit [] Physician referral [] Code/Alert [x] Routine visit [] Staff referral [] Actively dying [] Patient sleeping [] Family support [] [] Out of room [] Palliative care [] [x] Receiving care in room [] Pre-surgical visit [] Trauma [] Long length of stay [x] ICU visit [x] Other: staff placing patient in chair Relational/Emotional Strength [] Patient feels connected with others/family/visitors/staff [] Distress [] Loneliness/isolation [] Abandonment Spirituality of Patient [] Person of Rachel [] Attends Adventism of their Rachel [] Believes in Prayer [] Reads Bible or Restorationism materials [] There are Spiritual issues to be addressed 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 [x] Prayer [] Active listening [] Non-anxious presence [] Spiritual/emotional support [] Crisis/trauma care [] Spiritual counseling [] Bereavement support [] Provided bereavement packet [] Provided Bible/devotional materials [] Provided toy/stuffed animal, coloring book to patient or family member [] Provided Communion [] Anointing/[place] [] Salvation [x] Completed spiritual assessment [] Other: Impact on Illness or Injury [] Angry [] Fearful [] Anxious [] Often cries [] Exhaustion [] Unable to work [] Unable to attend anabaptist [] Unable to walk/stand [] Unable to read [] Unable to drive [] Unable to eat/drink [] Unable to sleep [] Unable to be with family [] Patient intubated [] Other: Summary Time spent with patient
[2021-09-27 11:31] LABS: Glucose Point of Care 199 mg/dL (70-110)
[2021-09-27] MEDS: insulin lispro 100 unit/1 mL SUBCUT ×2 (11:36→17:41)
--- NOTE | 2021-09-27 14:55 | P.PN_ITS ---
Subjective Subjective: Interval history: States overall he is doing all right. Denies any complaints. Not coughing. No chest pain or pressure. No nausea vomiting or diarrhea. Desaturating easily with exertion. On 100% BiPAP. Discussed with him need for persistent high level oxygen support. We discussed also consideration of tracheostomy should he be a candidate, to see whether that some thing that may be acceptable to him. He stated would like to give it consideration, discuss further with his mother. Discussed additionally subsequently on the request with his mother, and then his . We discussed that tracheostomy would not reverse the lung injury he is currently suffering fr om. May benefit him with not having to have BiPAP mask over his face, allowing easier mobility and oral intake. Discussed procedures of would carry risk given need for intubation, and again does not guarantee that his overall condition would improve. They verbalized understanding. Vitals/I&O/Wt Last Vital Signs Temp 97.8 F 09/27/21 04:00 Pulse 79 09/27/21 12:18 Resp 24 H 09/27/21 12:18 BP 106/67 09/27/21 08:00 Pulse Ox 94 09/27/21 12:18 09/26/21 09/27/21 09/27/21 22:59 06:59 14:59 Intake Total 220 / 520 Output Total 475 / 475 275 / 750 Balance -255 / 45 -275 / -230 Weight last 48 hrs Weight 87.345 kg Physical Exam Narrative: EXAM NARRATIVE: Just moved up to the chair. Const: COMMON NORMALS: no acute distress and alert GENERAL APPEARANCE: cooperative and frail appearing ORIENTATION/CONSCIOUSNESS: Yes awake OTHER: weak. HENMT: COMMON NORMALS: oropharynx normal Neck/C-Spine: COMMON NORMALS: no JVD Resp: COMMON NORMALS: clear to auscultation bilaterally AUSCULTATION: clear to auscultation bilaterally Cardio: COMMON NORMALS: no JVD, regular rhythm, S1 normal heart sound present, S2 normal heart sound present and No murmurs present (Cardio) RHYTHM: regular rhythm HEART SOUNDS: S1 normal heart sound present and S2 normal heart sound present Extremity: COMMON NORMALS: no joint enlargement and no pedal edema GENERAL: Yes edema (trace at ankles) Neuro: SENSORIUM/ORIENTATION: Yes alert Skin: COMMON NORMALS: no rashes or lesions noted GENERAL SKIN EXAM: no rashes or lesions noted Urinary Catheter Management^: Yi Latex: Cath Placed During This Visit: yes, but has since been removed by the nurse Reason for Continuing Indwelling Catheter: Accurate Measurement of Urinary Output in Critically Ill Patients Urinary Catheter Date of Insertion: 09/22/21 Urinary Catheter Time of Insertion: 15:10 Date Urinary Catheter Removed: 09/22/21 Time Urinary Catheter Discontinued: 15:05 Data : 09/27/21 03:13 09/27/21 03:13 A&P Assessment and plan (1) ARDS (adult respiratory distress syndrome): Continue BiPAP support, if tolerating, heated high flow cannula with nonrebreather over the top as needed. If becomes candidate, would consider involving ENT once available on Saturday for consideration of tracheostomy. Cut down Decadron to 3 mg. Dysphagia diet. Fluids upgraded to honey consistency on speech reevaluation. Continue aspiration precautions. Appetite had been increasing. Continue breathing treatments, supportive care. Status: Acute (2) Pneumonia due to COVID-19 virus: Status: Acute (3) Pulmonary embolism: Lovenox. PE despite being on Eliquis. Status: Acute (4) Diabetes: HbA1c 7.4. Continue with insulin sliding scale at moderate dose protocol. If his blood sugars are rising up can add longstanding insulins. Status: Acute Qualifiers: Diabetes mellitus type: type 2 Diabetes mellitus senior care insulin use: with senior care use Diabetes mellitus complication status: without complication Qualified Code(s): E11.9 - Type 2 diabetes mellitus without complications; Z79.4 - intermediate designer (current) use of insulin (5) Paroxysmal A-fib: Status: Acute (6) NSTEMI (non-ST elevated myocardial infarction): -Baseline troponin 154, 6-hour 140, delta -13.[address]-T wave changes, no complaints of chest pain -Likely related to Covid related myocarditis -Cannot rule out underlying cardiac etiology given history of type 2 diabetes mellitus -Continue aspirin, statin -Eliquis, metoprolol -Serial EKGs, serial troponins, telemetry monitoring - LV systolic function is normal with EF of 55-60% Normal diastolic function Trace mitral regurgitation No comparison studies available -Monitor for chest pain -Consult cardiology, medical management for now, outpatient stress testing Status: Ruled-out (7) Physical deconditioning: Status: Acute (8) Protein-energy malnutrition: Status: Acute Additional A&P Information DC central line 09/25 Paroxysmal A. fib: Rate controlled currently. Amiodarone 200 mg daily, metoprolol 50 mg twice daily Hypertension: Goal blood pressure less than 140/90 mmHg. Continue with metoprolol as above and amlodipine 5 mg daily. Protein energy malnutrition: Patient has had poor oral intake during this hospitalization due to intubated and post intubated status and currently has BiPAP dependent. Appetite improving. Attestations Medical Necessity Statement*: Continue admission for assessment and management of hypoxic respiratory failure following severe COVID-19. Coding Level of Care Code Acute Manager Telemetry for [facility] Fwd Diagnoses ARDS (adult respiratory distress syndrome) J80 Pneumonia due to COVID-19 virus U07.1; J12.82 Pulmonary embolism I26.99 Diabetes E11.9; Z79.4 Diabetes mellitus type: type 2 Diabetes mellitus terminal make up operator insulin use: with senior care use Diabetes mellitus complication status: without complication Paroxysmal A-fib I48.0 NSTEMI (non-ST elevated myocardial infarction) I21.4 Physical deconditioning R53.81 Protein-energy malnutrition E46
[2021-09-27] MEDS: LORazepam 2 mg/mL INJ 1 mL 0.5 MG IVP (15:55)
[2021-09-27] MEDS: dexamethasone 4 mg/mL INJ 3 MG IVP (15:58)
[2021-09-27] MEDS: piperacillin-tazobactam 3.375 GM in sodium chloride 0.9% (plus) 50 ML IV (16:46)
[2021-09-27 17:18] LABS: Glucose Point of Care 259 mg/dL (70-110)
[2021-09-27] MEDS: morphine 4 mg/mL SDV 1 mL 1 MG IVP (18:15)
--- NOTE | 2021-09-27 18:30 | PC.NURSE ---
Shift Note Frequent safety and comfort rounds continue. Orders and nursing care completed as indicated. Pt up to a chair this am, requiring 100% O2 on BIPAP. Patient ate very little today due to the importance of oxygen administration, pt verbalized understanding. Patient began to desat into the lower 80s around 1545. Dr. Cui aware, orders to given one time order ativan and decadron. After about 30mins post medication administration patient stated firmly that he wanted the BIPAP mask off and attempted to remove mask himself serval times. Risk of BIPAP removal was explained by this nurse, patient verbalized understanding. again notified and reported to bedside. Dr. Cui explained risk of BiPap removal and address patient's wishes. Suspicion of AMS due to low O2 and ativan administration was addressed with this nurse and patient. was called by Dr. Cui, see report. Pt started on Precedex drip and returned back to bed with help of other staff. Patient's mother and two sisters were called and invited to visit at bedside. Patient monitored for response to intervention and treatments. Education provided includes new medications, frequent position changes and importances of oxygen safety and administration. Patient and family verbalized understanding. Will continue to monitor.
[2021-09-27] MEDS: atorvastatin 40 mg Tablet PO (22:13)
[2021-09-27] MEDS: linezolid premix 600 MG/300 ML PREMIX 300 MG IV (22:14)
[2021-09-27 22:43] LABS: Glucose Point of Care 115 mg/dL (70-110)
[2021-09-28] VITALS (30 sets, daily range): BP systolic 0–124; BP diastolic 0–76; PULSE 0–93; RESP 0–41; TEMP 36.6–36.9; O2SAT 0–94; BMI 27.5
[2021-09-28] MEDS: piperacillin-tazobactam 3.375 GM in sodium chloride 0.9% (plus) 50 ML IV (02:31)
[2021-09-28] MEDS: enoxaparin 100 mg/mL Syringe 90 MG SUBCUT (02:32)
[2021-09-28] MEDS: ipratropium-albuterol 3 mL Neb INHALATION ×2 (03:39→08:36)
[2021-09-28] MEDS: dexmedetomidine 400 MCG in sodium chloride 0.9% (100 ml) 100 ML 9.08 MCG IV (04:26)
[2021-09-28 06:28] LABS: Glucose Point of Care 209 mg/dL (70-110)
[2021-09-28 06:38] LABS: Basophils # 0.1 10^3/uL (0.0-0.1); Basophils % 0.4 %; Eosinophils # 0.2 10^3/uL (0.0-0.8); Eosinophils % 2.1 %; Hematocrit 39.9 % (42.0-52.0); Hemoglobin 12.5 g/dL (11.7-16.6); Lymphocytes # 0.4 10^3/uL (0.8-4.8); Lymphocytes % 3.2 %; Mean Corpuscular HGB Conc 31.3 g/dL (30.0-36.0); Mean Corpuscular Hemoglobin 31.4 pg (28.0-34.0); Mean Corpuscular Volume 100.3 fl (80-94); Monocytes # 0.4 10^3/uL (0.2-0.9); Monocytes % 3.1 %; Neutrophils % 90.8 %; Nucleated Red Blood Cells % 0 %; Platelet Count 103 10^3/cmm (130-400); Red Blood Count 3.98 10^6/uL (4.1-5.3); Red Cell Distribution Width 13.7 % (12.1-15.1); White Blood Count 11.1 10^3/uL (4.0-10.0)
[2021-09-28] MEDS: insulin lispro 100 unit/1 mL SUBCUT (06:40)
[2021-09-28] MEDS: insulin glargine 100 units/1 mL 10 UNIT SUBCUT (06:41)
[2021-09-28 06:46] LABS: Alanine Aminotransferase 33 U/L (0-41); Albumin Level 2.4 g/dL (3.5-5.2); Alkaline Phosphatase 145 IU/L (40-130); Aspartate Amino Transferase 46 U/L (0-40); Blood Urea Nitrogen 34 mg/dL (8-23); Calcium 7.8 mg/dL (8.5-10.5); Carbon Dioxide 21 mmol/L (22-29); Chloride 98 mmol/L (98-107); Globulin 2.5 g/dL (1.3-4.6); Glomerular Filtration Rate 169.6 mL/min (90-130); Glucose 197 mg/dL (65-115); Osmolality Calculated 289 mOsm/kg (285-295); Sodium 133 mmol/L (136-145); Total Bilirubin 1.2 mg/dL (0.15-1.2); Total Protein 4.9 g/dL (6.6-8.7)
[2021-09-28 06:57] LABS: Anion Gap 18.5 (5-19); Potassium 4.5 mmol/L (3.5-5.1)
--- NOTE | 2021-09-28 07:09 | PC.NURSE ---
There were no significant changes that occurred during the shift. The patient remains on the BiPAP at 100%. Urine output was approximately 605 mL. Some of the family has been at the bedside since yesterday afternoon.
[2021-09-28] MEDS: budesonide 0.5 mg/2 mL Neb INHALATION (08:36)
--- NOTE | 2021-09-28 08:54 | PM.PN ---
Subjective Subjective: Interval history: Last night with worsening respiratory distress, becoming very uneasy, confused, repeatedly requesting to remove his mask. Discussing with him that if this was done he would pass away, requests only for a couple of hours . However, per discussion with his family, reportedly had told his mother earlier in the day that he would not survive his condition. Discussed with family last night with respirations in the 40s, saturations in the low 80s to high 70s, very high risk that he would pass away soon. As per discussion escalated additional comfort measures with addition of Ativan, morphine, Precedex drip. He was visited by his mother. His unfortunately has Covid herself and unable to leave her home. This morning he denied pain or discomfort to me, but later pulled off his BiPAP mask, desaturated immediately and became severely bradycardic. Vitals/I&O/Wt Last Vital Signs Temp 98.4 F 09/28/21 04:00 Pulse 85 09/28/21 08:51 Resp 31 H 09/28/21 08:37 BP 124/68 09/28/21 07:30 Pulse Ox 94 09/28/21 08:39 09/27/21 09/28/21 09/28/21 22:59 06:59 14:59 Intake Total 170 / 170 300 / 470 Output Total 605 / 605 Balance 170 / 170 -305 / -135 Weight last 48 hrs Weight 87.09 kg Physical Exam Const: COMMON NORMALS: no acute distress and alert GENERAL APPEARANCE: cooperative and frail appearing ORIENTATION/CONSCIOUSNESS: Yes awake OTHER: weak. HENMT: COMMON NORMALS: oropharynx normal Neck/C-Spine: COMMON NORMALS: no JVD Resp: COMMON NORMALS: clear to auscultation bilaterally AUSCULTATION: clear to auscultation bilaterally Cardio: COMMON NORMALS: no JVD, regular rhythm, S1 normal heart sound present, S2 normal heart sound present and No murmurs present (Cardio) RHYTHM: regular rhythm HEART SOUNDS: S1 normal heart sound present and S2 normal heart sound present Extremity: COMMON NORMALS: no joint enlargement and no pedal edema GENERAL: Yes edema (trace at ankles) Neuro: SENSORIUM/ORIENTATION: Yes alert Skin: COMMON NORMALS: no rashes or lesions noted GENERAL SKIN EXAM: no rashes or lesions noted Urinary Catheter Management^: Yi Latex: Cath Placed During This Visit: yes, but has since been removed by the nurse Reason for Continuing Indwelling Catheter: Accurate Measurement of Urinary Output in Critically Ill Patients Urinary Catheter Date of Insertion: 09/22/21 Urinary Catheter Time of Insertion: 15:10 Date Urinary Catheter Removed: 09/22/21 Time Urinary Catheter Discontinued: 15:05 Data : 09/28/21 06:05 09/28/21 06:05 A&P Assessment and plan (1) ARDS (adult respiratory distress syndrome): With persistently deteriorating condition, with worsening respiratory distress last night, with him not wanting to continue BiPAP, on a number of discussions with his and mother, consensus is been to escalate comfort care, this was initiated yesterday, and on additional discussion is transitioning to full comfort measures today. Status: Acute (2) Pneumonia due to COVID-19 virus: Status: Acute (3) Pulmonary embolism: Lovenox. PE despite being on Eliquis. Status: Acute (4) Diabetes: HbA1c 7.4. Continue with insulin sliding scale at moderate dose protocol. If his blood sugars are rising up can add longstanding insulins. 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 (current) use of insulin (5) Paroxysmal A-fib: Status: Acute (6) NSTEMI (non-ST elevated myocardial infarction): -Baseline troponin 154, 6-hour 140, delta -13.[address]-T wave changes, no complaints of chest pain -Likely related to Covid related myocarditis -Cannot rule out underlying cardiac etiology given history of type 2 diabetes mellitus -Continue aspirin, statin -Eliquis, metoprolol -Serial EKGs, serial troponins, telemetry monitoring - LV systolic function is normal with EF of 55-60% Normal diastolic function Trace mitral regurgitation No comparison studies available -Monitor for chest pain -Consult cardiology, medical management for now, outpatient stress testing Status: Ruled-out (7) Physical deconditioning: Status: Acute (8) Protein-energy malnutrition: Status: Acute Additional A&P Information DC central line 09/25 Paroxysmal A. fib: Rate controlled currently. Amiodarone 200 mg daily, metoprolol 50 mg twice daily Hypertension: Goal blood pressure less than 140/90 mmHg. Continue with metoprolol as above and amlodipine 5 mg daily. Protein energy malnutrition: Patient has had poor oral intake during this hospitalization due to intubated and post intubated status and currently has BiPAP dependent. Appetite improving. Attestations Medical Necessity Statement*: Transitioning to comfort care. Coding Level of Care Code Acute Nurse for g Fwd Exam Detailed Diagnoses ARDS (adult respiratory distress syndrome) J80 Pneumonia due to COVID-19 virus U07.1; J12.82 Pulmonary embolism I26.99 Diabetes E11.9; Z79.4 Diabetes mellitus complication status: without complication Diabetes mellitus brush loader and handle attacher insulin use: with mcc use Diabetes mellitus type: type 2 Paroxysmal A-fib I48.0 NSTEMI (non-ST elevated myocardial infarction) I21.4 Physical deconditioning R53.81 Protein-energy malnutrition E46
[2021-09-28] MEDS: pantoprazole 40 mg SDV IVP (09:08)
[2021-09-28] MEDS: morphine 4 mg/mL SDV 1 mL 1 MG IVP (09:08)
--- NOTE | 2021-09-28 10:26 | PC.OT ---
PATIENT IS BEING DISCHARGED FROM OT SERVICES, PER NURSING, HE HAS BEEN PUT ON COMFORT CARE. HE IS NOT SKILLABLE, AND OT IS NO LONGER APPROPRIATE.
--- NOTE | 2021-09-28 10:28 | PC.NURSE ---
0915 [facility] notified: Spoke with Stephanie from [facility], pt is not a candidate for donation. Pt's sister Karen signed body transfer to [facility]. [facility] notified.
--- NOTE | 2021-09-28 10:41 | PC.NURSE ---
Comfort care measured ordered this am. Isiah reported to bedside. Pt taken off BIPAP and placed on NC by RT per comfort orders. PRN medication administered as ordered. Mr. Dewey heart stopped at 0954. This nurse took 60sec apical pulse to confirm no pulse. Family signed body release to [facility] notified, Pt not candidate for organ donation Physician and housesuperviser notified. Post mortem care performed on patient with assistance of other nursing staff.
--- NOTE | 2021-09-28 18:50 | PM.DDS ---
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: with detention use Diabetes mellitus complication status: without complication Qualified Code(s): E11.9 - Type 2 diabetes mellitus without complications; Z79.4 - FDC (current) use of insulin (5) Paroxysmal A-fib: (6) NSTEMI (non-ST elevated myocardial infarction): (7) Physical deconditioning: (8) Protein-energy malnutrition: Reason for Visit Reason for Visit: AFIB SATURDAY, SYNCOPAL EPISODE TODAY/SATURDAY Summary Summary Summary: Very pleasant 61-year-old gentleman with history of diabetes, hyperlipidemia, hypothyroidism, without vaccination for COVID-19, originally presented to ER for evaluation on September 01 with concerns for allergic reaction after receiving injection in his eyes. Underwent stroke work-up at that time, with CT picking up groundglass opacities in the upper lungs. Also noted to have atrial fibrillation. Left the hospital with metoprolol, Valtrex 1, COVID-19 antigen and eventually PCR both negative. Presented to emergency department again on September 05 with nausea, weakness, fatigue, poor appetite and diarrhea. Tested positive for COVID-19, at the time not requiring oxygen. Was treated for atrial fibrillation with plan to discharge home on September. Chest x-ray showing bilateral infiltrates. CT angiogram chest 09/05 did not reveal PE. Multilobar groundglass opacity noted. Lower extremity duplex study negative on 09/07. Prior to discharge developed worsening hypoxia, worsening bilateral infiltrates on repeat chest x-ray. He initially wanted to go home, declined treatment. However, suffered progressive decline in respiratory status, progressing to severe hypoxia requiring 100% oxygen by high flow cannula with saturations into 80s. Agreed to stay and receive treatment. Was treated with remdesivir, Decadron, baricitinib. Broadly covered with antibiotics. Required intubation, initially requesting DO NOT INTUBATE, however, subsequently after discussion changed his status to full code, was intubated, received mechanical ventilatory support, received Actemra. Support with sedation, paralytics, underwent proning. On Eliquis, Toprol for atrial fibrillation. Elevated troponins noted secondary to COVID-19, was seen by cardiology, recommendation of medical management. Oxygenation initially improved, was extubated, with severe generalized weakness, episodes of microaspiration, requiring speech therapy, dysphagia diet. After extubation with worsening oxygenation, high oxygen requirement, difficulties with oral intake. Declined consideration of feeding tube. With worsening in oxygenation, he clarified that he would not want reintubation and mechanical ventilation again. With increased oxygen requirement was additionally assessed and found to have PE on CTA 09/18 despite being on Eliquis, right middle lobe segmental to subsegmental as well as several right lower lobe subsegmental emboli. No right heart strain. No DVT on venous duplex. Anticoagulation switched to Lovenox. Microbiologic work-up with negative MRSA PCR, negative blood cultures, negative urine bacterial antigens. Negative repeat blood cultures. Was de-escalate of antibiotics, eventually escalated off steroid. Continued attempts at mobilization. Appetite was showing some improvement. Episodes of A. fib with RVR controlled with amiodarone. However, hypoxia progressively getting worse. Eventually unable to wean off BiPAP. Unable to maintain saturation with high flow cannula or other modalities. Not wanting intubation. Respiratory function decompensated further culminating with tachypnea up into 30s-40s, desaturation progressing down into mid to low 80s and high 70s despite maximal BiPAP support on 09/27. No overt aspiration noted. No interruption in anticoagulation. Chest x-ray repeated with persistent bilateral infiltrates. Due to worsening condition, leukocytosis empirically resumed on antibiotic coverage. Steroid. With additional decompensation, repeatedly asked to remove BiPAP. Discussing goals of care, was transiently agreeable to continue BiPAP, however, subsequently started to remove the mask himself. With progressive decompensation, inability to tolerate other modalities, and discussion with family decided to initially escalate emphasis on comfort, was started on Ativan, morphine, Precedex drip. Continued with other measures. Had slightly better night, but still with maximal BiPAP support. However, subsequently again not wanting to wear the mask anymore, and then removed it himself, desaturating immediately down into the 60s, became bradycardic into 20s-30s. On additional discussion with the family they felt continuation of aggressive care was no longer congruent with his wishes and with progressively dwindling chances of recovery elected to transition to full comfort care measures. With family at bedside he without distress shortly after discontinuation of noninvasive ventilatory support 9:54 AM. Discharge Plan Discharge Patient Disposition: Condition: Stable DS Attestations Time Spent in /Discharge Care*: greater than 30 min Quality - AMI: AMI present?: No Quality - Stroke: CVA present?: No Quality - VTE: VTE present?: No Coding Level of Care Code Acute Quality Control Microbiologist for [facility] Fwd Diagnoses ARDS (adult respiratory distress syndrome) J80 Pneumonia due to COVID-19 virus U07.1; J12.82 Pulmonary embolism I26.99 Diabetes E11.9; Z79.4 Diabetes mellitus type: type 2 Diabetes mellitus detention insulin use: with detention use Diabetes mellitus complication status: without complication Paroxysmal A-fib I48.0 NSTEMI (non-ST elevated myocardial infarction) I21.4 Physical deconditioning R53.81 Protein-energy malnutrition E46
== END 2021-09-28 11:05 | disposition expired | DRG 208 ==
LOC: ER 17:03 → CSU 09-06 07:06 → ICU 09-08 13:38
PROVIDERS: Internal Medicine; Student in an Organized Health Care Education/Training Program; Admitting Provider Family Medicine; Emergency Provider Emergency Medicine; PCP Family Medicine; Visit Provider Internal Medicine
DX: U07.1 COVID-19 (principal); J12.82 Pneumonia due to coronavirus disease 2019; I40.0 Infective myocarditis; I21.A1 Myocardial infarction type 2; E43 Unspecified severe protein-calorie malnutrition; I26.94 Multiple subsegmental thrombotic pulmonary emboli without acute cor pulmonale; J80 Acute respiratory distress syndrome; E87.1 Hypo-osmolality and hyponatremia; M62.82 Rhabdomyolysis; B97.89 Other viral agents as the cause of diseases classified elsewhere; I48.0 Paroxysmal atrial fibrillation; E11.319 Type 2 diabetes mellitus with unspecified diabetic retinopathy without macular edema; E78.5 Hyperlipidemia, unspecified; E03.9 Hypothyroidism, unspecified; I95.1 Orthostatic hypotension; E86.0 Dehydration; D69.59 Other secondary thrombocytopenia; Z51.5 Encounter for palliative care; Z68.27 Body mass index [BMI] 27.0-27.9, adult
CPT/HCPCS: 36415; 36416; 36569; 36600; 51702; 51798; 70450; 71045; 71275; 80048; 80051; 80053; 80202; 81001; 82330; 82550; 82803; 82805; 82962; 83036; 83540; 83550; 83605; 83735; 83880; 84100; 84145; 84439; 84443; 84484; 85025; 85378; 86140; 86403; 87040; 87086; 87426; 87449; 87641; 87804; 92523; 92526; 92610; 93005; 93306; 93880; 93970; 94002; 94003; 94640; 94660; 94664; 94667; 94799; 96372; 97110; 97112; 97162; 97165; 97530; 97535; A4570; C9113; J0282; J0330; J0360; J0456; J0692; J1100; J1650; J1815 ×2; J1885; J1940; J2020; J2060; J2250; J2270; J2405; J2543; J2704; J3010; J3262; J3370; J3490; J3535; J7030; J7050; J7060; J7626; P9047; Q9967